=== PATIENT | female | born 1955 | race Hispanic/Latino ===

== ENCOUNTER 2017-09-12 13:19 | Emergency (ER) | payer BC ==
[2017-09-12 13:45] VITALS: BP 147/87
--- NOTE | 2017-09-12 19:00 | Emergency Department Report ---
ED Back Pain/Injury HPI - General Chief Complaint: Back Pain/Injury Stated Complaint: BACK PAIN Time Seen by Provider: 09/12/17 18:45 Source: patient Limitations: No Limitations - History of Present Illness Initial Comments: pt is a 62 y/o w/f with hx HTN , COPD, and chronic low back pain who presents for right low back pain radiating to right lateral thigh and buttocks x 4 days pt denies injury fall or trauma, there is no numbness weakness or paralysis there is no loss or decrease in bowel or bladder function ,pain level is 4/10 at this time pain is exacerbated by movement prolonged standing or sitting, pain is relieved by rest, pt has pcp and will see same next week for follow up . MD Complaint: back pain Onset/Timin -: days(s) Similar Symptoms Previously: Yes (this is chronic problem ) Place: home Radiation: buttocks, right leg Severity: moderate Severity scale (0 -10): 4 Quality: burning, aching Consistency: constant Improves With: other (rest ) Worsens With: movement, sitting upright, walking Context: turning/twisting Associated Symptoms: denies: confusion, weakness, numbness, difficulty walking, cough, difficulty urinating, incontinence, fever/chills, constipation, headaches , abdominal pain, loss of appetite, malaise, nausea/vomiting, rash, seizure, shortness of breath, syncope - Related Data Home Medications Medication Instructions Recorded Confirmed Last Taken Lisinopril [Zestril TAB] 40 mg PO DAILY 08/04/13 12/14/14 09/30/13 Previous Rx's Medication Instructions Recorded Last Taken Type LORazepam [Ativan] 1 mg PO QHS #14 tab 07/09/14 Unknown Rx Paroxetine HCl [Paxil] 10 mg PO QDAY #30 bottle 09/14/14 Unknown Rx Ciprofloxacin HCl [Ciprofloxacin 500 mg PO BID #20 tablet 08/12/16 Unknown Rx TAB] metroNIDAZOLE [Flagyl] 500 mg PO Q12HR #20 tab 08/12/16 Unknown Rx traMADol [Ultram 50 MG tab] 50 mg PO Q6HR PRN #20 tablet 08/12/16 Unknown Rx Azithromycin [Zithromax] 250 mg PO DAILY #6 tablet 01/23/17 Unknown Rx Benzonatate [Tessalon Perles] 100 mg PO Q8HR #14 capsule 03/04/17 Unknown Rx Prednisone [predniSONE 10 mg 10 mg PO .TAPER #1 tab.ds.pk 01/23/17 Unknown Rx (6-Day Pack, 21 Tabs)] traMADol [Ultram 50 MG tab] 50 mg PO Q6HR PRN #20 tablet 01/23/17 Unknown Rx Acetaminophen 1,000 mg PO TID PRN #60 tablet 09/12/17 Unknown Rx Cyclobenzaprine [Flexeril] 10 mg PO BID PRN #30 tablet 09/12/17 Unknown Rx Diclofenac Sodium [Voltaren] 100 gm TP TID PRN #1 tube 09/12/17 Unknown Rx Allergies Allergy/AdvReac Type Severity Reaction Status Date / Time codeine Allergy Vomiting Verified 09/14/14 19:19 Penicillins Allergy Hives Verified 09/14/14 19:19 ED Review of Systems ROS: Stated complaint: BACK PAIN Other details as noted in HPI Constitutional: denies: chills, fever Eyes: denies: eye pain, eye discharge, vision change ENT: denies: ear pain, throat pain Respiratory: denies: cough, shortness of breath, wheezing Endocrine: no symptoms reported Gastrointestinal: denies: abdominal pain, nausea, diarrhea Genitourinary: as per HPI Musculoskeletal: back pain, arthralgia, myalgia Skin: denies: rash, lesions Neurological: denies: headache, weakness, paresthesias, abnormal gait, vertigo Psychiatric: denies: anxiety, depression Hematological/Lymphatic: denies: easy bleeding, easy bruising ED Past Medical Hx - Past Medical History Hx Hypertension: Yes Hx COPD: Yes - Surgical History Hx Appendectomy: Yes Additional Surgical History: neck surgery, neck fracture, hysterectomy - Social History Smoking Status: Never Smoker Substance Use Type: None - Medications Home Medications: Home Medications Medication Instructions Recorded Confirmed Last Taken Type Lisinopril [Zestril TAB] 40 mg PO DAILY 08/04/13 12/14/14 09/30/13 History LORazepam [Ativan] 1 mg PO QHS #14 tab 07/09/14 12/14/14 Unknown Rx Paroxetine HCl [Paxil] 10 mg PO QDAY #30 bottle 09/14/14 12/14/14 Unknown Rx Ciprofloxacin HCl [Ciprofloxacin 500 mg PO BID #20 tablet 08/12/16 Unknown Rx TAB] metroNIDAZOLE [Flagyl] 500 mg PO Q12HR #20 tab 08/12/16 Unknown Rx traMADol [Ultram 50 MG tab] 50 mg PO Q6HR PRN #20 tablet 08/12/16 Unknown Rx Azithromycin [Zithromax] 250 mg PO DAILY #6 tablet 01/23/17 Unknown Rx Benzonatate [Tessalon Perles] 100 mg PO Q8HR #14 capsule 01/23/17 Unknown Rx Prednisone [predniSONE 10 mg 10 mg PO .TAPER #1 tab.ds.pk 01/23/17 Unknown Rx (6-Day Pack, 21 Tabs)] traMADol [Ultram 50 MG tab] 50 mg PO Q6HR PRN #20 tablet 01/23/17 Unknown Rx Acetaminophen 1,000 mg PO TID PRN #60 tablet 09/12/17 Unknown Rx Cyclobenzaprine [Flexeril] 10 mg PO BID PRN #30 tablet 09/12/17 Unknown Rx Diclofenac Sodium [Voltaren] 100 gm TP TID PRN #1 tube 09/12/17 Unknown Rx ED Physical Exam - General Limitations: No Limitations General appearance: alert, in no apparent distress - Head Head exam: Present: atraumatic, normocephalic - Eye Eye exam: Present: normal appearance - ENT ENT exam: Present: mucous membranes moist - Neck Neck exam: Present: normal inspection - Respiratory Respiratory exam: Present: normal lung sounds bilaterally - Cardiovascular Cardiovascular Exam: Present: regular rate, normal rhythm. Absent: systolic murmur, diastolic murmur, rubs, gallop - GI/Abdominal GI/Abdominal exam: Present: soft, normal bowel sounds - Rectal Rectal exam: Present: deferred - Extremities Exam Extremities exam: Present: full ROM, tenderness (right sciatic notch ), normal capillary refill. Absent: pedal edema, joint swelling, calf tenderness - Expanded Lower Extremity Exam Right Hip exam: Present: full ROM. Absent: tenderness Knee exam: Present: normal inspection, full ROM Lower Leg exam: Present: normal inspection, full ROM Ankle exam: Present: normal inspection, full ROM Foot/Toe exam: Present: normal inspection, full ROM Neuro vascular tendon exam: Present: no vascular compromise. Absent: pulse deficit, abnormal cap refill, motor deficit, sensory deficit, tendon deficit, extremity cold to touch, pallor, abnormal 2-point discrimination, decreased fine /light touch, foot drop, peroneal nerve deficit, significant pain with passive ROM of distal joint Gait: Positive: observed and normal - Back Exam Back exam: Present: full ROM, tenderness (right sciatic notch tenderness to deep palpation no posterior vertebral point tenderness no paraspinus muscle tenderness rom intact unrestricted, pos straight let raise right ), muscle spasm. Absent: CVA tenderness (R), CVA tenderness (L), paraspinal tenderness, vertebral tenderness, rash noted - Expanded Back Exam Expanded Back exam: Absent: saddle anesthesia Back exam: Sciatic Notch Tenderness: Right, Positive Straight Leg Raise: Right, Negative Straight Leg Raising: Left - Neurological Exam Neurological exam: Present: alert, oriented X3, CN II-XII intact, normal gait, reflexes normal. Absent: motor sensory deficit - Expanded Neurological Exam Expanded Patient oriented to: Present: person, place, time Speech: Present: fluid speech Sensory exam: Upper Extremity Light Touch: Normal, Upper Extremity Pin Prick: Normal, Upper Extremity Temperature: Normal, UE 2 Point Discrimination: Normal, Lower Extremity Light Touch: Normal, Lower Extremity Pin Prick: Normal, Lower Extremity Temperature: Normal, LE 2 Point Discrimination: Normal Motor strength exam: RUE: 5, LUE: 5, RLE: 5, LLE: 5 DTR: bicep (R): 2+, bicep (L): 2+, tricep (R): 2+, tricep (L): 2+, knee (R): 2+ , knee (L): 2+, ankle (R): 2+, ankle (L): 2+ Best Eye Response (Mcgrann): (4) open spontaneously Best Motor Response (Joel): (6) obeys commands Best Verbal Response (Mcgrann): (5) oriented Joel Total: 15 - Psychiatric Psychiatric exam: Present: normal affect, normal mood - Skin Skin exam: Present: warm, dry, intact, normal color. Absent: rash ED Course Vital Signs 09/12/17 13:40 Temperature 98.5 F Pulse Rate 64 Respiratory 20 Rate Blood Pressure 147/87 O2 Sat by Pulse 97 Oximetry ED Medical Decision Making - Medical Decision Making pt is a 62 y/o w/f with hx HTN , COPD, and chronic low back pain who presents for right low back pain radiating to right lateral thigh and buttocks x 4 days pt denies injury fall or trauma, there is no numbness weakness or paralysis there is no loss or decrease in bowel or bladder function ,pain level is 4/10 at this time pain is exacerbated by movement prolonged standing or sitting, pain is relieved by rest, pt has pcp and will see same next week for follow up , exam: pt is a/o x 3 ambulatory gait steady no deformity no weaknes no ecchymosis no posterior vertebral point tenderness no numbness no tingling no paralysis no decrease bowel or bladder function , pain is improved with toradol and flexeril given in ED , will dc to self with rx for tylenol, voltaren gel, flexeril, moist heat therapy, back exercises pt will follow up with primary care doctor in 3 days as scheduled or return to emergency if symptoms worsen pt verballized agreement and understanding of discharge plan. Critical care attestation.: If time is entered above; I have spent that time in minutes in the direct care of this critically ill patient, excluding procedure time. ED Disposition Clinical Impression: Low back strain Qualifiers: Encounter type: initial encounter Qualified Code(s): S39.012A - Strain of muscle, fascia and tendon of lower back, initial encounter Sciatica Qualifiers: Laterality: right Qualified Code(s): M54.31 - Sciatica, right side Disposition: DC-01 TO HOME OR SELFCARE Is pt being admited?: No Does the pt Need Aspirin: No Condition: Good Instructions: Low Back Strain (ED), Core Strengthening Exercises (GEN) Prescriptions: Acetaminophen 1,000 mg PO TID PRN #60 tablet PRN Reason: Pain Cyclobenzaprine [Flexeril] 10 mg PO BID PRN #30 tablet PRN Reason: Muscle Spasm Diclofenac Sodium [Voltaren] 100 gm TP TID PRN #1 tube PRN Reason: pain Referrals: SARITHA EVERETT MD [Primary Care Provider] - 3-5 Days Forms: Work/School Release Form(ED) Time of Disposition: 19:11
[2017-09-12] MEDS: FLEXERIL PO ONE (19:18)
[2017-09-12] MEDS: TORADOL IM ONE (19:18)
== END 2017-09-12 19:25 | disposition home or self-care (01) ==
LOC: ED 13:19
DX: S39.012A Strain of muscle, fascia and tendon of lower back, initial encounter (principal); M54.31 Sciatica, right side; G89.29 Other chronic pain; I10 Essential (primary) hypertension; J44.9 Chronic obstructive pulmonary disease, unspecified; Z88.0 Allergy status to penicillin; Z88.8 Allergy status to other drugs, medicaments and biological substances; X50.9XXA Other and unspecified overexertion or strenuous movements or postures, initial encounter; Y93.89 Activity, other specified; Y92.89 Other specified places as the place of occurrence of the external cause; Y99.8 Other external cause status
CPT/HCPCS: 96372; 99282; J1885

== ENCOUNTER 2017-10-01 12:42 | Emergency (ER) | payer BC ==
[2017-10-01 15:08] VITALS: BP 158/85
[2017-10-01] MEDS ORDERED: NORCO 5/325 PO ONE (15:47)
[2017-10-01] MEDS ORDERED: ZOFRAN ODT PO ONE (15:47)
[2017-10-01] MEDS ORDERED: VALIUM PO ONE (15:47)
[2017-10-01 16:06] LABS: Bilirubin,Urine NEG (Negative); Blood,Urine NEG (Negative); Ketones,Urine NEG (Negative); Leukocyte Esterase,Urine MOD (Negative); Mucus,Urine 3+ /HPF; Nitrite,Urine NEG (Negative)
[2017-10-01] MEDS ORDERED: TORADOL IM ONE (17:10)
--- NOTE | 2017-10-01 18:14 | Emergency Department Report ---
HPI - General Chief Complaint: Back Pain/Injury Time Seen by Provider: 10/01/17 15:36 - HPI HPI: 62-year-old female presents today complaining of lower back pain 3 days. Positive for history of similar symptoms and chronic back pain. Denies injury or trauma or any heavy lifting. Denies any urinary symptoms, burning while urination, increased urinary frequency or urgency, blood in urine. Patient reports lower back pain radiating down her right leg, a burning sensation. Denies numbness, weakness, paresthesias. Denies bowel or bladder incontinence. Denies fever, chills, nausea, vomiting, chest pain, shortness of breath, abdominal pain. ED Past Medical Hx - Past Medical History Hx Hypertension: Yes Hx COPD: Yes - Surgical History Hx Appendectomy: Yes Additional Surgical History: neck surgery, neck fracture, hysterectomy - Social History Smoking Status: Never Smoker Substance Use Type: None - Medications Home Medications: Home Medications Medication Instructions Recorded Confirmed Last Taken Type Lisinopril [Zestril TAB] 40 mg PO DAILY 08/04/13 12/14/14 09/30/13 History LORazepam [Ativan] 1 mg PO QHS #14 tab 07/09/14 12/14/14 Unknown Rx Paroxetine HCl [Paxil] 10 mg PO QDAY #30 bottle 09/14/14 12/14/14 Unknown Rx Ciprofloxacin HCl [Ciprofloxacin 500 mg PO BID #20 tablet 08/12/16 Unknown Rx TAB] metroNIDAZOLE [Flagyl] 500 mg PO Q12HR #20 tab 08/12/16 Unknown Rx Azithromycin [Zithromax] 250 mg PO DAILY #6 tablet 01/23/17 Unknown Rx Benzonatate [Tessalon Perles] 100 mg PO Q8HR #14 capsule 01/23/17 Unknown Rx Prednisone [predniSONE 10 mg 10 mg PO .TAPER #1 tab.ds.pk 01/23/17 Unknown Rx (6-Day Pack, 21 Tabs)] traMADol [Ultram 50 MG tab] 50 mg PO Q6HR PRN #20 tablet 01/23/17 Unknown Rx Acetaminophen 1,000 mg PO TID PRN #60 tablet 09/12/17 Unknown Rx Diclofenac Sodium [Voltaren] 100 gm TP TID PRN #1 tube 09/12/17 Unknown Rx Cyclobenzaprine [Flexeril 10 MG 10 mg PO BID PRN #30 tablet 10/01/17 Unknown Rx TAB] traMADol [Ultram 50 MG tab] 50 mg PO Q6HR PRN #20 tablet 10/01/17 Unknown Rx ED Review of Systems ROS: Stated complaint: LOW BACK PAIN Other details as noted in HPI Constitutional: denies: chills, fever, malaise Eyes: denies: eye pain ENT: denies: ear pain, throat pain, congestion Respiratory: denies: cough, shortness of breath, wheezing Cardiovascular: denies: chest pain, palpitations Endocrine: no symptoms reported Gastrointestinal: denies: abdominal pain, nausea, vomiting Genitourinary: denies: urgency, dysuria, frequency, hematuria Musculoskeletal: back pain Skin: denies: rash Neurological: denies: headache, weakness, numbness, paresthesias Physical Exam - Physical Exam Vital Signs: Vital Signs 10/01/17 10/01/17 10/01/17 15:04 17:08 17:54 Temperature 97.6 F Pulse Rate 100 H Respiratory 16 18 18 Rate Blood Pressure 158/85 O2 Sat by Pulse 97 Oximetry Physical Exam: GENERAL: The patient is well-developed and well-nourished. Patient is in NAD. HEAD: Normocephalic. Atraumatic. EYES: Extraocular motions are intact, PERRL. EARS: External auditory canals and tympanic membranes clear; hearing grossly intact. NOSE: Normal nasal mucosa with no nasal discharge. THROAT: No erythema, swelling or exudates. Teeth and gingiva in good general condition. NECK: Supple, nontender, without lymphadenopathy. No meningitic signs are noted. BACK: Full ROM. No midline tenderness. Bilateral paraspinal tenderness of lumbar region. Tenderness to palpation of the right sciatic notch. Negative straight leg raise bilaterally. CHEST/LUNGS: Clear to auscultation throughout. HEART/CARDIOVASCULAR: Regular rate and rhythm. No murmurs, rubs or gallops. ABDOMEN: Abdomen is soft, nontender. Bowel sounds normoactive. No guarding or rebound tenderness. Negative for CVA tenderness bilaterally. EXTREMITIES: Full range of motion in all 4 extremities. Peripheral pulses intact. Capillary refill less than 2 seconds. NEURO: Alert and oriented x 3. Normal gait. ED Course Vital Signs 10/01/17 10/01/17 10/01/17 15:04 17:08 17:54 Temperature 97.6 F Pulse Rate 100 H Respiratory 16 18 18 Rate Blood Pressure 158/85 O2 Sat by Pulse 97 Oximetry ED Medical Decision Making - Lab Data Vital Signs 10/01/17 10/01/17 10/01/17 15:04 17:08 17:54 Temperature 97.6 F Pulse Rate 100 H Respiratory 16 18 18 Rate Blood Pressure 158/85 O2 Sat by Pulse 97 Oximetry - Medical Decision Making 62-year-old female presents today complaining of lower back pain radiating down her right leg. Patient has history of chronic back pain. Patient reports symptomatically post pain control in the emergency department. Patient is in no acute distress at this time. She will be discharged home and is encouraged to follow up with a primary care provider. She will be sent home on Flexeril and tramadol and is encouraged to return to the emergency room for any worsening symptoms. Critical care attestation.: If time is entered above; I have spent that time in minutes in the direct care of this critically ill patient, excluding procedure time. ED Disposition Clinical Impression: Low back pain Qualifiers: Chronicity: chronic Back pain laterality: right Sciatica presence: with sciatica Sciatica laterality: sciatica of right side Qualified Code(s): M54.41 - Lumbago with sciatica, right side Disposition: TO HOME OR SELFCARE Is pt being admited?: No Does the pt Need Aspirin: No Condition: Stable Instructions: Sciatica (ED), Chronic Back Pain (ED) Additional Instructions: Follow-up with primary care provider. Return to the emergency department if symptoms worsen. Prescriptions: Cyclobenzaprine [Flexeril 10 MG TAB] 10 mg PO BID PRN #30 tablet PRN Reason: Muscle Spasm traMADol [Ultram 50 MG tab] 50 mg PO Q6HR PRN #20 tablet PRN Reason: Pain Referrals: VITO CLINE MD [Primary Care Provider] - 3-5 Days EUGENIA WYATT MD [Staff Physician] - 3-5 Days Forms: Work/School Release Form(ED) Time of Disposition: 18:05
== END 2017-10-01 18:45 | disposition home or self-care (01) ==
LOC: ED 12:42
DX: M54.41 Lumbago with sciatica, right side (principal); I10 Essential (primary) hypertension; J44.9 Chronic obstructive pulmonary disease, unspecified
CPT/HCPCS: 81001; 96372; 99283; J1885; Q0162

== ENCOUNTER 2019-05-20 11:16 | Inpatient (IN) | payer BC ==
[2019-05-20] MEDS ORDERED: SUBLIMAZE IV ONE ×2 (11:47→14:26)
[2019-05-20] MEDS ORDERED: ZOFRAN IV ONE (11:47)
[2019-05-20] MEDS ORDERED: NITRO-BID 2% TP ONE (11:47)
[2019-05-20] MEDS ORDERED: PLAVIX PO ONE (11:48)
--- NOTE | 2019-05-20 11:53 | Emergency Department Report ---
HPI - General Chief Complaint: Chest Pain Time Seen by Provider: 05/20/19 11:38 - HPI HPI: Room 2 The patient is a 63-year-old female presenting with chief complaint of chest pain. Patient states last night she developed substernal chest pressure has b een constant associated with shortness of breath, diaphoresis and nausea. Patient denies vomiting. Of note approximately one week ago the patient had a cardiac cath with heart stent placement at [facility]. The patient states she has been compliant with her medication including a recent blood thinner she was placed on after stent placement (patient states she cannot remember the name of the medication). Location: [See above] Duration: [See above] Quality: [See above] Severity: [See above] Modifying factors: [see above] Context: [see above] Mode of transportation: [not driving] ED Past Medical Hx - Past Medical History Previous Medical History?: Yes Hx Hypertension: Yes Hx COPD: Yes - Surgical History Past Surgical History?: Yes Hx Appendectomy: Yes Additional Surgical History: neck surgery, neck fracture, hysterectomy - Family History Family history: no significant - Social History Smoking Status: Former Smoker (stopped smoking one week ago) Substance Use Type: None - Medications Home Medications: Home Medications Medication Instructions Recorded Confirmed Last Taken Type Lisinopril [Zestril TAB] 40 mg PO DAILY 08/04/13 12/14/14 09/30/13 History LORazepam [Ativan] 1 mg PO QHS #14 tab 07/09/14 12/14/14 Unknown Rx Paroxetine HCl [Paxil] 10 mg PO QDAY #30 bottle 09/14/14 12/14/14 Unknown Rx Ciprofloxacin HCl [Ciprofloxacin 500 mg PO BID #20 tablet 08/12/16 Unknown Rx TAB] metroNIDAZOLE [Flagyl] 500 mg PO Q12HR #20 tab 08/12/16 Unknown Rx Azithromycin [Zithromax] 250 mg PO DAILY #6 tablet 01/23/17 Unknown Rx Benzonatate [Tessalon Perles] 100 mg PO Q8HR #14 capsule 01/23/17 Unknown Rx Prednisone [predniSONE 10 mg 10 mg PO .TAPER #1 tab.ds.pk 01/23/17 Unknown Rx (6-Day Pack, 21 Tabs)] traMADol [Ultram 50 MG tab] 50 mg PO Q6HR PRN #20 tablet 01/23/17 Unknown Rx Acetaminophen 1,000 mg PO TID PRN #60 tablet 09/12/17 Unknown Rx Diclofenac Sodium [Voltaren] 100 gm TP TID PRN #1 tube 09/12/17 Unknown Rx Cyclobenzaprine [Flexeril 10 MG 10 mg PO BID PRN #30 tablet 10/01/17 Unknown Rx TAB] traMADol [Ultram 50 MG tab] 50 mg PO Q6HR PRN #20 tablet 10/01/17 Unknown Rx Diphenoxylate HCl/Atropine 1 each PO BID PRN #10 tablet 10/01/18 Unknown Rx [Lomotil 2.5-0.025 mg Tablet] Ibuprofen [Motrin] 600 mg PO Q8H PRN #20 tablet 10/01/18 Unknown Rx Ondansetron [Zofran Odt] 4 mg PO Q8HR PRN #10 tab.rapdis 10/01/18 Unknown Rx methOCARBAMOL [Robaxin TAB] 500 mg PO Q6H PRN #15 tablet 10/01/18 Unknown Rx traMADol [Ultram] 50 mg PO Q6HR PRN #10 tablet 10/01/18 Unknown Rx ED Review of Systems ROS: Stated complaint: CHEST PAINS Other details as noted in HPI Constitutional: diaphoresis Eyes: denies: eye pain ENT: denies: throat pain Respiratory: shortness of breath Cardiovascular: chest pain Endocrine: no symptoms reported Gastrointestinal: nausea. denies: abdominal pain, vomiting Genitourinary: denies: dysuria Musculoskeletal: denies: back pain Neurological: denies: headache Physical Exam - Physical Exam Vital Signs: Vital Signs 05/20/19 05/20/19 11:26 11:30 Pulse Rate 84 74 Respiratory 36 H 20 Rate Blood Pressure 134/69 O2 Sat by Pulse 97 95 Oximetry Physical Exam: GENERAL: The patient is well-developed well-nourished female sitting on stretcher appearing to be in moderate discomfort. [] HEENT: Normocephalic. Atraumatic. Extraocular motions are intact. Patient has moist mucous membranes. NECK: Supple. Trachea midline CHEST/LUNGS: Clear to auscultation. There is no respiratory distress noted. HEART/CARDIOVASCULAR: Regular. There is no tachycardia. There is no gallop rub or murmur. ABDOMEN: Abdomen is soft, nontender. Patient has normal bowel sounds. There is no abdominal distention. SKIN: There is no rash. There is no edema. There is no diaphoresis. NEURO: The patient is awake, alert, and oriented. The patient is cooperative. The patient has normal speech MUSCULOSKELETAL: There is no evidence of acute injury. ED Course Vital Signs 05/20/19 05/20/19 11:26 11:30 Pulse Rate 84 74 Respiratory 36 H 20 Rate Blood Pressure 134/69 O2 Sat by Pulse 97 95 Oximetry ED Medical Decision Making - Lab Data Result diagrams: 05/20/19 11:32 05/20/19 13:11 Laboratory Tests 05/20/19 05/20/19 05/20/19 11:32 11:32 13:11 WBC 9.4 RBC 4.45 Hgb 14.5 H Hct 42.9 MCV 97 MCH 33 H MCHC 34 RDW 14.2 Plt Count 352 Lymph % (Auto) 19.4 [place] % (Auto) 13.1 H Eos % (Auto) 1.5 Baso % (Auto) 0.6 Lymph # 1.8 [place] # 1.2 H Eos # 0.1 Baso # 0.1 Seg Neutrophils % 65.4 Seg Neutrophils # 6.2 Sodium TNR 137 Potassium TNR 4.6 Chloride TNR 96.1 L Carbon Dioxide TNR 25 Anion Gap TNR 21 BUN TNR 19 H Creatinine TNR 0.8 Estimated GFR TNR > 60 BUN/Creatinine Ratio TNR 24 Glucose TNR 135 H Calcium TNR 9.3 Troponin T 0.614 H* Triglycerides TNR Cholesterol TNR LDL Cholesterol Direct TNR HDL Cholesterol TNR Cholesterol/HDL Ratio TNR - EKG Data -: EKG Interpreted by Me EKG shows normal: sinus rhythm Rate: normal - EKG Data When compared to previous EKG there are: changes noted Interpretation: nonspecific ST-T wave charlene (new T-wave inversions in leads V2, V3, V4, V5, V6) - Radiology Data Radiology results: report reviewed (chest x-ray), image reviewed (chest x-ray) interpreted by me: Chest x-ray-no focal infiltrates, no pneumothorax [facility] [address] [place] [address] XRay Report Signed Patient: ERIKA HUNT MR#: [id number] : 1955 Acct:[id number] Age/Sex: 63 / F ADM Date: 05/20/19 Loc: ED Attending Dr: Ordering Physician: JESSICA LEWIS MD Date of Service: 05/20/19 Procedure(s): XR chest 1V ap Accession Number(s): [id number] cc: JESSICA LEWIS MD Fluoro Time In Minutes: PROCEDURE: XR CHEST 1V AP TECHNIQUE: Chest, portable upright HISTORY: Chest Pain COMPARISON: 01/23/2017 FINDINGS: The heart size is normal. There is no pulmonary vascular congestion seen. Mediastinal contours are unchanged. Lungs are clear. There is no pleural effusion seen. There is no pneumothorax seen. There are cervical spine postoperative findings. IMPRESSION: No acute abnormality identified. This document is electronically signed by Franchesca William MD., May 20 2019 01:21:36 PM ET Transcribed By: PETER Dictated By: FRANCHESCA WILLIAM MD Electronically Authenticated By: FRANCHESCA WILLIAM MD Signed Date/Time: 05/20/19 1323 DD/ 1151 TD/TT: 05/20/19 1151 - Differential Diagnosis ACS, pericarditis, GERD Critical care attestation.: If time is entered above; I have spent that time in minutes in the direct care of this critically ill patient, excluding procedure time. ED Disposition Clinical Impression: Chest pain Disposition: OP ADMIT IP TO THIS HOSP Is pt being admited?: Yes Does the pt Need Aspirin: No Condition: Fair Instructions: Chest Pain (ED) Referrals: [facility] MD JAIRO [Primary Care Provider] - 3-5 Days Time of Disposition: 14:26 (hospitalist notified (Dr Olmos))
[2019-05-20 12:14] LABS: Basophils # (Auto) 0.1 K/mm3 (0.0-0.1); Basophils % (Auto) 0.6 % (0.0-1.8); Eosinophils # (Auto) 0.1 K/mm3 (0.0-0.4); Eosinophils % (Auto) 1.5 % (0.0-4.3); Hematocrit 42.9 % (30.3-42.9); Hemoglobin 14.5 gm/dl (10.1-14.3); Lymphocytes # (Auto) 1.8 K/mm3 (1.2-5.4); Lymphocytes % (Auto) 19.4 % (13.4-35.0); Mean Corpuscular HGB Conc 34 % (30-34); Mean Corpuscular Volume 97 fl (79-97); Monocytes # (Auto) 1.2 K/mm3 (0.0-0.8); Monocytes % (Auto) 13.1 % (0.0-7.3); Platelet Count 352 K/mm3 (140-440); Red Blood Count 4.45 M/mm3 (3.65-5.03); Red Cell Distribution Width 14.2 % (13.2-15.2)
[2019-05-20 13:11] LABS: BUN/Creatinine Ratio TNR; Blood Urea Nitrogen TNR mg/dL (7-17)
[2019-05-20 13:12] LABS: Calcium TNR mg/dL (8.4-10.2); Chol/HDL Ratio TNR %; HDL Cholesterol TNR mg/dL (40-59); Hemolysis Index TNR; LDL Cholesterol,Direct TNR mg/dL (50-130)
--- NOTE | 2019-05-20 13:23 | XRay Report ---
PROCEDURE: XR CHEST 1V AP TECHNIQUE: Chest, portable upright HISTORY: Chest Pain COMPARISON: 01/23/2017 FINDINGS: The heart size is normal. There is no pulmonary vascular congestion seen. Mediastinal contours are unchanged. Lungs are clear. There is no pleural effusion seen. There is no pneumothorax seen. There are cervical spine postoperative findings. IMPRESSION: No acute abnormality identified. This document is electronically signed by Franchesca William MD., May 20 2019 01:21:36 PM ET
[2019-05-20 14:25] LABS: BUN/Creatinine Ratio 24; Blood Urea Nitrogen 19 mg/dL (7-17); Calcium 9.3 mg/dL (8.4-10.2); Hemolysis Index 82
[2019-05-20] MEDS ORDERED: REGLAN IV ONE (14:28)
--- NOTE | 2019-05-20 14:28 | History and Physical Report ---
History of Present Illness Chief complaint: My chest hurts History of present illness: 63 YO Female with HTN, COPD, Nicotine Dependence, CAD S/P Stent placement on therapeutic anticoagulation presents to ED for evaluation. Pt states that she has experienced pain in her chest. Pt states that pain awoke her from sleep last night. Pt reports pain 9/10, substernal, radiates to her left arm and back, associated with shortness of breath, diaphoresis, nausea. Pain worsened with exertion and relieved with rest. Pt acknowledges decreased exercise tolerance, dypsnea with exertion, dypsnea at rest. EMS notified, and upon arrival the patient was found to be in distress. Pt transported to [facility]. Pt seen and evaluated in ED and found to have Angina, as well as symptoms consistent with CHF Decompensation and NSTEMI. Pt admitted to telemetry and initiated on Heparin Drip with bolus. Cardiology team consulted in ED. Pt denies fever, chills, palpitations, trauma, skin rash, prolonged travel/immobility, medication noncompliance, individual/family history of DVT/PE/Bleeding/Blood Clotting Disorders, hemoptysis, BRBPR, unintentional weight loss, night sweats, or recent ill contacts. No prior admission for review. All listed medication reconciled at time of admission. CTA chest pending at time of admission. Past History Past Medical History: CAD, COPD, hypertension, hyperlipidemia Past Surgical History: appendectomy, hysterectomy, Other (Stent placement,neck surgery) Social history: , smoking. denies: alcohol abuse, prescription drug abuse, IV drug use Family history: CAD, hypertension Medications and Allergies Allergies Allergy/AdvReac Type Severity Reaction Status Date / Time aspirin Allergy Itching Verified 05/20/19 11:23 codeine Allergy Vomiting Verified 05/20/19 11:23 Penicillins Allergy Hives Verified 05/20/19 11:23 pentazocine [From Talwin] Allergy Nausea Verified 05/20/19 11:23 Home Medications Medication Instructions Recorded Confirmed Last Taken Type Lisinopril [Zestril TAB] 40 mg PO DAILY 08/04/13 05/20/19 09/30/13 History Apixaban 5 mg PO BID 05/20/19 05/20/19 Unknown History Aspirin BABY CHEW TAB 81 mg PO DAILY 05/20/19 05/20/19 Unknown History Ativan 0.25 mg PO BID PRN 05/20/19 05/20/19 Unknown History AtorvaSTATin [Lipitor] 80 mg PO HS 05/20/19 05/20/19 Unknown History Cyclobenzaprine [Flexeril 10 MG 10 mg PO PRN PRN 05/20/19 05/20/19 Unknown History TAB] Nitroglycerin 0.4 mg SL PRN PRN 05/20/19 05/20/19 Unknown History PARoxetine [Paxil] 40 mg PO DAILY 05/20/19 05/20/19 Unknown History Pregabalin [Lyrica] 75 mg PO QDAY 05/20/19 05/20/19 Unknown History Ticagrelor 90 mg PO BID 05/20/19 05/20/19 Unknown History Zolpidem [Ambien] 10 mg PO HS 05/20/19 05/20/19 Unknown History amLODIPine 10 mg PO DAILY 05/20/19 05/20/19 Unknown History hydroCHLOROthiazide [HCTZ] 25 mg PO ONCE 05/20/19 05/20/19 Unknown History methOCARBAMOL [Robaxin TAB] 750 mg PO PRN PRN 05/20/19 05/20/19 Unknown History traZODone 50 mg PO HS 05/20/19 05/20/19 Unknown History Review of Systems Constitutional: no weight loss, no weight gain, no fever, no chills Ears, nose, mouth and throat: no ear pain, no ear discharge, no tinnitis, no decreased hearing, no nose pain Breasts: no change in shape, no swelling, no mass Cardiovascular: chest pain, dyspnea on exertion, high blood pressure, decreased exercise tolerance Respiratory: no cough, no cough with sputum, no excessive sputum Gastrointestinal: no abdominal pain, no nausea, no vomiting, no diarrhea Genitourinary Female: no dyspareunia, no dysmenorrhea, no pelvic pain, no flank pain, no menorrhagia Menstruation: no post hysterectomy, no ammenorrhea, no ammenorrhea on BC, no per iod normal, no period heavy Rectal: no pain, no incontinence, no bleeding Musculoskeletal: no neck stiffness, no neck pain, no shooting arm pain, no arm numbness/tingling Integumentary: no rash, no pruritis, no redness, no sores, no wounds Neurological: no transient paralysis, no paralysis, no weakness, no parathesias, no numbness, no tingling Psychiatric: no anxiety, no memory loss, no change in sleep habits, no sleep disturbances, no insomnia, no hypersomnia, no change in appetite Endocrine: no cold intolerance, no heat intolerance, no polyphagia, no excessive thirst, no nocturia, no excessive sweating, no flushing Hematologic/Lymphatic: no easy bruising, no easy bleeding, no lymphadenopathy, no lymphedema Allergic/Immunologic: no urticaria, no allergic rhinitis, no wheezing, no persistent infections, no anaphylaxis Exam - Constitutional Vitals: Temp Pulse Resp BP Pulse Ox 98.0 F 68 23 133/55 96 05/20/19 11:51 05/20/19 14:00 05/20/19 14:00 05/20/19 14:00 05/20/19 14:00 General appearance: Present: mild distress - EENT Eyes: Present: PERRL ENT: hearing intact, clear oral mucosa - Neck Neck: Present: supple, normal ROM - Respiratory Respiratory effort: normal Respiratory: bilateral: CTA - Cardiovascular Heart Sounds: Present: S1 & S2. Absent: rub, click - Extremities Extremities: pulses symmetrical, No edema Peripheral Pulses: within normal limits - Abdominal General gastrointestinal: Present: soft, non-tender, non-distended, normal bowel sounds Female genitourinary: Present: normal - Integumentary Integumentary: Present: clear, warm, dry - Musculoskeletal Musculoskeletal: gait normal, strength equal bilaterally - Psychiatric Psychiatric: appropriate mood/affect, intact judgment & insight - Neurologic Neurologic: CNII-XII intact, moves all extremities Results - Labs CBC & Chem 7: 05/20/19 11:32 05/20/19 13:11 Labs: Abnormal lab results 05/20/19 05/20/19 05/20/19 Range/Units 11:32 11:32 13:11 Hgb 14.5 H (10.1-14.3) gm/dl MCH 33 H (28-32) pg Marion % (Auto) 13.1 H (0.0-7.3) % Marion # 1.2 H (0.0-0.8) K/mm3 Chloride 96.1 L (98-107) mmol/L BUN 19 H (7-17) mg/dL Glucose 135 H (65-100) mg/dL Troponin T 0.614 H* (0.00-0.029) ng/mL Assessment and Plan - Patient Problems (1) NSTEMI (non-ST elevated myocardial infarction) Current Visit: Yes Status: Acute Plan to address problem: Admit to telemetry, Heparin drip, morphine, supplemental oxygen, nitro, aspirin, cardiology consulted, serial cardiac enzymes. (2) Angina at rest Current Visit: Yes Status: Acute Plan to address problem: Serial cardiac enzymes, ekg, telemetry, cardiology consulted in ED, stress test (3) Diastolic CHF Current Visit: Yes Status: Suspected Qualifiers: Heart failure chronicity: acute Qualified Code(s): I50.31 - Acute diastolic (congestive) heart failure Plan to address problem: Admit to telemetry, Echo, strict I/O, daily weight, monitor uop q shift, afterload reduction, BP control, cardiology consulted, (4) HTN (hypertension) Current Visit: Yes Status: Acute Qualifiers: Hypertension type: essential hypertension Qualified Code(s): I10 - Essential (primary) hypertension Plan to address problem: Monitor BP q shift, supportive care. (5) COPD (chronic obstructive pulmonary disease) Current Visit: Yes Status: Acute Qualifiers: Chronic bronchitis type: mixed simple and mucopurulent Plan to address problem: supplemental oxygen, nebulizer therapy, NIPPV as clinically indicated. (6) Nicotine dependence unspecified, with withdrawal Current Visit: Yes Status: Acute Qualifiers: Nicotine product type: cigarettes Qualified Code(s): F17.213 - Nicotine dependence, cigarettes, with withdrawal Plan to address problem: Smoking cessation counseling:+15min, supportive care. (7) CAD (coronary artery disease) Current Visit: Yes Status: Acute Qualifiers: Associated angina: with stable angina Plan to address problem: Low cholesterol diet, lipid panel, statin therapy, risk factor reduction. (8) HLD (hyperlipidemia) Current Visit: Yes Status: Acute Plan to address problem: lipid panel, statin therapy, (9) DVT prophylaxis Current Visit: Yes Status: Acute Plan to address problem: SCD to BLE while in bed, heparin drip.
[2019-05-20] MEDS ORDERED: NITROSTAT SL PRN (14:29)
[2019-05-20] MEDS ORDERED: BABY ASPIRIN PO STA (14:29)
[2019-05-20] MEDS ORDERED: SODIUM CHLORIDE FLUSH SYRINGE 10 ML IV PRN ×2 (14:29→20:01)
[2019-05-20] MEDS ORDERED: LOMOTIL PO PRN (14:31)
[2019-05-20] MEDS ORDERED: FLEXERIL PO PRN ×2 (14:31→19:55)
[2019-05-20] MEDS ORDERED: DICLOFENAC 1% TP PRN (14:31)
[2019-05-20] MEDS ORDERED: IBUPROFEN PO PRN (14:31)
[2019-05-20] MEDS ORDERED: ZOFRAN ODT PO PRN (15:00)
[2019-05-20] MEDS ORDERED: PAXIL PO SCH (16:00)
[2019-05-20] MEDS ORDERED: LOVENOX SUB-Q SCH (19:54)
[2019-05-20] MEDS ORDERED: ROBAXIN PO PRN (19:55)
[2019-05-20] MEDS ORDERED: LORAZEPAM 0.25 MG PO PRN (19:55)
[2019-05-20] MEDS ORDERED: NITROGLYCERIN 0.4 MG SL PRN (19:55)
[2019-05-20] MEDS ORDERED: HEPARIN 10,000 UNITS/10 ML IV ONE (20:00)
[2019-05-20] MEDS ORDERED: ZOFRAN IV PRN (20:01)
[2019-05-20] MEDS ORDERED: TYLENOL PO PRN (20:01)
[2019-05-20] MEDS ORDERED: PROVENTIL IH PRN (20:01)
[2019-05-20] MEDS ORDERED: CARAFATE PO ONE (20:01)
[2019-05-20] MEDS: MORPHINE IV PRN (20:34)
[2019-05-20 20:37] LABS: Hematocrit 41.8 % (30.3-42.9); Hemoglobin 13.7 gm/dl (10.1-14.3)
[2019-05-20] MEDS ORDERED: MORPHINE ONE (20:38)
[2019-05-20 20:47] LABS: INR 1.15 (0.87-1.13); Partial Thromboplastin Time 27.6 Sec. (24.2-36.6)
[2019-05-20] MEDS ORDERED: ATIVAN PO PRN (20:52)
[2019-05-20] MEDS ORDERED: HEPARIN/ 0.45% NACL-25,000 UNIT/500 ML 25,000 UNIT/500 ML BAG IV SCH (21:00)
[2019-05-20] MEDS ORDERED: TICAGRELOR 90 MG PO SCH (22:00)
[2019-05-20] MEDS ORDERED: NON-FORMULARY (Trazodone 50 MG) PO SCH (22:00)
[2019-05-20] MEDS: ATIVAN PO SCH (22:26)
[2019-05-20] MEDS: DESYREL PO SCH (22:27)
[2019-05-20] MEDS: AMBIEN PO SCH (22:27)
[2019-05-20] MEDS: TESSALON PERLES PO SCH (22:27)
[2019-05-20] MEDS: BRILINTA PO SCH (22:28)
[2019-05-20] MEDS: SODIUM CHLORIDE FLUSH SYRINGE 10 ML IV SCH (22:29)
[2019-05-20] MEDS: ROBAXIN PO PRN (22:40)
[2019-05-21] MEDS: MORPHINE IV PRN (01:23)
[2019-05-21] MEDS: TESSALON PERLES PO SCH ×3 (05:50→22:28)
[2019-05-21 08:35] LABS: Basophils % (Auto) 0.5 % (0.0-1.8); Eosinophils # (Auto) 0.4 K/mm3 (0.0-0.4); Eosinophils % (Auto) 3.6 % (0.0-4.3); Hematocrit 37.9 % (30.3-42.9); Hemoglobin 12.7 gm/dl (10.1-14.3); Lymphocytes # (Auto) 3.1 K/mm3 (1.2-5.4); Lymphocytes % (Auto) 30.2 % (13.4-35.0); Mean Corpuscular HGB Conc 33 % (30-34); Mean Corpuscular Volume 98 fl (79-97); Monocytes # (Auto) 1.2 K/mm3 (0.0-0.8); Monocytes % (Auto) 11.9 % (0.0-7.3); Platelet Count 336 K/mm3 (140-440); Red Blood Count 3.86 M/mm3 (3.65-5.03); Red Cell Distribution Width 14.3 % (13.2-15.2)
[2019-05-21 09:00] LABS: Albumin 3.6 g/dL (3.9-5); Calcium 8.6 mg/dL (8.4-10.2)
--- NOTE | 2019-05-21 09:48 | Consultation ---
History of Present Illness Consult date: 05/21/19 Consult reason: chest pain, shortness of breath History of present illness: 63 year old female recently discharged from [facility] presenting to this hospital for evaluation of chest pain and shortness of breath. Patient received a BMS to the proximal RCA 05/16/2019. She states that she has been compliant with medical therapy. Troponin at [facility] was 0.57. Patient describes headache, pleuritic type chest pain radiating to the back, and shortness of breath. She recently quit smoking. Past History Past Medical History: CAD, COPD, hypertension, hyperlipidemia Past Surgical History: appendectomy, hysterectomy, Other (Stent placement,neck surgery) Social history: , smoking. denies: alcohol abuse, prescription drug abuse, IV drug use Family history: CAD, hypertension Medications and Allergies Allergies Allergy/AdvReac Type Severity Reaction Status Date / Time aspirin Allergy Itching Verified 05/20/19 11:23 codeine Allergy Vomiting Verified 05/20/19 11:23 Penicillins Allergy Hives Verified 05/20/19 11:23 pentazocine [From Talwin] Allergy Nausea Verified 05/20/19 11:23 Home Medications Medication Instructions Recorded Confirmed Last Taken Type Lisinopril [Zestril TAB] 40 mg PO DAILY 08/04/13 05/20/19 09/30/13 History Apixaban 5 mg PO BID 05/20/19 05/20/19 Unknown History Aspirin BABY CHEW TAB 81 mg PO DAILY 05/20/19 05/20/19 Unknown History Ativan 0.25 mg PO BID PRN 05/20/19 05/20/19 Unknown History AtorvaSTATin [Lipitor] 80 mg PO HS 05/20/19 05/20/19 Unknown History Cyclobenzaprine [Flexeril 10 MG 10 mg PO PRN PRN 05/20/19 05/20/19 Unknown History TAB] Nitroglycerin 0.4 mg SL PRN PRN 05/20/19 05/20/19 Unknown History PARoxetine [Paxil] 40 mg PO DAILY 05/20/19 05/20/19 Unknown History Pregabalin [Lyrica] 75 mg PO QDAY 05/20/19 05/20/19 Unknown History Ticagrelor 90 mg PO BID 05/20/19 05/20/19 Unknown History Zolpidem [Ambien] 10 mg PO HS 05/20/19 05/20/19 Unknown History amLODIPine 10 mg PO DAILY 05/20/19 05/20/19 Unknown History hydroCHLOROthiazide [HCTZ] 25 mg PO ONCE 05/20/19 05/20/19 Unknown History methOCARBAMOL [Robaxin TAB] 750 mg PO PRN PRN 05/20/19 05/20/19 Unknown History traZODone 50 mg PO HS 05/20/19 05/20/19 Unknown History Active Meds: Active Medications Acetaminophen (Tylenol) 650 mg PO Q4H PRN PRN Reason: Pain MILD(1-3)/Fever >100.5/MONTESINOS Last Admin: 05/20/19 22:40 Dose: 650 mg Documented by: Albuterol (Proventil) 2.5 mg IH Q4HRT PRN PRN Reason: Shortness Of Breath Amlodipine Besylate (Norvasc) 10 mg PO DAILY [facility] Aspirin (Halfprin Ec) 81 mg PO QDAY [facility] Atorvastatin Calcium (Lipitor) 80 mg PO [facility] Last Admin: 05/20/19 22:28 Dose: 80 mg Documented by: Benzonatate (Tessalon Perles) 100 mg PO Q8HR [facility] Last Admin: 05/21/19 05:50 Dose: 100 mg Documented by: Cyclobenzaprine HCl (Flexeril) 10 mg PO BID PRN PRN Reason: Muscle Spasm Last Admin: 05/20/19 22:40 Dose: 10 mg Documented by: Diclofenac Sodium (Diclofenac 1%) 1 applic TP TID PRN PRN Reason: pain Diphenoxylate HCl/Atropine (Lomotil) 1 tab PO BID PRN PRN Reason: Diarrhea Hydrochlorothiazide (Hctz) 25 mg PO QDAY [facility] Heparin Sodium/Sodium Chloride (Heparin/ 0.45% Nacl-25,000 Unit/500 Ml) 25,000 unit in 500 mls @ 21 mls/hr IV TITR [facility]; Protocol Last Admin: 05/20/19 22:29 Dose: 1,050 units/hr, 21 mls/hr Documented by: Ibuprofen (Ibuprofen) 600 mg PO Q8H PRN PRN Reason: Pain Lisinopril (Zestril) 40 mg PO DAILY [facility] Lorazepam (Ativan) 1 mg PO QHS [facility] Last Admin: 05/20/19 22:26 Dose: 1 mg Documented by: Lorazepam (Ativan) 0.25 mg PO BID PRN PRN Reason: Agitation Methocarbamol (Robaxin) 500 mg PO Q6H PRN PRN Reason: Pain Last Admin: 05/20/19 22:40 Dose: 500 mg Documented by: Morphine Sulfate (Morphine) 2 mg IV Q4H PRN PRN Reason: Pain, Moderate (4-6) Last Admin: 05/21/19 01:23 Dose: 2 mg Documented by: Nitroglycerin (Nitrostat) 0.4 mg SL Q5M PRN PRN Reason: Chest Pain Ondansetron HCl (Zofran Odt) 4 mg PO Q8HR PRN PRN Reason: Nausea And Vomiting Ondansetron HCl (Zofran) 4 mg IV Q8H PRN PRN Reason: Nausea And Vomiting Last Admin: 05/20/19 20:40 Dose: 4 mg Documented by: Paroxetine HCl (Paxil) 40 mg PO DAILY [facility] Pregabalin (Lyrica) 75 mg PO QDAY [facility] Sodium Chloride (Sodium Chloride Flush Syringe 10 Ml) 10 ml IV PRN PRN PRN Reason: LINE FLUSH Sodium Chloride (Sodium Chloride Flush Syringe 10 Ml) 10 ml IV BID [facility] Last Admin: 05/20/19 22:29 Dose: 10 ml Documented by: Sodium Chloride (Sodium Chloride Flush Syringe 10 Ml) 10 ml IV PRN PRN PRN Reason: LINE FLUSH Ticagrelor (Brilinta) 90 mg PO BID [facility] Last Admin: 05/20/19 22:28 Dose: 90 mg Documented by: Trazodone HCl (Desyrel) 50 mg PO QHS [facility] Last Admin: 05/20/19 22:27 Dose: 50 mg Documented by: Zolpidem Tartrate (Ambien) 10 mg PO [facility] Last Admin: 05/20/19 22:27 Dose: 10 mg Documented by: Review of Systems All systems: negative Physical Examination Vital Signs Pulse Resp Pulse Ox 84 36 H 97 05/20/19 11:26 05/20/19 11:26 05/20/19 11:26 General appearance: no acute distress HEENT: Positive: PERRL Neck: Positive: neck supple Cardiac: Positive: Reg Rate and Rhythm Lungs: Positive: Normal Exam Neuro: Positive: Grossly Intact Abdomen: Positive: Soft Extremities: Present: normal Results 05/21/19 06:33 05/21/19 06:33 Cardiac Enzymes 05/21/19 Range/Units 06:33 AST 18 (5-40) units/L Coagulation 05/20/19 Range/Units 20:08 PT 14.4 (12.2-14.9) Sec. INR 1.15 H (0.87-1.13) APTT 27.6 (24.2-36.6) Sec. Lipids 05/20/19 Range/Units 11:32 Triglycerides TNR Cholesterol TNR HDL Cholesterol TNR Cholesterol/HDL Ratio TNR CBC 05/20/19 05/20/19 05/21/19 Range/Units 11:32 20:08 06:33 WBC 9.4 10.4 (4.5-11.0) K/mm3 RBC 4.45 3.86 (3.65-5.03) M/mm3 Hgb 14.5 H 13.7 12.7 (10.1-14.3) gm/dl Hct 42.9 41.8 37.9 (30.3-42.9) % Plt Count 352 380 336 (140-440) K/mm3 Lymph # 1.8 3.1 (1.2-5.4) K/mm3 [place] # 1.2 H 1.2 H (0.0-0.8) K/mm3 Eos # 0.1 0.4 (0.0-0.4) K/mm3 Baso # 0.1 0.0 (0.0-0.1) K/mm3 Comprehensive Metabolic Panel 05/20/19 05/20/19 05/21/19 Range/Units 11:32 13:11 06:33 Sodium TNR 137 140 Potassium TNR 4.6 3.3 L D Chloride TNR 96.1 L 100.3 Carbon Dioxide TNR 25 22 BUN TNR 19 H 23 H Creatinine TNR 0.8 1.1 Glucose TNR 135 H 109 H Calcium TNR 9.3 8.6 AST 18 (5-40) units/L ALT 18 (7-56) units/L Alkaline Phosphatase 113 (35-129) units/L Total Protein 7.1 (6.3-8.2) g/dL Albumin 3.6 L (3.9-5) g/dL - EKG Interpretation EKG: sinus rhythm EKG interpretations - Telemetry EKG Rhythm: Sinus Rhythm Assessment and Plan Chest Pain and shortness of breath - reason for admission No ECG changes when compared to study done 05/17/2019 at [facility] Coronary artery disease Cardiac cath 05/16/2019 - 95% proximal RCA s/p BMS; 99% distal small RCA disease extending into the PLV recommended for medical therapy; 60% distal LAD disease recommended for medical therapy Echo 05/14/2019 - LVEF > 55%, restrictive physiology, mild RVE, mild RVD Chronically elevated troponin Troponin was 0.57 at [facility] 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
[2019-05-21] MEDS: HCTZ PO SCH (09:58)
[2019-05-21] MEDS: NORVASC PO SCH (09:58)
[2019-05-21] MEDS: ZESTRIL PO SCH (09:58)
[2019-05-21] MEDS: BRILINTA PO SCH ×2 (09:58→22:27)
[2019-05-21] MEDS: PAXIL PO SCH (09:58)
[2019-05-21] MEDS: LYRICA PO SCH (09:58)
[2019-05-21] MEDS ORDERED: NON-FORMULARY (Amlodipine 10 MG) PO SCH (10:00)
[2019-05-21] MEDS ORDERED: BABY ASPIRIN PO SCH (10:00)
[2019-05-21] MEDS ORDERED: NON-FORMULARY (Aspirin Baby Chew Tab 81 MG) PO SCH (10:00)
[2019-05-21] MEDS ORDERED: PAROXETINE HCL 10 MG PO SCH (10:00)
[2019-05-21] MEDS: HALFPRIN EC PO SCH (10:02)
[2019-05-21] MEDS: IMDUR PO SCH ×2 (10:02→22:29)
[2019-05-21] MEDS: ROBAXIN PO PRN (10:03)
[2019-05-21] MEDS: PROTONIX PO SCH (10:03)
[2019-05-21] MEDS: ELIQUIS PO SCH ×2 (10:03→22:27)
[2019-05-21] MEDS: SODIUM CHLORIDE FLUSH SYRINGE 10 ML IV SCH ×2 (10:03→22:28)
--- NOTE | 2019-05-21 10:29 | Cat Scan Report ---
PROCEDURE: CT ANGIO CHEST TECHNIQUE: CT of the abdomen and pelvis was performed. IV contrast was administered. Axial images and coronal and sagittal reformatted images were obtained. Rotational MIP reformatted images were also o btained. HISTORY: chest pain COMPARISON: 04/29/2015 FINDINGS: There is no aortic dissection seen. There are coronary artery calcifications. There is no abnormal mediastinal or hilar mass seen. There are no abnormal pulmonary arterial filling defects seen to indicate acute pulmonary emboli. There is no pleural effusion seen. There is some diffuse mild interstitial prominence hazy groundglass opacity. This could be chronic di sease or mild interstitial edema. Correlate clinically. There is focal nodular/patchy opacity at the right lung base is unchanged from 2015. There is no pneumothorax. IMPRESSION: There is no aortic dissection or pulmonary embolism seen. Small nodular/patchy density at right base is unchanged from 2015 and therefore of doubtful significa nce Diffuse mild interstitial prominence and groundglass opacity which could be interstitial infiltrate/e markell. Coronary artery calcification This document is electronically signed by Franchesca William MD., May 21 2019 10:27:00 AM ET
--- NOTE | 2019-05-21 13:55 | Discharge Summary ---
Providers - Providers Date of Admission: 05/20/19 20:01 Date of discharge: 05/22/19 Attending physician: JEAN CLAUDE SCHMID 05/20/19 Consult to Cardiac Rehabilitation [CONS] Routine Reason For Exam: Phase I 05/20/19 14:29 Consult to Cardiology [CONS] Routine Consulting Provider: ERICK GORMAN Reason For Exam: angina/CHF [facility] Condition: Fair Pertinent studies: CXR CTA chest Hospital course: 63 year old female with h/o remote tobacco abuse who recently discharged from [facility] presenting to this hospital for evaluation of chest pain and shortness of breath. Patient received a BMS to the proximal RCA on 05/16/2019. She stated that she has been compliant with medical therapy. Troponin at [facility] was 0.57. Patient was admitted for further monitoring, cardiology was consulted, she was monitored o/n, trended troponin, medical records from [place] was reviewed, added imdur and then patient was discharged home in stable condition. Discharge diagnosis and management: Atypical Chest Pain - No ECG changes when compared to study done 05/17/2019 at [facility], - Chest pain atypical likely from GERD, no further cardiac intervention. - monitored o/n, discharged home in stable condition after cardiac clearance Dyspnea, subjective, resolved - saturated >92% on RA w/o respiratory distress since admission. COPD with mild exacerbation - O2 sat normal at RA - given nebs and tapering steroid Coronary artery disease, h/o - cont medical Mx per cardiology, added imdur - s/p Cardiac cath 05/16/2019 showed 95% proximal RCA s/p BMS; 99% distal small RCA disease extending into the PLV recommended for medical therapy; 60% distal LAD disease recommended for medical therapy - Echo 05/14/2019 - LVEF > 55%, restrictive physiology, mild RVE, mild RVD - Per cardiology Avoid beta bibi therapy as patient did experience significant bradyarrhythmias during her hospital stay at [facility]. Chronically elevated troponin/NSTEMI type 2 - Troponin was 0.57 at [facility], troponin stable Former Smoker, stable care home use of anticoagulant (eliquis) - Reason for eliquis use is unclear - Reason behind choosing a BMS for intervention Chronic pain syndrome with Drug seeking behaviour - held any strong narcotics Hypokalemia, repleted Obesity, counseled for wt reduction diet. DVt Px, on AC with eliquis Disposition: DC-01 TO HOME OR SELFCARE Time spent for discharge: 34 minutes Core Measure Documentation - Palliative Care Palliative Care/ Comfort Measures: Not Applicable - Core Measures Any of the following diagnoses?: history only Exam - Constitutional Vitals: Temp Pulse Resp BP Pulse Ox 97.4 F L 65 24 128/65 94 05/21/19 12:25 05/21/19 12:25 05/21/19 12:25 05/21/19 12:25 05/21/19 12:30 General appearance: Present: no acute distress, obese - EENT Eyes: Present: PERRL ENT: hearing intact, clear oral mucosa - Neck Neck: Present: supple, normal ROM - Respiratory Respiratory effort: normal Respiratory: bilateral: CTA - Cardiovascular Heart Sounds: Present: S1 & S2. Absent: rub, click - Extremities Extremities: pulses symmetrical, No edema Peripheral Pulses: within normal limits - Abdominal General gastrointestinal: Present: soft, non-tender, non-distended, normal bowel sounds - Integumentary Integumentary: Present: clear, warm, dry - Musculoskeletal Musculoskeletal: gait normal, strength equal bilaterally - Psychiatric Psychiatric: appropriate mood/affect, intact judgment & insight - Neurologic Neurologic: CNII-XII intact, moves all extremities Plan Activity: advance as tolerated, fall precautions Weight Bearing Status: Non-Weight Bearing Diet: low fat, low salt [facility] JAIRO [Primary Care Provider] - 3-5 Days MELE MONZON MD [Staff Physician] - 7 Days Prescriptions: ISOSORBIDE MONOnitrate [Imdur ER] 30 mg PO Q12H #60 tablet Pantoprazole [Protonix TAB] 40 mg PO QDAY #30 tablet
[2019-05-21] MEDS ORDERED: K-DUR PO ONE (14:00)
--- NOTE | 2019-05-21 14:10 | Progress Note ---
Assessment and Plan Atypical Chest Pain - No ECG changes when compared to study done 05/17/2019 at [facility], - Chest pain atypical likely from GERD, no further cardiac intervention. - monitor o/n Dyspnea, subjective, resolved - saturating >92% on RA w/o respiratory distress since admission. COPD with mild exacerbation - O2 sat normal at RA now - cont nebs and tapering steroid Coronary artery disease, h/o - will cont medical Mx per cardiology, added imdur - s/p Cardiac cath 05/16/2019 showed 95% proximal RCA s/p BMS; 99% distal small RCA disease extending into the PLV recommended for medical therapy; 60% distal LAD disease recommended for medical therapy - Echo 05/14/2019 - LVEF > 55%, restrictive physiology, mild RVE, mild RVD Chronically elevated troponin - Troponin was 0.57 at [facility], cont to monitor Former Smoker, stable halfway use of anticoagulant (eliquis) - Reason for eliquis use is unclear - Reason behind choosing a BMS for intervention Chronic pain syndrome with Drug seeking behaviour - hold any strong narcotics Subjective Date of service: 05/21/19 Interval history: patient seen and examined feeling better, tolerating diet on RA saturating well Objective - Constitutional Vitals: Vital Signs - 12hr 05/21/19 05/21/19 05/21/19 03:59 04:00 04:26 Temperature 97.5 F L Pulse Rate 70 84 Respiratory 20 Rate Blood Pressure 155/66 O2 Sat by Pulse 97 Oximetry 05/21/19 05/21/19 05/21/19 07:16 07:35 12:25 Temperature 97.9 F 97.4 F L Pulse Rate 57 L 60 65 Respiratory 24 24 Rate Blood Pressure 130/57 128/65 O2 Sat by Pulse 94 97 Oximetry 05/21/19 12:30 Temperature Pulse Rate Respiratory Rate Blood Pressure O2 Sat by Pulse 94 Oximetry General appearance: Present: no acute distress, obese - EENT Eyes: PERRL, EOM intact ENT: hearing intact, clear oral mucosa Ears: bilateral: normal - Neck Neck: supple, normal ROM - Respiratory Respiratory effort: normal Respiratory: bilateral: CTA - Cardiovascular Rhythm: regular Heart Sounds: Present: S1 & S2. Absent: gallop, rub Extremities: pulses intact, No edema, normal color, Full ROM - Gastrointestinal General gastrointestinal: Present: soft, non-tender, non-distended, normal bowel sounds - Integumentary Integumentary: clear, warm, dry - Musculoskeletal Musculoskeletal: 1, strength equal bilaterally - Neurologic Neurologic: moves all extremities - Psychiatric Psychiatric: memory intact, appropriate mood/affect, intact judgment & insight - Labs CBC & Chem 7: 05/22/19 04:15 05/21/19 06:33 Labs: Abnormal lab results 05/20/19 05/20/19 05/20/19 Range/Units 13:11 17:14 20:08 MCV (79-97) fl MCH (28-32) pg Juncos % (Auto) (0.0-7.3) % Juncos # (0.0-0.8) K/mm3 INR (0.87-1.13) Heparin Anti-Xa Level (0.3-0.7) U.I./ml Potassium (3.6-5.0) mmol/L Chloride 96.1 L (98-107) mmol/L BUN 19 H (7-17) mg/dL Glucose 135 H (65-100) mg/dL Troponin T 0.704 H* 0.689 H* (0.00-0.029) ng/mL Albumin (3.9-5) g/dL 05/20/19 05/21/19 05/21/19 Range/Units 20:08 06:33 06:33 MCV 98 H (79-97) fl MCH 33 H (28-32) pg Juncos % (Auto) 11.9 H (0.0-7.3) % Juncos # 1.2 H (0.0-0.8) K/mm3 INR 1.15 H (0.87-1.13) Heparin Anti-Xa Level (0.3-0.7) U.I./ml Potassium 3.3 L D (3.6-5.0) mmol/L Chloride (98-107) mmol/L BUN 23 H (7-17) mg/dL Glucose 109 H (65-100) mg/dL Troponin T (0.00-0.029) ng/mL Albumin 3.6 L (3.9-5) g/dL 05/21/19 Range/Units 06:33 MCV (79-97) fl MCH (28-32) pg Juncos % (Auto) (0.0-7.3) % Juncos # (0.0-0.8) K/mm3 INR (0.87-1.13) Heparin Anti-Xa Level 2.15 H (0.3-0.7) U.I./ml Potassium (3.6-5.0) mmol/L Chloride (98-107) mmol/L BUN (7-17) mg/dL Glucose (65-100) mg/dL Troponin T (0.00-0.029) ng/mL Albumin (3.9-5) g/dL
[2019-05-21] MEDS: DELTASONE PO SCH (14:24)
[2019-05-21] MEDS: DESYREL PO SCH (22:26)
[2019-05-21] MEDS: ATIVAN PO SCH (22:27)
[2019-05-21] MEDS: AMBIEN PO SCH (22:27)
[2019-05-22] MEDS: TESSALON PERLES PO SCH ×2 (06:17→14:46)
[2019-05-22 06:37] LABS: Hematocrit 39.8 % (30.3-42.9); Hemoglobin 12.5 gm/dl (10.1-14.3)
[2019-05-22] MEDS ORDERED: LEXISCAN IV ONE (07:00)
[2019-05-22 08:07] VITALS: BP 138/58
--- NOTE | 2019-05-22 10:30 | Progress Note ---
Assessment and Plan Chest Pain and shortness of breath - reason for admission No ECG changes when compared to study done 05/17/2019 at [facility] Coronary artery disease Cardiac cath 05/16/2019 - 95% proximal RCA s/p BMS; 99% distal small RCA disease extending into the PLV recommended for medical therapy; 60% distal LAD disease recommended for medical therapy Echo 05/14/2019 - LVEF > 55%, restrictive physiology, mild RVE, mild RVD Chronically elevated troponin Troponin was 0.57 at [facility] Former Smoker snf use of anticoagulant (eliquis) Reason for eliquis use is unclear Reason behind choosing a BMS for intervention Chronic pain syndrome Drug seeking behaviour Recommendations: Continue medical therapy for coronary artery disease. Avoid beta bibi therapy as patient did experience significant bradyarrhythmias during her hospital stay at [facility]. Otherwise, conservative cardiac management. Subjective Date of service: 05/22/19 Interval history: Patient is resting in bed comfortably. Objective Vital Signs Temp Pulse Pulse Resp Resp BP Pulse Ox 05/22/19 07:40 94 05/22/19 07:15 98.1 F 18 138/58 05/22/19 05:00 98.0 F 75 18 98/57 96 05/21/19 23:33 98.0 F 77 20 131/69 97 05/21/19 23:00 18 05/21/19 22:29 82 142/67 05/21/19 22:15 82 18 92 05/21/19 20:20 98.0 F 82 18 142/67 88 05/21/19 19:17 80 05/21/19 16:52 97.8 F 76 24 147/62 94 05/21/19 12:30 94 05/21/19 12:25 97.4 F L 65 24 128/65 97 - Physical Examination General: No Apparent Distress HEENT: Positive: PERRL Neck: Positive: trachea midline Cardiac: Positive: Reg Rate and Rhythm Lungs: Positive: Decreased Breath Sounds Neuro: Positive: Grossly Intact Extremities: Absent: edema - Labs and Meds CBC 05/22/19 Range/Units 04:15 Hgb 12.5 (10.1-14.3) gm/dl Hct 39.8 (30.3-42.9) % Plt Count 350 (140-440) K/mm3
[2019-05-22] MEDS: ELIQUIS PO SCH (10:32)
[2019-05-22] MEDS: BRILINTA PO SCH (10:32)
[2019-05-22] MEDS: DELTASONE PO SCH (10:32)
[2019-05-22] MEDS: HALFPRIN EC PO SCH (10:32)
[2019-05-22] MEDS: LYRICA PO SCH (10:32)
[2019-05-22] MEDS: HCTZ PO SCH (10:33)
[2019-05-22] MEDS: NORVASC PO SCH (10:33)
[2019-05-22] MEDS: PROTONIX PO SCH (10:33)
[2019-05-22] MEDS: PAXIL PO SCH (10:34)
[2019-05-22] MEDS: SODIUM CHLORIDE FLUSH SYRINGE 10 ML IV SCH (10:34)
[2019-05-22] MEDS: ZESTRIL PO SCH (10:36)
[2019-05-22] MEDS: IMDUR PO SCH (10:38)
== END 2019-05-22 16:00 | disposition home or self-care (01) | DRG 391 ==
LOC: ED 11:16 → 4A 20:01
PROVIDERS: ADMIT Internal Medicine; ATTEND Internal Medicine
DX: K21.9 Gastro-esophageal reflux disease without esophagitis (principal); I50.31 Acute diastolic (congestive) heart failure; J44.1 Chronic obstructive pulmonary disease with (acute) exacerbation; F17.213 Nicotine dependence, cigarettes, with withdrawal; I25.10 Atherosclerotic heart disease of native coronary artery without angina pectoris; E78.5 Hyperlipidemia, unspecified; G89.4 Chronic pain syndrome; E87.6 Hypokalemia; I11.0 Hypertensive heart disease with heart failure; Z76.5 Malingerer [conscious simulation]; Z79.01 Long term (current) use of anticoagulants; Z90.49 Acquired absence of other specified parts of digestive tract; Z90.710 Acquired absence of both cervix and uterus; Z95.1 Presence of aortocoronary bypass graft; Z82.49 Family history of ischemic heart disease and other diseases of the circulatory system; Z88.6 Allergy status to analgesic agent; Z88.5 Allergy status to narcotic agent; Z88.0 Allergy status to penicillin; Z79.82 Long term (current) use of aspirin; Z79.899 Other long term (current) drug therapy; Z71.6 Tobacco abuse counseling
CPT/HCPCS: 36415; 71045; 71275; 80048; 80053; 80061; 80320; 84484; 85014; 85018; 85025; 85049; 85520; 85610; 85730; 93005; 93010; G0378; A9270-GY; G0480; J1644; J2270; J2405; J2765; J2785; J3010; J7512; Q9967

== ENCOUNTER 2019-05-24 05:38 | Emergency (ER) | payer BC ==
--- NOTE | 2019-05-24 06:52 | XRay Report ---
CHEST 1 VIEW INDICATION / CLINICAL INFORMATION: Abdominal Pain. COMPARISON: 05/20/2019 FINDINGS: SUPPORT DEVICES: None. HEART / MEDIASTINUM: No significant abnormality. LUNGS / PLEURA: No significant pulmonary or pleural abnormality. No pneumothorax. ADDITIONAL FINDINGS: Multilevel posterior fusion noted at the cervicothoracic junction IMPRESSION: 1. No acute findings. No interval change. Signer Name: Delfina Wilkins MD Signed: 05/24/2019 5:48 AM Workstation Name: [id number]
[2019-05-24 06:55] LABS: Basophils # (Auto) 0.1 K/mm3 (0.0-0.1); Basophils % (Auto) 0.5 % (0.0-1.8); Eosinophils # (Auto) 0.4 K/mm3 (0.0-0.4); Eosinophils % (Auto) 3.4 % (0.0-4.3); Hematocrit 40.3 % (30.3-42.9); Hemoglobin 13.5 gm/dl (10.1-14.3); Lymphocytes # (Auto) 1.7 K/mm3 (1.2-5.4); Lymphocytes % (Auto) 14.9 % (13.4-35.0); Mean Corpuscular HGB Conc 34 % (30-34); Mean Corpuscular Volume 97 fl (79-97); Monocytes # (Auto) 1.3 K/mm3 (0.0-0.8); Monocytes % (Auto) 10.9 % (0.0-7.3); Platelet Count 399 K/mm3 (140-440); Red Blood Count 4.18 M/mm3 (3.65-5.03); Red Cell Distribution Width 14.4 % (13.2-15.2)
[2019-05-24 07:02] LABS: Bilirubin,Urine NEG (Negative); Blood,Urine MOD (Negative); Color,Urine Straw (Yellow); Mucus,Urine FEW /HPF; Protein,Urine <15 mg/dL mg/dL (Negative); Urobilinogen,Urine < 2.0 mg/dL (<2.0)
[2019-05-24 07:06] LABS: INR 1.31 (0.87-1.13)
[2019-05-24 07:18] LABS: Calcium 9.2 mg/dL (8.4-10.2)
--- NOTE | 2019-05-24 08:51 | Emergency Department Report ---
ED General Adult HPI - General Chief complaint: Abdominal Pain Stated complaint: SOB/ABD PAIN Time Seen by Provider: 05/24/19 07:27 Source: patient, EMS (ems notes not available at time of chart dictation), RN notes reviewed, old records reviewed Mode of arrival: Stretcher Limitations: No Limitations - History of Present Illness Initial comments: This is a 63-year-old female. The patient is not known to this provider previously. Patient recently admitted to this hospital for chest pain, had CT scan of the chest was negative for pulmonary embolism. She was recently discharged from [facility], after deployment of bare-metal stents to proximal RCA. She reports that she has been compliant with medical therapy. Patient's headache lanes of headache, lower back pain, and sensation of heart racing up and down. Patient also on systemic anticoagulation, eliquis, she is not sure why. Today her recent hospitalization she was evaluated by cardiology, who did not recommend additional risk stratification, and recommended that she continue current outpatient medications. She was documented to have a chronic pain syndrome and presumed drug seeking behavior. Today, the patient presents to the ER with a complaint of nontraumatic lower back pain, sensation of her heart rate going faster and slower, and throbbing aching headache. The symptoms have been present for the past 24-36 hours. Of note, they are somewhat similar to symptoms that she had during her previous hospitalization. Her pain in the head is throbbing, and increases with palpation and decreases with rest. It does not radiate anywhere. The headache is not described as sudden, thunderclap or maximal in intensity. There is no abdominal pain. The back pain is paralumbar, and increases with palpation, and it decreases with rest. The patient makes no complaint of vomiting, diaphoresis, exertional shortness of breath which is new or different. She does take aspirin. -: Gradual, days(s) Location: head, back Radiation: non-radiation Severity scale (0 -10): 10 Quality: aching Consistency: other Improves with: other Worsens with: other Associated Symptoms: other - Related Data Home Medications Medication Instructions Recorded Confirmed Last Taken Lisinopril [Zestril TAB] 40 mg PO DAILY 08/04/13 05/24/19 09/30/13 Apixaban 5 mg PO BID 05/20/19 05/24/19 Unknown Aspirin BABY CHEW TAB 81 mg PO DAILY 05/20/19 05/24/19 Unknown Ativan 0.25 mg PO BID PRN 05/20/19 05/24/19 Unknown AtorvaSTATin [Lipitor] 80 mg PO HS 05/20/19 05/24/19 Unknown Cyclobenzaprine [Flexeril 10 MG 10 mg PO PRN PRN 05/20/19 05/24/19 Unknown TAB] Nitroglycerin 0.4 mg SL PRN PRN 05/20/19 05/24/19 Unknown PARoxetine [Paxil] 40 mg PO DAILY 05/20/19 05/24/19 Unknown Pregabalin [Lyrica] 75 mg PO QDAY 05/20/19 05/24/19 Unknown Ticagrelor 90 mg PO BID 05/20/19 05/24/19 Unknown Zolpidem [Ambien] 10 mg PO HS 05/20/19 05/24/19 Unknown amLODIPine 10 mg PO DAILY 05/20/19 05/24/19 Unknown hydroCHLOROthiazide [HCTZ] 25 mg PO ONCE 05/20/19 05/24/19 Unknown methOCARBAMOL [Robaxin TAB] 750 mg PO PRN PRN 05/20/19 05/24/19 Unknown traZODone 50 mg PO HS 05/20/19 05/24/19 Unknown Previous Rx's Medication Instructions Recorded Last Taken Type ISOSORBIDE MONOnitrate [Imdur ER] 30 mg PO Q12H #60 tablet 05/21/19 Unknown Rx Pantoprazole [Protonix TAB] 40 mg PO QDAY #30 tablet 05/21/19 Unknown Rx Allergies Allergy/AdvReac Type Severity Reaction Status Date / Time codeine Allergy Vomiting Verified 05/20/19 11:23 Penicillins Allergy Hives Verified 05/20/19 11:23 pentazocine [From Talwin] Allergy Nausea Verified 05/20/19 11:23 ED Review of Systems ROS: Stated complaint: SOB/ABD PAIN Other details as noted in HPI Constitutional: denies: fever Eyes: denies: eye discharge ENT: congestion Respiratory: shortness of breath Cardiovascular: palpitations Gastrointestinal: denies: vomiting Genitourinary: denies: dysuria Musculoskeletal: back pain Skin: denies: lesions Neurological: headache Psychiatric: anxiety ED Past Medical Hx - Past Medical History Previous Medical History?: Yes Hx Hypertension: Yes Hx COPD: Yes - Surgical History Hx Coronary Stent: Yes Hx Appendectomy: Yes Additional Surgical History: neck surgery, neck fracture, hysterectomy - Social History Smoking Status: Former Smoker - Medications Home Medications: Home Medications Medication Instructions Recorded Confirmed Last Taken Type Lisinopril [Zestril TAB] 40 mg PO DAILY 08/04/13 05/24/19 09/30/13 History Apixaban 5 mg PO BID 05/20/19 05/24/19 Unknown History Aspirin BABY CHEW TAB 81 mg PO DAILY 05/20/19 05/24/19 Unknown History Ativan 0.25 mg PO BID PRN 05/20/19 05/24/19 Unknown History AtorvaSTATin [Lipitor] 80 mg PO HS 05/20/19 05/24/19 Unknown History Cyclobenzaprine [Flexeril 10 MG 10 mg PO PRN PRN 05/20/19 05/24/19 Unknown History TAB] Nitroglycerin 0.4 mg SL PRN PRN 05/20/19 05/24/19 Unknown History PARoxetine [Paxil] 40 mg PO DAILY 05/20/19 05/24/19 Unknown History Pregabalin [Lyrica] 75 mg PO QDAY 05/20/19 05/24/19 Unknown History Ticagrelor 90 mg PO BID 05/20/19 05/24/19 Unknown History Zolpidem [Ambien] 10 mg PO HS 05/20/19 05/24/19 Unknown History amLODIPine 10 mg PO DAILY 05/20/19 05/24/19 Unknown History hydroCHLOROthiazide [HCTZ] 25 mg PO ONCE 05/20/19 05/24/19 Unknown History methOCARBAMOL [Robaxin TAB] 750 mg PO PRN PRN 05/20/19 05/24/19 Unknown History traZODone 50 mg PO HS 05/20/19 05/24/19 Unknown History ISOSORBIDE MONOnitrate [Imdur ER] 30 mg PO Q12H #60 tablet 05/21/19 05/24/19 Unknown Rx Pantoprazole [Protonix TAB] 40 mg PO QDAY #30 tablet 05/21/19 05/24/19 Unknown Rx ED Physical Exam - General Limitations: No Limitations General appearance: alert - Head Head exam: Present: atraumatic, normocephalic - Eye Eye exam: Present: normal appearance, EOMI. Absent: nystagmus - ENT ENT exam: Present: normal exam, normal orophraynx, mucous membranes moist, normal external ear exam - Neck Neck exam: Present: normal inspection, full ROM. Absent: tenderness, meningismus - Respiratory Respiratory exam: Present: normal lung sounds bilaterally. Absent: respiratory distress - Cardiovascular Cardiovascular Exam: Present: regular rate, normal rhythm, normal heart sounds. Absent: bradycardia, tachycardia, irregular rhythm, systolic murmur, diastolic murmur, rubs, gallop - GI/Abdominal GI/Abdominal exam: Present: soft. Absent: distended, tenderness, guarding, rigid, pulsatile mass - Extremities Exam Extremities exam: Present: normal inspection (2+ pulses noted in the bilateral upper, lower extremity. Femoral pulses intact bilaterally. There is no thrill or bruit. There is no expanding femoral hematoma. During femoral exam, chapsridevi kirkpatricked by nurse Mima Jimenez), full ROM, other (2+ pulses noted in the bilateral upper, lower extremities. Compartments soft. No long bony tenderness. The pelvis is stable.). Absent: calf tenderness - Back Exam Back exam: Present: normal inspection, full ROM, paraspinal tenderness. Absent: tenderness, CVA tenderness (R), CVA tenderness (L), vertebral tenderness - Neurological Exam Neurological exam: Present: alert, oriented X3, other (Extraocular movements intact. Tongue midline. No facial droop. Facial sensation intact to light touch in the V1, V2, V3 distribution bilaterally. 5 and 5 strength in 4 ex tremities.. Sensation is intact to light touch in 4 extremities.). Absent: motor sensory deficit - Psychiatric Psychiatric exam: Present: anxious - Skin Skin exam: Present: warm, ecchymosis ED Course Vital Signs 05/24/19 05/24/19 05/24/19 06:02 06:12 08:30 Temperature 98.4 F Pulse Rate 66 61 Respiratory 20 20 24 Rate Blood Pressure 135/102 168/93 Blood Pressure [Left] O2 Sat by Pulse 99 98 Oximetry 05/24/19 05/24/19 05/24/19 09:30 10:00 10:30 Temperature Pulse Rate 63 64 70 Respiratory 18 11 L 13 Rate Blood Pressure 168/93 129/57 140/89 Blood Pressure [Left] O2 Sat by Pulse 98 99 Oximetry 05/24/19 11:54 Temperature Pulse Rate 80 Respiratory 18 Rate Blood Pressure Blood Pressure 138/88 [Left] O2 Sat by Pulse 99 Oximetry - Reevaluation(s) Reevaluation #1: 05/24/19 10:47 Differential diagnosis, including but not limited to: Migraine headache, tension headache, cluster headache, intracranial hemorrhage, mechanical back pain, retroperitoneal hematoma, pneumonia, electrolyte derangement, drug seeking behavior Assessment and plan: 63-year-old female with complaints. She has had similar complaints during her previous hospitalization. She does not know why she is on systemic anticoagulation. We will obtain CT scan of the brain, and abdomen/pelvis to exclude bleeding/retroperitoneal hematoma. She will be treat ed with nonnarcotic medications. Her electrolytes so far look unremarkable. Has a known documented history of bradycardia, therefore, hyperthyroidism is unlikely. Patient can follow up with outpatient primary care doctor for further evaluation for potential hypothyroidism, although I think that this is unlikely. Patient was seen in conjunction with interventional cardiology, Dr. Ferny Martinez, who graciously evaluated the patient in the emergency room. The patient has endorsed to myself and cardiology team that she has been compliant with her medical therapy, including her brilinta As per previous admission, the patient has chronically elevated troponins which is appreciated by cardiology. We will treat the patient's symptoms, discontinue aspirin therapy as per the recommendations of cardiology, we are awaiting her troponin at this time. Of note, patient resting quite comfortably in stretcher, and she has no acute distress. She is currently not tachycardic, she is not hypoxic, she does not have significant work of breathing, and she is on systemic anticoagulation, and she was recently ruled out for a pulmonary embolism. Therefore, I think a PE is very unlikely. 05/24/19 10:50 Reevaluation #2: 05/24/19 12:14 CT scan of the abdomen and pelvis for acute disease. CT scan of the brain is negative for acute disease. Troponins are improved when compared to prior. Patient is resting comfortably so far and is not in any acute distress. She has been seen in conjunction with the cardiology team. 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 Reevaluation #3: 05/24/19 12:37 CT scan of the brain is negative for acute disease. Awaiting repeat troponin Reevaluation #4: 05/24/19 12:49 Troponin unchanged when compared to prior, no further complaints have been endorsed to myself. We will discharge the patient ED Medical Decision Making - Lab Data Result diagrams: 05/24/19 06:27 05/24/19 06:27 Vital Signs 05/24/19 05/24/19 06:02 06:12 Temperature 98.4 F Pulse Rate 66 Respiratory 20 20 Rate Blood Pressure 135/102 O2 Sat by Pulse 99 Oximetry Temp Pulse Resp BP Pulse Ox 98.4 F 66 20 135/102 99 05/24/19 06:02 05/24/19 06:02 05/24/19 06:12 05/24/19 06:02 05/24/19 06:02 Lab Results 05/24/19 05/24/19 05/24/19 Range/Units 06:10 06:26 06:27 WBC 11.6 H (4.5-11.0) K/mm3 RBC 4.18 (3.65-5.03) M/mm3 Hgb 13.5 (10.1-14.3) gm/dl Hct 40.3 (30.3-42.9) % MCV 97 (79-97) fl MCH 32 (28-32) pg MCHC 34 (30-34) % RDW 14.4 (13.2-15.2) % Plt Count 399 (140-440) K/mm3 Lymph % (Auto) 14.9 (13.4-35.0) % Frederick % (Auto) 10.9 H (0.0-7.3) % Eos % (Auto) 3.4 (0.0-4.3) % Baso % (Auto) 0.5 (0.0-1.8) % Lymph # 1.7 (1.2-5.4) K/mm3 Frederick # 1.3 H (0.0-0.8) K/mm3 Eos # 0.4 (0.0-0.4) K/mm3 Baso # 0.1 (0.0-0.1) K/mm3 Seg Neutrophils % 70.3 H (40.0-70.0) % Seg Neutrophils # 8.2 H (1.8-7.7) K/mm3 PT 16.0 H (12.2-14.9) Sec. INR 1.31 H (0.87-1.13) Sodium (137-145) mmol/L Potassium (3.6-5.0) mmol/L Chloride (98-107) mmol/L Carbon Dioxide (22-30) mmol/L Anion Gap mmol/L BUN (7-17) mg/dL Creatinine (0.7-1.2) mg/dL Estimated GFR ml/min BUN/Creatinine Ratio % Glucose (65-100) mg/dL Calcium (8.4-10.2) mg/dL Lipase (13-60) units/L Urine Color Straw (Yellow) Urine Turbidity Clear (Clear) Urine pH 6.0 (5.0-7.0) Ur Specific [place] 1.012 (1.003-1.030) Urine Protein <15 mg/dl (Negative) mg/dL Urine Glucose (UA) Neg (Negative) mg/dL Urine Ketones Neg (Negative) mg/dL Urine Blood Mod (Negative) Urine Nitrite Neg (Negative) Urine Bilirubin Neg (Negative) Urine Urobilinogen < 2.0 (<2.0) mg/dL Ur Leukocyte Esterase Neg (Negative) Urine WBC (Auto) 2.0 (0.0-6.0) /HPF Urine RBC (Auto) 24.0 (0.0-6.0) /HPF U Epithel Cells (Auto) < 1.0 (0-13.0) /HPF Urine Mucus Few /HPF 05/24/ Range/Units 06:27 WBC (4.5-11.0) K/mm3 RBC (3.65-5.03) M/mm3 Hgb (10.1-14.3) gm/dl Hct (30.3-42.9) % MCV (79-97) fl MCH (28-32) pg MCHC (30-34) % RDW (13.2-15.2) % Plt Count (140-440) K/mm3 Lymph % (Auto) (13.4-35.0) % Frederick % (Auto) (0.0-7.3) % Eos % (Auto) (0.0-4.3) % Baso % (Auto) (0.0-1.8) % Lymph # (1.2-5.4) K/mm3 Frederick # (0.0-0.8) K/mm3 Eos # (0.0-0.4) K/mm3 Baso # (0.0-0.1) K/mm3 Seg Neutrophils % (40.0-70.0) % Seg Neutrophils # (1.8-7.7) K/mm3 PT (12.2-14.9) Sec. INR (0.87-1.13) Sodium 141 (137-145) mmol/L Potassium 4.4 D (3.6-5.0) mmol/L Chloride 104.7 (98-107) mmol/L Carbon Dioxide 22 (22-30) mmol/L Anion Gap 19 mmol/L BUN 27 H (7-17) mg/dL Creatinine 1.0 (0.7-1.2) mg/dL Estimated GFR 56 ml/min BUN/Creatinine Ratio 27 % Glucose 134 H (65-100) mg/dL Calcium 9.2 (8.4-10.2) mg/dL Lipase 13 (13-60) units/L Urine Color (Yellow) Urine Turbidity (Clear) Urine pH (5.0-7.0) Ur Specific [place] (1.003-1.030) Urine Protein (Negative) mg/dL Urine Glucose (UA) (Negative) mg/dL Urine Ketones (Negative) mg/dL Urine Blood (Negative) Urine Nitrite (Negative) Urine Bilirubin (Negative) Urine Urobilinogen (<2.0) mg/dL Ur Leukocyte Esterase (Negative) Urine WBC (Auto) (0.0-6.0) /HPF Urine RBC (Auto) (0.0-6.0) /HPF U Epithel Cells (Auto) (0-13.0) /HPF Urine Mucus /HPF - EKG Data -: EKG Interpreted by Ak EKG shows normal: sinus rhythm Rate: normal - EKG Data When compared to previous EKG there are: no significant change 05/24/19 10:49 EKG #1 demonstrates a normal sinus rhythm, 65 beats per minute, normal axis, QTC prolonged, motion artifact, T-wave inversions V2, V3, V4, V5 and V6. This is unchanged from prior EKG from 05/21/2019. EKG #2 is unchanged from prior EKG. - Radiology Data Radiology results: report reviewed, image reviewed Print Report Referring Physician: PABLO HEARD Patient Name: ERIKA HUNT Date of : 1955 Sex: Female Report Date: 2019-05-21 Report Status: Finalized Findings [address] [address] Cat Scan Report Signed Patient: ERIKA HUNT MR#: [id number] : 1955 Acct:[id number] Age/Sex: 63 / F ADM Date: 05/20/19 Loc: 4A A452-[address]: JEAN CLAUDE SCHMID MD Ordering Physician: PABLO HEARD MD Date of Service: 05/20/19 Procedure(s): CT angio chest Accession Number(s): [id number] cc: PABLO HEARD MD PROCEDURE: CT ANGIO CHEST TECHNIQUE: CT of the abdomen and pelvis was performed. IV contrast was administered. Axial images and coronal and sagittal reformatted images were obtained. Rotational MIP reformatted images were also obtained. HISTORY: chest pain COMPARISON: 04/29/2015 FINDINGS: There is no aortic dissection seen. There are coronary artery calcifications. There is no abnormal mediastinal or hilar mass seen. There are no abnormal pulmonary arterial filling defects seen to indicate acute pulmonary emboli. There is no pleural effusion seen. There is some diffuse mild interstitial prominence hazy groundglass opacity. This could be chronic disease or mild interstitial edema. Correlate clinically. There is focal nodular/patchy opacity at the right lung base is unchanged from 2015. There is no pneumothorax. IMPRESSION: There is no aortic dissection or pulmonary embolism seen. Small nodular/patchy density at right base is unchanged from 2015 and therefore of doubtful significance Diffuse mild interstitial prominence and groundglass opacity which could be interstitial infiltrate/edema. Coronary artery calcification This document is electronically signed by Franchesca William MD., May 21 2019 10:27:00 AM ET Transcribed By: LUIZA Dictated By: FRANCHESCA WILLIAM MD Electronically Authenticated By: FRANCHESCA WILLIAM MD Signed Date/Time: 05/21/19 1029 Print Report Referring Physician: ED DOC Patient Name: ERIKA HUNT Date of : 1955 Sex: Female Report Date: 2019-05-24 Report Status: Finalized Findings [address] [address] XRay Report Signed Patient: ERIKA HUNT MR#: [id number] : 1955 Acct:[id number] Age/Sex: 63 / F ADM Date: 05/24/19 Loc: ED Attending Dr: Ordering Physician: AMERICO AVENDAÑO MD Date of Service: 05/24/19 Procedure(s): XR chest 1V ap Accession Number(s): [id number] cc: AMERICO AVENDAÑO MD Fluoro Time In Minutes: CHEST 1 VIEW INDICATION / CLINICAL INFORMATION: Abdominal Pain. COMPARISON: 05/20/2019 FINDINGS: SUPPORT DEVICES: None. HEART / MEDIASTINUM: No significant abnormality. LUNGS / PLEURA: No significant pulmonary or pleural abnormality. No pneumothorax. ADDITIONAL FINDINGS: Multilevel posterior fusion noted at the cervicothoracic junction IMPRESSION: 1. No acute findings. No interval change. Signer Name: Delfina Wilkins MD Signed: 05/24/2019 5:48 AM Workstation Name: [id number] Transcribed By: REF Dictated By: ROSEMARIE REED MD Electronically Authenticated By: ROSEMARIE REED MD Signed Date/Time: 05/24/19 0548 Critical care attestation.: If time is entered above; I have spent that time in minutes in the direct care of this critically ill patient, excluding procedure time. ED Disposition Clinical Impression: Lower back pain, Headache Disposition: DC-01 TO HOME OR SELFCARE Is pt being admited?: No Does the pt Need Aspirin: No Condition: Stable Instructions: Chronic Obstructive Pulmonary Disease (ED), Abdominal Pain (ED) Additional Instructions: Continue outpatient medications, however, discontinue aspirin consumption. 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 Follow-up with her primary care doctor or neurologist for headache within the next 7-10 days. Return to the emergency room right away with new, worsening or different symptoms not present on the initial emergency room evaluation. Patient may take Tylenol [id number] as needed for pain. Referrals: CUCO MCGARRY MD [Primary Care Provider] - 3-5 Days FERNY MARTINEZ MD [Staff Physician] - 3-5 Days MAGDY WAGONER MD [Staff Physician] - 3-5 Days
[2019-05-24] MEDS ORDERED: SOLU-Medrol IV ONE (08:59)
[2019-05-24] MEDS ORDERED: REGLAN IV ONE (08:59)
[2019-05-24] MEDS ORDERED: CARAFATE PO ONE (09:04)
[2019-05-24] MEDS ORDERED: LIDODERM 5% TD ONE (09:30)
[2019-05-24] MEDS ORDERED: XYLOCAINE TOPICAL 4% TP ONE (10:48)
[2019-05-24 11:54] VITALS: BP 138/88
--- NOTE | 2019-05-24 12:07 | Cat Scan Report ---
CT ABDOMEN AND PELVIS WITHOUT CONTRAST HISTORY: Back pain on eliquis, rule out retroperitoneal hemorrhage, upper abdominal pain and frequent bowel movements since this morning. COMPARISON: 08/12/2016 TECHNIQUE: Routine abdominal and pelvic CT exam performed. sagittal and coronal reformatted images. CONTRAST: None. FINDINGS: CT ABDOMEN: Lung Bases: Clear. Liver: No significant abnormality. Biliary: Cholecystectomy. No biliary dilatation. Spleen: No significant abnormality. Unenlarged. Pancreas: No significant abnormality. Adrenals: No significant abnormality. Kidneys: No significant abnormality. Lymphatics: No lymphadenopathy. Vasculature: Moderate calcific plaques throughout the aorta. No aneurysm. Bowel/Peritoneum: No evidence for bowel obstruction or focal inflammation. The appendix is not identi fied. CT PELVIC: : Hysterectomy changes. No pelvic mass or cyst. Osseous Structures: Intact. Moderate thoracolumbar spondylosis. There is mild dextro curvature to the lumbar spine. Additional Findings: No retroperitoneal hemorrhage is identified. IMPRESSION: No acute abdominal process is identified. Signer Name: Tex Browning Jr, MD Signed: 05/24/2019 12:03 PM Workstation Name: [id number]
--- NOTE | 2019-05-24 12:23 | Cat Scan Report ---
CT HEAD WITHOUT CONTRAST HISTORY: Headache and dizziness since this morning COMPARISON: None TECHNIQUE: CT images of the head were obtained without contrast. CONTRAST: None. FINDINGS: Cerebral and Cerebellar Hemispheres: No evidence of mass or mass effect. No midline shift. No acute hemorrhage. No acute cortical infarction. No extra-axial fluid collection. Chronic lacunar infarct in the right anterior thalamus measures 6 mm. Ventricles: Normal in size and configuration for age. Osseous Structures: No significant abnormality. Chronic right nasal bone fracture. Visualized Paranasal Sinuses: No significant abnormality. Additional Findings: None IMPRESSION: No acute intracranial abnormality. Chronic lacunar infarct in the right anterior thalamus. Signer Name: Tex Browning Jr, MD Signed: 05/24/2019 12:19 PM Workstation Name: [id number]
--- NOTE | 2019-05-24 13:09 | Consultation ---
<TABBY GREEN - Last Filed: 05/24/19 13:09> History of Present Illness Consult date: 05/24/19 Consult reason: chest pain History of present illness: This is a 63-year old woman who was just discharged from this hospital 48 hours ago with chest pain and shortness of breath.. She returns for evaluation of chest pain, low back pain and shortness of breath. Patient received a BMS to the proximal RCA 05/16/2019. She states that she has been compliant with medical therapy including Brilinta and aspirin. Patient describes pleuritic type chest pain radiating to the back and shortness of breath. Chest x-ray is negative. An ECG is sinus rhythm, no acute ischemic changes. A cardiac consultation has been requested for further evaluation. Medications and Allergies Allergies Allergy/AdvReac Type Severity Reaction Status Date / Time codeine Allergy Vomiting Verified 05/20/19 11:23 Penicillins Allergy Hives Verified 05/20/19 11:23 pentazocine [From Talwin] Allergy Nausea Verified 05/20/19 11:23 Home Medications Medication Instructions Recorded Confirmed Last Taken Type Lisinopril [Zestril TAB] 40 mg PO DAILY 08/04/13 05/24/19 09/30/13 History Apixaban 5 mg PO BID 05/20/19 05/24/19 Unknown History Aspirin BABY CHEW TAB 81 mg PO DAILY 05/20/19 05/24/19 Unknown History Ativan 0.25 mg PO BID PRN 05/20/19 05/24/19 Unknown History AtorvaSTATin [Lipitor] 80 mg PO HS 05/20/19 05/24/19 Unknown History Cyclobenzaprine [Flexeril 10 MG 10 mg PO PRN PRN 05/20/19 05/24/19 Unknown History TAB] Nitroglycerin 0.4 mg SL PRN PRN 05/20/19 05/24/19 Unknown History PARoxetine [Paxil] 40 mg PO DAILY 05/20/19 05/24/19 Unknown History Pregabalin [Lyrica] 75 mg PO QDAY 05/20/19 05/24/19 Unknown History Ticagrelor 90 mg PO BID 05/20/19 05/24/19 Unknown History Zolpidem [Ambien] 10 mg PO HS 05/20/19 05/24/19 Unknown History amLODIPine 10 mg PO DAILY 05/20/19 05/24/19 Unknown History hydroCHLOROthiazide [HCTZ] 25 mg PO ONCE 05/20/19 05/24/19 Unknown History methOCARBAMOL [Robaxin TAB] 750 mg PO PRN PRN 05/20/19 05/24/19 Unknown History traZODone 50 mg PO HS 05/20/19 05/24/19 Unknown History ISOSORBIDE MONOnitrate [Imdur ER] 30 mg PO Q12H #60 tablet 05/21/19 05/24/19 Unknown Rx Pantoprazole [Protonix TAB] 40 mg PO QDAY #30 tablet 05/21/19 05/24/19 Unknown Rx Physical Examination Vital Signs Temp Pulse Resp BP Pulse Ox 98.4 F 66 20 135/102 99 05/24/19 06:02 05/24/19 06:02 05/24/19 06:02 05/24/19 06:02 05/24/19 06:02 General appearance: no acute distress HEENT: Positive: PERRL Neck: Positive: trachea midline Cardiac: Positive: Reg Rate and Rhythm Lungs: Positive: Decreased Breath Sounds Neuro: Positive: Grossly Intact Extremities: Absent: edema Results 05/24/19 06:27 05/24/19 06:27 Coagulation 05/24/19 Range/Units 06:26 PT 16.0 H (12.2-14.9) Sec. INR 1.31 H (0.87-1.13) CBC 05/24/19 Range/Units 06:27 WBC 11.6 H (4.5-11.0) K/mm3 RBC 4.18 (3.65-5.03) M/mm3 Hgb 13.5 (10.1-14.3) gm/dl Hct 40.3 (30.3-42.9) % Plt Count 399 (140-440) K/mm3 Lymph # 1.7 (1.2-5.4) K/mm3 Ware # 1.3 H (0.0-0.8) K/mm3 Eos # 0.4 (0.0-0.4) K/mm3 Baso # 0.1 (0.0-0.1) K/mm3 Comprehensive Metabolic Panel 05/24/19 Range/Units 06:27 Sodium 141 (137-145) mmol/L Potassium 4.4 D (3.6-5.0) mmol/L Chloride 104.7 (98-107) mmol/L Carbon Dioxide 22 (22-30) mmol/L BUN 27 H (7-17) mg/dL Creatinine 1.0 (0.7-1.2) mg/dL Glucose 134 H (65-100) mg/dL Calcium 9.2 (8.4-10.2) mg/dL Assessment and Plan Chest Pain and shortness of breath, atypical No ECG changes when compared to study done 05/17/2019 at [facility] Coronary artery disease Cardiac cath 05/16/2019 - 95% proximal RCA s/p BMS; 99% distal small RCA disease extending into the PLV recommended for medical therapy; 60% distal LAD disease recommended for medical therapy Echo 05/14/2019 - LVEF > 55% Chronically elevated troponin Troponin was 0.57 at [facility] use of anticoagulant (eliquis) Reason for eliquis use is unclear Reason behind choosing a BMS for intervention Chronic pain syndrome Recommendations: Continue medical therapy for coronary artery disease. Avoid beta bibi therapy as patient did experience significant bradyarrhythmias during her hospital stay at [facility]. Otherwise, stable for discharge. <ASHLYN MARTINEZ - Last Filed: 05/24/19 23:43> Physical Examination Vital Signs Temp Pulse Resp BP Pulse Ox 98.4 F 66 20 135/102 99 05/24/19 06:02 05/24/19 06:02 05/24/19 06:02 05/24/19 06:02 05/24/19 06:02 Results 05/24/19 06:27 05/24/19 06:27 Coagulation 05/24/19 Range/Units 06:26 PT 16.0 H (12.2-14.9) Sec. INR 1.31 H (0.87-1.13) CBC 05/24/19 Range/Units 06:27 WBC 11.6 H (4.5-11.0) K/mm3 RBC 4.18 (3.65-5.03) M/mm3 Hgb 13.5 (10.1-14.3) gm/dl Hct 40.3 (30.3-42.9) % Plt Count 399 (140-440) K/mm3 Lymph # 1.7 (1.2-5.4) K/mm3 Ware # 1.3 H (0.0-0.8) K/mm3 Eos # 0.4 (0.0-0.4) K/mm3 Baso # 0.1 (0.0-0.1) K/mm3 Comprehensive Metabolic Panel 05/24/19 Range/Units 06:27 Sodium 141 (137-145) mmol/L Potassium 4.4 D (3.6-5.0) mmol/L Chloride 104.7 (98-107) mmol/L Carbon Dioxide 22 (22-30) mmol/L BUN 27 H (7-17) mg/dL Creatinine 1.0 (0.7-1.2) mg/dL Glucose 134 H (65-100) mg/dL Calcium 9.2 (8.4-10.2) mg/dL Assessment and Plan Patient has a history of coronary artery disease s/p recent PCI. patient has multiple troponins that are chronically elevated and at baseline. Echo shows normal LV function. Continue medical therapy for CAD. However, will stop asprin to avoid triple anticoagulation.
== END 2019-05-24 13:10 | disposition home or self-care (01) ==
LOC: ED 05:38
DX: M54.5 Low back pain (principal); R51 Headache; F41.9 Anxiety disorder, unspecified; J44.9 Chronic obstructive pulmonary disease, unspecified; I10 Essential (primary) hypertension; R10.9 Unspecified abdominal pain; Z88.0 Allergy status to penicillin; Z88.5 Allergy status to narcotic agent; Z88.1 Allergy status to other antibiotic agents; Z79.899 Other long term (current) drug therapy; Z79.82 Long term (current) use of aspirin; Z90.49 Acquired absence of other specified parts of digestive tract; Z95.1 Presence of aortocoronary bypass graft; Z90.710 Acquired absence of both cervix and uterus; Z98.890 Other specified postprocedural states; Z87.891 Personal history of nicotine dependence
CPT/HCPCS: 36415; 70450; 71045; 74176; 80048; 81001; 83690; 83735; 84484; 85025; 85610; 93005; 93010; 96374; 96375; 99285; J2765; J2930

== ENCOUNTER 2019-09-22 18:02 | Inpatient (IN) | payer BC ==
--- NOTE | 2019-09-22 18:57 | Emergency Department Report ---
ED General Adult HPI - General Chief complaint: Fall Stated complaint: FELL DOWN STAIRS Time Seen by Provider: 09/22/19 18:38 Source: patient Mode of arrival: Ambulatory Limitations: No Limitations - History of Present Illness Initial comments: The patient presents to the ED with chief complaint of left elbow pain status post fall. Patient states she lost consciousness and passed out today. Upon arrival the patient is a A. fib with RVR. Patient complains of having palpitations for the last week as well. -: Sudden Location: chest Severity scale (0 -10): 2 Improves with: none Worsens with: none Associated Symptoms: denies other symptoms Treatments Prior to Arrival: none - Related Data Home Medications Medication Instructions Recorded Confirmed Last Taken Lisinopril [Zestril TAB] 40 mg PO DAILY 08/04/13 09/23/19 09/30/13 Allergies Allergy/AdvReac Type Severity Reaction Status Date / Time codeine Allergy Vomiting Verified 05/20/19 11:23 Penicillins Allergy Hives Verified 05/20/19 11:23 pentazocine [From Talwin] Allergy Nausea Verified 05/20/19 11:23 ED Review of Systems ROS: Stated complaint: FELL DOWN STAIRS Other details as noted in HPI Constitutional: denies: chills, fever Eyes: denies: eye pain, eye discharge, vision change ENT: denies: ear pain, throat pain Respiratory: denies: cough, shortness of breath, wheezing Cardiovascular: denies: chest pain, palpitations Endocrine: no symptoms reported Gastrointestinal: denies: abdominal pain, nausea, diarrhea Genitourinary: denies: urgency, dysuria, discharge Musculoskeletal: other (elbow pain). denies: back pain, joint swelling, arthralgia Skin: denies: rash, lesions Neurological: other (syncope). denies: headache, weakness, paresthesias Psychiatric: denies: anxiety, depression Hematological/Lymphatic: denies: easy bleeding, easy bruising ED Past Medical Hx - Past Medical History Previous Medical History?: Yes Hx Hypertension: Yes Hx COPD: Yes - Surgical History Past Surgical History?: Yes Hx Coronary Stent: Yes Hx Appendectomy: Yes Additional Surgical History: neck surgery, neck fracture, hysterectomy - Social History Smoking Status: Former Smoker - Medications Home Medications: Home Medications Medication Instructions Recorded Confirmed Last Taken Type Lisinopril [Zestril TAB] 40 mg PO DAILY 08/04/13 09/23/19 09/30/13 History ED Physical Exam - General Limitations: No Limitations General appearance: alert, in no apparent distress - Head Head exam: Present: atraumatic, normocephalic - Eye Eye exam: Present: normal appearance, PERRL, EOMI - ENT ENT exam: Present: mucous membranes moist - Neck Neck exam: Present: normal inspection - Respiratory Respiratory exam: Present: normal lung sounds bilaterally. Absent: respiratory distress - Cardiovascular Cardiovascular Exam: Present: normal rhythm, tachycardia, irregular rhythm. Absent: systolic murmur, diastolic murmur, rubs, gallop - GI/Abdominal GI/Abdominal exam: Present: soft, normal bowel sounds. Absent: distended, tenderness - Extremities Exam Extremities exam: Present: other (ttp of lateral left elbow) - Back Exam Back exam: Present: normal inspection - Neurological Exam Neurological exam: Present: alert, oriented X3, CN II-XII intact. Absent: motor sensory deficit - Psychiatric Psychiatric exam: Present: normal affect, normal mood - Skin Skin exam: Present: warm, dry, intact, normal color. Absent: rash ED Course Vital Signs 09/22/19 09/22/19 09/22/19 18:08 19:00 19:31 Temperature 97.7 F Pulse Rate 97 H 77 72 Respiratory 20 18 16 Rate Blood Pressure 178/107 147/85 147/85 Blood Pressure [Right] O2 Sat by Pulse 95 97 97 Oximetry 09/22/19 09/22/19 09/22/19 19:43 21:15 21:31 Temperature 97.9 F Pulse Rate 89 69 62 Respiratory 14 28 H 13 Rate Blood Pressure 117/70 117/70 125/55 Blood Pressure 117/70 [Right] O2 Sat by Pulse 97 97 96 Oximetry 09/22/19 09/22/19 09/22/19 22:01 22:31 23:00 Temperature Pulse Rate 59 L 64 65 Respiratory 13 13 18 Rate Blood Pressure 122/59 122/55 116/67 Blood Pressure [Right] O2 Sat by Pulse 97 95 97 Oximetry ED Medical Decision Making - Lab Data Result diagrams: 09/22/19 18:50 09/22/19 18:50 Lab Results 09/22/19 09/22/19 09/22/19 Range/Units 18:50 18:50 18:50 WBC 12.8 H (4.5-11.0) K/mm3 RBC 4.55 (3.65-5.03) M/mm3 Hgb 14.4 H (10.1-14.3) gm/dl Hct 44.7 H (30.3-42.9) % MCV 98 H (79-97) fl MCH 32 (28-32) pg MCHC 32 (30-34) % RDW 15.4 H (13.2-15.2) % Plt Count 276 (140-440) K/mm3 Lymph % (Auto) 16.2 (13.4-35.0) % [place]oup % (Auto) 8.3 H (0.0-7.3) % Eos % (Auto) 0.9 (0.0-4.3) % Baso % (Auto) 0.5 (0.0-1.8) % Lymph # 2.1 (1.2-5.4) K/mm3 Troup # 1.1 H (0.0-0.8) K/mm3 Eos # 0.1 (0.0-0.4) K/mm3 Baso # 0.1 (0.0-0.1) K/mm3 Seg Neutrophils % 74.1 H (40.0-70.0) % Seg Neutrophils # 9.5 H (1.8-7.7) K/mm3 PT 13.3 (12.2-14.9) Sec. INR 1.02 (0.87-1.13) APTT 30.3 (24.2-36.6) Sec. Sodium 140 (137-145) mmol/L Potassium 4.0 (3.6-5.0) mmol/L Chloride 108.0 H (98-107) mmol/L Carbon Dioxide 17 L (22-30) mmol/L Anion Gap 19 mmol/L BUN 23 H (7-17) mg/dL Creatinine 0.7 (0.7-1.2) mg/dL Estimated GFR > 60 ml/min BUN/Creatinine Ratio 33 % Glucose 126 H (65-100) mg/dL Lactic Acid (0.7-2.0) mmol/L Calcium 10.0 (8.4-10.2) mg/dL Magnesium 2.10 (1.7-2.3) mg/dL Total Bilirubin 0.30 (0.1-1.2) mg/dL AST 21 (5-40) units/L ALT 17 (7-56) units/L Alkaline Phosphatase 140 H (35-129) units/L Troponin T (0.00-0.029) ng/mL NT-Pro-B Natriuret Pep (0-900) pg/mL Total Protein 7.2 (6.3-8.2) g/dL Albumin 4.6 (3.9-5) g/dL Albumin/Globulin Ratio 1.8 % TSH (0.270-4.200) mlU/mL Thyroxine (T4) (4.0-12.0) ug/dL Plasma/Serum Alcohol (0-0.07) % 09/22/19 09/22/19 09/22/19 Range/Units 18:50 18:50 18:50 WBC (4.5-11.0) K/mm3 RBC (3.65-5.03) M/mm3 Hgb (10.1-14.3) gm/dl Hct (30.3-42.9) % MCV (79-97) fl MCH (28-32) pg MCHC (30-34) % RDW (13.2-15.2) % Plt Count (140-440) K/mm3 Lymph % (Auto) (13.4-35.0) % Troup % (Auto) (0.0-7.3) % Eos % (Auto) (0.0-4.3) % Baso % (Auto) (0.0-1.8) % Lymph # (1.2-5.4) K/mm3 Troup # (0.0-0.8) K/mm3 Eos # (0.0-0.4) K/mm3 Baso # (0.0-0.1) K/mm3 Seg Neutrophils % (40.0-70.0) % Seg Neutrophils # (1.8-7.7) K/mm3 PT (12.2-14.9) Sec. INR (0.87-1.13) APTT (24.2-36.6) Sec. Sodium (137-145) mmol/L Potassium (3.6-5.0) mmol/L Chloride (98-107) mmol/L Carbon Dioxide (22-30) mmol/L Anion Gap mmol/L BUN (7-17) mg/dL Creatinine (0.7-1.2) mg/dL Estimated GFR ml/min BUN/Creatinine Ratio % Glucose (65-100) mg/dL Lactic Acid (0.7-2.0) mmol/L Calcium (8.4-10.2) mg/dL Magnesium (1.7-2.3) mg/dL Total Bilirubin (0.1-1.2) mg/dL AST (5-40) units/L ALT (7-56) units/L Alkaline Phosphatase (35-129) units/L Troponin T < 0.010 (0.00-0.029) ng/mL NT-Pro-B Natriuret Pep 781.0 (0-900) pg/mL Total Protein (6.3-8.2) g/dL Albumin (3.9-5) g/dL Albumin/Globulin Ratio % TSH 3.310 (0.270-4.200) mlU/mL Thyroxine (T4) 5.4 (4.0-12.0) ug/dL Plasma/Serum Alcohol (0-0.07) % 09/22/19 09/22/19 09/22/19 Range/Units 19:02 20:23 22:35 WBC (4.5-11.0) K/mm3 RBC (3.65-5.03) M/mm3 Hgb (10.1-14.3) gm/dl Hct (30.3-42.9) % MCV (79-97) fl MCH (28-32) pg MCHC (30-34) % RDW (13.2-15.2) % Plt Count (140-440) K/mm3 Lymph % (Auto) (13.4-35.0) % Troup % (Auto) (0.0-7.3) % Eos % (Auto) (0.0-4.3) % Baso % (Auto) (0.0-1.8) % Lymph # (1.2-5.4) K/mm3 Troup # (0.0-0.8) K/mm3 Eos # (0.0-0.4) K/mm3 Baso # (0.0-0.1) K/mm3 Seg Neutrophils % (40.0-70.0) % Seg Neutrophils # (1.8-7.7) K/mm3 PT (12.2-14.9) Sec. INR (0.87-1.13) APTT (24.2-36.6) Sec. Sodium (137-145) mmol/L Potassium (3.6-5.0) mmol/L Chloride (98-107) mmol/L Carbon Dioxide (22-30) mmol/L Anion Gap mmol/L BUN (7-17) mg/dL Creatinine (0.7-1.2) mg/dL Estimated GFR ml/min BUN/Creatinine Ratio % Glucose (65-100) mg/dL Lactic Acid 2.20 H* (0.7-2.0) mmol/L Calcium (8.4-10.2) mg/dL Magnesium (1.7-2.3) mg/dL Total Bilirubin (0.1-1.2) mg/dL AST (5-40) units/L ALT (7-56) units/L Alkaline Phosphatase (35-129) units/L Troponin T < 0.010 (0.00-0.029) ng/mL NT-Pro-B Natriuret Pep (0-900) pg/mL Total Protein (6.3-8.2) g/dL Albumin (3.9-5) g/dL Albumin/Globulin Ratio % TSH (0.270-4.200) mlU/mL Thyroxine (T4) (4.0-12.0) ug/dL Plasma/Serum Alcohol < 0.01 (0-0.07) % - EKG Data Rate: normal, tachycardia - EKG Data Interpretation: other (afib with rvr) - Radiology Data Radiology results: report reviewed - Medical Decision Making On repeat examinations the patient heart rate is 75 bpm Acute of the chest was obtained due to the patient's syncopal episode with chest pain and shortness of breath 2 results show groundglass opacities of prolonged along with the elevated white count it was decided to start IV antibiotics after doing blood cultures and lactic acid lactic Acid result was elevated Critical Care Time: Yes Critical care time in (mins) excluding proc time.: 35 Critical care attestation.: If time is entered above; I have spent that time in minutes in the direct care of this critically ill patient, excluding procedure time. ED Disposition Clinical Impression: Syncope, Afib, Ground glass opacity present on imaging of lung Disposition: DC-09 OP ADMIT IP TO THIS HOSP Is pt being admited?: Yes Does the pt Need Aspirin: Yes Condition: Fair Instructions: Syncope (ED)
[2019-09-22 19:14] LABS: Basophils # (Auto) 0.1 K/mm3 (0.0-0.1); Basophils % (Auto) 0.5 % (0.0-1.8); Eosinophils # (Auto) 0.1 K/mm3 (0.0-0.4); Eosinophils % (Auto) 0.9 % (0.0-4.3); Hematocrit 44.7 % (30.3-42.9); Hemoglobin 14.4 gm/dl (10.1-14.3); Lymphocytes # (Auto) 2.1 K/mm3 (1.2-5.4); Lymphocytes % (Auto) 16.2 % (13.4-35.0); Mean Corpuscular HGB Conc 32 % (30-34); Mean Corpuscular Volume 98 fl (79-97); Monocytes # (Auto) 1.1 K/mm3 (0.0-0.8); Monocytes % (Auto) 8.3 % (0.0-7.3); Platelet Count 276 K/mm3 (140-440); Red Blood Count 4.55 M/mm3 (3.65-5.03); Red Cell Distribution Width 15.4 % (13.2-15.2)
[2019-09-22 19:25] LABS: INR 1.02 (0.87-1.13)
[2019-09-22 19:26] LABS: Partial Thromboplastin Time 30.3 Sec. (24.2-36.6)
[2019-09-22 19:36] LABS: Alanine Aminotransferase 17 units/L (7-56); Albumin 4.6 g/dL (3.9-5); BUN/Creatinine Ratio 33; Blood Urea Nitrogen 23 mg/dL (7-17); Hemolysis Index 26
[2019-09-22] MEDS ORDERED: MORPHINE 4 MG/1 ML INJ IV ONE (19:50)
[2019-09-22] MEDS ORDERED: ONDANSETRON 4 MG/2 ML INJ IV ONE (19:50)
--- NOTE | 2019-09-22 20:00 | XRay Report ---
EXAMINATION: Chest radiograph, one view, 09/22/2019 CLINICAL INFORMATION: Chest pain. Atrial fibrillation. COMPARISON: Chest radiograph, 05/24/2019 FINDINGS: Cardiac silhouette and pulmonary vascularity are within normal limits. There is no focal ai rspace consolidation or significant pleural effusion. Cervical fusion hardware is again noted. IMPRESSION: No evidence of acute cardiopulmonary process. Signer Name: Camila Martinez MD Signed: 09/22/2019 7:55 PM Workstation Name: [email or web address]
--- NOTE | 2019-09-22 21:26 | XRay Report ---
EXAMINATION: Left forearm radiograph, 09/22/2019 CLINICAL INFORMATION: Left arm pain after fall COMPARISON: None. FINDINGS: There is no evidence of acute fracture of the left forearm. No focal soft tissue swelling i s identified. Signer Name: Camila Martinez MD Signed: 09/22/2019 9:22 PM Workstation Name: [id number]
--- NOTE | 2019-09-22 21:28 | Cat Scan Report ---
CT head/brain wo con INDICATION / CLINICAL INFORMATION: 64 years Female; syncope. TECHNIQUE: Routine CT head without contrast. All CT scans at this location are performed using CT dos e reduction for ALARA by means of automated exposure control. COMPARISON: CT scan of the brain from May 2019 FINDINGS: BRAIN / INTRACRANIAL CONTENTS: No acute hemorrhage, mass effect, midline shift, hydrocephalus, or acu te, large territorial infarct. No chronic infarct or focal atrophy. High convexity cortical sulci are normal. However, volume loss is seen in the cerebellar vermis and right cerebellar hemisphere. Subtl e chronic ischemic changes are seen in the corpus stratum more on the left side. This remains unchang ed. No significant white matter abnormality. CRANIOCERVICAL JUNCTION: No significant abnormality. ORBITS: No significant abnormality of visualized orbits. SINUSES / MASTOIDS: No significant abnormality of the visualized paranasal sinuses or mastoid air bravo ls. ADDITIONAL FINDINGS: None. IMPRESSION: I do not see an acute parenchymal lesion in the brain. Signer Name: Reva Carrington MD Signed: 09/22/2019 9:23 PM Workstation Name: [id number]
--- NOTE | 2019-09-22 22:01 | Cat Scan Report ---
CTA CHEST WITH IV CONTRAST, 09/22/2019 INDICATION: Chest pain and shortness of breath TECHNIQUE: Axial CT images were obtained through the chest after injection of IV contrast. Coronal oblique 2-D reconstruction images were produced. 3 plane MIP reconstruction images were produced at an [employer] workstation. All CTs at this facility utilize dose reduction techniques including automated expos ure control, iterative reconstruction and weight based dosing when appropriate to reduce patient radi ation dose to as low as reasonable achievable. COMPARISON: CTA of the chest, 05/21/2019 FINDINGS: Evaluation of the pulmonary arteries demonstrates no evidence of central or segmental filling defects to suggest pulmonary embolism. The heart is normal in size. Atherosclerotic vascular calcifications are seen within the distribution of the coronary vessels. Evaluation of the lung parenchyma again dem onstrates diffuse bilateral groundglass densities, similar to the previous study. There is no focal a irspace consolidation or pleural effusion. Limited imaging of the upper abdomen shows no evidence of acute abnormality. There is been previous c holecystectomy. Evaluation of bony structures show no evidence of acute bony abnormality. IMPRESSION: 1. No evidence of pulmonary embolism. 2. Diffuse bilateral groundglass densities similar to the previous study. This is a nonspecific find ing but can suggest diffuse infectious or inflammatory process versus pulmonary edema. Signer Name: Camila Martinez MD Signed: 09/22/2019 9:56 PM Workstation Name: [id number]
[2019-09-23] MEDS ORDERED: ACETAMINOPHEN 325 MG TAB PO PRN (00:54)
[2019-09-23] MEDS ORDERED: ALBUTEROL 2.5 MG/3 ML NEBU IH PRN (00:54)
[2019-09-23] MEDS ORDERED: SODIUM CHLORIDE 0.9% 1000 ML 1,000 ML IV SCH (01:00)
[2019-09-23] MEDS ORDERED: ASPIRIN 81 MG TAB CHEW PO ONE (01:03)
[2019-09-23 01:42] LABS: Basophils # (Auto) 0.1 K/mm3 (0.0-0.1); Basophils % (Auto) 0.7 % (0.0-1.8); Eosinophils # (Auto) 0.1 K/mm3 (0.0-0.4); Eosinophils % (Auto) 1.1 % (0.0-4.3); Hematocrit 40.8 % (30.3-42.9); Hemoglobin 13.5 gm/dl (10.1-14.3); Lymphocytes # (Auto) 3.3 K/mm3 (1.2-5.4); Mean Corpuscular HGB Conc 33 % (30-34); Mean Corpuscular Volume 98 fl (79-97); Monocytes # (Auto) 1.2 K/mm3 (0.0-0.8); Monocytes % (Auto) 11.2 % (0.0-7.3); Platelet Count 272 K/mm3 (140-440); Red Blood Count 4.17 M/mm3 (3.65-5.03)
[2019-09-23 01:54] LABS: INR 1.04 (0.87-1.13)
[2019-09-23 02:02] LABS: BUN/Creatinine Ratio 31; Blood Urea Nitrogen 22 mg/dL (7-17); Calcium 9.3 mg/dL (8.4-10.2); Hemolysis Index 8
[2019-09-23] MEDS ORDERED: HYDROmorphone 2 MG/1 ML INJ IV ONE (02:27)
[2019-09-23] MEDS ORDERED: HYDROmorphone 1 MG/1 ML INJ ONE (02:32)
[2019-09-23] MEDS: HYDROmorphone 1 MG/1 ML INJ IV PRN ×5 (04:15→20:51)
--- NOTE | 2019-09-23 05:23 | History and Physical Report ---
History of Present Illness Date of admission: 09/23/19 00:54 Chief complaint: Shortness of breath for 1 week. Syncope History of present illness: 64 year old female presenting to the emergency room today complaining of shortness of breath which has been ongoing for about 1 week. She denies any chest pain, no fever, no chills, no nausea vomiting. She had a syncopal episode today while doing laundry and subsequently had a fall. She sustained injury to the left elbow and also left knee. Patient denies any history of head injury, no history of seizure disorder. Upon arrival in the emergency room EKG was in atrial fibrillation with RVR subsequently converted to normal sinus rhythm. A CT scan of the head done and emergency room was negative. She had an elevated white count of 12.8 and also an elevated lactic acid. Chest x-ray was suspicious for pneumonia. Past History Past Medical History: hypertension Past Surgical History: appendectomy, Other (Neck surgery, hysterectomy) Social history: smoking (patient smokes about half a pack of cigarette per day) Family history: cancer (father of lung cancer), other (mother had kidney infection) Medications and Allergies Allergies Allergy/AdvReac Type Severity Reaction Status Date / Time codeine Allergy Vomiting Verified 05/20/19 11:23 Penicillins Allergy Hives Verified 05/20/19 11:23 pentazocine [From Talwin] Allergy Nausea Verified 05/20/19 11:23 Home Medications Medication Instructions Recorded Confirmed Last Taken Type Lisinopril [Zestril TAB] 40 mg PO DAILY 08/04/13 09/23/19 09/30/13 History Active Meds: Active Medications Acetaminophen (Tylenol) 650 mg PO Q6H PRN PRN Reason: Pain MILD(1-3)/Fever >100.5/MONTESINOS Albuterol (Proventil) 2.5 mg IH Q3HRT PRN PRN Reason: Shortness Of Breath Hydromorphone HCl (Dilaudid) 0.5 mg IV Q4H PRN PRN Reason: Pain , Severe (7-10) Last Admin: 09/23/19 04:15 Dose: 0.5 mg Documented by: Sodium Chloride (Nacl 0.9% 1000 Ml) 1,000 mls @ 125 mls/hr IV DIRECT OZZY Last Admin: 09/23/19 03:20 Dose: 125 mls/hr Documented by: Cefepime HCl (Cefepime/Ns 2 Gm/100 Ml) 2 gm in 100 mls @ 200 mls/hr IV Q8HR OZZY; Protocol Magnesium Hydroxide (Milk Of Magnesia) 30 ml PO Q4H PRN PRN Reason: Constipation Sodium Chloride (Sodium Chloride Flush Syringe 10 Ml) 10 ml IV BID OZZY Sodium Chloride (Sodium Chloride Flush Syringe 10 Ml) 10 ml IV PRN PRN PRN Reason: LINE FLUSH Review of Systems Cardiovascular: syncope, shortness of breath, dyspnea on exertion Respiratory: cough Exam - Constitutional Vitals: Temp Pulse Resp BP Pulse Ox 98.0 F 70 20 133/84 94 09/23/19 04:04 09/23/19 04:04 09/23/19 04:15 09/23/19 04:04 09/23/19 04:04 General appearance: Present: mild distress (secondary to pain) - Neck Neck: Present: supple, normal ROM - Respiratory Respiratory: bilateral: diminished, rales - Cardiovascular Rhythm: regular Heart Sounds: Present: S1 & S2 - Extremities Extremities: no ischemia, pulses intact, pulses symmetrical, No edema, Full ROM Peripheral Pulses: within normal limits - Abdominal General gastrointestinal: Present: soft, non-tender, normal bowel sounds - Rectal Rectal Exam: deferred - Integumentary Integumentary: Present: clear, warm, dry - Neurologic Neurologic: CNII-XII intact (patient has bruises on the left elbow with minimal tenderness, mild swelling of the left knee), moves all extremities Results - Labs CBC & Chem 7: 09/23/19 01:15 09/23/19 01:15 Labs: Abnormal lab results 09/22/19 09/22/19 09/22/19 Range/Units 18:50 18:50 22:35 WBC 12.8 H (4.5-11.0) K/mm3 Hgb 14.4 H (10.1-14.3) gm/dl Hct 44.7 H (30.3-42.9) % MCV 98 H (79-97) fl RDW 15.4 H (13.2-15.2) % [place]igs % (Auto) 8.3 H (0.0-7.3) % Meigs # 1.1 H (0.0-0.8) K/mm3 Seg Neutrophils % 74.1 H (40.0-70.0) % Seg Neutrophils # 9.5 H (1.8-7.7) K/mm3 Chloride 108.0 H (98-107) mmol/L Carbon Dioxide 17 L (22-30) mmol/L BUN 23 H (7-17) mg/dL Glucose 126 H (65-100) mg/dL Lactic Acid 2.20 H* (0.7-2.0) mmol/L Alkaline Phosphatase 140 H (35-129) units/L 09/23/19 09/23/19 Range/Units 01:15 01:15 WBC (4.5-11.0) K/mm3 Hgb (10.1-14.3) gm/dl Hct (30.3-42.9) % MCV 98 H (79-97) fl RDW (13.2-15.2) % [place] % (Auto) 11.2 H (0.0-7.3) % [place] # 1.2 H (0.0-0.8) K/mm3 Seg Neutrophils % (40.0-70.0) % Seg Neutrophils # (1.8-7.7) K/mm3 Chloride 107.1 H (98-107) mmol/L Carbon Dioxide 19 L (22-30) mmol/L BUN 22 H (7-17) mg/dL Glucose (65-100) mg/dL Lactic Acid (0.7-2.0) mmol/L Alkaline Phosphatase (35-129) units/L Assessment and Plan - Patient Problems (1) Syncope Current Visit: Yes Status: Acute Plan to address problem: Patient will be monitored on telemetry. We'll schedule patient for echocardiogram, carotid Doppler. We'll also monitor orthostatic blood pressure. (2) Afib Current Visit: Yes Status: Acute Plan to address problem: We will continue to monitor patient on telemetry. Will place a consult to cardiology for evaluation. Patient currently in sinus rhythm. (3) Pneumonia Current Visit: Yes Status: Acute Plan to address problem: Patient has been placed on empiric IV antibiotics in view of the findings chest x-ray suspicious for pneumonia. She has been placed on IV cefepime. We will await blood culture results. We will also monitor CBC and lactic acid levels
[2019-09-23] MEDS: CEFEPIME/NS 2 GM/100 ML 2 GM/100 ML BAG IV SCH ×3 (06:54→21:05)
--- NOTE | 2019-09-23 10:10 | Consultation ---
History of Present Illness Consult date: 09/23/19 Consult reason: atrial fibrillation History of present illness: 64 year old female presenting with shortness of breath for the past week and an episode of syncope while doing laundry sustaining lacerations to her elbow and knee. Chest x-ray has shown questionable right lower lobe infiltrate with associated elevated white count and lactic acid. Cardiac consultation for paroxysmal atrial fibrillation Past History Past Medical History: hypertension Past Surgical History: appendectomy, Other (Neck surgery, hysterectomy) Social history: smoking (patient smokes about half a pack of cigarette per day) Family history: cancer (father of lung cancer), other (mother had kidney infection) Medications and Allergies Allergies Allergy/AdvReac Type Severity Reaction Status Date / Time codeine Allergy Vomiting Verified 05/20/19 11:23 Penicillins Allergy Hives Verified 05/20/19 11:23 pentazocine [From Talwin] Allergy Nausea Verified 05/20/19 11:23 Home Medications Medication Instructions Recorded Confirmed Last Taken Type Lisinopril [Zestril TAB] 40 mg PO DAILY 08/04/13 09/23/19 09/30/13 History Active Meds: Active Medications Acetaminophen (Tylenol) 650 mg PO Q6H PRN PRN Reason: Pain MILD(1-3)/Fever >100.5/MONTESINOS Albuterol (Proventil) 2.5 mg IH Q3HRT PRN PRN Reason: Shortness Of Breath Hydromorphone HCl (Dilaudid) 0.5 mg IV Q4H PRN PRN Reason: Pain , Severe (7-10) Last Admin: 09/23/19 08:48 Dose: 0.5 mg Documented by: Sodium Chloride (Nacl 0.9% 1000 Ml) 1,000 mls @ 125 mls/hr IV DIRECT OZZY Last Admin: 09/23/19 03:20 Dose: 125 mls/hr Documented by: Cefepime HCl (Cefepime/Ns 2 Gm/100 Ml) 2 gm in 100 mls @ 200 mls/hr IV Q8HR OZZY; Protocol Last Admin: 09/23/19 06:54 Dose: 200 mls/hr Documented by: Magnesium Hydroxide (Milk Of Magnesia) 30 ml PO Q4H PRN PRN Reason: Constipation Sodium Chloride (Sodium Chloride Flush Syringe 10 Ml) 10 ml IV BID OZZY Sodium Chloride (Sodium Chloride Flush Syringe 10 Ml) 10 ml IV PRN PRN PRN Reason: LINE FLUSH Review of Systems All systems: negative Cardiovascular: palpitations Respiratory: cough, shortness of breath, dyspnea on exertion Physical Examination Vital Signs Temp Pulse Resp BP Pulse Ox 97.7 F 97 H 20 178/107 95 09/22/19 18:08 09/22/19 18:08 09/22/19 18:08 09/22/19 18:08 09/22/19 18:08 General appearance: no acute distress, well-nourished HEENT: Positive: PERRL, Mucus Membranes Moist Neck: Positive: neck supple, trachea midline Cardiac: Positive: Reg Rate and Rhythm, S1/S2. Negative: Audible Murmur Lungs: Positive: clear to auscultation, Normal Breath Sounds Neuro: Positive: Grossly Intact Abdomen: Positive: Soft, Active Bowel Sounds. Negative: Tender, Distended Female genitourinary: deferred Skin: Positive: Clear Incision: Cardiac Cath Site Musculoskeletal: No Pain, Normal Range of Motion Extremities: Present: normal. Absent: edema Results 09/23/19 01:15 09/23/19 01:15 Cardiac Enzymes 09/22/19 Range/Units 18:50 AST 21 (5-40) units/L Coagulation 09/22/19 09/23/19 Range/Units 18:50 01:15 PT 13.3 13.5 (12.2-14.9) Sec. INR 1.02 1.04 (0.87-1.13) APTT 30.3 (24.2-36.6) Sec. CBC 09/22/19 09/23/19 Range/Units 18:50 01:15 WBC 12.8 H 11.0 (4.5-11.0) K/mm3 RBC 4.55 4.17 (3.65-5.03) M/mm3 Hgb 14.4 H 13.5 (10.1-14.3) gm/dl Hct 44.7 H 40.8 (30.3-42.9) % Plt Count 276 272 (140-440) K/mm3 Lymph # 2.1 3.3 (1.2-5.4) K/mm3 [place] # 1.1 H 1.2 H (0.0-0.8) K/mm3 Eos # 0.1 0.1 (0.0-0.4) K/mm3 Baso # 0.1 0.1 (0.0-0.1) K/mm3 Comprehensive Metabolic Panel 09/22/19 09/23/19 Range/Units 18:50 01:15 Sodium 140 140 (137-145) mmol/L Potassium 4.0 3.7 (3.6-5.0) mmol/L Chloride 108.0 H 107.1 H (98-107) mmol/L Carbon Dioxide 17 L 19 L (22-30) mmol/L BUN 23 H 22 H (7-17) mg/dL Creatinine 0.7 0.7 (0.7-1.2) mg/dL Glucose 126 H 100 (65-100) mg/dL Calcium 10.0 9.3 (8.4-10.2) mg/dL AST 21 (5-40) units/L ALT 17 (7-56) units/L Alkaline Phosphatase 140 H (35-129) units/L Total Protein 7.2 (6.3-8.2) g/dL Albumin 4.6 (3.9-5) g/dL EKG interpretations - Telemetry EKG Rhythm: Sinus Rhythm Assessment and Plan 1. Paroxysmal atrial fibrillation currently in sinus rhythm 2. Community-acquired lobar pneumonia. 3. Syncope 4. Essential hypertension Plan. Continue present management. Anticoagulation, check echocardiogram.
[2019-09-23] MEDS ORDERED: ONDANSETRON 4 MG/2 ML INJ ONE (10:29)
[2019-09-23] MEDS ORDERED: FLU VACC QUAD 2019-20 (3 YR UP)/PF 60 MCG/0.5 ML SYRINGE IM ONE (12:00)
[2019-09-23] MEDS: ONDANSETRON 4 MG/2 ML INJ IV PRN ×2 (13:08→17:49)
--- NOTE | 2019-09-23 21:47 | Consultation ---
History of Present Illness - Reason for Consult Consult date: 09/23/19 - History of Present Illness 64 yo F PMHx tobacco abuse admitted to the hospital complaining of acute on chronic shortness of breath. She notes the acute symptoms have been present for the past week, and she complains of SOB without cough or sputum production. SHe also denies fevers, sweats, chills. She notes she has had significant baseline SOB for the past 1 year or so, but has never had formal PFT testing despite hav ing a significant tobacco history. She also notes have a syncopal episode the day prior to admission where she high her L elbow and knee, and she complains of ongoing pain. She was found to be in afib with RVR in the ER. Imaging personally reviewed: Diffuse bilateral groundglass opacities, similar to previous study. No focal consolidation. Review of systems: Bold if positive; otherwise negative GENERAL: fever, chills, weight loss, fatigue, night sweats EYES: blurry vision, eye pain HENT: headache, hearing loss, sore throat, dysphagia, sinus pain CARDIO: chest pain, palpitations, orthopnea PULM: shortness of breath, wheezing, cough, sputum, hemoptysis GI: nausea, vomiting, diarrhea, abdominal pain, blood in stool : urinary frequency, urgency, dysuria, urethral discharge MSK: joint pain, back pain, swelling SKIN: rash, redness HEME: easy bruising, bleeding Past History Past Medical History: hypertension Past Surgical History: appendectomy, Other (Neck surgery, hysterectomy) Social history: smoking (patient smokes about half a pack of cigarette per day) Family history: cancer (father of lung cancer), other (mother had kidney infection) Medications and Allergies Allergies Allergy/AdvReac Type Severity Reaction Status Date / Time codeine Allergy Vomiting Verified 05/20/19 11:23 Penicillins Allergy Hives Verified 05/20/19 11:23 pentazocine [From Talwin] Allergy Nausea Verified 05/20/19 11:23 Home Medications Medication Instructions Recorded Confirmed Last Taken Type Lisinopril [Zestril TAB] 40 mg PO DAILY 08/04/13 09/23/19 09/30/13 History Active Meds: Active Medications Acetaminophen (Tylenol) 650 mg PO Q6H PRN PRN Reason: Pain MILD(1-3)/Fever >100.5/MONTESINOS Last Admin: 11/02/19 15:27 Dose: 650 mg Documented by: Albuterol (Proventil) 2.5 mg IH Q3HRT PRN PRN Reason: Shortness Of Breath Hydromorphone HCl (Dilaudid) 0.5 mg IV Q4H PRN PRN Reason: Pain , Severe (7-10) Last Admin: 09/23/19 20:51 Dose: 0.5 mg Documented by: Sodium Chloride (Nacl 0.9% 1000 Ml) 1,000 mls @ 125 mls/hr IV DIRECT OZZY Last Admin: 09/23/19 03:20 Dose: 125 mls/hr Documented by: Cefepime HCl (Cefepime/Ns 2 Gm/100 Ml) 2 gm in 100 mls @ 200 mls/hr IV Q8HR OZZY; Protocol Last Admin: 09/23/19 21:05 Dose: 200 mls/hr Documented by: Magnesium Hydroxide (Milk Of Magnesia) 30 ml PO Q4H PRN PRN Reason: Constipation Ondansetron HCl (Zofran) 4 mg IV Q4H PRN PRN Reason: Nausea And Vomiting Last Admin: 09/23/19 17:49 Dose: 4 mg Documented by: Sodium Chloride (Sodium Chloride Flush Syringe 10 Ml) 10 ml IV BID OZZY Last Admin: 09/23/19 21:24 Dose: 10 ml Documented by: Sodium Chloride (Sodium Chloride Flush Syringe 10 Ml) 10 ml IV PRN PRN PRN Reason: LINE FLUSH Physical Examination - Physical Exam Narrative exam: General Normal appearance, well developed, no acute distress Eyes - PERRLA, EOM intact ENT - Moist mucous membranes, no lymphadenopathy Neck - No noticeable or palpable swelling, redness or rash around throat or on face Lymph Nodes - No lymphadenopathy Cardiovascular - RRR no m/r/g, no JVD, no carotid bruits Lungs - Clear to auscultation, no use of accessory muscles, no crackles or wheezes. Skin - No rashes, skin warm and dry, no erythematous areas Abdomen - Normal bowel sounds, abdomen soft and nontender Extremities - No edema, cyanosis or clubbing Musculoskeletal - 5/5 strength, normal range of motion, no swollen or erythematous joints. Neurological Alert and oriented x 3, CN 2-12 grossly intact. - Constitutional Vitals: Vital Signs Temp Pulse Resp BP Pulse Ox 99.2 F 53 L 18 127/67 96 09/23/19 19:59 09/23/19 17:35 09/23/19 19:59 09/23/19 19:59 09/23/19 17:35 Temperature -Last 24 Hours Temperature 99.2 F Temperature 99.3 F Temperature 98.8 F Temperature 98.3 F Temperature 98.0 F Temperature 98.3 F Results - Labs CBC & Chem 7: 09/23/19 01:15 09/23/19 01:15 Labs: Abnormal lab results 09/22/19 09/23/19 09/23/19 Range/Units 22:35 01:15 01:15 MCV 98 H (79-97) fl [place] % (Auto) 11.2 H (0.0-7.3) % [place] # 1.2 H (0.0-0.8) K/mm3 Chloride 107.1 H (98-107) mmol/L Carbon Dioxide 19 L (22-30) mmol/L BUN 22 H (7-17) mg/dL Lactic Acid 2.20 H* (0.7-2.0) mmol/L Assessment and Plan Cultures Blood culture 09/22/19 no growth to date Assessment: 64 yo F PMHx tobacco abuse, HTN admitted wt acute on chronic SOB. 1. Acute on chronic SOB - possible pneumonia, however no focal consolidation seen on CT. I feel she may have some sort of ILD as a baseline given her progressive SOB for the past year. Would recommend pulmonology consult as she may require PFTs. Her acute exacerbation may be due to a viral URI given her recent increase in sneezing. Will order procalcitonin. If negative, presume viral etiology and ok to stop antibiotics at that time. Recs: - pulmonology consult - continue cefepime 2g q8h for now - ordered procalcitonin for morning. Thank you for the consult, will follow. [facility] ([facility]) M: [phone] O: [phone] F: [phone]
[2019-09-24] MEDS: ONDANSETRON 4 MG/2 ML INJ IV PRN ×2 (00:07→13:00)
[2019-09-24] MEDS: HYDROmorphone 1 MG/1 ML INJ IV PRN ×6 (01:02→20:24)
[2019-09-24] MEDS ORDERED: METOPROLOL TARTRATE 5 MG/5 ML INJ IV ONE (03:05)
[2019-09-24] MEDS ORDERED: MORPHINE 2 MG/1 ML INJ IV ONE (03:58)
[2019-09-24] MEDS ORDERED: dilTIAZem 25 MG/5 ML INJ IV ONE ×2 (04:36→05:00)
[2019-09-24] MEDS ORDERED: dilTIAZem/D5W 100 MG/100 ML BAG IV SCH (06:00)
[2019-09-24] MEDS: CEFEPIME/NS 2 GM/100 ML 2 GM/100 ML BAG IV SCH (06:02)
--- NOTE | 2019-09-24 09:39 | Progress Note ---
Assessment and Plan 1. Paroxysmal atrial fibrillation with tachy-kendra episodes and recurrent significant asystolic pauses 2. Community-acquired lobar pneumonia. 3. Syncope 4. Essential hypertension 5. Bipolar disorder Plan. Patient is alert stable and asymptomatic but overnight has demonstrated episodes of tachy-kendra rhythm ( c/w Sick sinus syndrome )with significant asystolic pauses. Cardizem drip will be discontinued beta blockers will be discontinued patient will be transferred to the intensive care unit and monitored she will need a permanent pacemaker before reinstituting these medications to control her ventricular rate we will also check TSH level and echocardiogram Subjective Date of service: 09/24/19 Interval history: No cardiac symptoms. Patient on cardizem drip and ahs demonstrated tacty-kendra episodes with significant asystolic pauses Objective Vital Signs Temp Pulse Pulse Resp Resp BP Pulse Ox 09/24/19 08:14 98.3 F 41 L 18 136/93 97 09/24/19 06:59 18 09/24/19 06:38 150 H 130/82 09/24/19 04:43 150 H 130/82 09/24/19 03:25 99.0 F 150 H 20 130/82 88 09/24/19 02:55 148 H 152/72 09/24/19 01:00 EST 18 09/24/19 01:02 EDT 18 09/23/19 23:25 98.4 F 77 18 134/61 91 09/23/19 19:59 99.2 F 18 127/67 09/23/19 19:20 80 09/23/19 17:35 99.3 F 53 L 22 116/57 96 09/23/19 15:00 60 09/23/19 14:02 20 09/23/19 11:46 98.8 F 59 L 20 152/58 95 09/23/19 10:45 92 - Physical Examination General: Appears Well, Other (obese) HEENT: Positive: PERRL, Mucus Membranes Moist Neck: Positive: neck supple, trachea midline. Negative: JVD/HJR Cardiac: Positive: irregularly irregular, S1/S2, PMI, Dilated, Laterally Displaced. Negative: S3 Lungs: Positive: clear to auscultation, No Wheeze, Rales, Rhonchi Neuro: Positive: Grossly Intact Abdomen: Positive: Soft, Active Bowel Sounds. Negative: Tender, Distended Skin: Positive: Clear Incision: Cardiac Cath Site Musculoskeletal: No Pain, Normal Range of Motion Extremities: Present: normal. Absent: edema - Telemetry EKG Rhythm: Atrial Fibrillation
--- NOTE | 2019-09-24 12:06 | Progress Note ---
Assessment and Plan Assessment and plan: 64-year-old woman who presents to the hospital after losing consciousness and falling down. She presented with left elbow pain. Was found to be in A. fib with RVR upon arrival. Admitted to having palpitations a week prior to coming to the hospital. Has history of hypertension on lisinopril at home A. fib with RVR with hypercoagulable state Tachybradycardia syndrome Discussed with cardiology, discontinue Cardizem drip. Transfer to ICU where she will be monitored. Transcutaneous pacer on standby. Patient will need pacemaker, n.p.o. after midnight Avoid AV michael blocking agents Full dose Lovenox hypertension Continue BP meds acute on chronic shortness of breath Ground glass opacity on lung imaging likely has some chronic form of ILD, ID input appreciated, pulmonology consult pending Left elbow pain Patient did fall down the stairs when she passed out. It is very tender and painful. Obtain x-rays of shoulder and humerus DVT prophylaxis Fully anticoagulated Critical care time 35 minutes History Interval history: Review of systems Constitutional: No fevers, no malaise, no joint pains CVS: No chest pain, no orthopnea, no pedal edema, has complained of pal pitations GI: No abdominal pain, no diarrhea, no vomiting, no constipation Respiratory: Complaining of shortness of breath which has been worsening for months, no wheezing, no coughing Complaining of left elbow pain which happened after she fell Hospitalist Physical - Physical exam Narrative exam: General.: Mild distress HEENT: Moist mucous membranes, extraocular muscles intact, no lymphadenopathy Neck: supple Cardiac: S1-S2 heard Lungs: Velcro-like crackles in lungs, diminished air entry Abdomen: soft , nontender, nondistended, bowel sounds positive Extremities: Left elbow is tender and swollen, unable to manipulate her joint due to pain Skin: no rash or lesions Neurologic: no gross focal deficits Psych: calm, and cooperative - Constitutional Vitals: Temp Pulse Resp BP Pulse Ox 98.3 F 62 22 136/93 98 09/24/19 10:12 09/24/19 09:53 09/24/19 09:58 09/24/19 08:14 09/24/19 09:53 General appearance: Present: no acute distress, well-nourished Results - Labs CBC & Chem 7: 09/23/19 01:15 09/23/19 01:15 Labs: Laboratory Last Values WBC 11.0 K/mm3 (4.5-11.0) 09/23/19 01:15 RBC 4.17 M/mm3 (3.65-5.03) 09/23/19 01:15 Hgb 13.5 gm/dl (10.1-14.3) 09/23/19 01:15 Hct 40.8 % (30.3-42.9) 09/23/19 01:15 MCV 98 fl (79-97) H 09/23/19 01:15 MCH 32 pg (28-32) 09/23/19 01:15 MCHC 33 % (30-34) 09/23/19 01:15 RDW 15.0 % (13.2-15.2) 09/23/19 01:15 Plt Count 272 K/mm3 (140-440) 09/23/19 01:15 Lymph % (Auto) 30.0 % (13.4-35.0) 09/23/19 01:15 [place] % (Auto) 11.2 % (0.0-7.3) H 09/23/19 01:15 Eos % (Auto) 1.1 % (0.0-4.3) 09/23/19 01:15 Baso % (Auto) 0.7 % (0.0-1.8) 09/23/19 01:15 Lymph # 3.3 K/mm3 (1.2-5.4) 09/23/19 01:15 [place] # 1.2 K/mm3 (0.0-0.8) H 09/23/19 01:15 Eos # 0.1 K/mm3 (0.0-0.4) 09/23/19 01:15 Baso # 0.1 K/mm3 (0.0-0.1) 09/23/19 01:15 Seg Neutrophils % 57.0 % (40.0-70.0) 09/23/19 01:15 Seg Neutrophils # 6.3 K/mm3 (1.8-7.7) 09/23/19 01:15 PT 13.5 Sec. (12.2-14.9) 09/23/19 01:15 INR 1.04 (0.87-1.13) 09/23/19 01:15 APTT 30.3 Sec. (24.2-36.6) 09/22/19 18:50 Sodium 140 mmol/L (137-145) 09/23/19 01:15 Potassium 3.7 mmol/L (3.6-5.0) 09/23/19 01:15 Chloride 107.1 mmol/L (98-107) H 09/23/19 01:15 Carbon Dioxide 19 mmol/L (22-30) L 09/23/19 01:15 Anion Gap 18 mmol/L 09/23/19 01:15 BUN 22 mg/dL (7-17) H 09/23/19 01:15 Creatinine 0.7 mg/dL (0.7-1.2) 09/23/19 01:15 Estimated GFR > 60 ml/min 09/23/19 01:15 BUN/Creatinine Ratio 31 % 09/23/19 01:15 Glucose 100 mg/dL (65-100) 09/23/19 01:15 Lactic Acid 1.80 mmol/L (0.7-2.0) 09/23/19 05:15 Calcium 9.3 mg/dL (8.4-10.2) 09/23/19 01:15 Magnesium 2.00 mg/dL (1.7-2.3) 09/23/19 01:15 Total Bilirubin 0.30 mg/dL (0.1-1.2) 09/22/19 18:50 AST 21 units/L (5-40) 09/22/19 18:50 ALT 17 units/L (7-56) 09/22/19 18:50 Alkaline Phosphatase 140 units/L (35-129) H 09/22/19 18:50 Troponin T < 0.010 ng/mL (0.00-0.029) 09/24/19 04:16 NT-Pro-B Natriuret Pep 781.0 pg/mL (0-900) 09/22/19 18:50 Total Protein 7.2 g/dL (6.3-8.2) 09/22/19 18:50 Albumin 4.6 g/dL (3.9-5) 09/22/19 18:50 Albumin/Globulin Ratio 1.8 % 09/22/19 18:50 Procalcitonin 0.06 ng/mL (<0.15) 09/24/19 04:16 TSH 3.310 mlU/mL (0.270-4.200) 09/22/19 18:50 Thyroxine (T4) 5.4 ug/dL (4.0-12.0) 09/22/19 18:50 Plasma/Serum Alcohol < 0.01 % (0-0.07) 09/22/19 19:02 Active Medications - Current Medications Current Medications: Generic Name Dose Route Start Last Admin Trade Name Freq PRN Reason Stop Dose Admin Acetaminophen 650 mg 09/23/19 00:54 09/23/19 15:27 Tylenol PO 650 mg Q6H PRN Administration Pain MILD(1-3)/Fever >100.5/MONTESINOS Albuterol 2.5 mg 09/23/19 00:54 Proventil IH Q3HRT PRN Shortness Of Breath Enoxaparin Sodium 100 mg 09/24/19 13:00 Enoxaparin 1 mg/kg (100 mg) SUB-Q Q12HR OZZY Hydromorphone HCl 0.5 mg 09/23/19 04:00 09/24/19 10:09 Dilaudid IV 0.5 mg Q4H PRN Administration Pain , Severe (7-10) Sodium Chloride 1,000 mls @ 125 mls/hr 09/23/19 01:00 09/23/19 03:20 Nacl 0.9% 1000 Ml IV 125 mls/hr DIRECT OZZY Administration Cefepime HCl 2 gm in 100 mls @ 200 mls/hr 09/23/19 06:00 09/24/19 06:02 Cefepime/Ns 2 Gm/100 Ml IV 200 mls/hr Q8HR OZZY Administration Protocol Lisinopril 20 mg 09/24/19 13:00 Zestril PO DAILY OZZY Magnesium Hydroxide 30 ml 09/23/19 00:54 Milk Of Magnesia PO Q4H PRN Constipation Ondansetron HCl 4 mg 09/23/19 11:00 09/24/19 00:07 Zofran IV 4 mg Q4H PRN Administration Nausea And Vomiting Sodium Chloride 10 ml 09/23/19 10:00 09/23/19 21:24 Sodium Chloride Flush Syringe 10 Ml IV 10 ml BID OZZY Administration Sodium Chloride 10 ml 09/23/19 00:54 Sodium Chloride Flush Syringe 10 Ml IV PRN PRN LINE FLUSH Nutrition/Malnutrition Assess - Dietary Evaluation Nutrition/Malnutrition Findings: Nutrition Notes Start: 09/23/19 11:58 Freq: Status: Active Protocol: Document 09/23/19 11:58 EDITH (Rec: 09/23/19 12:03 EDITH SRW- [email or web address]) Nutrition Notes Need for Assessment generated from: MD Order,Education Initial or Follow up Brief Note Current Diagnosis Hypertension Other Pertinent Diagnosis Syncope, SOB Current Diet Cardiac Subjective/Other Information RD consulted for diet education. BP was 178/107 upon admission. Pt states that she takes her BP medication as prescribed, but forgot to take it last pm. She does not cook with salt and does not add salt after cooking. Reports good appetite. Burn Absent Trauma Absent #1 Nutrition Diagnosis Food and nutrition-related knowledge deficit Etiology limited exposure to diet education for low sodium diet As Evidenced by Signs and Symptoms pt admitted with elevated BP Nutrition Intervention Teaching Recipient Patient Learning Readiness Good Teaching Methods Discussion Response to Teaching Verbalize understanding Education Handouts Provided No handouts provided; pt unable to read. Discussed foods to limit when reducing sodium intake Barriers to Learning Reading skills,Age related, Emotional RD phone number provided No Patient aware of follow up options Yes Actions To Overcome Barriers Other Goal #1 Adherence to low sodium diet Goal #2 Improved BP control Anticipated Discharge Needs: Low sodium diet Revisit per MD consult or patient Sign Off request:
[2019-09-24] MEDS: ENOXAPARIN 100 MG/1 ML INJ SUB-Q SCH ×2 (12:56→21:38)
[2019-09-24] MEDS: LISINOPRIL 20 MG TAB PO SCH (12:57)
[2019-09-24] MEDS ORDERED: LISINOPRIL 40 MG TAB PO SCH (13:00)
--- NOTE | 2019-09-24 13:19 | Progress Note ---
Assessment and Plan Cultures: Blood culture 09/22/19 no growth to date Assessment: 64 yo F PMHx tobacco abuse, HTN admitted [facility] acute on chronic SOB. 1. Acute on chronic SOB - possible pneumonia, however no focal consolidation seen on CT and images show bilateral ground glass opacities similar to prior CT from 04/2019. ? ILD as a baseline given her progressive SOB for the past year. Consider pulmonology consult as she may require PFTs and additional eval. Her acute exacerbation may be due to a viral URI given her recent increase in sneezing. Procalcitonin is low as well, unlikely to be an acute bacterial infection, will d/c abx. Also, no recent HIV test, per discussion with patient at bedside, agreeable to get it checked. 2. Left arm pain: Xray showed no fracture. Recs: - abx discontinued - HIV test ordered (patient agreeable, verbal consent obtained) - awaiting pulmonary eval Dr. Camron nation tomorrow. Lamar Cordova MD, FACP [facility] ([facility] C: [phone] O: [phone] F: [phone] Subjective Date of service: 09/24/19 Interval history: No fever. No new complaints other than pain in left forearm/elbow region with swelling. Objective - Exam Narrative Exam: Physical Exam: Constitutional: Alert, cooperative. No acute distress Head, Ears, Nose: Normocephalic, atraumatic. External ears, nose normal Eyes: Conjunctivae/corneas clear. No icterus. No ptosis. Neck: Supple, no meningeal signs Oral: edentulous, no thrush Cardiovascular: S1, S2 normal. Respiratory: Good air entry, clear to auscultation bilaterally GI: Soft, non-tender; bowel sounds normal. No peritoneal signs Musculoskeletal: No pedal edema, no cyanosis. Left forearm and elbow swelling, tenderness + Skin: No rash or abscess Hem/Lymphatic: No palpable cervical or supraclavicular nodes. No lymphangitis Psych: Mood ok. Affect normal Neurological: Awake, alert, oriented. No gross abnormality - Constitutional Vitals: Vital Signs Temp Pulse Resp BP Pulse Ox 98.3 F 69 14 113/68 98 09/24/19 10:12 09/24/19 13:01 09/24/19 13:01 09/24/19 13:01 09/24/19 13:01 Temperature -Last 24 Hours Temperature 98.3 F Temperature 98.3 F Temperature 99.0 F Temperature 98.4 F Temperature 99.2 F Temperature 99.3 F - Labs CBC & Chem 7: 09/23/19 01:15 09/23/19 01:15
--- NOTE | 2019-09-24 13:29 | Consultation ---
History of Present Illness Consult date: 09/24/19 Requesting physician: FERNANDO DUNCAN Reason for consult: hypoxemia History of present illness: 64 year old female presenting to the emergency room today complaining of shortness of breath which has been ongoing for about 1 week. She denies any chest pain, no fever, no chills, no nausea vomiting. She had a syncopal episode today while doing laundry and subsequently had a fall. She sustained injury to the left elbow and also left knee. Patient denies any history of head injury, no history of seizure disorder. Upon arrival in the emergency room EKG was in atrial fibrillation with RVR subsequently converted to normal sinus rhythm. A CT scan of the head done and emergency room was negative. She had an elevated white count of 12.8 and also an elevated lactic acid. She has been admitted to the ICU and I have been consulted for critical care management. patient was seen and examined. Vitals, labs,medications, chart and imaging reviewed. Her is at the bedside at the time of my visit Past History Past Medical History: hypertension Past Surgical History: appendectomy, Other (Neck surgery, hysterectomy) Social history: smoking (patient smokes about half a pack of cigarette per day) Family history: cancer (father of lung cancer), other (mother had kidney infection) Medications and Allergies Allergies Allergy/AdvReac Type Severity Reaction Status Date / Time codeine Allergy Vomiting Verified 05/20/19 11:23 Penicillins Allergy Hives Verified 05/20/19 11:23 pentazocine [From [place]win] Allergy Nausea Verified 05/20/19 11:23 Home Medications Medication Instructions Recorded Confirmed Last Taken Type ALBUTEROL Inhaler (OR & NICU) 2 puff IH QID PRN #1 unit 10/01/19 Unknown Rx [ProAir HFA Inhaler] Acetaminophen [Acetaminophen TAB] 2 tab PO Q6H PRN #15 tablet 10/01/19 Unknown Rx Amiodarone [Cordarone 200 MG TAB] 200 mg PO QDAY #30 tablet 10/01/19 Unknown Rx Apixaban [Eliquis] 2.5 mg PO Q12HR #60 tablet 10/01/19 Unknown Rx Aspirin EC [Halfprin EC] 81 mg PO QDAY #30 tablet 10/01/19 Unknown Rx Metoprolol [Lopressor TAB] 50 mg PO Q8HR #90 tablet 10/01/19 Unknown Rx Pantoprazole [Protonix TAB] 40 mg PO QDAY #30 tablet 10/01/19 Unknown Rx Ticagrelor [Brilinta] 90 mg PO BID #60 tablet 10/01/19 Unknown Rx oxyCODONE /ACETAMINOPHEN [Percocet 1 tab PO Q6H PRN #25 tablet 10/01/19 Unknown Rx 5/325 mg] Active Meds: Active Medications Acetaminophen (Tylenol) 650 mg PO Q6H PRN PRN Reason: Pain MILD(1-3)/Fever >100.5/MONTESINOS Last Admin: 09/23/19 15:27 Dose: 650 mg Documented by: Albuterol (Proventil) 2.5 mg IH Q3HRT PRN PRN Reason: Shortness Of Breath Enoxaparin Sodium (Enoxaparin) 100 mg 1 mg/kg (100 mg) SUB-Q Q12HR [facility] Last Admin: 09/24/19 12:56 Dose: 100 mg Documented by: Hydromorphone HCl (Dilaudid) 0.5 mg IV Q4H PRN PRN Reason: Pain , Severe (7-10) Last Admin: 09/24/19 13:00 Dose: 0.5 mg Documented by: Sodium Chloride (Nacl 0.9% 1000 Ml) 1,000 mls @ 125 mls/hr IV DIRECT [facility] Last Admin: 09/23/19 03:20 Dose: 125 mls/hr Documented by: Lisinopril (Zestril) 20 mg PO QDAY [facility] Last Admin: 09/24/19 12:57 Dose: 20 mg Documented by: Magnesium Hydroxide (Milk Of Magnesia) 30 ml PO Q4H PRN PRN Reason: Constipation Ondansetron HCl (Zofran) 4 mg IV Q4H PRN PRN Reason: Nausea And Vomiting Last Admin: 09/24/19 13:00 Dose: 4 mg Documented by: Sodium Chloride (Sodium Chloride Flush Syringe 10 Ml) 10 ml IV BID [facility] Last Admin: 09/23/19 21:24 Dose: 10 ml Documented by: Sodium Chloride (Sodium Chloride Flush Syringe 10 Ml) 10 ml IV PRN PRN PRN Reason: LINE FLUSH Review of Systems Constitutional: no weight loss, no weight gain, no fever, no chills, no sweats Ears, nose, mouth and throat: no ear pain, no decreased hearing, no nasal congestion, no nasal discharge, no sinus pressure Cardiovascular: palpitations, syncope, lightheadedness, shortness of breath, no chest pain, no orthopnea Respiratory: shortness of breath, no cough, no hemoptysis, no congestion, no wheezing, no pleurisy Gastrointestinal: no nausea, no vomiting, no diarrhea, no change in bowel habits, no hematemesis Neurological: syncope, no transient paralysis, no paralysis, no weakness, no parathesias, no numbness, no seizures Physical Examination Vital signs: Vital Signs Temp Pulse Resp BP Pulse Ox 97.7 F 97 H 20 178/107 95 09/22/19 18:08 09/22/19 18:08 09/22/19 18:08 09/22/19 18:08 09/22/19 18:08 Constitutional: no acute distress, other (elderly looking obese CF, normocephalic with normal respiratory effort at rest) Eyes: non-icteric ENT: oropharynx moist, other (Mallampati 4) Neck: supple, no lymphadenopathy, no JVD, other (large neck circumference) Effort: normal Ascultation: Bilateral: clear, diminished breath sounds Percussion: Bilateral: not dull Cardiovascular: regular rate and rhythm Gastrointestinal: normoactive bowel sounds, soft, non-tender, non-distended Integumentary: normal Extremities: no cyanosis, no edema, pulses normal, no ischemia or petechiae, other (Left elbow pain and mild swelling; tender to touch) Neurologic: normal mental status, non-focal exam, pupils equal and round, CN II- XII normal Psychiatric: mood appropriate, affect normal Results - Laboratory Findings CBC and BMP: 09/23/19 01:15 09/29/19 10:01 PT/INR, D-dimer PT 13.5 Sec. (12.2-14.9) 09/23/19 01:15 INR 1.04 (0.87-1.13) 09/23/19 01:15 Abnormal lab findings: Abnormal Labs 09/22/19 09/22/19 09/22/19 18:50 18:50 22:35 WBC 12.8 H Hgb 14.4 H Hct 44.7 H MCV 98 H RDW 15.4 H [place] % (Auto) 8.3 H [place] # 1.1 H Seg Neutrophils % 74.1 H Seg Neutrophils # 9.5 H Chloride 108.0 H Carbon Dioxide 17 L BUN 23 H Glucose 126 H Lactic Acid 2.20 H* Alkaline Phosphatase 140 H 09/23/19 09/23/19 01:15 01:15 WBC Hgb Hct MCV 98 H RDW [place] % (Auto) 11.2 H [place] # 1.2 H Seg Neutrophils % Seg Neutrophils # Chloride 107.1 H Carbon Dioxide 19 L BUN 22 H Glucose Lactic Acid Alkaline Phosphatase Assessment and Plan Acute on chronic shortness of breath with GGO on imaging Syncopal episode with SSS A. fib with RVR SSS syndrome Malignant Hypertension with urgency Chronic pain syndrome Chest pain Tobacco use disorder- on going per her who is at the bedside ABG ordered, the GGO is most likely related to alveolar edema, with possible aspiration pneumonitis -Continue with supplemental oxygen to complete course -VTE prophylaxis-anticoagulated -Pain management per primary service -Continue with blood pressure management -Follow up CT chest without contrast prior to discharge to re-evaluate GGO seen on imaging at the time of admission -Life style modification counselling -Influenza and pneumovax addressed per protocol -Smoking cessation counselling done at the bedside -For possible pacemaker placement per Cardiology
[2019-09-24] MEDS: oxyCODONE /ACETAMINOPHEN 5-325MG TAB PO PRN ×2 (14:41→20:54)
[2019-09-24] MEDS: predniSONE 20 MG TAB PO SCH (14:42)
[2019-09-24] MEDS: MAGNESIUM HYDROXIDE (MOM) ORAL LIQD UDC PO PRN (14:42)
--- NOTE | 2019-09-24 15:58 | XRay Report ---
EXAMINATION: Left humerus, 2 views, 09/24/2019 CLINICAL INFORMATION: Left arm pain after fall COMPARISON: No relevant prior studies are available for comparison FINDINGS: There is no evidence of acute fracture of the left humerus. No definite focal soft tissue s welling is seen. Signer Name: Camila Martinez MD Signed: 09/24/2019 3:53 PM Workstation Name: [id number]
--- NOTE | 2019-09-24 16:01 | XRay Report ---
EXAMINATION: Left elbow radiograph, 2 views, 09/24/2019 CLINICAL INFORMATION: Left elbow pain after fall COMPARISON: None. FINDINGS: There is a subtle lucency through the olecranon noted on the lateral view, making it diffic ult to exclude a nondisplaced fracture in this patient with recent trauma. Additionally, there is a s mall ossified body posterior to the joint space potentially representing a fracture fragment. IMPRESSION: Subtle lucency through the olecranon that may suggest fracture in this patient with recen t fall and trauma. Signer Name: Camila Martinez MD Signed: 09/24/2019 3:56 PM Workstation Name: [id number]
[2019-09-25] MEDS: HYDROmorphone 1 MG/1 ML INJ IV PRN ×6 (01:17→22:13)
[2019-09-25] MEDS: oxyCODONE /ACETAMINOPHEN 5-325MG TAB PO PRN (07:31)
--- NOTE | 2019-09-25 08:43 | Progress Note ---
Assessment and Plan A. fib with RVR with hypercoagulable state Tachybradycardia syndrome Hypertension Acute on chronic shortness of breath Obesity (GGO's likely pulm edema related) - get orthopedics consultation - get sling for left elbow - follow 2D ECHO - rate and rhythm control per cardiology rec's - resume Eliquis per medical assembly - GI & VTE prophylaxis - continue other care per attending / other consultants - flu & pneumovax addressed per protocol - transfer to telemetry if OK with medical assembly .... re-evaluate in am & prn Subjective Date of service: 09/25/19 Principal diagnosis: A. fib with RVR; Tachy-kendra syndrome; HTN; shortness of breath; Obesity Interval history: Patient is seen today for: A. fib with RVR with hypercoagulable state; Tachybradycardia syndrome; Hypertension; Acute on chronic shortness of breath; Obesity Seen and examined at bedside; 24hour events reviewed; nursing and respiratory care staff consulted; no adverse overnight events reported to me; resting pe acefully in bed; denies acute chest pains or palpitations; still with Left elbow pain; No N/V/F/C; converted to sinus rhythm Objective Vital Signs - 12hr 09/24/19 09/24/19 09/24/19 20:50 21:00 21:10 Temperature Pulse Rate 78 69 72 Pulse Rate [ From Monitor] Respiratory 18 12 14 Rate Blood Pressure 88/58 87/51 87/51 O2 Sat by Pulse 94 94 94 Oximetry 09/24/19 09/24/19 09/24/19 21:20 21:30 21:40 Temperature Pulse Rate 67 67 76 Pulse Rate [ From Monitor] Respiratory 10 L 11 L 16 Rate Blood Pressure 87/51 87/51 87/51 O2 Sat by Pulse 74 L 94 95 Oximetry 09/24/19 09/24/19 09/24/19 21:50 22:00 22:10 Temperature Pulse Rate 74 73 68 Pulse Rate [ From Monitor] Respiratory 16 13 15 Rate Blood Pressure 87/51 110/47 110/47 O2 Sat by Pulse 94 93 87 Oximetry 09/24/19 09/24/19 09/24/19 22:20 22:30 22:40 Temperature Pulse Rate 74 69 68 Pulse Rate [ From Monitor] Respiratory 13 14 15 Rate Blood Pressure 110/47 110/47 110/47 O2 Sat by Pulse 90 92 91 Oximetry 09/24/19 09/24/19 09/24/19 22:48 22:50 23:00 Temperature Pulse Rate 71 70 63 Pulse Rate [ From Monitor] Respiratory 13 14 15 Rate Blood Pressure 110/47 110/47 97/52 O2 Sat by Pulse 92 82 L 90 Oximetry 09/24/19 09/24/19 09/24/19 23:10 23:20 23:30 Temperature Pulse Rate 67 63 61 Pulse Rate [ From Monitor] Respiratory 14 13 15 Rate Blood Pressure 97/52 97/52 97/52 O2 Sat by Pulse 93 94 89 Oximetry 09/24/19 09/24/19 09/25/19 23:40 23:50 00:00 Temperature 98.9 F Pulse Rate 65 65 62 Pulse Rate [ 57 L From Monitor] Respiratory 14 15 14 Rate Blood Pressure 97/52 97/52 97/52 O2 Sat by Pulse 93 94 93 Oximetry 09/25/19 09/25/19 09/25/19 00:10 00:20 00:30 Temperature Pulse Rate 64 62 72 Pulse Rate [ From Monitor] Respiratory 14 16 18 Rate Blood Pressure 89/42 89/42 89/42 O2 Sat by Pulse 93 94 97 Oximetry 09/25/19 09/25/19 09/25/19 00:40 00:50 01:00 Temperature Pulse Rate 60 61 69 Pulse Rate [ From Monitor] Respiratory 17 15 12 Rate Blood Pressure 89/42 89/42 130/64 O2 Sat by Pulse 92 95 94 Oximetry 09/25/19 09/25/19 09/25/19 01:10 01:20 01:30 Temperature Pulse Rate 78 77 74 Pulse Rate [ From Monitor] Respiratory 14 12 Rate Blood Pressure 130/64 130/64 130/64 O2 Sat by Pulse 99 98 97 Oximetry 09/25/19 09/25/19 09/25/19 01:40 01:50 02:00 Temperature Pulse Rate 71 68 70 Pulse Rate [ From Monitor] Respiratory 10 L 11 L 10 L Rate Blood Pressure 130/64 130/64 130/64 O2 Sat by Pulse 96 96 94 Oximetry 09/25/19 09/25/19 09/25/19 02:10 02:20 02:30 Temperature Pulse Rate 69 81 75 Pulse Rate [ From Monitor] Respiratory 11 L 13 13 Rate Blood Pressure 86/36 86/36 86/36 O2 Sat by Pulse 94 96 95 Oximetry 09/25/19 09/25/19 09/25/19 02:40 02:50 03:00 Temperature Pulse Rate 73 64 74 Pulse Rate [ From Monitor] Respiratory 11 L 11 L 11 L Rate Blood Pressure 86/36 86/36 86/36 O2 Sat by Pulse 89 97 97 Oximetry 09/25/19 09/25/19 09/25/19 03:10 03:20 03:30 Temperature Pulse Rate 72 64 63 Pulse Rate [ From Monitor] Respiratory 11 L 11 L 12 Rate Blood Pressure 86/36 86/36 86/36 O2 Sat by Pulse 93 93 91 Oximetry 09/25/19 09/25/19 09/25/19 03:40 03:50 04:00 Temperature 99 F Pulse Rate 68 69 61 Pulse Rate [ 63 From Monitor] Respiratory 11 L 12 10 L Rate Blood Pressure 104/46 104/46 98/42 O2 Sat by Pulse 92 92 94 Oximetry 09/25/19 09/25/19 09/25/19 04:10 04:20 04:30 Temperature Pulse Rate 71 67 63 Pulse Rate [ From Monitor] Respiratory 16 13 13 Rate Blood Pressure 98/42 98/42 98/42 O2 Sat by Pulse 93 92 91 Oximetry 09/25/19 09/25/19 09/25/19 04:40 04:50 05:00 Temperature Pulse Rate 65 62 57 L Pulse Rate [ From Monitor] Respiratory 9 L 11 L 12 Rate Blood Pressure 98/42 98/42 96/43 O2 Sat by Pulse 94 93 97 Oximetry 09/25/19 09/25/19 09/25/19 05:10 05:20 05:30 Temperature Pulse Rate 58 L 54 L 77 Pulse Rate [ From Monitor] Respiratory 14 12 13 Rate Blood Pressure 96/43 96/43 96/43 O2 Sat by Pulse 91 93 95 Oximetry 09/25/19 09/25/19 09/25/19 05:40 05:50 06:00 Temperature Pulse Rate 73 77 70 Pulse Rate [ From Monitor] Respiratory 19 10 L 14 Rate Blood Pressure 96/43 96/43 96/43 O2 Sat by Pulse 95 93 96 Oximetry 09/25/19 09/25/19 09/25/19 06:10 06:20 06:30 Temperature Pulse Rate 70 76 74 Pulse Rate [ From Monitor] Respiratory 12 23 15 Rate Blood Pressure 119/47 119/47 119/47 O2 Sat by Pulse 97 93 96 Oximetry 09/25/19 09/25/19 09/25/19 06:40 06:50 07:00 Temperature Pulse Rate 65 74 79 Pulse Rate [ From Monitor] Respiratory 12 14 20 Rate Blood Pressure 119/47 119/47 119/47 O2 Sat by Pulse 94 94 Oximetry 09/25/19 07:10 Temperature Pulse Rate 69 Pulse Rate [ From Monitor] Respiratory 13 Rate Blood Pressure 119/47 O2 Sat by Pulse 98 Oximetry Constitutional: no acute distress, other (elderly looking obese CF, normocephalic with normal respiratory effort at rest) Eyes: non-icteric ENT: oropharynx moist, other (Mallampati 4) Neck: supple, no lymphadenopathy, no JVD, other (large neck circumference) Effort: normal Ascultation: Bilateral: clear, diminished breath sounds Percussion: Bilateral: not dull Cardiovascular: regular rate and rhythm Gastrointestinal: normoactive bowel sounds, soft, non-tender, non-distended Integumentary: normal Extremities: no cyanosis, no edema, pulses normal, no ischemia or petechiae, other (Left elbow pain and mild swelling; tender to touch) Neurologic: normal mental status, non-focal exam, pupils equal and round, CN II- XII normal Psychiatric: mood appropriate, affect normal CBC and BMP: 09/23/19 01:15 09/23/19 01:15 ABG, PT/INR, D-dimer: ABG POC ABG pH 7.331 (7.35-7.45) L 09/24/19 18:22 POC ABG pCO2 46.0 (35-45) H 09/24/19 18:22 POC ABG pO2 56 (80-105) L 09/24/19 18:22 POC ABG HCO3 24.3 (22-26 mml/L) 09/24/19 18:22 POC ABG Total CO2 26 (23-27mmol/L) 09/24/19 18:22 POC ABG O2 Sat 87 09/24/19 18:22 PT/INR, D-dimer PT 13.5 Sec. (12.2-14.9) 09/23/19 01:15 INR 1.04 (0.87-1.13) 09/23/19 01:15 Abnormal lab findings: Abnormal Labs 11/12/1009/22/19 09/22/19 18:50 18:50 22:35 WBC 12.8 H Hgb 14.4 H Hct 44.7 H MCV 98 H RDW 15.4 H [place] % (Auto) 8.3 H [place] # 1.1 H Seg Neutrophils % 74.1 H Seg Neutrophils # 9.5 H POC ABG pH POC ABG pCO2 POC ABG pO2 Chloride 108.0 H Carbon Dioxide 17 L BUN 23 H Glucose 126 H Lactic Acid 2.20 H* Alkaline Phosphatase 140 H 09/23/19 09/23/19 09/24/19 01:15 01:15 18:22 WBC Hgb Hct MCV 98 H RDW [place] % (Auto) 11.2 H [place] # 1.2 H Seg Neutrophils % Seg Neutrophils # POC ABG pH 7.331 L POC ABG pCO2 46.0 H POC ABG pO2 56 L Chloride 107.1 H Carbon Dioxide 19 L BUN 22 H Glucose Lactic Acid Alkaline Phosphatase Additional Studies: Left Olecranon possible fracture Allied health notes reviewed: nursing
[2019-09-25] MEDS: predniSONE 20 MG TAB PO SCH (10:00)
[2019-09-25] MEDS: ENOXAPARIN 100 MG/1 ML INJ SUB-Q SCH (10:00)
[2019-09-25] MEDS: LISINOPRIL 20 MG TAB PO SCH (10:00)
--- NOTE | 2019-09-25 10:29 | Progress Note ---
Assessment and Plan Shortness of breath former Smoker Syncope Coronary artery disease s/p PCI of RCA with BMS 04/2019 at [facility] Echo 05/14/2019 at [facility] -LVEF 55% Paroxysmal Afib significant bradyarrhythmias on telemetry suggestive of underlying sick sinus syndrome currently in sinus rhythm treated with eliquis as an outpatient Chronic pain syndrome Recommendations: Continue medical therapy for coronary artery disease and oral anticoagulation for paroxysmal atrial fibrillation. Avoid AV michael blocking agents due to underlying sick sinus syndrome. Subjective Date of service: 09/25/19 Principal diagnosis: A. fib with RVR; Tachy-kendra syndrome; HTN; shortness of br eath; Obesity Interval history: Patient is resting in bed comfortably and has no cardiac complaints. Stable sinus rhythm on telemetry. Objective Vital Signs Temp Pulse Pulse Pulse Pulse Pulse Resp 09/25/19 09:10 72 14 09/25/19 09:00 76 15 09/25/19 08:50 76 15 09/25/19 08:40 74 15 09/25/19 08:30 82 16 09/25/19 08:20 73 15 09/25/19 08:10 75 18 09/25/19 08:00 73 73 13 09/25/19 07:50 74 13 09/25/19 07:40 77 18 09/25/19 07:30 75 12 09/25/19 07:20 70 17 09/25/19 07:10 69 13 09/25/19 07:00 79 20 09/25/19 06:50 74 14 09/25/19 06:40 65 12 09/25/19 06:30 74 15 09/25/19 06:20 76 23 09/25/19 06:10 70 12 09/25/19 06:00 70 14 09/25/19 05:50 77 10 L 09/25/19 05:40 73 19 09/25/19 05:30 77 13 09/25/19 05:20 54 L 12 09/25/19 05:10 58 L 14 09/25/19 05:00 57 L 12 09/25/19 04:50 62 11 L 09/25/19 04:40 65 9 L 09/25/19 04:30 63 13 09/25/19 04:20 67 13 09/25/19 04:10 71 16 09/25/19 04:00 99 F 61 63 10 L 09/25/19 03:50 69 12 09/25/19 03:40 68 11 L 09/25/19 03:30 63 12 09/25/19 03:20 64 11 L 09/25/19 03:10 72 11 L 09/25/19 03:00 74 11 L 09/25/19 02:50 64 11 L 09/25/19 02:40 73 11 L 09/25/19 02:30 75 13 09/25/19 02:20 81 13 09/25/19 02:10 69 11 L 09/25/19 02:00 70 10 L 09/25/19 01:50 68 11 L 09/25/19 01:40 71 10 L 09/25/19 01:30 74 12 09/25/19 01:20 77 14 09/25/19 01:10 78 09/25/19 01:00 69 12 09/25/19 00:50 61 15 09/25/19 00:40 60 17 09/25/19 00:30 72 18 09/25/19 00:20 62 16 09/25/19 00:10 64 14 09/25/19 00:00 98.9 F 62 57 L 14 09/24/19 23:50 65 15 09/24/19 23:40 65 14 09/24/19 23:30 61 15 09/24/19 23:20 63 13 09/24/19 23:10 67 14 09/24/19 23:00 63 15 09/24/19 22:50 70 14 09/24/19 22:48 71 13 09/24/19 22:40 68 15 09/24/19 22:30 69 14 09/24/19 22:20 74 13 09/24/19 22:10 68 15 09/24/19 22:00 73 13 09/24/19 21:50 74 16 09/24/19 21:40 76 16 09/24/19 21:30 67 11 L 09/24/19 21:20 67 10 L 09/24/19 21:10 72 14 09/24/19 21:00 69 12 09/24/19 20:50 78 18 09/24/19 20:40 70 14 09/24/19 20:30 69 12 09/24/19 20:20 85 13 09/24/19 20:10 76 13 09/24/19 20:00 99.0 F 69 71 13 09/24/19 19:50 71 14 09/24/19 19:40 76 15 09/24/19 19:38 09/24/19 19:30 77 15 09/24/19 19:20 78 15 09/24/19 19:10 67 12 09/24/19 19:00 62 14 09/24/19 18:50 77 13 09/24/19 18:40 67 12 09/24/19 18:30 69 13 09/24/19 18:21 09/24/19 18:20 80 13 09/24/19 18:10 75 16 09/24/19 18:00 76 11 L 09/24/19 17:50 68 11 L 09/24/19 17:40 67 12 09/24/19 17:30 71 11 L 09/24/19 17:20 69 12 09/24/19 17:10 78 15 09/24/19 17:04 76 14 09/24/19 16:51 67 7 L 09/24/19 16:41 76 20 09/24/19 16:31 63 12 09/24/19 16:21 62 13 09/24/19 16:11 63 10 L 09/24/19 16:00 63 63 63 63 10 L 09/24/19 15:51 62 11 L 09/24/19 15:41 67 12 09/24/19 15:31 68 14 09/24/19 15:21 75 13 09/24/19 15:11 65 10 L 09/24/19 15:01 70 14 09/24/19 14:51 67 10 L 09/24/19 14:41 77 19 09/24/19 14:31 69 13 09/24/19 14:21 67 18 09/24/19 14:12 74 09/24/19 14:11 71 19 09/24/19 14:01 74 13 09/24/19 13:51 70 11 L 09/24/19 13:41 68 18 09/24/19 13:31 58 L 13 09/24/19 13:21 68 12 09/24/19 13:11 70 16 09/24/19 13:01 69 14 09/24/19 12:57 69 09/24/19 12:51 69 12 09/24/19 12:41 73 12 09/24/19 12:31 69 13 09/24/19 12:21 64 16 09/24/19 12:11 65 12 09/24/19 12:00 63 66 66 66 15 09/24/19 11:51 62 12 09/24/19 11:41 68 25 H 09/24/19 11:31 62 13 09/24/19 11:21 63 12 09/24/19 11:11 69 13 09/24/19 11:00 66 14 09/24/19 10:51 63 13 09/24/19 10:41 66 12 09/24/19 10:31 70 19 BP Pulse Ox 09/25/19 09:10 125/72 95 09/25/19 09:00 125/72 94 09/25/19 08:50 125/72 96 09/25/19 08:40 138/82 96 09/25/19 08:30 138/82 98 09/25/19 08:20 138/82 94 09/25/19 08:10 125/72 94 09/25/19 08:00 125/72 93 09/25/19 07:50 138/82 91 09/25/19 07:40 138/82 91 09/25/19 07:30 138/82 94 09/25/19 07:20 138/82 95 09/25/19 07:10 119/47 98 09/25/19 07:00 119/47 09/25/19 06:50 119/47 94 09/25/19 06:40 119/47 94 09/25/19 06:30 119/47 96 09/25/19 06:20 119/47 93 09/25/19 06:10 119/47 97 09/25/19 06:00 96/43 96 09/25/19 05:50 96/43 93 09/25/19 05:40 96/43 95 09/25/19 05:30 96/43 95 09/25/19 05:20 96/43 93 09/25/19 05:10 96/43 91 09/25/19 05:00 96/43 97 09/25/19 04:50 98/42 93 09/25/19 04:40 98/42 94 09/25/19 04:30 98/42 91 09/25/19 04:20 98/42 92 09/25/19 04:10 98/42 93 09/25/19 04:00 98/42 94 09/25/19 03:50 104/46 92 09/25/19 03:40 104/46 92 09/25/19 03:30 86/36 91 09/25/19 03:20 86/36 93 09/25/19 03:10 86/36 93 09/25/19 03:00 86/36 97 09/25/19 02:50 86/36 97 09/25/19 02:40 86/36 89 09/25/19 02:30 86/36 95 09/25/19 02:20 86/36 96 09/25/19 02:10 86/36 94 09/25/19 02:00 130/64 94 09/25/19 01:50 130/64 96 09/25/19 01:40 130/64 96 09/25/19 01:30 130/64 97 09/25/19 01:20 130/64 98 09/25/19 01:10 130/64 99 09/25/19 01:00 130/64 94 09/25/19 00:50 89/42 95 09/25/19 00:40 89/42 92 09/25/19 00:30 89/42 97 09/25/19 00:20 89/42 94 09/25/19 00:10 89/42 93 09/25/19 00:00 97/52 93 09/24/19 23:50 97/52 94 09/24/19 23:40 97/52 93 09/24/19 23:30 97/52 89 09/24/19 23:20 97/52 94 09/24/19 23:10 97/52 93 09/24/19 23:00 97/52 90 09/24/19 22:50 110/47 82 L 09/24/19 22:48 110/47 92 09/24/19 22:40 110/47 91 09/24/19 22:30 110/47 92 09/24/19 22:20 110/47 90 09/24/19 22:10 110/47 87 09/24/19 22:00 110/47 93 09/24/19 21:50 87/51 94 09/24/19 21:40 87/51 95 09/24/19 21:30 87/51 94 09/24/19 21:20 87/51 74 L 09/24/19 21:10 87/51 94 09/24/19 21:00 87/51 94 09/24/19 20:50 88/58 94 09/24/19 20:40 88/58 96 09/24/19 20:30 88/58 96 09/24/19 20:20 88/58 09/24/19 20:10 88/58 09/24/19 20:00 88/58 91 09/24/19 19:50 85/59 90 09/24/19 19:40 85/59 92 09/24/19 19:38 96 09/24/19 19:30 85/59 09/24/19 19:20 85/59 09/24/19 19:10 85/59 93 09/24/19 19:00 139/70 97 09/24/19 18:50 139/70 100 09/24/19 18:40 139/70 99 09/24/19 18:30 139/70 98 09/24/19 18:21 92 09/24/19 18:20 112/43 98 09/24/19 18:10 112/43 93 09/24/19 18:00 118/51 94 09/24/19 17:50 118/51 93 09/24/19 17:40 118/51 89 09/24/19 17:30 118/51 90 09/24/19 17:20 139/70 84 09/24/19 17:10 94 09/24/19 17:04 96 09/24/19 16:51 119/59 92 09/24/19 16:41 119/59 95 09/24/19 16:31 119/59 97 09/24/19 16:21 119/59 97 09/24/19 16:11 118/51 96 09/24/19 16:00 118/51 93 09/24/19 15:51 119/59 95 09/24/19 15:41 119/59 88 09/24/19 15:31 119/59 97 09/24/19 15:21 119/59 97 09/24/19 15:11 119/59 96 09/24/19 15:01 119/59 97 09/24/19 14:51 113/68 97 09/24/19 14:41 113/68 99 09/24/19 14:31 113/68 94 09/24/19 14:21 113/68 97 09/24/19 14:12 09/24/19 14:11 113/68 98 09/24/19 14:01 113/68 98 09/24/19 13:51 113/68 96 09/24/19 13:41 113/68 98 09/24/19 13:31 113/68 96 09/24/19 13:21 113/68 92 09/24/19 13:11 113/68 97 09/24/19 13:01 113/68 98 09/24/19 12:57 113/73 09/24/19 12:51 101/45 09/24/19 12:41 101/45 75 L 09/24/19 12:31 101/45 09/24/19 12:21 101/45 91 09/24/19 12:11 101/45 95 09/24/19 12:00 101/45 90 09/24/19 11:51 94/43 90 09/24/19 11:41 135/69 92 09/24/19 11:31 135/69 90 09/24/19 11:21 135/69 90 09/24/19 11:11 135/69 94 09/24/19 11:00 135/69 95 09/24/19 10:51 93/63 94 09/24/19 10:41 108/69 93 09/24/19 10:31 108/69 95 - Physical Examination General: No Apparent Distress, Other (obese) HEENT: Positive: PERRL, Mucus Membranes Moist Neck: Positive: trachea midline Cardiac: Positive: Reg Rate and Rhythm Lungs: Positive: Decreased Breath Sounds Neuro: Positive: Grossly Intact Abdomen: Positive: Soft Extremities: Absent: edema
--- NOTE | 2019-09-25 10:39 | Progress Note ---
Assessment and Plan Assessment and plan: 64-year-old woman who presents to the hospital after losing consciousness and falling down. She presented with left elbow pain. Was found to be in A. fib with RVR upon arrival. Admitted to having palpitations a week prior to coming to the hospital. Has history of hypertension on lisinopril at home A. fib with RVR with hypercoagulable state Tachybradycardia syndrome Discussed with cardiology, discontinue Cardizem drip. Avoid AV michael blocking agents Full dose Lovenox hypertension Continue BP meds acute on chronic shortness of breath Ground glass opacity on lung imaging likely has some chronic form of ILD, ID input appreciated, pulmonology consult appreciated Left olecranon fracture Pain meds, provide sling, orthopedic surgery consult DVT prophylaxis Fully anticoagulated Critical care time 35 minutes Preventative health counseling performed for 17 minutes Bradycardia has now improved, if continues to stay stable will consider transfer back to telemetry unit History Interval history: Review of systems Constitutional: No fevers, no malaise, no joint pains CVS: No chest pain, no orthopnea, no pedal edema, has complained of palpitations GI: No abdominal pain, no diarrhea, no vomiting, no constipation Respiratory: Complaining of shortness of breath which has been worsening for months, no wheezing, no coughing Complaining of left elbow pain which happened after she fell Hospitalist Physical - Physical exam Narrative exam: General.: Mild distress HEENT: Moist mucous membranes, extraocular muscles intact, no lymphadenopathy Neck: supple Cardiac: S1-S2 heard Lungs: Velcro-like crackles in lungs, diminished air entry Abdomen: soft , nontender, nondistended, bowel sounds positive Extremities: Left elbow is tender and swollen, unable to manipulate her joint due to pain Skin: no rash or lesions Neurologic: no gross focal deficits Psych: calm, and cooperative - Constitutional Vitals: Temp Pulse Resp BP Pulse Ox 99 F 83 12 125/72 97 09/25/19 04:00 09/25/19 10:00 09/25/19 10:00 09/25/19 10:00 09/25/19 09:50 General appearance: Present: no acute distress, well-nourished Results - Labs CBC & Chem 7: 09/23/19 01:15 09/23/19 01:15 Labs: Laboratory Last Values WBC 11.0 K/mm3 (4.5-11.0) 09/23/19 01:15 RBC 4.17 M/mm3 (3.65-5.03) 09/23/19 01:15 Hgb 13.5 gm/dl (10.1-14.3) 09/23/19 01:15 Hct 40.8 % (30.3-42.9) 09/23/19 01:15 MCV 98 fl (79-97) H 09/23/19 01:15 MCH 32 pg (28-32) 09/23/19 01:15 MCHC 33 % (30-34) 09/23/19 01:15 RDW 15.0 % (13.2-15.2) 09/23/19 01:15 Plt Count 272 K/mm3 (140-440) 09/23/19 01:15 Lymph % (Auto) 30.0 % (13.4-35.0) 09/23/19 01:15 Pepin % (Auto) 11.2 % (0.0-7.3) H 09/23/19 01:15 Eos % (Auto) 1.1 % (0.0-4.3) 09/23/19 01:15 Baso % (Auto) 0.7 % (0.0-1.8) 09/23/19 01:15 Lymph # 3.3 K/mm3 (1.2-5.4) 09/23/19 01:15 Pepin # 1.2 K/mm3 (0.0-0.8) H 09/23/19 01:15 Eos # 0.1 K/mm3 (0.0-0.4) 09/23/19 01:15 Baso # 0.1 K/mm3 (0.0-0.1) 09/23/19 01:15 Seg Neutrophils % 57.0 % (40.0-70.0) 09/23/19 01:15 Seg Neutrophils # 6.3 K/mm3 (1.8-7.7) 09/23/19 01:15 PT 13.5 Sec. (12.2-14.9) 09/23/19 01:15 INR 1.04 (0.87-1.13) 09/23/19 01:15 APTT 30.3 Sec. (24.2-36.6) 09/22/19 18:50 POC ABG pH 7.331 (7.35-7.45) L 09/24/19 18:22 POC ABG pCO2 46.0 (35-45) H 09/24/19 18:22 POC ABG pO2 56 (80-105) L 09/24/19 18:22 POC ABG HCO3 24.3 (22-26 mml/L) 09/24/19 18:22 POC ABG Total CO2 26 (23-27mmol/L) 09/24/19 18:22 POC ABG O2 Sat 87 09/24/19 18:22 POC ABG Base Excess -2 ((-2) - (+3)mmol/L) 09/24/19 18:22 FiO2 21 % 09/24/19 18:22 Sodium 140 mmol/L (137-145) 09/23/19 01:15 Potassium 3.7 mmol/L (3.6-5.0) 09/23/19 01:15 Chloride 107.1 mmol/L (98-107) H 09/23/19 01:15 Carbon Dioxide 19 mmol/L (22-30) L 09/23/19 01:15 Anion Gap 18 mmol/L 09/23/19 01:15 BUN 22 mg/dL (7-17) H 09/23/19 01:15 Creatinine 0.7 mg/dL (0.7-1.2) 09/23/19 01:15 Estimated GFR > 60 ml/min 09/23/19 01:15 BUN/Creatinine Ratio 31 % 09/23/19 01:15 Glucose 100 mg/dL (65-100) 09/23/19 01:15 Lactic Acid 1.80 mmol/L (0.7-2.0) 09/23/19 05:15 Calcium 9.3 mg/dL (8.4-10.2) 09/23/19 01:15 Magnesium 2.00 mg/dL (1.7-2.3) 09/23/19 01:15 Total Bilirubin 0.30 mg/dL (0.1-1.2) 09/22/19 18:50 AST 21 units/L (5-40) 09/22/19 18:50 ALT 17 units/L (7-56) 09/22/19 18:50 Alkaline Phosphatase 140 units/L (35-129) H 09/22/19 18:50 Troponin T < 0.010 ng/mL (0.00-0.029) 09/24/19 04:16 NT-Pro-B Natriuret Pep 781.0 pg/mL (0-900) 09/22/19 18:50 Total Protein 7.2 g/dL (6.3-8.2) 09/22/19 18:50 Albumin 4.6 g/dL (3.9-5) 09/22/19 18:50 Albumin/Globulin Ratio 1.8 % 09/22/19 18:50 Procalcitonin 0.06 ng/mL (<0.15) 09/24/19 04:16 TSH 3.310 mlU/mL (0.270-4.200) 09/22/19 18:50 Thyroxine (T4) 5.4 ug/dL (4.0-12.0) 09/22/19 18:50 Plasma/Serum Alcohol < 0.01 % (0-0.07) 09/22/19 19:02 Active Medications - Current Medications Current Medications: Generic Name Dose Route Start Last Admin Trade Name Freq PRN Reason Stop Dose Admin Acetaminophen 650 mg 09/23/19 00:54 09/23/19 15:27 Tylenol PO 650 mg Q6H PRN Administration Pain MILD(1-3)/Fever >100.5/MONTESINOS Albuterol 2.5 mg 09/23/19 00:54 Proventil IH Q3HRT PRN Shortness Of Breath Enoxaparin Sodium 100 mg 09/24/19 13:00 09/24/19 21:38 Enoxaparin 1 mg/kg (100 mg) 100 mg SUB-Q Administration Q12HR OZZY Hydromorphone HCl 0.5 mg 09/23/19 04:00 09/25/19 05:38 Dilaudid IV 0.5 mg Q4H PRN Administration Pain , Severe (7-10) Sodium Chloride 1,000 mls @ 125 mls/hr 09/23/19 01:00 09/23/19 03:20 Nacl 0.9% 1000 Ml IV 125 mls/hr DIRECT OZZY Administration Lisinopril 20 mg 09/24/19 13:00 09/24/19 12:57 Zestril PO 20 mg QDAY OZZY Administration Magnesium Hydroxide 30 ml 09/23/19 00:54 09/24/19 14:42 Milk Of Magnesia PO 30 ml Q4H PRN Administration Constipation Ondansetron HCl 4 mg 09/23/19 11:00 09/24/19 13:00 Zofran IV 4 mg Q4H PRN Administration Nausea And Vomiting Oxycodone/Acetaminophen 1 tab 09/24/19 13:45 09/25/19 07:31 Percocet 5/325 PO 1 tab Q6H PRN Administration Pain, Moderate (4-6) Prednisone 40 mg 09/24/19 14:00 09/24/19 14:42 Deltasone PO 40 mg QDAY OZZY Administration Sodium Chloride 10 ml 09/23/19 10:00 09/24/19 21:38 Sodium Chloride Flush Syringe 10 Ml IV 10 ml BID OZZY Administration Sodium Chloride 10 ml 09/23/19 00:54 Sodium Chloride Flush Syringe 10 Ml IV PRN PRN LINE FLUSH Nutrition/Malnutrition Assess - Dietary Evaluation Nutrition/Malnutrition Findings: Nutrition Notes Start: 09/23/19 11:58 Freq: Status: Active Protocol: Document 09/23/19 11:58 [facility] (Rec: 09/23/19 12:03 [facility] SRW- [id number]) Nutrition Notes Need for Assessment generated from: MD Order,Education Initial or Follow up Brief Note Current Diagnosis Hypertension Other Pertinent Diagnosis Syncope, SOB Current Diet Cardiac Subjective/Other Information RD consulted for diet education. BP was 178/107 upon admission. Pt states that she takes her BP medication as prescribed, but forgot to take it last pm. She does not cook with salt and does not add salt after cooking. Reports good appetite. Burn Absent Trauma Absent #1 Nutrition Diagnosis Food and nutrition-related knowledge deficit Etiology limited exposure to diet education for low sodium diet As Evidenced by Signs and Symptoms pt admitted with elevated BP Nutrition Intervention Teaching Recipient Patient Learning Readiness Good Teaching Methods Discussion Response to Teaching Verbalize understanding Education Handouts Provided No handouts provided; pt unable to read. Discussed foods to limit when reducing sodium intake Barriers to Learning Reading skills,Age related, Emotional RD phone number provided No Patient aware of follow up options Yes Actions To Overcome Barriers Other Goal #1 Adherence to low sodium diet Goal #2 Improved BP control Anticipated Discharge Needs: Low sodium diet Revisit per MD consult or patient Sign Off request:
--- NOTE | 2019-09-25 12:25 | Vascular Lab Report ---
BILATERAL CAROTID DOPPLER ULTRASOUND INDICATION : syncope TECHNIQUE: Grayscale and color Doppler imaging performed through the neck. COMPARISON: None FINDINGS: Right: There is no significant atherosclerotic disease. Peak systolic velocity in the CCA is 71 cm/ s with end-diastolic velocity of 9 cm/s. Peak systolic velocity in the proximal ICA is 116 cm/s with end-diastolic velocity of 46 cm/s. ICA to CCA ratio is less than 2. There is antegrade flow in the E CA and the vertebral artery. Left: There is no significant atherosclerotic disease. Peak systolic velocity in the CCA is 97 cm/s w ith end-diastolic velocity of 22 cm/s. Peak systolic velocity in the proximal ICA is 82 cm/s with end -diastolic velocity of 25 cm/s. ICA to CCA ratio is less than 2. There is antegrade flow in the ECA and the vertebral artery. Doppler velocities in the right and left external carotid arteries are elevated measuring 171 cm/s an d 198 cm/s respectively consistent with 50-79% stenosis. IMPRESSION: No hemodynamically significant stenosis by NASCET criteria. There is less than 50% lumina l narrowing in the common carotid and internal carotid arteries. Elevated velocities in the external carotid arteries as described. Signer Name: Tex Browning Jr, MD Signed: 09/25/2019 12:21 PM Workstation Name: [id number]
[2019-09-25] MEDS: PANTOPRAZOLE 40 MG TAB PO SCH (16:00)
--- NOTE | 2019-09-25 16:00 | Progress Note ---
Assessment and Plan Cultures: Blood culture 09/22/19 no growth to date Assessment: 64 yo F PMHx tobacco abuse, HTN admitted [facility] acute on chronic SOB. 1. Acute on chronic SOB - possible pneumonia, however no focal consolidation seen on CT and images show bilateral ground glass opacities similar to prior CT from 04/2019. ? ILD as a baseline given her progressive SOB for the past year. Consider pulmonology consult as she may require PFTs and additional eval. Her acute exacerbation may be due to a viral URI given her recent increase in sneezing. Procalcitonin is low as well, unlikely to be an acute bacterial infection, will d/c abx. Also, no recent HIV test, per discussion with patient at bedside, agreeable to get it checked. 2. Left arm pain: Xray showed no fracture. Recs: - abx discontinued - HIV test ordered (patient agreeable, verbal consent obtained) - continue to monitor Med Lyon MD [facility], [place] M: [phone] O: [phone] F: [phone] Subjective Date of service: 09/25/19 Principal diagnosis: A. fib with RVR; Tachy-kendra syndrome; HTN; shortness of breath; Obesity Interval history: Now in ICU, ongoing SOB. Objective - Exam Narrative Exam: General Normal appearance, well developed, no acute distress Eyes - PERRLA, EOM intact ENT - Moist mucous membranes, no lymphadenopathy Neck - No noticeable or palpable swelling, redness or rash around throat or on face Lymph Nodes - No lymphadenopathy Cardiovascular - RRR no m/r/g, no JVD, no carotid bruits Lungs - Clear to auscultation, no use of accessory muscles, no crackles or wheezes. Skin - No rashes, skin warm and dry, no erythematous areas Abdomen - Normal bowel sounds, abdomen soft and nontender Extremities - No edema, cyanosis or clubbing Musculoskeletal - 5/5 strength, normal range of motion, no swollen or erythematous joints. Neurological Alert and oriented x 3, CN 2-12 grossly intact. - Constitutional Vitals: Vital Signs Temp Pulse Resp BP Pulse Ox 99 F 83 16 124/66 95 09/25/19 04:00 09/25/19 13:01 09/25/19 13:01 09/25/19 13:01 09/25/19 12:00 Temperature -Last 24 Hours Temperature 99 F Temperature 98.9 F Temperature 99.0 F - Labs CBC & Chem 7: 09/23/19 01:15 09/23/19 01:15 Labs: Abnormal lab results 09/24/19 Range/Units 18:22 POC ABG pH 7.331 L (7.35-7.45) POC ABG pCO2 46.0 H (35-45) POC ABG pO2 56 L (80-105)
[2019-09-25] MEDS: TICAGRELOR 90 MG TAB PO SCH (21:57)
[2019-09-25] MEDS: APIXABAN 5 MG TAB PO SCH (21:57)
[2019-09-26] MEDS: HYDROmorphone 1 MG/1 ML INJ IV PRN ×5 (02:15→21:33)
[2019-09-26] MEDS: oxyCODONE /ACETAMINOPHEN 5-325MG TAB PO PRN (05:04)
[2019-09-26] MEDS: TICAGRELOR 90 MG TAB PO SCH ×2 (10:09→21:34)
[2019-09-26] MEDS: PANTOPRAZOLE 40 MG TAB PO SCH (10:09)
[2019-09-26] MEDS: APIXABAN 5 MG TAB PO SCH (10:09)
[2019-09-26] MEDS: predniSONE 20 MG TAB PO SCH (10:09)
[2019-09-26] MEDS: LISINOPRIL 20 MG TAB PO SCH (10:09)
--- NOTE | 2019-09-26 13:23 | Consultation ---
History of Present Illness Consult date: 09/26/19 Consult reason: atrial fibrillation, syncope History of present illness: The patient is a 64-year-old woman with a history of coronary artery disease and paroxysmal atrial fibrillation. 4 months ago, she was hospitalized at [facility] where she underwent cardiac catheterization with implantation of a bare metal stent to a 95% stenosis of the right coronary artery. At that time, her left ventricular ejection fraction was 55%. The choice of the bare metal stent was based on the patient's history at that time with paroxysmal atrial fibrillation. She was ultimately discharged on a combination of Brilinta and Eliquis. Despite underlying CAD, she was previously unable to tolerate beta blockers due to symptomatic bradycardia. The patient presents to the hospital at this time following a fall at home, which resulted in an injury to her left elbow with x-rays suggesting a possible elbow fracture. She reports she suddenly "blacked out" at home leading to fall. She also reports she has had multiple previous episodes of syncope. On arrival to the hospital, her initial ECGs were rapid atrial fibrillation, and she was started on intravenous diltiazem. During her cause on intravenous diltiazem, she developed multiple conversion pauses up to 7 seconds in duration. The AV michael blockers have since been discontinued, and she has since returned to a stable normal sinus rhythm. Past History Past Medical History: CAD, hypertension Past Surgical History: appendectomy, Other (Neck surgery, hysterectomy) Social history: smoking (patient smokes about half a pack of cigarette per day) Family history: cancer (father of lung cancer), other (mother had kidney infection) Medications and Allergies Allergies Allergy/AdvReac Type Severity Reaction Status Date / Time codeine Allergy Vomiting Verified 05/20/19 11:23 Penicillins Allergy Hives Verified 05/20/19 11:23 pentazocine [From Talwin] Allergy Nausea Verified 05/20/19 11:23 Home Medications Medication Instructions Recorded Confirmed Last Taken Type Lisinopril [Zestril TAB] 40 mg PO DAILY 08/04/13 09/23/19 09/30/13 History Active Meds: Active Medications Acetaminophen (Tylenol) 650 mg PO Q6H PRN PRN Reason: Pain MILD(1-3)/Fever >100.5/MONTESINOS Last Admin: 09/23/19 15:27 Dose: 650 mg Documented by: Albuterol (Proventil) 2.5 mg IH Q3HRT PRN PRN Reason: Shortness Of Breath Apixaban (Eliquis) 5 mg PO Q12HR [facility]; Protocol Last Admin: 09/26/19 10:09 Dose: 5 mg Documented by: Hydromorphone HCl (Dilaudid) 0.5 mg IV Q4H PRN PRN Reason: Pain , Severe (7-10) Last Admin: 09/26/19 11:34 Dose: 0.5 mg Documented by: Lisinopril (Zestril) 20 mg PO QDAY [facility] Last Admin: 09/26/19 10:09 Dose: 20 mg Documented by: Magnesium Hydroxide (Milk Of Magnesia) 30 ml PO Q4H PRN PRN Reason: Constipation Last Admin: 09/24/19 14:42 Dose: 30 ml Documented by: Ondansetron HCl (Zofran) 4 mg IV Q4H PRN PRN Reason: Nausea And Vomiting Last Admin: 09/24/19 13:00 Dose: 4 mg Documented by: Oxycodone/Acetaminophen (Percocet 5/325) 1 tab PO Q6H PRN PRN Reason: Pain, Moderate (4-6) Last Admin: 09/26/19 05:04 Dose: 1 tab Documented by: Pantoprazole Sodium (Protonix) 40 mg PO QDAY [facility] Last Admin: 09/26/19 10:09 Dose: 40 mg Documented by: Prednisone (Deltasone) 40 mg PO QDAY [facility] Last Admin: 09/26/19 10:09 Dose: 40 mg Documented by: Sodium Chloride (Sodium Chloride Flush Syringe 10 Ml) 10 ml IV BID [facility] Last Admin: 09/26/19 10:09 Dose: 10 ml Documented by: Sodium Chloride (Sodium Chloride Flush Syringe 10 Ml) 10 ml IV PRN PRN PRN Reason: LINE FLUSH Ticagrelor (Brilinta) 90 mg PO BID [facility] Last Admin: 09/26/19 10:09 Dose: 90 mg Documented by: Physical Examination Vital Signs Temp Pulse Resp BP Pulse Ox 97.7 F 97 H 20 178/107 95 09/22/19 18:08 09/22/19 18:08 09/22/19 18:08 09/22/19 18:08 09/22/19 18:08 Results 09/23/19 01:15 09/23/19 01:15 Assessment and Plan 1. Sick sinus syndrome with paroxysmal atrial fibrillation and multiple conversion pauses up to 7 seconds. 2. Paroxysmal atrial fibrillation with RVR. [id number] VASc = 4. Anticoagulated with eliquis. 3. CAD s/p PCI 4. s/p Syncope 5. Htn 6. Chronic dyspnea and tobacco use Recommend: Patient has multiple indications for PPM implant including SSS and inability to tolerate beta bibi in setting of underlying CAD and paroxysmal atrial fibrillation with RVR. Exensively discussed PPM implant followed by beta bibi treatment with patient and her . They want to proceed. Informed consent obtained. Will stop eliquis and plan for PPM implant after 48 hours.
--- NOTE | 2019-09-26 13:29 | Progress Note ---
Assessment and Plan Patient alert, awake. Sitting by the side of the bed. On 2 litres O2. O2 saturation 98%. No acute respiratory distress at rest.. - Patient Problems (1) COPD (chronic obstructive pulmonary disease) Current Visit: No Status: Acute Plan to address problem: O2 2 litres via nasal canula. Albuterol/atrovent aerosol treatments q 6 hours. Continue PO prednisone. Continue Protonix. Recommend DVT prophylaxis. (2) Angina at rest Current Visit: No Status: Acute Plan to address problem: Management as per cardiology. (3) CAD (coronary artery disease) Current Visit: No Status: Acute Qualifiers: Associated angina: with stable angina Plan to address problem: Management as per cardiology. (4) HTN (hypertension) Current Visit: No Status: Acute Qualifiers: Hypertension type: essential hypertension Qualified Code(s): I10 - Essential (primary) hypertension Plan to address problem: Management as per primary care. (5) Nicotine dependence unspecified, with withdrawal Current Visit: No Status: Acute Qualifiers: Nicotine product type: cigarettes Qualified Code(s): F17.213 - Nicotine dependence, cigarettes, with withdrawal Plan to address problem: Counselled to stop smoking. Patient presently on dilaudid and percocet. Subjective Date of service: 09/26/19 Principal diagnosis: A. fib with RVR; Tachy-kendra syndrome; HTN; shortness of breath; Obesity Interval history: Patient alert, awake. Sitting by the side of the bed. On 2 litres O2. O2 saturation 98%. No acute respiratory distress at rest.. Objective Vital Signs - 12hr 09/26/19 09/26/19 09/26/19 03:20 04:00 07:51 Temperature 98.2 F 97.8 F Pulse Rate 73 73 Respiratory 18 18 Rate Blood Pressure 149/92 185/107 O2 Sat by Pulse 92 Oximetry 09/26/19 09/26/19 08:33 12:25 Temperature Pulse Rate 77 Respiratory Rate Blood Pressure O2 Sat by Pulse 92 Oximetry Constitutional: no acute distress, alert, other (elderly looking obese CF, normocephalic with normal respiratory effort at rest) Eyes: non-icteric ENT: oropharynx moist, other (Mallampati 4) Neck: supple, no lymphadenopathy, no JVD, other (large neck circumference) Effort: normal Ascultation: Bilateral: diminished breath sounds, rhonchi Percussion: Bilateral: not dull Cardiovascular: regular rate and rhythm Gastrointestinal: normoactive bowel sounds, soft, non-tender, non-distended Integumentary: normal Extremities: no cyanosis, no edema, pulses normal, no ischemia or petechiae, other (Left elbow pain and mild swelling; tender to touch) Neurologic: normal mental status, non-focal exam, pupils equal and round, CN II- XII normal Psychiatric: mood appropriate, affect normal CBC and BMP: 09/23/19 01:15 09/23/19 01:15 ABG, PT/INR, D-dimer: ABG POC ABG pH 7.331 (7.35-7.45) L 09/24/19 18:22 POC ABG pCO2 46.0 (35-45) H 09/24/19 18:22 POC ABG pO2 56 (80-105) L 09/24/19 18:22 POC ABG HCO3 24.3 (22-26 mml/L) 09/24/19 18:22 POC ABG Total CO2 26 (23-27mmol/L) 09/24/19 18:22 POC ABG O2 Sat 87 09/24/19 18:22 PT/INR, D-dimer PT 13.5 Sec. (12.2-14.9) 09/23/19 01:15 INR 1.04 (0.87-1.13) 09/23/19 01:15 Abnormal lab findings: Abnormal Labs 09/22/19 09/22/19 09/22/19 18:50 18:50 22:35 WBC 12.8 H Hgb 14.4 H Hct 44.7 H MCV 98 H RDW 15.4 H [place] % (Auto) 8.3 H [place] # 1.1 H Seg Neutrophils % 74.1 H Seg Neutrophils # 9.5 H POC ABG pH POC ABG pCO2 POC ABG pO2 Chloride 108.0 H Carbon Dioxide 17 L BUN 23 H Glucose 126 H Lactic Acid 2.20 H* Alkaline Phosphatase 140 H 09/23/19 09/23/19 09/24/19 01:15 01:15 18:22 WBC Hgb Hct MCV 98 H RDW [place] % (Auto) 11.2 H [place] # 1.2 H Seg Neutrophils % Seg Neutrophils # POC ABG pH 7.331 L POC ABG pCO2 46.0 H POC ABG pO2 56 L Chloride 107.1 H Carbon Dioxide 19 L BUN 22 H Glucose Lactic Acid Alkaline Phosphatase Chest x-ray: report reviewed (Reported no evidence of cardiopulmonary process.), image reviewed Allied health notes reviewed: nursing
--- NOTE | 2019-09-26 15:14 | Progress Note ---
Assessment and Plan Cultures: Blood culture 09/22/19 no growth to date Assessment: 64 yo F PMHx tobacco abuse, HTN admitted [facility] acute on chronic SOB. 1. Acute on chronic SOB - possible pneumonia, however no focal consolidation seen on CT and images show bilateral ground glass opacities similar to prior CT from 04/2019. ? ILD as a baseline given her progressive SOB for the past year. Consider pulmonology consult as she may require PFTs and additional eval. Her acute exacerbation may be due to a viral URI given her recent increase in sneezing. Procalcitonin is low as well, unlikely to be an acute bacterial infection, will d/c abx. Also, no recent HIV test, per discussion with patient at bedside, agreeable to get it checked. 2. Left arm pain: Xray showed no fracture. Recs: - abx discontinued - HIV test ordered (patient agreeable, verbal consent obtained); follow up - continue to monitor Med Lyon MD [facility] M: [phone] O: [phone] F: [phone] Subjective Date of service: 09/26/19 Principal diagnosis: A. fib with RVR; Tachy-kendra syndrome; HTN; shortness of breath; Obesity Interval history: Ongoing SOB, feels mildly better Objective - Exam Narrative Exam: General Normal appearance, well developed, no acute distress Eyes - PERRLA, EOM intact ENT - Moist mucous membranes, no lymphadenopathy Neck - No noticeable or palpable swelling, redness or rash around throat or on face Lymph Nodes - No lymphadenopathy Cardiovascular - RRR no m/r/g, no JVD, no carotid bruits Lungs - Clear to auscultation, no use of accessory muscles, no crackles or wheezes. Skin - No rashes, skin warm and dry, no erythematous areas Abdomen - Normal bowel sounds, abdomen soft and nontender Extremities - No edema, cyanosis or clubbing Musculoskeletal - 5/5 strength, normal range of motion, no swollen or erythematous joints. Neurological Alert and oriented x 3, CN 2-12 grossly intact. - Constitutional Vitals: Vital Signs Temp Pulse Resp BP Pulse Ox 97.8 F 85 20 185/107 98 09/26/19 07:51 09/26/19 13:40 09/26/19 13:40 09/26/19 07:51 09/26/19 13:39 Temperature -Last 24 Hours Temperature 97.8 F Temperature 98.2 F Temperature 97.8 F Temperature 97.8 F Temperature 98.2 F - Labs CBC & Chem 7: 09/23/19 01:15 09/23/19 01:15
--- NOTE | 2019-09-26 15:26 | Event Note ---
Date: 09/26/19 Patient is planned for a PPM implant in 48 hours for SSS and inability to tolerate beta bibi in setting of underlying CAD and paroxysmal atrial fibrillation with RVR. Unfortunately, anesthesia is not available . We will plan for PPM implant once this can be arranged with anesthesia.
--- NOTE | 2019-09-26 16:49 | Progress Note ---
Assessment and Plan Assessment and plan: Patient is a 64-year-old woman with a history of tobacco dependency and hypertension who presents to the hospital after losing consciousness and falling down. She presented with left elbow pain. She was found to be in A. fib with RVR upon arrival. During hospitalization, patient has Tachy-kendra syndrome, possible SSS Syncopal episode with SSS: PPM A. fib with RVR with hypercoagulable state: a/c and unable to tolerate bblocker, Cardiology is following, input noted SSS syndrome: PPM on Hypertension: Continue BP meds Acute on chronic shortness of breath, Ground glass opacity on lung imaging, likely has some chronic form of ILD, ID input appreciated, pulmonology consult appreciated Left olecranon fracture: Pain meds, provide sling, orthopedic surgery consult, advised sling Chronic pain sydrome: asking for more narcotics DVT prophylaxis: Fully anti-coagulated History Interval history: Patient was seen and examined. Follow-up on current diagnosis of AFib. No overnight events reported to me. Patient denies any chest pain, shortness breath, nausea/vomiting or severe headaches. Imaging, nursing note, chart, labs and old chart reviewed. Discussed with patient. Hospitalist Physical - Physical exam Narrative exam: Gen: WDWN, NAD, Awake, Alert, Orientated HEENT: NCAT, EOMI, PERRL, OP Clear Neck: supple, no adenopathy, no thyromegaly, no JVD CVS/Heart: irregular irregular normal S1S2, pulses present bilaterally Chest/Lungs: crackles, Symmetrical chest expansion, good air entry bilaterally GI/Abdomen: soft, NTND, good bowel sounds, no guarding or rebound /Bladder: no suprapubic tenderness, no CVA or paraspinal tenderness Extermity/Skin: no obvious rash MSK: FROM x 4 Neuro: CN 2-12 grossly intact, no new focal deficits Psych: calm - Constitutional Vitals: Temp Pulse Resp BP Pulse Ox 97.8 F 85 20 185/107 98 09/26/19 07:51 09/26/19 13:40 09/26/19 13:40 09/26/19 07:51 09/26/19 13:39 General appearance: Present: no acute distress, well-nourished Results - Labs CBC & Chem 7: 09/23/19 01:15 09/23/19 01:15 Labs: Laboratory Last Values WBC 11.0 K/mm3 (4.5-11.0) 09/23/19 01:15 RBC 4.17 M/mm3 (3.65-5.03) 09/23/19 01:15 Hgb 13.5 gm/dl (10.1-14.3) 09/23/19 01:15 Hct 40.8 % (30.3-42.9) 09/23/19 01:15 MCV 98 fl (79-97) H 09/23/19 01:15 MCH 32 pg (28-32) 09/23/19 01:15 MCHC 33 % (30-34) 09/23/19 01:15 RDW 15.0 % (13.2-15.2) 09/23/19 01:15 Plt Count 272 K/mm3 (140-440) 09/23/19 01:15 Lymph % (Auto) 30.0 % (13.4-35.0) 09/23/19 01:15 [place] % (Auto) 11.2 % (0.0-7.3) H 09/23/19 01:15 Eos % (Auto) 1.1 % (0.0-4.3) 09/23/19 01:15 Baso % (Auto) 0.7 % (0.0-1.8) 09/23/19 01:15 Lymph # 3.3 K/mm3 (1.2-5.4) 09/23/19 01:15 [place] # 1.2 K/mm3 (0.0-0.8) H 09/23/19 01:15 Eos # 0.1 K/mm3 (0.0-0.4) 09/23/19 01:15 Baso # 0.1 K/mm3 (0.0-0.1) 09/23/19 01:15 Seg Neutrophils % 57.0 % (40.0-70.0) 09/23/19 01:15 Seg Neutrophils # 6.3 K/mm3 (1.8-7.7) 09/23/19 01:15 PT 13.5 Sec. (12.2-14.9) 09/23/19 01:15 INR 1.04 (0.87-1.13) 09/23/19 01:15 APTT 30.3 Sec. (24.2-36.6) 09/22/19 18:50 POC ABG pH 7.331 (7.35-7.45) L 09/24/19 18:22 POC ABG pCO2 46.0 (35-45) H 09/24/19 18:22 POC ABG pO2 56 (80-105) L 09/24/19 18:22 POC ABG HCO3 24.3 (22-26 mml/L) 09/24/19 18:22 POC ABG Total CO2 26 (23-27mmol/L) 09/24/19 18:22 POC ABG O2 Sat 87 09/24/19 18:22 POC ABG Base Excess -2 ((-2) - (+3)mmol/L) 09/24/19 18:22 FiO2 21 % 09/24/19 18:22 Sodium 140 mmol/L (137-145) 09/23/19 01:15 Potassium 3.7 mmol/L (3.6-5.0) 09/23/19 01:15 Chloride 107.1 mmol/L (98-107) H 09/23/19 01:15 Carbon Dioxide 19 mmol/L (22-30) L 09/23/19 01:15 Anion Gap 18 mmol/L 09/23/19 01:15 BUN 22 mg/dL (7-17) H 09/23/19 01:15 Creatinine 0.7 mg/dL (0.7-1.2) 09/23/19 01:15 Estimated GFR > 60 ml/min 09/23/19 01:15 BUN/Creatinine Ratio 31 % 09/23/19 01:15 Glucose 100 mg/dL (65-100) 09/23/19 01:15 Lactic Acid 1.80 mmol/L (0.7-2.0) 09/23/19 05:15 Calcium 9.3 mg/dL (8.4-10.2) 09/23/19 01:15 Magnesium 2.00 mg/dL (1.7-2.3) 09/23/19 01:15 Total Bilirubin 0.30 mg/dL (0.1-1.2) 09/22/19 18:50 AST 21 units/L (5-40) 09/22/19 18:50 ALT 17 units/L (7-56) 09/22/19 18:50 Alkaline Phosphatase 140 units/L (35-129) H 09/22/19 18:50 Troponin T < 0.010 ng/mL (0.00-0.029) 09/24/19 04:16 NT-Pro-B Natriuret Pep 781.0 pg/mL (0-900) 09/22/19 18:50 Total Protein 7.2 g/dL (6.3-8.2) 09/22/19 18:50 Albumin 4.6 g/dL (3.9-5) 09/22/19 18:50 Albumin/Globulin Ratio 1.8 % 09/22/19 18:50 Procalcitonin 0.06 ng/mL (<0.15) 09/24/19 04:16 TSH 3.310 mlU/mL (0.270-4.200) 09/22/19 18:50 Thyroxine (T4) 5.4 ug/dL (4.0-12.0) 09/22/19 18:50 Plasma/Serum Alcohol < 0.01 % (0-0.07) 09/22/19 19:02 Active Medications - Current Medications Current Medications: Generic Name Dose Route Start Last Admin Trade Name Freq PRN Reason Stop Dose Admin Acetaminophen 650 mg 09/23/19 00:54 09/23/19 15:27 Tylenol PO 650 mg Q6H PRN Administration Pain MILD(1-3)/Fever >100.5/MONTESINOS Albuterol 2.5 mg 09/23/19 00:54 09/26/19 13:22 Proventil IH 2.5 mg Q3HRT PRN Administration Shortness Of Breath Hydromorphone HCl 0.5 mg 09/23/19 04:00 09/26/19 15:38 Dilaudid IV 0.5 mg Q4H PRN Administration Pain , Severe (7-10) Lisinopril 20 mg 09/24/19 13:00 09/26/19 10:09 Zestril PO 20 mg QDAY OZZY Administration Magnesium Hydroxide 30 ml 09/23/19 00:54 09/24/19 14:42 Milk Of Magnesia PO 30 ml Q4H PRN Administration Constipation Ondansetron HCl 4 mg 09/23/19 11:00 09/24/19 13:00 Zofran IV 4 mg Q4H PRN Administration Nausea And Vomiting Oxycodone/Acetaminophen 1 tab 09/24/19 13:45 09/26/19 05:04 Percocet 5/325 PO 1 tab Q6H PRN Administration Pain, Moderate (4-6) Pantoprazole Sodium 40 mg 09/25/19 16:00 09/26/19 10:09 Protonix PO 40 mg QDAY OZZY Administration Prednisone 40 mg 09/24/19 14:00 09/26/19 10:09 Deltasone PO 40 mg QDAY OZZY Administration Sodium Chloride 10 ml 09/23/19 10:00 09/26/19 10:09 Sodium Chloride Flush Syringe 10 Ml IV 10 ml BID OZZY Administration Sodium Chloride 10 ml 09/23/19 00:54 Sodium Chloride Flush Syringe 10 Ml IV PRN PRN LINE FLUSH Ticagrelor 90 mg 09/25/19 22:00 09/26/19 10:09 Brilinta PO 90 mg BID OZZY Administration Nutrition/Malnutrition Assess - Dietary Evaluation Nutrition/Malnutrition Findings: Nutrition Notes Start: 09/23/19 11:58 Freq: Status: Active Protocol: Document 09/23/19 11:58 [facility] (Rec: 09/23/19 12:03 [facility] SRW- [email or web address]) Nutrition Notes Need for Assessment generated from: MD Order,Education Initial or Follow up Brief Note Current Diagnosis Hypertension Other Pertinent Diagnosis Syncope, SOB Current Diet Cardiac Subjective/Other Information RD consulted for diet education. BP was 178/107 upon admission. Pt states that she takes her BP medication as prescribed, but forgot to take it last pm. She does not cook with salt and does not add salt after cooking. Reports good appetite. Burn Absent Trauma Absent #1 Nutrition Diagnosis Food and nutrition-related knowledge deficit Etiology limited exposure to diet education for low sodium diet As Evidenced by Signs and Symptoms pt admitted with elevated BP Nutrition Intervention Teaching Recipient Patient Learning Readiness Good Teaching Methods Discussion Response to Teaching Verbalize understanding Education Handouts Provided No handouts provided; pt unable to read. Discussed foods to limit when reducing sodium intake Barriers to Learning Reading skills,Age related, Emotional RD phone number provided No Patient aware of follow up options Yes Actions To Overcome Barriers Other Goal #1 Adherence to low sodium diet Goal #2 Improved BP control Anticipated Discharge Needs: Low sodium diet Revisit per MD consult or patient Sign Off request:
[2019-09-27] MEDS: HYDROmorphone 1 MG/1 ML INJ IV PRN ×5 (02:54→20:15)
[2019-09-27] MEDS: MAGNESIUM HYDROXIDE (MOM) ORAL LIQD UDC PO PRN (05:59)
[2019-09-27] MEDS: oxyCODONE /ACETAMINOPHEN 5-325MG TAB PO PRN ×3 (05:59→20:04)
[2019-09-27] MEDS: ONDANSETRON 4 MG/2 ML INJ IV PRN ×2 (08:15→12:42)
--- NOTE | 2019-09-27 08:33 | Progress Note ---
Assessment and Plan Assessment and plan: Patient is a 64-year-old woman with a history of tobacco dependency and hypertension who presents to the hospital after losing consciousness and falling down. She presented with left elbow pains. She was found to have a fracture left olecranon. She was found to be in A. fib with RVR upon arrival. During hospitalization, patient has Tachy-kendra syndrome, possible SSS Syncopal episode with SSS: PPM per Cardiology A. fib with RVR with hypercoagulable state: a/c and unable to tolerate bblocker, Cardiology is following, input noted SSS syndrome: PPM on Malignant Hypertension with urgency: use IV anti-hypertensive cautiously due to instability of heart rate Acute on chronic shortness of breath, Ground glass opacity on lung imaging, likely has some chronic form of ILD, ID input appreciated, pulmonology consult appreciated Left olecranon fracture: Pain meds, provide sling, orthopedic surgery consult, advised sling Chronic pain sydrome: asking for more narcotics DVT prophylaxis: Fully anti-coagulated Chest pains: get EKG, troponin stat, treat with NTG full code Disposition: continue inpatient care, for PPM on per Cardiology. temporary pacer today increased Troponins, d/w Dr. Argueta. History Interval history: Patient was seen and examined. Follow-up on current diagnosis of AFib. No overnight events reported to me. Patient denies nausea/vomiting or severe headaches. Imaging, nursing note, chart, labs and old chart reviewed. Discussed with patient. She c/o chest pains. Hospitalist Physical - Physical exam Narrative exam: Gen: WDWN, NAD, Awake, Alert, Orientated HEENT: NCAT, EOMI, PERRL, OP Clear Neck: supple, no adenopathy, no thyromegaly, no JVD CVS/Heart: irregular irregular normal S1S2, pulses present bilaterally Chest/Lungs: crackles, Symmetrical chest expansion, good air entry bilaterally GI/Abdomen: soft, NTND, good bowel sounds, no guarding or rebound /Bladder: no suprapubic tenderness, no CVA or paraspinal tenderness Extermity/Skin: no obvious rash MSK: FROM x 4 Neuro: CN 2-12 grossly intact, no new focal deficits Psych: calm - Constitutional Vitals: Temp Pulse Resp BP Pulse Ox 98.3 F 80 18 182/126 93 11/06/19 08:04 09/27/19 05:30 09/27/19 08:04 09/27/19 08:04 09/27/19 05:30 General appearance: Present: no acute distress, well-nourished Results - Labs CBC & Chem 7: 09/23/19 01:15 09/23/19 01:15 Labs: Laboratory Last Values WBC 11.0 K/mm3 (4.5-11.0) 09/23/19 01:15 RBC 4.17 M/mm3 (3.65-5.03) 09/23/19 01:15 Hgb 13.5 gm/dl (10.1-14.3) 09/23/19 01:15 Hct 40.8 % (30.3-42.9) 09/23/19 01:15 MCV 98 fl (79-97) H 09/23/19 01:15 MCH 32 pg (28-32) 09/23/19 01:15 MCHC 33 % (30-34) 09/23/19 01:15 RDW 15.0 % (13.2-15.2) 09/23/19 01:15 Plt Count 272 K/mm3 (140-440) 09/23/19 01:15 Lymph % (Auto) 30.0 % (13.4-35.0) 09/23/19 01:15 [place] % (Auto) 11.2 % (0.0-7.3) H 09/23/19 01:15 Eos % (Auto) 1.1 % (0.0-4.3) 09/23/19 01:15 Baso % (Auto) 0.7 % (0.0-1.8) 09/23/19 01:15 Lymph # 3.3 K/mm3 (1.2-5.4) 09/23/19 01:15 [place] # 1.2 K/mm3 (0.0-0.8) H 09/23/19 01:15 Eos # 0.1 K/mm3 (0.0-0.4) 09/23/19 01:15 Baso # 0.1 K/mm3 (0.0-0.1) 09/23/19 01:15 Seg Neutrophils % 57.0 % (40.0-70.0) 09/23/19 01:15 Seg Neutrophils # 6.3 K/mm3 (1.8-7.7) 09/23/19 01:15 PT 13.5 Sec. (12.2-14.9) 09/23/19 01:15 INR 1.04 (0.87-1.13) 09/23/19 01:15 APTT 30.3 Sec. (24.2-36.6) 09/22/19 18:50 POC ABG pH 7.331 (7.35-7.45) L 09/24/19 18:22 POC ABG pCO2 46.0 (35-45) H 09/24/19 18:22 POC ABG pO2 56 (80-105) L 09/24/19 18:22 POC ABG HCO3 24.3 (22-26 mml/L) 09/24/19 18:22 POC ABG Total CO2 26 (23-27mmol/L) 09/24/19 18:22 POC ABG O2 Sat 87 09/24/19 18:22 POC ABG Base Excess -2 ((-2) - (+3)mmol/L) 09/24/19 18:22 FiO2 21 % 09/24/19 18:22 Sodium 140 mmol/L (137-145) 09/23/19 01:15 Potassium 3.7 mmol/L (3.6-5.0) 09/23/19 01:15 Chloride 107.1 mmol/L (98-107) H 09/23/19 01:15 Carbon Dioxide 19 mmol/L (22-30) L 09/23/19 01:15 Anion Gap 18 mmol/L 09/23/19 01:15 BUN 22 mg/dL (7-17) H 09/23/19 01:15 Creatinine 0.7 mg/dL (0.7-1.2) 09/23/19 01:15 Estimated GFR > 60 ml/min 09/23/19 01:15 BUN/Creatinine Ratio 31 % 09/23/19 01:15 Glucose 100 mg/dL (65-100) 09/23/19 01:15 Lactic Acid 1.80 mmol/L (0.7-2.0) 09/23/19 05:15 Calcium 9.3 mg/dL (8.4-10.2) 09/23/19 01:15 Magnesium 2.00 mg/dL (1.7-2.3) 09/23/19 01:15 Total Bilirubin 0.30 mg/dL (0.1-1.2) 09/22/19 18:50 AST 21 units/L (5-40) 09/22/19 18:50 ALT 17 units/L (7-56) 09/22/19 18:50 Alkaline Phosphatase 140 units/L (35-129) H 09/22/19 18:50 Troponin T < 0.010 ng/mL (0.00-0.029) 09/24/19 04:16 NT-Pro-B Natriuret Pep 781.0 pg/mL (0-900) 09/22/19 18:50 Total Protein 7.2 g/dL (6.3-8.2) 09/22/19 18:50 Albumin 4.6 g/dL (3.9-5) 09/22/19 18:50 Albumin/Globulin Ratio 1.8 % 09/22/19 18:50 Procalcitonin 0.06 ng/mL (<0.15) 09/24/19 04:16 TSH 3.310 mlU/mL (0.270-4.200) 09/22/19 18:50 Thyroxine (T4) 5.4 ug/dL (4.0-12.0) 09/22/19 18:50 Free T3 Index 2.5 pg/mL (2.3-4.2) 09/22/19 18:50 Plasma/Serum Alcohol < 0.01 % (0-0.07) 09/22/19 19:02 Active Medications - Current Medications Current Medications: Generic Name Dose Route Start Last Admin Trade Name Freq PRN Reason Stop Dose Admin Acetaminophen 650 mg 09/23/19 00:54 09/23/19 15:27 Tylenol PO 650 mg Q6H PRN Administration Pain MILD(1-3)/Fever >100.5/MONTESINOS Albuterol 2.5 mg 09/23/19 00:54 09/26/19 13:22 Proventil IH 2.5 mg Q3HRT PRN Administration Shortness Of Breath Hydromorphone HCl 0.5 mg 09/23/19 04:00 09/27/19 08:15 Dilaudid IV 0.5 mg Q4H PRN Administration Pain , Severe (7-10) Lisinopril 20 mg 09/24/19 13:00 09/26/19 10:09 Zestril PO 20 mg QDAY OZZY Administration Magnesium Hydroxide 30 ml 09/23/19 00:54 09/27/19 05:59 Milk Of Magnesia PO 30 ml Q4H PRN Administration Constipation Nitroglycerin 0.4 mg 09/27/19 08:28 Nitrostat SL 09/27/19 08:29 ONCE ONE Ondansetron HCl 4 mg 09/23/19 11:00 09/27/19 08:15 Zofran IV 4 mg Q4H PRN Administration Nausea And Vomiting Oxycodone/Acetaminophen 1 tab 09/24/19 13:45 09/27/19 05:59 Percocet 5/325 PO 1 tab Q6H PRN Administration Pain, Moderate (4-6) Pantoprazole Sodium 40 mg 09/25/19 16:00 09/26/19 10:09 Protonix PO 40 mg QDAY OZZY Administration Prednisone 40 mg 09/24/19 14:00 09/26/19 10:09 Deltasone PO 40 mg QDAY OZZY Administration Sodium Chloride 10 ml 09/23/19 10:00 09/26/19 21:34 Sodium Chloride Flush Syringe 10 Ml IV 10 ml BID OZZY Administration Sodium Chloride 10 ml 09/23/19 00:54 Sodium Chloride Flush Syringe 10 Ml IV PRN PRN LINE FLUSH Ticagrelor 90 mg 09/25/19 22:00 09/26/19 21:34 Brilinta PO 90 mg BID OZZY Administration Nutrition/Malnutrition Assess - Dietary Evaluation Nutrition/Malnutrition Findings: Nutrition Notes Start: 09/23/19 11:58 Freq: Status: Active Protocol: Document 09/23/19 11:58 [facility] (Rec: 09/23/19 12:03 [facility] SRW- [id number]) Nutrition Notes Need for Assessment generated from: MD Order,Education Initial or Follow up Brief Note Current Diagnosis Hypertension Other Pertinent Diagnosis Syncope, SOB Current Diet Cardiac Subjective/Other Information RD consulted for diet education. BP was 178/107 upon admission. Pt states that she takes her BP medication as prescribed, but forgot to take it last pm. She does not cook with salt and does not add salt after cooking. Reports good appetite. Burn Absent Trauma Absent #1 Nutrition Diagnosis Food and nutrition-related knowledge deficit Etiology limited exposure to diet education for low sodium diet As Evidenced by Signs and Symptoms pt admitted with elevated BP Nutrition Intervention Teaching Recipient Patient Learning Readiness Good Teaching Methods Discussion Response to Teaching Verbalize understanding Education Handouts Provided No handouts provided; pt unable to read. Discussed foods to limit when reducing sodium intake Barriers to Learning Reading skills,Age related, Emotional RD phone number provided No Patient aware of follow up options Yes Actions To Overcome Barriers Other Goal #1 Adherence to low sodium diet Goal #2 Improved BP control Anticipated Discharge Needs: Low sodium diet Revisit per MD consult or patient Sign Off request:
[2019-09-27] MEDS ORDERED: NITROGLYCERIN 0.4 MG TAB SUBL SL ONE (09:30)
[2019-09-27] MEDS ORDERED: HEPARIN/NS 5000 UNIT/500ML 500 ML IR ONE (09:38)
[2019-09-27] MEDS ORDERED: LIDOCAINE (2%) 20 MG/1 ML VIAL 20 ML MDV INFILTRATI ONE (09:39)
[2019-09-27] MEDS ORDERED: SODIUM CHLORIDE 0.9% 250ML 250 ML ONE (09:58)
[2019-09-27] MEDS: fentaNYL 100 MCG/2 ML INJ ONE ×2 (10:14→10:18)
[2019-09-27] MEDS: MIDAZOLAM 2 MG/2 ML INJ ONE ×2 (10:14→10:18)
[2019-09-27] MEDS ORDERED: METOPROLOL TARTRATE 5 MG/5 ML INJ IV ONE ×2 (10:21→10:39)
[2019-09-27] MEDS ORDERED: AMIODARONE 150 MG/3 ML INJ IV ONE (10:43)
[2019-09-27] MEDS ORDERED: SODIUM CHLORIDE 0.9% 50 ML ONE (10:44)
--- NOTE | 2019-09-27 10:57 | Progress Note ---
Assessment and Plan Shortness of breath Former Smoker Syncope Coronary artery disease s/p PCI of RCA with BMS 04/2019 at [facility] Echo 05/14/2019 at [facility] -LVEF 55% Paroxysmal Afib significant bradyarrhythmias on telemetry suggestive of underlying sick sinus syndrome currently in afib with RVR s/p right IJ TVP today Chronic pain syndrome Recommendations: IV amiodarone and po metoprolol for rate/rhythm control Eliquis on hold awaiting permanent pacemaker insertion on Wednesday CXR to evaluate TVP Subjective Date of service: 09/27/19 Principal diagnosis: A. fib with RVR; Tachy-kendra syndrome; HTN; shortness of breath; Obesity Interval history: Patient underwent TVP insertion through right IJ - no complications Objective Vital Signs Temp Pulse Pulse Pulse Pulse Pulse Resp 09/27/19 08:52 09/27/19 08:51 150 H 09/27/19 08:04 98.3 F 18 09/27/19 08:00 86 86 09/27/19 05:30 98.3 F 80 16 09/27/19 05:21 64 09/27/19 00:00 75 09/26/19 23:18 97.7 F 75 18 09/26/19 22:00 74 74 18 09/26/19 19:06 98.4 F 74 18 09/26/19 15:41 98.0 F 18 09/26/19 13:40 85 09/26/19 13:39 09/26/19 12:25 77 09/26/19 11:52 98.1 F 75 18 Resp BP BP Pulse Ox 09/27/19 08:52 93 09/27/19 08:51 186/126 09/27/19 08:04 182/126 09/27/19 08:00 09/27/19 05:30 93 09/27/19 05:21 157/89 09/27/19 00:00 09/26/19 23:18 167/89 95 09/26/19 22:00 95 09/26/19 19:06 155/64 94 09/26/19 15:41 188/88 09/26/19 13:40 20 09/26/19 13:39 98 09/26/19 12:25 09/26/19 11:52 186/83 92 - Physical Examination General: No Apparent Distress, Other (obese) HEENT: Positive: PERRL, Mucus Membranes Moist Neck: Positive: trachea midline Cardiac: Positive: irregularly irregular Lungs: Positive: Normal Breath Sounds Neuro: Positive: Grossly Intact Abdomen: Positive: Soft Skin: Positive: Clear Incision: Cardiac Cath Site Musculoskeletal: No Pain, Normal Range of Motion Extremities: Absent: edema - Allied health notes Allied health notes reviewed: nursing
[2019-09-27] MEDS: METOPROLOL TARTRATE 50 MG TAB PO SCH ×2 (11:48→21:27)
--- NOTE | 2019-09-27 12:01 | XRay Report ---
CHEST 1 VIEW INDICATION: Post transvenous pacemaker insertion. COMPARISON: 09/22/2019 FINDINGS: Support devices: Pacemaker lead has been inserted which terminates in the right ventricle. Heart: Within normal limits. Lungs/Pleura: No acute air space or interstitial disease. No pneumothorax. Additional findings: Posterior fusion at the cervicothoracic junction is again noted. IMPRESSION: No acute findings. Signer Name: Tex Browning Jr, MD Signed: 09/27/2019 11:56 AM Workstation Name: [id number]
[2019-09-27] MEDS: AMIODARONE 900 MG in DEXTROSE 5% IN WATER 482 ML IV SCH (12:23)
[2019-09-27] MEDS: predniSONE 20 MG TAB PO SCH (12:42)
[2019-09-27] MEDS: PANTOPRAZOLE 40 MG TAB PO SCH (12:42)
[2019-09-27] MEDS: TICAGRELOR 90 MG TAB PO SCH ×2 (12:42→21:27)
--- NOTE | 2019-09-27 13:23 | Progress Note ---
Assessment and Plan Patient undergone Transvenous Pacemaker implantation to day. Patient transfered to ICU. Patient is on 2 litres O2. O2 saturation 98%. Patient alert, patent is anxious. No acute respiratory distress. Patient is on Amiodarone drip. Patient hypotensive .Patient is also tacycardic.Giving fluid Bolus and monitor blood pressure. - Patient Problems (1) COPD (chronic obstructive pulmonary disease) Current Visit: No Status: Acute Plan to address problem: O2 2 litres via nasal canula. Albuterol/atrovent aerosol treatments q 6 hours. Continue PO prednisone. Continue Protonix. Recommend DVT prophylaxis. (2) Angina at rest Current Visit: No Status: Acute Plan to address problem: Management as per cardiology. (3) CAD (coronary artery disease) Current Visit: No Status: Acute Qualifiers: Associated angina: with stable angina Plan to address problem: Management as per cardiology. (4) HTN (hypertension) Current Visit: No Status: Acute Qualifiers: Hypertension type: essential hypertension Qualified Code(s): I10 - Essential (primary) hypertension Plan to address problem: Management as per primary care. (5) Nicotine dependence unspecified, with withdrawal Current Visit: No Status: Acute Qualifiers: Nicotine product type: cigarettes Qualified Code(s): F17.213 - Nicotine dependence, cigarettes, with withdrawal Plan to address problem: Counselled to stop smoking. Patient presently on dilaudid and percocet. Patient is on Haldal. Subjective Date of service: 09/27/19 Principal diagnosis: A. fib with RVR; Tachy-kendra syndrome; HTN; shortness of breath; Obesity Interval history: Patient undergone Transvenous Pacemaker implantation to day. Patient transfered to ICU. Patient is on 2 litres O2. O2 saturation 98%. Patient alert, patent is anxious. No acute respiratory distress. Patient is on Amiodarone drip. Patient hypotensive .Patient is also tacycardic.Giving fluid Bolus and monitor blood pressure. Objective Vital Signs - 12hr 09/27/19 09/27/19 09/27/19 05:21 05:30 08:00 Temperature 98.3 F Pulse Rate 64 80 86 Pulse Rate [ 86 Apical] Pulse Rate [ From Monitor] Respiratory 16 Rate Blood Pressure Blood Pressure 157/89 [Right] O2 Sat by Pulse 93 Oximetry 09/27/19 09/27/19 09/27/19 08:04 08:51 08:52 Temperature 98.3 F Pulse Rate 150 H Pulse Rate [ Apical] Pulse Rate [ From Monitor] Respiratory 18 Rate Blood Pressure 182/126 186/126 Blood Pressure [Right] O2 Sat by Pulse 93 Oximetry 09/27/19 09/27/19 09/27/19 11:24 11:30 11:40 Temperature Pulse Rate 155 H 168 H Pulse Rate [ Apical] Pulse Rate [ From Monitor] Respiratory 31 H 20 Rate Blood Pressure Blood Pressure [Right] O2 Sat by Pulse 98 98 96 Oximetry 09/27/19 09/27/19 09/27/19 11:48 11:50 12:00 Temperature 97.3 F L Pulse Rate 159 H 162 H 154 H Pulse Rate [ 146 H Apical] Pulse Rate [ 146 H From Monitor] Respiratory 31 H 19 Rate Blood Pressure 97/55 97/55 97/55 Blood Pressure [Right] O2 Sat by Pulse 99 98 Oximetry 09/27/19 09/27/19 09/27/19 12:10 12:20 12:30 Temperature Pulse Rate 156 H 140 H 171 H Pulse Rate [ Apical] Pulse Rate [ From Monitor] Respiratory 18 21 16 Rate Blood Pressure 94/79 94/79 94/79 Blood Pressure [Right] O2 Sat by Pulse 98 99 99 Oximetry 09/27/19 09/27/19 09/27/19 12:40 12:50 13:00 Temperature Pulse Rate 163 H 157 H 154 H Pulse Rate [ Apical] Pulse Rate [ From Monitor] Respiratory 20 12 16 Rate Blood Pressure 86/56 86/56 74/47 Blood Pressure [Right] O2 Sat by Pulse 85 95 98 Oximetry Constitutional: alert, appears uncomfortable, other (elderly looking obese CF, normocephalic with normal respiratory effort at rest) Eyes: non-icteric ENT: oropharynx moist, other (Mallampati 4) Neck: supple, no lymphadenopathy, no JVD, other (large neck circumference) Effort: normal Ascultation: Bilateral: diminished breath sounds, rhonchi Percussion: Bilateral: not dull Cardiovascular: regular rate and rhythm Gastrointestinal: normoactive bowel sounds, soft, non-tender, non-distended Integumentary: normal Extremities: no cyanosis, no edema, pulses normal, no ischemia or petechiae, other (Left elbow pain and mild swelling; tender to touch) Neurologic: normal mental status, non-focal exam, pupils equal and round, CN II- XII normal Psychiatric: mood appropriate, affect normal CBC and BMP: 09/23/19 01:15 09/23/19 01:15 ABG, PT/INR, D-dimer: ABG POC ABG pH 7.403 (7.35-7.45) 09/27/19 13:16 POC ABG pCO2 34.1 (35-45) L 09/27/19 13:16 POC ABG pO2 146 (80-105) H 09/27/19 13:16 POC ABG HCO3 21.3 (22-26 mml/L) 09/27/19 13:16 POC ABG Total CO2 22 (23-27mmol/L) 09/27/19 13:16 POC ABG O2 Sat 99 09/27/19 13:16 PT/INR, D-dimer PT 13.5 Sec. (12.2-14.9) 09/23/19 01:15 INR 1.04 (0.87-1.13) 09/23/19 01:15 Abnormal lab findings: Abnormal Labs 09/22/19 09/22/19 09/22/19 18:50 18:50 22:35 WBC 12.8 H Hgb 14.4 H Hct 44.7 H MCV 98 H RDW 15.4 H Edwards % (Auto) 8.3 H Edwards # 1.1 H Seg Neutrophils % 74.1 H Seg Neutrophils # 9.5 H POC ABG pH POC ABG pCO2 POC ABG pO2 Chloride 108.0 H Carbon Dioxide 17 L BUN 23 H Glucose 126 H Lactic Acid 2.20 H* Alkaline Phosphatase 140 H 09/23/19 09/23/19 09/24/19 01:15 01:15 18:22 WBC Hgb Hct MCV 98 H RDW Edwards % (Auto) 11.2 H Edwards # 1.2 H Seg Neutrophils % Seg Neutrophils # POC ABG pH 7.331 L POC ABG pCO2 46.0 H POC ABG pO2 56 L Chloride 107.1 H Carbon Dioxide 19 L BUN 22 H Glucose Lactic Acid Alkaline Phosphatase 09/27/19 13:16 WBC Hgb Hct MCV RDW Edwards % (Auto) Edwards # Seg Neutrophils % Seg Neutrophils # POC ABG pH POC ABG pCO2 34.1 L POC ABG pO2 146 H Chloride Carbon Dioxide BUN Glucose Lactic Acid Alkaline Phosphatase Chest x-ray: report reviewed (Reported no acute findings.), image reviewed Allied health notes reviewed: nursing
[2019-09-27] MEDS ORDERED: SODIUM CHLORIDE 0.9% 500 ML 500 ML IV ONE (13:29)
[2019-09-27] MEDS ORDERED: SODIUM CHLORIDE 0.9% 1000 ML 1,000 ML ONE (13:39)
[2019-09-27 13:47] LABS: Chol/HDL Ratio 5.25 %
[2019-09-27] MEDS: HALOPERIDOL LACTATE 5 MG/1 ML INJ IV PRN ×2 (13:57→23:42)
--- NOTE | 2019-09-27 15:23 | Procedure Note ---
PROCEDURE PERFORMED: Transvenous pacemaker insertion. INDICATION: Tachybrady syndrome. DESCRIPTION OF PROCEDURE: After obtaining the consent, the patient was draped using sterile technique. A 2% lidocaine was injected into the right IJ under ultrasound guidance. The right IJ was cannulated using a micropuncture needle. Subsequently, a 6-Palauan vascular sheath was inserted into the right IJ. A balloon tipped transvenous wire was inserted and positioned into the right ventricle. Capture was documented with a temporary pacemaker settings at 80 beats per minute, output at 5 milliamperes and sensitivity at 5 millivolts. IMPRESSION: Successful insertion of a transvenous pacemaker through the right IJ. RECOMMENDATIONS: Continue current pacemaker settings and obtain a chest x-ray to evaluate TVP placement and rule out any complications. JOB# [id number] GREGORIO/JOVANI
--- NOTE | 2019-09-27 17:14 | Progress Note ---
Assessment and Plan Cultures: Blood culture 09/22/19 no growth to date Assessment: 64 yo F PMHx tobacco abuse, HTN admitted [facility] acute on chronic SOB. 1. Acute on chronic SOB - possible pneumonia, however no focal consolidation seen on CT and images show bilateral ground glass opacities similar to prior CT from 04/2019. ? ILD as a baseline given her progressive SOB for the past year. Consider pulmonology consult as she may require PFTs and additional eval. Her acute exacerbation may be due to a viral URI given her recent increase in sneezing. Procalcitonin is low as well, unlikely to be an acute bacterial infection, will d/c abx. Also, no recent HIV test, per discussion with patient at bedside, agreeable to get it checked. 2. Left arm pain: Xray showed no fracture. Recs: - abx discontinued - HIV test ordered (patient agreeable, verbal consent obtained); follow up - continue to monitor Med Lyon MD [facility] M: [phone] O: [phone] F: [phone] Subjective Date of service: 09/27/19 Principal diagnosis: A. fib with RVR; Tachy-kendra syndrome; HTN; shortness of breath; Obesity Interval history: Ongoing SOB, feels mildly better Objective - Exam Narrative Exam: General Normal appearance, well developed, no acute distress Eyes - PERRLA, EOM intact ENT - Moist mucous membranes, no lymphadenopathy Neck - No noticeable or palpable swelling, redness or rash around throat or on face Lymph Nodes - No lymphadenopathy Cardiovascular - RRR no m/r/g, no JVD, no carotid bruits Lungs - Clear to auscultation, no use of accessory muscles, no crackles or wheezes. Skin - No rashes, skin warm and dry, no erythematous areas Abdomen - Normal bowel sounds, abdomen soft and nontender Extremities - No edema, cyanosis or clubbing Musculoskeletal - 5/5 strength, normal range of motion, no swollen or erythematous joints. Neurological Alert and oriented x 3, CN 2-12 grossly intact. - Constitutional Vitals: Vital Signs Temp Pulse Resp BP Pulse Ox 97.9 F 81 9 L 128/79 99 09/27/19 16:00 09/27/19 16:50 09/27/19 16:50 09/27/19 16:50 09/27/19 16:50 Temperature -Last 24 Hours Temperature 97.9 F Temperature 97.9 F Temperature 97.3 F Temperature 98.3 F Temperature 98.3 F Temperature 97.7 F Temperature 98.4 F - Labs CBC & Chem 7: 09/23/19 01:15 09/23/19 01:15 Labs: Abnormal lab results 09/27/19 09/27/19 Range/Units 12:50 13:16 POC ABG pCO2 34.1 L (35-45) POC ABG pO2 146 H (80-105) Troponin T 0.071 H D (0.00-0.029) ng/mL Triglycerides 284 H (2-149) mg/dL Cholesterol 205 H (50-199) mg/dL LDL Cholesterol Direct 144 H (50-130) mg/dL HDL Cholesterol 39 L (40-59) mg/dL
--- NOTE | 2019-09-27 17:37 | Consultation ---
History of Present Illness - [facility] Consult date: 09/27/19 Consult reason: joint pain Past History Past Medical History: CAD, hypertension Past Surgical History: appendectomy, Other (Neck surgery, hysterectomy) Social history: smoking (patient smokes about half a pack of cigarette per day) Family history: cancer (father of lung cancer), other (mother had kidney infection) Medications and Allergies Allergies Allergy/AdvReac Type Severity Reaction Status Date / Time codeine Allergy Vomiting Verified 05/20/19 11:23 Penicillins Allergy Hives Verified 05/20/19 11:23 pentazocine [From Talwin] Allergy Nausea Verified 05/20/19 11:23 Home Medications Medication Instructions Recorded Confirmed Last Taken Type Lisinopril [Zestril TAB] 40 mg PO DAILY 08/04/13 09/23/19 09/30/13 History Active Meds: Active Medications Acetaminophen (Tylenol) 650 mg PO Q6H PRN PRN Reason: Pain MILD(1-3)/Fever >100.5/MONTESINOS Last Admin: 09/23/19 15:27 Dose: 650 mg Documented by: Albuterol (Proventil) 2.5 mg IH Q3HRT PRN PRN Reason: Shortness Of Breath Last Admin: 09/26/19 13:22 Dose: 2.5 mg Documented by: Haloperidol Lactate (Haldol) 5 mg IV Q8H PRN PRN Reason: Agitation Last Admin: 09/27/19 13:57 Dose: 5 mg Documented by: Hydromorphone HCl (Dilaudid) 1 mg IV Q4H PRN PRN Reason: Pain , Severe (7-10) Last Admin: 09/27/19 15:52 Dose: 1 mg Documented by: Amiodarone HCl 900 mg/ (Dextrose) 500 mls @ 33.333 mls/hr IV DIRECT OZZY; Protocol Last Admin: 09/27/19 12:23 Dose: 1 mg/min, 33.333 mls/hr Documented by: Magnesium Hydroxide (Milk Of Magnesia) 30 ml PO Q4H PRN PRN Reason: Constipation Last Admin: 09/27/19 05:59 Dose: 30 ml Documented by: Metoprolol Tartrate (Metoprolol) 50 mg PO Q8HR OZZY Last Admin: 09/27/19 11:48 Dose: 50 mg Documented by: Ondansetron HCl (Zofran) 4 mg IV Q4H PRN PRN Reason: Nausea And Vomiting Last Admin: 09/27/19 12:42 Dose: 4 mg Documented by: Oxycodone/Acetaminophen (Percocet 5/325) 1 tab PO Q6H PRN PRN Reason: Pain, Moderate (4-6) Last Admin: 09/27/19 14:47 Dose: 1 tab Documented by: Pantoprazole Sodium (Protonix) 40 mg PO QDAY [facility] Last Admin: 09/27/19 12:42 Dose: 40 mg Documented by: Prednisone (Deltasone) 40 mg PO QDAY [facility] Last Admin: 09/27/19 12:42 Dose: 40 mg Documented by: Sodium Chloride (Sodium Chloride Flush Syringe 10 Ml) 10 ml IV BID [facility] Last Admin: 09/27/19 14:07 Dose: Not Given Documented by: Sodium Chloride (Sodium Chloride Flush Syringe 10 Ml) 10 ml IV PRN PRN PRN Reason: LINE FLUSH Ticagrelor (Brilinta) 90 mg PO BID [facility] Last Admin: 09/27/19 12:42 Dose: 90 mg Documented by: Physical Examination - Physical exam Narrative exam: On physical examination significant musculoskeletal skeletal findings relates to the left upper extremity. She is noted to have some mild swelling she had good active and passive range of motion patient was able to extend the elbow Plain x-rays of the left elbow were reviewed by me and show small avulsion fracture of the olecranon Eyes: PERRL ENT: Positive: clear oral mucosa Respiratory effort: normal Respiratory: bilateral: CTA Rhythm: regular Heart Sounds: Positive: S1 & S2 General gastrointestinal: Positive: soft, non-tender, non-distended, normal bowel sounds Integumentary: clear, warm, dry Neurologic: Positive: CNII-XII intact, moves all extremities, gait normal. Negative: focal deficits Assessment and Plan Left elbow pain secondary to a partial avulsion of the triceps tendon Recommendations - conservative treatment with range of motion and strengthening exercises for the left elbow
[2019-09-28] MEDS: HYDROmorphone 1 MG/1 ML INJ IV PRN ×5 (04:30→20:00)
[2019-09-28] MEDS: METOPROLOL TARTRATE 50 MG TAB PO SCH ×3 (06:11→22:30)
[2019-09-28] MEDS: LISINOPRIL 20 MG TAB PO SCH (07:03)
[2019-09-28] MEDS: AMIODARONE 900 MG in DEXTROSE 5% IN WATER 482 ML IV SCH (08:39)
[2019-09-28] MEDS: oxyCODONE /ACETAMINOPHEN 5-325MG TAB PO PRN ×3 (08:39→21:43)
--- NOTE | 2019-09-28 09:02 | Progress Note ---
Assessment and Plan Acute on chronic shortness of breath with GGO on imaging Syncopal episode with SSS A. fib with RVR- paced- transvenous temporary pacemaker SSS syndrome Malignant Hypertension with urgency, controlled Chronic pain syndrome Chest pain Tobacco use disorder -Continue with supplemental oxygen to keep O2 sats>90% -VTE prophylaxis-anticoagulated -Pain management per primary service -Continue with blood pressure management -Follow up CT chest without contrast prior to discharge to re-evaluate GGO seen on imaging at the time of admission -Life style modification counselling -Influenza and pneumovax addressed per protocol -Smoking cessation counselling done at the bedside -For pacemaker placement per Cardiology Subjective Date of service: 09/28/19 Principal diagnosis: A. fib with RVR; Tachy-kendra syndrome; HTN; shortness of breath; Obesity Interval history: Patient is seen today for: A. fib with RVR with hypercoagulable state; Tachybradycardia syndrome; Hypertension; Acute on chronic shortness of breath; Obesity Seen and examined at bedside; 24hour events reviewed; nursing and respiratory care staff consulted; no adverse overnight events reported to me; resting peacefully in bed; denies acute chest pains or palpitations; still with Left elbow pain; No N/V/F/C; awaiting PPM placement Has a transvenous pacemaker and on telemetry is pacemaker dependent Objective Vital Signs - 12hr 09/27/19 09/27/19 09/27/19 21:10 21:20 21:27 Temperature Pulse Rate 80 80 80 Pulse Rate [ From Monitor] Respiratory 11 L 20 Rate Blood Pressure 130/67 130/67 130/67 O2 Sat by Pulse 98 98 Oximetry 09/27/19 09/27/19 09/27/19 21:30 21:36 21:40 Temperature Pulse Rate 80 80 Pulse Rate [ From Monitor] Respiratory 9 L 10 L Rate Blood Pressure 130/67 130/67 O2 Sat by Pulse 100 100 100 Oximetry 09/27/19 09/27/19 09/27/19 21:50 22:00 22:10 Temperature Pulse Rate 80 80 80 Pulse Rate [ From Monitor] Respiratory 11 L 11 L 10 L Rate Blood Pressure 130/67 103/72 103/72 O2 Sat by Pulse 100 100 Oximetry 09/27/19 09/27/19 09/27/19 22:20 23:00 23:42 Temperature Pulse Rate 80 80 80 Pulse Rate [ From Monitor] Respiratory 12 11 L 12 Rate Blood Pressure 103/72 96/63 96/63 O2 Sat by Pulse 99 99 99 Oximetry 09/27/19 09/28/19 09/28/19 23:56 00:00 00:06 Temperature 97.5 F L 97.5 F L Pulse Rate 80 80 Pulse Rate [ 80 From Monitor] Respiratory 10 L 14 Rate Blood Pressure 118/85 118/85 O2 Sat by Pulse 100 99 Oximetry 09/28/19 09/28/19 09/28/19 01:00 02:00 03:00 Temperature Pulse Rate 80 80 80 Pulse Rate [ From Monitor] Respiratory 11 L 12 15 Rate Blood Pressure 105/63 106/68 111/72 O2 Sat by Pulse 99 Oximetry 09/28/19 09/28/19 09/28/19 04:00 05:00 06:00 Temperature Pulse Rate 80 80 Pulse Rate [ 80 From Monitor] Respiratory 16 10 L Rate Blood Pressure 111/72 147/100 147/100 O2 Sat by Pulse 100 100 100 Oximetry 09/28/19 09/28/19 09/28/19 06:11 06:28 07:00 Temperature 97.6 F Pulse Rate 80 80 Pulse Rate [ From Monitor] Respiratory 14 Rate Blood Pressure 112/73 101/68 O2 Sat by Pulse 99 Oximetry 09/28/19 09/28/19 09/28/19 07:22 07:24 08:00 Temperature 98.3 F Pulse Rate 80 81 Pulse Rate [ 80 From Monitor] Respiratory 11 L 12 Rate Blood Pressure 122/83 O2 Sat by Pulse 100 99 Oximetry Constitutional: alert, appears uncomfortable, other (elderly looking obese CF, normocephalic with normal respiratory effort at rest) Eyes: non-icteric ENT: oropharynx moist, other (Mallampati 4) Neck: supple, no lymphadenopathy, no JVD, other (large neck circumference) Effort: normal Ascultation: Bilateral: clear, diminished breath sounds, rhonchi Percussion: Bilateral: not dull Cardiovascular: regular rate and rhythm (paced) Gastrointestinal: normoactive bowel sounds, soft, non-tender, non-distended Integumentary: normal Extremities: no cyanosis, no edema, pulses normal, no ischemia or petechiae, other (Left elbow pain and mild swelling; tender to touch) Neurologic: normal mental status, non-focal exam, pupils equal and round, CN II- XII normal Psychiatric: mood appropriate, affect normal CBC and BMP: 09/23/19 01:15 09/29/19 10:01 ABG, PT/INR, D-dimer: ABG POC ABG pH 7.403 (7.35-7.45) 09/27/19 13:16 POC ABG pCO2 34.1 (35-45) L 09/27/19 13:16 POC ABG pO2 146 (80-105) H 09/27/19 13:16 POC ABG HCO3 21.3 (22-26 mml/L) 09/27/19 13:16 POC ABG Total CO2 22 (23-27mmol/L) 09/27/19 13:16 POC ABG O2 Sat 99 09/27/19 13:16 PT/INR, D-dimer PT 13.5 Sec. (12.2-14.9) 09/23/19 01:15 INR 1.04 (0.87-1.13) 09/23/19 01:15 Abnormal lab findings: Abnormal Labs 09/22/19 09/22/19 09/22/19 18:50 18:50 22:35 WBC 12.8 H Hgb 14.4 H Hct 44.7 H MCV 98 H RDW 15.4 H Butts % (Auto) 8.3 H Butts # 1.1 H Seg Neutrophils % 74.1 H Seg Neutrophils # 9.5 H POC ABG pH POC ABG pCO2 POC ABG pO2 Chloride 108.0 H Carbon Dioxide 17 L BUN 23 H Glucose 126 H Lactic Acid 2.20 H* Alkaline Phosphatase 140 H Troponin T Triglycerides Cholesterol LDL Cholesterol Direct HDL Cholesterol 09/23/19 09/23/19 09/24/19 01:15 01:15 18:22 WBC Hgb Hct MCV 98 H RDW Butts % (Auto) 11.2 H Butts # 1.2 H Seg Neutrophils % Seg Neutrophils # POC ABG pH 7.331 L POC ABG pCO2 46.0 H POC ABG pO2 56 L Chloride 107.1 H Carbon Dioxide 19 L BUN 22 H Glucose Lactic Acid Alkaline Phosphatase Troponin T Triglycerides Cholesterol LDL Cholesterol Direct HDL Cholesterol 09/27/19 09/27/19 09/27/19 12:50 13:16 19:20 WBC Hgb Hct MCV RDW Butts % (Auto) Butts # Seg Neutrophils % Seg Neutrophils # POC ABG pH POC ABG pCO2 34.1 L POC ABG pO2 146 H Chloride Carbon Dioxide BUN Glucose Lactic Acid Alkaline Phosphatase Troponin T 0.071 H D 0.117 H* D Triglycerides 284 H Cholesterol 205 H LDL Cholesterol Direct 144 H HDL Cholesterol 39 L Allied health notes reviewed: nursing
[2019-09-28] MEDS: PANTOPRAZOLE 40 MG TAB PO SCH (09:18)
[2019-09-28] MEDS: predniSONE 20 MG TAB PO SCH (09:18)
[2019-09-28] MEDS: TICAGRELOR 90 MG TAB PO SCH ×2 (09:18→22:30)
--- NOTE | 2019-09-28 12:02 | Progress Note ---
Assessment and Plan Shortness of breath former Smoker Syncope Coronary artery disease s/p PCI of RCA with BMS 04/2019 at [facility] Echo 05/14/2019 at [facility] -LVEF 55% Paroxysmal Afib significant bradyarrhythmias on telemetry suggestive of underlying sick sinus syndrome. s/p right IJ TVP 09/27 treated with eliquis as an outpatient; currently held for planned pacemaker implant on Wednesday Chronic pain syndrome Subjective Date of service: 09/28/19 Principal diagnosis: A. fib with RVR; Tachy-kendra syndrome; HTN; shortness of breath; Obesity Interval history: Right IJ temporary pacemaker is in place. Objective Vital Signs Temp Pulse Pulse Pulse Resp BP Pulse Ox 09/28/19 11:00 69 11 L 128/61 100 09/28/19 10:00 81 18 106/68 98 09/28/19 09:00 80 18 122/83 99 09/28/19 08:00 98.3 F 81 12 122/83 99 09/28/19 07:24 80 09/28/19 07:22 80 11 L 100 09/28/19 07:00 80 14 101/68 99 09/28/19 06:28 97.6 F 09/28/19 06:11 80 112/73 09/28/19 06:00 147/100 100 09/28/19 05:00 80 10 L 147/100 100 09/28/19 04:00 80 80 16 111/72 100 09/28/19 03:00 80 15 111/72 09/28/19 02:00 80 12 106/68 09/28/19 01:00 80 11 L 105/63 99 09/28/19 00:06 80 14 118/85 99 09/28/19 00:00 97.5 F L 80 80 10 L 118/85 100 09/27/19 23:56 97.5 F L 09/27/19 23:42 80 12 96/63 99 09/27/19 23:00 80 11 L 96/63 99 09/27/19 22:20 80 12 103/72 99 09/27/19 22:10 80 10 L 103/72 100 09/27/19 22:00 80 11 L 103/72 09/27/19 21:50 80 11 L 130/67 100 09/27/19 21:40 80 10 L 130/67 100 09/27/19 21:36 100 09/27/19 21:30 80 9 L 130/67 100 09/27/19 21:27 80 130/67 09/27/19 21:20 80 20 130/67 98 09/27/19 21:10 80 11 L 130/67 98 09/27/19 21:00 80 10 L 130/67 98 09/27/19 20:50 83 11 L 130/67 98 09/27/19 20:40 80 11 L 130/67 98 09/27/19 20:30 80 8 L 130/67 99 09/27/19 20:20 80 10 L 143/96 99 09/27/19 20:10 80 10 L 143/96 99 09/27/19 20:00 98.0 F 80 80 12 143/96 100 09/27/19 19:50 80 18 150/85 100 09/27/19 19:40 80 15 150/85 100 09/27/19 19:30 81 29 H 150/85 99 09/27/19 19:20 81 16 142/80 100 09/27/19 19:10 80 25 H 142/80 100 09/27/19 19:00 80 15 142/80 99 09/27/19 18:50 80 32 H 98/56 97 09/27/19 18:40 80 32 H 98/56 99 09/27/19 18:30 80 9 L 118/70 99 09/27/19 18:20 81 98/56 94 09/27/19 18:10 81 20 98/56 89 09/27/19 18:00 81 16 87/50 98 09/27/19 17:50 81 12 87/50 99 09/27/19 17:40 81 11 L 87/50 99 09/27/19 17:30 81 9 L 87/50 98 09/27/19 17:20 81 17 90/46 99 09/27/19 17:18 81 81 09/27/19 17:10 81 14 90/46 99 09/27/19 17:00 80 10 L 128/79 99 09/27/19 16:50 81 9 L 128/79 99 09/27/19 16:40 81 19 128/79 97 09/27/19 16:30 81 15 128/79 98 09/27/19 16:20 81 14 94/54 96 09/27/19 16:10 81 22 94/54 97 09/27/19 16:00 97.9 F 81 81 81 12 94/54 98 09/27/19 15:52 17 09/27/19 15:50 81 17 113/93 100 09/27/19 15:47 14 09/27/19 15:40 81 22 113/93 99 09/27/19 15:30 81 37 H 113/93 96 09/27/19 15:20 81 26 H 110/79 96 09/27/19 15:10 81 25 H 110/79 09/27/19 15:00 81 22 87/52 99 09/27/19 14:50 81 16 87/52 99 09/27/19 14:47 19 09/27/19 14:40 82 12 87/52 99 09/27/19 14:30 133 H 10 L 81/30 98 09/27/19 14:20 145 H 12 81/30 98 09/27/19 14:10 139 H 11 L 81/30 98 09/27/19 14:00 133 H 20 77/42 97 09/27/19 13:50 132 H 17 77/42 98 09/27/19 13:40 148 H 20 77/42 99 09/27/19 13:30 147 H 20 74/47 92 09/27/19 13:20 150 H 24 74/47 93 09/27/19 13:10 144 H 18 74/47 96 09/27/19 13:00 154 H 16 74/47 98 09/27/19 12:50 157 H 14 86/56 95 09/27/19 12:40 163 H 20 86/56 85 09/27/19 12:30 171 H 16 94/79 99 09/27/19 12:20 140 H 21 94/79 99 09/27/19 12:10 156 H 18 94/79 98 - Physical Examination General: No Apparent Distress, Other (obese) HEENT: Positive: PERRL, Mucus Membranes Moist Neck: Positive: trachea midline, Other (right IJ temporary pacemaker) Cardiac: Positive: Other (paced) Neuro: Positive: Grossly Intact Abdomen: Positive: Soft Skin: Positive: Clear Incision: Cardiac Cath Site Musculoskeletal: No Pain, Normal Range of Motion Extremities: Absent: edema - Labs and Meds Lipids 09/27/19 Range/Units 12:50 Triglycerides 284 H (2-149) mg/dL Cholesterol 205 H (50-199) mg/dL HDL Cholesterol 39 L (40-59) mg/dL Cholesterol/HDL Ratio 5.25 % - Allied health notes Allied health notes reviewed: nursing
--- NOTE | 2019-09-28 12:50 | Progress Note ---
Assessment and Plan Cultures: Blood culture 09/22/19 no growth to date Assessment: 64 yo F PMHx tobacco abuse, HTN admitted [facility] [place] acute on chronic SOB. 1. Acute on chronic SOB - possible pneumonia, however no focal consolidation seen on CT and images show bilateral ground glass opacities similar to prior CT from 04/2019. ? ILD as a baseline given her progressive SOB for the past year. Consider pulmonology consult as she may require PFTs and additional eval. Her acute exacerbation may be due to a viral URI given her recent increase in sneezing. Procalcitonin is low as well, unlikely to be an acute bacterial infection, will d/c abx. Also, no recent HIV test, per discussion with patient at bedside, agreeable to get it checked. 2. Left arm pain: Xray showed no fracture. Recs: - off antibiotics - HIV test ordered (patient agreeable, verbal consent obtained); follow up - continue to monitor Med Lyon MD [facility] [place] [facility] M: [phone] O: [phone] F: [phone] Subjective Date of service: 09/28/19 Principal diagnosis: A. fib with RVR; Tachy-kendra syndrome; HTN; shortness of breath; Obesity Interval history: Ongoing SOB, feels mildly better Objective - Exam Narrative Exam: General Normal appearance, well developed, no acute distress Eyes - PERRLA, EOM intact ENT - Moist mucous membranes, no lymphadenopathy Neck - No noticeable or palpable swelling, redness or rash around throat or on face Lymph Nodes - No lymphadenopathy Cardiovascular - RRR no m/r/g, no JVD, no carotid bruits Lungs - Clear to auscultation, no use of accessory muscles, no crackles or wheezes. Skin - No rashes, skin warm and dry, no erythematous areas Abdomen - Normal bowel sounds, abdomen soft and nontender Extremities - No edema, cyanosis or clubbing Musculoskeletal - 5/5 strength, normal range of motion, no swollen or erythematous joints. Neurological Alert and oriented x 3, CN 2-12 grossly intact. - Constitutional Vitals: Vital Signs Temp Pulse Resp BP Pulse Ox 97.9 F 69 11 L 128/61 100 09/28/19 12:00 09/28/19 11:00 09/28/19 11:00 09/28/19 11:00 09/28/19 11:00 Temperature -Last 24 Hours Temperature 97.9 F Temperature 98.3 F Temperature 98.3 F Temperature 97.6 F Temperature 97.5 F Temperature 97.5 F Temperature 98.0 F Temperature 97.9 F Temperature 97.9 F - Labs CBC & Chem 7: 09/23/19 01:15 09/23/19 01:15 Labs: Abnormal lab results 09/27/19 09/27/19 09/27/19 Range/Units 12:50 13:16 19:20 POC ABG pCO2 34.1 L (35-45) POC ABG pO2 146 H (80-105) Troponin T 0.071 H D 0.117 H* D (0.00-0.029) ng/mL Triglycerides 284 H (2-149) mg/dL Cholesterol 205 H (50-199) mg/dL LDL Cholesterol Direct 144 H (50-130) mg/dL HDL Cholesterol 39 L (40-59) mg/dL
[2019-09-28] MEDS: AMIODARONE 200 MG TAB PO SCH (15:06)
--- NOTE | 2019-09-28 17:47 | Progress Note ---
Assessment and Plan Assessment and plan: Patient is a 64-year-old woman with a history of tobacco dependency and hypertension who presents to the hospital after losing consciousness and falling down. She presented with left elbow pains. She was found to have a fracture left olecranon. She was found to be in A. fib with RVR upon arrival. During hospitalization, patient has Tachy-kendra syndrome, possible SSS Syncopal episode with SSS: PPM per Cardiology A. fib with RVR with hypercoagulable state: a/c and unable to tolerate bblocker, Cardiology is following, input noted SSS syndrome: PPM on Malignant Hypertension with urgency: use IV anti-hypertensive cautiously due to instability of heart rate Acute on chronic shortness of breath, Ground glass opacity on lung imaging, likely has some chronic form of ILD, ID input appreciated, pulmonology consult appreciated Left olecranon fracture: Pain meds, provide sling, orthopedic surgery consult, advised sling Chronic pain sydrome: asking for more narcotics DVT prophylaxis: Fully anti-coagulated Chest pains: get EKG, troponin stat, treated with NTG full code Disposition: continue inpatient care, for PPM on Wednesday per Cardiology. temporary pacer today increased Troponins, d/w Dr. Argueta. History Interval history: Patient was seen and examined. Follow-up on current diagnosis of AFib. No overnight events reported to me. Patient denies nausea/vomiting or severe headaches. Imaging, nursing note, chart, labs and old chart reviewed. Discussed with patient. She c/o chest pains. Hospitalist Physical - Physical exam Narrative exam: Gen: WDWN, NAD, Awake, Alert, Orientated HEENT: NCAT, EOMI, PERRL, OP Clear Neck: supple, no adenopathy, no thyromegaly, no JVD CVS/Heart: irregular irregular normal S1S2, pulses present bilaterally Chest/Lungs: crackles, Symmetrical chest expansion, good air entry bilaterally GI/Abdomen: soft, NTND, good bowel sounds, no guarding or rebound /Bladder: no suprapubic tenderness, no CVA or paraspinal tenderness Extermity/Skin: no obvious rash MSK: FROM x 4 Neuro: CN 2-12 grossly intact, no new focal deficits Psych: calm - Constitutional Vitals: Temp Pulse Resp BP Pulse Ox 97.6 F 71 21 136/76 97 11/07/19 16:00 09/28/19 17:00 09/28/19 17:00 09/28/19 17:00 09/28/19 17:00 General appearance: Present: no acute distress, well-nourished Results - Labs CBC & Chem 7: 09/23/19 01:15 09/23/19 01:15 Labs: Laboratory Last Values WBC 11.0 K/mm3 (4.5-11.0) 09/23/19 01:15 RBC 4.17 M/mm3 (3.65-5.03) 09/23/19 01:15 Hgb 13.5 gm/dl (10.1-14.3) 09/23/19 01:15 Hct 40.8 % (30.3-42.9) 09/23/19 01:15 MCV 98 fl (79-97) H 09/23/19 01:15 MCH 32 pg (28-32) 09/23/19 01:15 MCHC 33 % (30-34) 09/23/19 01:15 RDW 15.0 % (13.2-15.2) 09/23/19 01:15 Plt Count 272 K/mm3 (140-440) 09/23/19 01:15 Lymph % (Auto) 30.0 % (13.4-35.0) 09/23/19 01:15 P[place] % (Auto) 11.2 % (0.0-7.3) H 09/23/19 01:15 Eos % (Auto) 1.1 % (0.0-4.3) 09/23/19 01:15 Baso % (Auto) 0.7 % (0.0-1.8) 09/23/19 01:15 Lymph # 3.3 K/mm3 (1.2-5.4) 09/23/19 01:15 Pinal # 1.2 K/mm3 (0.0-0.8) H 09/23/19 01:15 Eos # 0.1 K/mm3 (0.0-0.4) 09/23/19 01:15 Baso # 0.1 K/mm3 (0.0-0.1) 09/23/19 01:15 Seg Neutrophils % 57.0 % (40.0-70.0) 09/23/19 01:15 Seg Neutrophils # 6.3 K/mm3 (1.8-7.7) 09/23/19 01:15 PT 13.5 Sec. (12.2-14.9) 09/23/19 01:15 INR 1.04 (0.87-1.13) 09/23/19 01:15 APTT 30.3 Sec. (24.2-36.6) 09/22/19 18:50 POC ABG pH 7.403 (7.35-7.45) 09/27/19 13:16 POC ABG pCO2 34.1 (35-45) L 09/27/19 13:16 POC ABG pO2 146 (80-105) H 09/27/19 13:16 POC ABG HCO3 21.3 (22-26 mml/L) 09/27/19 13:16 POC ABG Total CO2 22 (23-27mmol/L) 09/27/19 13:16 POC ABG O2 Sat 99 09/27/19 13:16 POC ABG Base Excess -4 ((-2) - (+3)mmol/L) 09/27/19 13:16 FiO2 2 % 09/27/19 13:16 Sodium 140 mmol/L (137-145) 09/23/19 01:15 Potassium 3.7 mmol/L (3.6-5.0) 09/23/19 01:15 Chloride 107.1 mmol/L (98-107) H 09/23/19 01:15 Carbon Dioxide 19 mmol/L (22-30) L 09/23/19 01:15 Anion Gap 18 mmol/L 09/23/19 01:15 BUN 22 mg/dL (7-17) H 09/23/19 01:15 Creatinine 0.7 mg/dL (0.7-1.2) 09/23/19 01:15 Estimated GFR > 60 ml/min 09/23/19 01:15 BUN/Creatinine Ratio 31 % 09/23/19 01:15 Glucose 100 mg/dL (65-100) 09/23/19 01:15 Lactic Acid 1.80 mmol/L (0.7-2.0) 09/23/19 05:15 Calcium 9.3 mg/dL (8.4-10.2) 09/23/19 01:15 Magnesium 2.00 mg/dL (1.7-2.3) 09/23/19 01:15 Total Bilirubin 0.30 mg/dL (0.1-1.2) 09/22/19 18:50 AST 21 units/L (5-40) 09/22/19 18:50 ALT 17 units/L (7-56) 09/22/19 18:50 Alkaline Phosphatase 140 units/L (35-129) H 09/22/19 18:50 Troponin T 0.117 ng/mL (0.00-0.029) H* D 09/27/19 19:20 NT-Pro-B Natriuret Pep 781.0 pg/mL (0-900) 09/22/19 18:50 Total Protein 7.2 g/dL (6.3-8.2) 09/22/19 18:50 Albumin 4.6 g/dL (3.9-5) 09/22/19 18:50 Albumin/Globulin Ratio 1.8 % 09/22/19 18:50 Triglycerides 284 mg/dL (2-149) H 09/27/19 12:50 Cholesterol 205 mg/dL (50-199) H 09/27/19 12:50 LDL Cholesterol Direct 144 mg/dL (50-130) H 09/27/19 12:50 HDL Cholesterol 39 mg/dL (40-59) L 09/27/19 12:50 Cholesterol/HDL Ratio 5.25 % 09/27/19 12:50 Procalcitonin 0.06 ng/mL (<0.15) 09/24/19 04:16 TSH 3.310 mlU/mL (0.270-4.200) 09/22/19 18:50 Thyroxine (T4) 5.4 ug/dL (4.0-12.0) 09/22/19 18:50 Free T3 Index 2.5 pg/mL (2.3-4.2) 09/22/19 18:50 Plasma/Serum Alcohol < 0.01 % (0-0.07) 09/22/19 19:02 Active Medications - Current Medications Current Medications: Generic Name Dose Route Start Last Admin Trade Name Freq PRN Reason Stop Dose Admin Acetaminophen 650 mg 09/23/19 00:54 09/23/19 15:27 Tylenol PO 650 mg Q6H PRN Administration Pain MILD(1-3)/Fever >100.5/MONTESINOS Albuterol 2.5 mg 09/23/19 00:54 09/26/19 13:22 Proventil IH 2.5 mg Q3HRT PRN Administration Shortness Of Breath Amiodarone HCl 200 mg 09/28/19 15:00 09/28/19 15:06 Cordarone PO 200 mg QDAY OZZY Administration Sodium Chloride 1,000 ml/ 0 ml 09/29/19 07:00 Vancomycin HCl 1,000 mg IR 09/29/19 20:00 INTRAOP NR Haloperidol Lactate 5 mg 09/27/19 13:29 09/27/19 23:42 Haldol IV 5 mg Q8H PRN Administration Agitation Hydromorphone HCl 1 mg 09/27/19 15:13 09/28/19 16:03 Dilaudid IV 1 mg Q4H PRN Administration Pain , Severe (7-10) Magnesium Hydroxide 30 ml 09/23/19 00:54 09/27/19 05:59 Milk Of Magnesia PO 30 ml Q4H PRN Administration Constipation Metoprolol Tartrate 50 mg 09/27/19 12:00 09/28/19 15:06 Metoprolol PO 50 mg Q8HR OZZY Administration Ondansetron HCl 4 mg 09/23/19 11:00 09/27/19 12:42 Zofran IV 4 mg Q4H PRN Administration Nausea And Vomiting Oxycodone/Acetaminophen 1 tab 09/24/19 13:45 09/28/19 15:05 Percocet 5/325 PO 1 tab Q6H PRN Administration Pain, Moderate (4-6) Pantoprazole Sodium 40 mg 09/25/19 16:00 09/28/19 09:18 Protonix PO 40 mg QDAY OZZY Administration Prednisone 40 mg 09/24/19 14:00 09/28/19 09:18 Deltasone PO 40 mg QDAY OZZY Administration Sodium Chloride 10 ml 09/23/19 10:00 09/28/19 15:06 Sodium Chloride Flush Syringe 10 Ml IV 10 ml BID OZZY Administration Sodium Chloride 10 ml 09/23/19 00:54 Sodium Chloride Flush Syringe 10 Ml IV PRN PRN LINE FLUSH Ticagrelor 90 mg 09/25/19 22:00 09/28/19 09:18 Brilinta PO 90 mg BID OZZY Administration Nutrition/Malnutrition Assess - Dietary Evaluation Nutrition/Malnutrition Findings: Nutrition Notes Start: 09/23/19 11:58 Freq: Status: Active Protocol: Document 09/23/19 11:58 EDITH (Rec: 09/23/19 12:03 EDITH [email or web address]) Nutrition Notes Need for Assessment generated from: MD Order,Education Initial or Follow up Brief Note Current Diagnosis Hypertension Other Pertinent Diagnosis Syncope, SOB Current Diet Cardiac Subjective/Other Information RD consulted for diet education. BP was 178/107 upon admission. Pt states that she takes her BP medication as prescribed, but forgot to take it last pm. She does not cook with salt and does not add salt after cooking. Reports good appetite. Burn Absent Trauma Absent #1 Nutrition Diagnosis Food and nutrition-related knowledge deficit Etiology limited exposure to diet education for low sodium diet As Evidenced by Signs and Symptoms pt admitted with elevated BP Nutrition Intervention Teaching Recipient Patient Learning Readiness Good Teaching Methods Discussion Response to Teaching Verbalize understanding Education Handouts Provided No handouts provided; pt unable to read. Discussed foods to limit when reducing sodium intake Barriers to Learning Reading skills,Age related, Emotional RD phone number provided No Patient aware of follow up options Yes Actions To Overcome Barriers Other Goal #1 Adherence to low sodium diet Goal #2 Improved BP control Anticipated Discharge Needs: Low sodium diet Revisit per MD consult or patient Sign Off request:
[2019-09-28] MEDS: HALOPERIDOL LACTATE 5 MG/1 ML INJ IV PRN (22:31)
[2019-09-29] MEDS ORDERED: D5W/0.45% NACL/KCL 20 MEQ 20 MEQ/1,000 ML BAG IV SCH (00:01)
[2019-09-29] MEDS: HYDROmorphone 1 MG/1 ML INJ IV PRN ×5 (00:04→21:12)
[2019-09-29] MEDS: METOPROLOL TARTRATE 50 MG TAB PO SCH ×2 (06:40→21:11)
[2019-09-29] MEDS: oxyCODONE /ACETAMINOPHEN 5-325MG TAB PO PRN ×2 (06:47→23:36)
[2019-09-29] MEDS ORDERED: SODIUM CHLORIDE IRRI 1000 ML 1,000 ML, .VANCOMYCIN VIAL 1,000 MG IR NR (07:00)
[2019-09-29 07:05] LABS: HIV-1 Antibody Differentiation SEE SCANNED RESULT; HIV-2 Antibody Differentiation SEE SCANNED RESULT
--- NOTE | 2019-09-29 09:45 | Progress Note ---
Assessment and Plan Cultures: Blood culture 09/22/19 no growth to date Assessment: 64 yo F PMHx tobacco abuse, HTN admitted [facility] acute on chronic SOB. 1. Acute on chronic SOB - possible pneumonia, however no focal consolidation seen on CT and images show bilateral ground glass opacities similar to prior CT from 04/2019. ? ILD as a baseline given her progressive SOB for the past year. Consider pulmonology consult as she may require PFTs and additional eval. Her acute exacerbation may be due to a viral URI given her recent increase in sneezing. Procalcitonin is low as well, unlikely to be an acute bacterial infection, will d/c abx. Also, no recent HIV test, per discussion with patient at bedside, agreeable to get it checked. 2. Left arm pain: Xray showed no fracture. Recs: - off antibiotics - HIV test negative - continue to monitor We will sign off. Please call with questions. Med Lyon MD [facility] ([facility]) M: [phone] O: [phone] F: [phone] Subjective Date of service: 09/29/19 Principal diagnosis: A. fib with RVR; Tachy-kendra syndrome; HTN; shortness of breath; Obesity Interval history: Ongoing SOB, feels mildly better Objective - Exam Narrative Exam: General Normal appearance, well developed, no acute distress Eyes - PERRLA, EOM intact ENT - Moist mucous membranes, no lymphadenopathy Neck - No noticeable or palpable swelling, redness or rash around throat or on face Lymph Nodes - No lymphadenopathy Cardiovascular - RRR no m/r/g, no JVD, no carotid bruits Lungs - Clear to auscultation, no use of accessory muscles, no crackles or wheezes. Skin - No rashes, skin warm and dry, no erythematous areas Abdomen - Normal bowel sounds, abdomen soft and nontender Extremities - No edema, cyanosis or clubbing Musculoskeletal - 5/5 strength, normal range of motion, no swollen or erythematous joints. Neurological Alert and oriented x 3, CN 2-12 grossly intact. - Constitutional Vitals: Vital Signs Temp Pulse Resp BP Pulse Ox 97.6 F 62 13 155/65 100 09/29/19 08:00 09/29/19 09:00 09/29/19 09:00 09/29/19 09:00 09/29/19 09:17 Temperature -Last 24 Hours Temperature 97.6 F Temperature 97.4 F Temperature 97.3 F Temperature 97.6 F Temperature 97.5 F Temperature 97.6 F Temperature 97.9 F - Labs CBC & Chem 7: 09/23/19 01:15 09/23/19 01:15
--- NOTE | 2019-09-29 10:29 | Progress Note ---
Assessment and Plan Acute on chronic shortness of breath with GGO on imaging Syncopal episode with SSS A. fib with RVR SSS syndrome Malignant Hypertension with urgency Left olecranon fracture Chronic pain syndrome Chest pain -Continue with supplemental oxygen to complete course -PPM placement today -VTE prophylaxis-anticoagulated -Pain management per primary service -Continue with blood pressure management -On going counselling for smoking cessation -Follow up CT chest without contrast prior to discharge to re-evaluate GGO seen on imaging at the time of admission -Life style modification counselling -Influenza and pneumovax addressed per protocol -Awaiting orthopedic evaluation once cardiac issues have been addressed Subjective Date of service: 09/29/19 Principal diagnosis: A. fib with RVR; Tachy-kendra syndrome; HTN; shortness of breath; Obesity Interval history: Patient is seen today for: A. fib with RVR with hypercoagulable state; Tachybradycardia syndrome; Hypertension; Acute on chronic shortness of breath; Obesity Seen and examined at bedside; 24hour events reviewed; nursing and respiratory care staff consulted; no adverse overnight events reported to me; resting peacefully in bed; denies acute chest pains or palpitations; still with Left elbow pain; No N/V/F/C; awaiting PPM placement today "They will knock me out for this, right?" Objective Vital Signs - 12hr 09/28/19 09/28/19 09/28/19 22:30 23:00 23:27 Temperature 97.3 F L Pulse Rate 59 L 63 Pulse Rate [ From Monitor] Respiratory 14 Rate Respiratory Rate [Left Elbow] Blood Pressure 129/76 129/76 O2 Sat by Pulse 99 Oximetry 09/28/19 09/29/19 09/29/19 23:48 00:00 00:04 Temperature Pulse Rate 56 L 54 L Pulse Rate [ 55 L From Monitor] Respiratory 9 L 12 11 L Rate Respiratory Rate [Left Elbow] Blood Pressure 136/68 136/68 O2 Sat by Pulse 99 100 Oximetry 09/29/19 09/29/19 09/29/19 00:34 01:00 01:10 Temperature Pulse Rate Pulse Rate [ From Monitor] Respiratory 10 L 15 Rate Respiratory 10 L Rate [Left Elbow] Blood Pressure 128/77 O2 Sat by Pulse 100 Oximetry 09/29/19 09/29/19 09/29/19 02:00 03:00 04:00 Temperature Pulse Rate 56 L 56 L 60 Pulse Rate [ 56 L From Monitor] Respiratory 9 L 11 L 11 L Rate Respiratory Rate [Left Elbow] Blood Pressure 123/58 105/60 149/79 O2 Sat by Pulse 99 100 Oximetry 09/29/19 09/29/19 09/29/19 04:03 04:33 04:47 Temperature 97.4 F L Pulse Rate Pulse Rate [ From Monitor] Respiratory 13 11 L Rate Respiratory Rate [Left Elbow] Blood Pressure O2 Sat by Pulse Oximetry 09/29/19 09/29/19 09/29/19 05:00 06:00 06:40 Temperature Pulse Rate 62 59 L 58 L Pulse Rate [ From Monitor] Respiratory 16 13 Rate Respiratory Rate [Left Elbow] Blood Pressure 147/86 118/66 188/66 O2 Sat by Pulse 99 97 Oximetry 09/29/19 09/29/19 09/29/19 06:47 07:00 08:00 Temperature 97.6 F Pulse Rate 66 56 L Pulse Rate [ 60 From Monitor] Respiratory 15 24 9 L Rate Respiratory Rate [Left Elbow] Blood Pressure 118/66 155/65 O2 Sat by Pulse 99 99 Oximetry 09/29/19 09/29/19 09:00 09:17 Temperature Pulse Rate 62 Pulse Rate [ From Monitor] Respiratory 13 Rate Respiratory Rate [Left Elbow] Blood Pressure 155/65 O2 Sat by Pulse 100 100 Oximetry Constitutional: no acute distress, other (elderly looking obese CF, normocephalic with normal respiratory effort at rest) Eyes: non-icteric ENT: oropharynx moist, other (Mallampati 4) Neck: supple, no lymphadenopathy, no JVD, other (large neck circumference) Effort: normal Ascultation: Bilateral: clear, diminished breath sounds, rhonchi Percussion: Bilateral: not dull Cardiovascular: other (Paced, has transvenous pacemaker) Gastrointestinal: normoactive bowel sounds, soft, non-tender, non-distended Integumentary: normal Extremities: no cyanosis, no edema, pulses normal, no ischemia or petechiae, other (Left elbow pain and mild swelling; tender to touch) Neurologic: normal mental status, non-focal exam, pupils equal and round, CN II- XII normal Psychiatric: mood appropriate, affect normal CBC and BMP: 09/23/19 01:15 09/29/19 10:01 ABG, PT/INR, D-dimer: ABG POC ABG pH 7.403 (7.35-7.45) 09/27/19 13:16 POC ABG pCO2 34.1 (35-45) L 09/27/19 13:16 POC ABG pO2 146 (80-105) H 09/27/19 13:16 POC ABG HCO3 21.3 (22-26 mml/L) 09/27/19 13:16 POC ABG Total CO2 22 (23-27mmol/L) 09/27/19 13:16 POC ABG O2 Sat 99 09/27/19 13:16 PT/INR, D-dimer PT 13.5 Sec. (12.2-14.9) 09/23/19 01:15 INR 1.04 (0.87-1.13) 09/23/19 01:15 Abnormal lab findings: Abnormal Labs 09/22/19 09/22/19 09/22/19 18:50 18:50 22:35 WBC 12.8 H Hgb 14.4 H Hct 44.7 H MCV 98 H RDW 15.4 H Pratt % (Auto) 8.3 H Pratt # 1.1 H Seg Neutrophils % 74.1 H Seg Neutrophils # 9.5 H POC ABG pH POC ABG pCO2 POC ABG pO2 Chloride 108.0 H Carbon Dioxide 17 L BUN 23 H Glucose 126 H Lactic Acid 2.20 H* Alkaline Phosphatase 140 H Troponin T Triglycerides Cholesterol LDL Cholesterol Direct HDL Cholesterol 09/23/19 09/23/19 09/24/19 01:15 01:15 18:22 WBC Hgb Hct MCV 98 H RDW Pratt % (Auto) 11.2 H Pratt # 1.2 H Seg Neutrophils % Seg Neutrophils # POC ABG pH 7.331 L POC ABG pCO2 46.0 H POC ABG pO2 56 L Chloride 107.1 H Carbon Dioxide 19 L BUN 22 H Glucose Lactic Acid Alkaline Phosphatase Troponin T Triglycerides Cholesterol LDL Cholesterol Direct HDL Cholesterol 09/27/19 09/27/19 09/27/19 12:50 13:16 19:20 WBC Hgb Hct MCV RDW Pratt % (Auto) Pratt # Seg Neutrophils % Seg Neutrophils # POC ABG pH POC ABG pCO2 34.1 L POC ABG pO2 146 H Chloride Carbon Dioxide BUN Glucose Lactic Acid Alkaline Phosphatase Troponin T 0.071 H D 0.117 H* D Triglycerides 284 H Cholesterol 205 H LDL Cholesterol Direct 144 H HDL Cholesterol 39 L Allied health notes reviewed: nursing
[2019-09-29 10:41] LABS: BUN/Creatinine Ratio 30; Blood Urea Nitrogen 27 mg/dL (7-17); Calcium 8.6 mg/dL (8.4-10.2); Hemolysis Index 6
[2019-09-29 10:43] LABS: INR 0.98 (0.87-1.13)
[2019-09-29] MEDS: PANTOPRAZOLE 40 MG TAB PO SCH (11:00)
[2019-09-29] MEDS: TICAGRELOR 90 MG TAB PO SCH ×2 (11:00→21:12)
[2019-09-29] MEDS: predniSONE 20 MG TAB PO SCH (11:01)
[2019-09-29] MEDS: AMIODARONE 200 MG TAB PO SCH (11:01)
--- NOTE | 2019-09-29 12:51 | Progress Note ---
Assessment and Plan Assessment and plan: Patient is a 64-year-old woman with a history of tobacco dependency and hypertension who presents to the hospital after losing consciousness and falling down. She presented with left elbow pains. She was found to have a fracture left olecranon. She was found to be in A. fib with RVR upon arrival. During hospitalization, patient has Tachy-kendra syndrome, possible SSS Syncopal episode with SSS: PPM per Cardiology A. fib with RVR with hypercoagulable state: a/c and unable to tolerate bblocker, Cardiology is following, input noted SSS syndrome: PPM on Malignant Hypertension with urgency: use IV anti-hypertensive cautiously due to instability of heart rate Acute on chronic shortness of breath, Ground glass opacity on lung imaging, likely has some chronic form of ILD, ID input appreciated, pulmonology consult appreciated Left olecranon fracture: Pain meds, provide sling, orthopedic surgery consult, advised sling Chronic pain sydrome: asking for more narcotics DVT prophylaxis: Fully anti-coagulated Chest pains: get EKG, troponin stat, treated with NTG full code Disposition: continue inpatient care, for PPM on Wednesday per Cardiology. temporary pacer today increased Troponins, d/w Dr. Argueta. History Interval history: Patient was seen and examined. Follow-up on current diagnosis of AFib. No overnight events reported to me. Patient denies nausea/vomiting or severe headaches. Imaging, nursing note, chart, labs and old chart reviewed. Discussed with patient. She c/o chest pains. Hospitalist Physical - Physical exam Narrative exam: Gen: WDWN, NAD, Awake, Alert, Orientated HEENT: NCAT, EOMI, PERRL, OP Clear Neck: supple, no adenopathy, no thyromegaly, no JVD CVS/Heart: irregular irregular normal S1S2, pulses present bilaterally Chest/Lungs: crackles, Symmetrical chest expansion, good air entry bilaterally GI/Abdomen: soft, NTND, good bowel sounds, no guarding or rebound /Bladder: no suprapubic tenderness, no CVA or paraspinal tenderness Extermity/Skin: no obvious rash MSK: FROM x 4 Neuro: CN 2-12 grossly intact, no new focal deficits Psych: calm - Constitutional Vitals: Temp Pulse Resp BP Pulse Ox 97.6 F 56 L 11 L 128/59 100 11/08/19 08:00 09/29/19 11:00 09/29/19 11:00 09/29/19 11:00 09/29/19 11:00 General appearance: Present: no acute distress, well-nourished Results - Labs CBC & Chem 7: 09/23/19 01:15 09/29/19 10:01 Labs: Laboratory Last Values WBC 11.0 K/mm3 (4.5-11.0) 09/23/19 01:15 RBC 4.17 M/mm3 (3.65-5.03) 09/23/19 01:15 Hgb 13.5 gm/dl (10.1-14.3) 09/23/19 01:15 Hct 40.8 % (30.3-42.9) 09/23/19 01:15 MCV 98 fl (79-97) H 09/23/19 01:15 MCH 32 pg (28-32) 09/23/19 01:15 MCHC 33 % (30-34) 09/23/19 01:15 RDW 15.0 % (13.2-15.2) 09/23/19 01:15 Plt Count 272 K/mm3 (140-440) 09/23/19 01:15 Lymph % (Auto) 30.0 % (13.4-35.0) 09/23/19 01:15 [place] % (Auto) 11.2 % (0.0-7.3) H 09/23/19 01:15 Eos % (Auto) 1.1 % (0.0-4.3) 09/23/19 01:15 Baso % (Auto) 0.7 % (0.0-1.8) 09/23/19 01:15 Lymph # 3.3 K/mm3 (1.2-5.4) 09/23/19 01:15 [place] # 1.2 K/mm3 (0.0-0.8) H 09/23/19 01:15 Eos # 0.1 K/mm3 (0.0-0.4) 09/23/19 01:15 Baso # 0.1 K/mm3 (0.0-0.1) 09/23/19 01:15 Seg Neutrophils % 57.0 % (40.0-70.0) 09/23/19 01:15 Seg Neutrophils # 6.3 K/mm3 (1.8-7.7) 09/23/19 01:15 PT 12.9 Sec. (12.2-14.9) 09/29/19 10:01 INR 0.98 (0.87-1.13) 09/29/19 10:01 APTT 30.3 Sec. (24.2-36.6) 09/22/19 18:50 POC ABG pH 7.403 (7.35-7.45) 09/27/19 13:16 POC ABG pCO2 34.1 (35-45) L 09/27/19 13:16 POC ABG pO2 146 (80-105) H 09/27/19 13:16 POC ABG HCO3 21.3 (22-26 mml/L) 09/27/19 13:16 POC ABG Total CO2 22 (23-27mmol/L) 09/27/19 13:16 POC ABG O2 Sat 99 09/27/19 13:16 POC ABG Base Excess -4 ((-2) - (+3)mmol/L) 09/27/19 13:16 FiO2 2 % 09/27/19 13:16 Sodium 139 mmol/L (137-145) 09/29/19 10:01 Potassium 4.1 mmol/L (3.6-5.0) 09/29/19 10:01 Chloride 105.8 mmol/L (98-107) 09/29/19 10:01 Carbon Dioxide 23 mmol/L (22-30) 09/29/19 10:01 Anion Gap 14 mmol/L 09/29/19 10:01 BUN 27 mg/dL (7-17) H 09/29/19 10:01 Creatinine 0.9 mg/dL (0.7-1.2) 09/29/19 10:01 Estimated GFR > 60 ml/min 09/29/19 10:01 BUN/Creatinine Ratio 30 % 09/29/19 10:01 Glucose 117 mg/dL (65-100) H 09/29/19 10:01 Lactic Acid 1.80 mmol/L (0.7-2.0) 09/23/19 05:15 Calcium 8.6 mg/dL (8.4-10.2) 09/29/19 10:01 Magnesium 2.00 mg/dL (1.7-2.3) 09/23/19 01:15 Total Bilirubin 0.30 mg/dL (0.1-1.2) 09/22/19 18:50 AST 21 units/L (5-40) 09/22/19 18:50 ALT 17 units/L (7-56) 09/22/19 18:50 Alkaline Phosphatase 140 units/L (35-129) H 09/22/19 18:50 Troponin T 0.117 ng/mL (0.00-0.029) H* D 09/27/19 19:20 NT-Pro-B Natriuret Pep 781.0 pg/mL (0-900) 09/22/19 18:50 Total Protein 7.2 g/dL (6.3-8.2) 09/22/19 18:50 Albumin 4.6 g/dL (3.9-5) 09/22/19 18:50 Albumin/Globulin Ratio 1.8 % 09/22/19 18:50 Triglycerides 284 mg/dL (2-149) H 09/27/19 12:50 Cholesterol 205 mg/dL (50-199) H 09/27/19 12:50 LDL Cholesterol Direct 144 mg/dL (50-130) H 09/27/19 12:50 HDL Cholesterol 39 mg/dL (40-59) L 09/27/19 12:50 Cholesterol/HDL Ratio 5.25 % 09/27/19 12:50 Procalcitonin 0.06 ng/mL (<0.15) 09/24/19 04:16 TSH 3.310 mlU/mL (0.270-4.200) 09/22/19 18:50 Thyroxine (T4) 5.4 ug/dL (4.0-12.0) 09/22/19 18:50 Free T3 Index 2.5 pg/mL (2.3-4.2) 09/22/19 18:50 Plasma/Serum Alcohol < 0.01 % (0-0.07) 09/22/19 19:02 HIV-1 Antibody See scanned result 09/25/19 04:02 HIV-2 Ab (Immunoblot) See scanned result 09/25/19 04:02 Active Medications - Current Medications Current Medications: Generic Name Dose Route Start Last Admin Trade Name Freq PRN Reason Stop Dose Admin Acetaminophen 650 mg 09/23/19 00:54 09/23/19 15:27 Tylenol PO 650 mg Q6H PRN Administration Pain MILD(1-3)/Fever >100.5/MONTESINOS Albuterol 2.5 mg 09/23/19 00:54 09/26/19 13:22 Proventil IH 2.5 mg Q3HRT PRN Administration Shortness Of Breath Amiodarone HCl 200 mg 09/28/19 15:00 09/29/19 11:01 Cordarone PO 200 mg QDAY OZZY Administration Sodium Chloride 1,000 ml/ 0 ml 09/29/19 07:00 Vancomycin HCl 1,000 mg IR 09/29/19 20:00 INTRAOP NR Hydromorphone HCl 1 mg 09/27/19 15:13 09/29/19 08:21 Dilaudid IV 1 mg Q4H PRN Administration Pain , Severe (7-10) Potassium Chloride/Dextrose/Sod Cl 20 meq in 1,000 mls @ 50 mls/hr 09/29/19 00:01 09/29/19 01:19 D5w/0.45% Nacl/Kcl 20 Meq IV 09/29/19 20:00 50 mls/hr DIRECT OZZY Administration Magnesium Hydroxide 30 ml 09/23/19 00:54 09/27/19 05:59 Milk Of Magnesia PO 30 ml Q4H PRN Administration Constipation Metoprolol Tartrate 50 mg 09/27/19 12:00 09/29/19 06:40 Metoprolol PO Not Given Q8HR OZZY Ondansetron HCl 4 mg 09/23/19 11:00 09/27/19 12:42 Zofran IV 4 mg Q4H PRN Administration Nausea And Vomiting Oxycodone/Acetaminophen 1 tab 09/24/19 13:45 09/29/19 06:47 Percocet 5/325 PO 1 tab Q6H PRN Administration Pain, Moderate (4-6) Pantoprazole Sodium 40 mg 09/25/19 16:00 09/29/19 11:00 Protonix PO 40 mg QDAY OZZY Administration Prednisone 40 mg 09/24/19 14:00 09/29/19 11:01 Deltasone PO 40 mg QDAY OZZY Administration Sodium Chloride 10 ml 09/23/19 10:00 09/29/19 11:01 Sodium Chloride Flush Syringe 10 Ml IV 10 ml BID OZZY Administration Sodium Chloride 10 ml 09/23/19 00:54 Sodium Chloride Flush Syringe 10 Ml IV PRN PRN LINE FLUSH Ticagrelor 90 mg 09/25/19 22:00 09/28/19 22:30 Brilinta PO 90 mg BID OZZY Administration Nutrition/Malnutrition Assess - Dietary Evaluation Nutrition/Malnutrition Findings: Nutrition Notes Start: 09/23/19 11:58 Freq: Status: Active Protocol: Document 09/23/19 11:58 EDITH (Rec: 09/23/19 12:03 EDITH SRW- [email or web address]) Nutrition Notes Need for Assessment generated from: MD Order,Education Initial or Follow up Brief Note Current Diagnosis Hypertension Other Pertinent Diagnosis Syncope, SOB Current Diet Cardiac Subjective/Other Information RD consulted for diet education. BP was 178/107 upon admission. Pt states that she takes her BP medication as prescribed, but forgot to take it last pm. She does not cook with salt and does not add salt after cooking. Reports good appetite. Burn Absent Trauma Absent #1 Nutrition Diagnosis Food and nutrition-related knowledge deficit Etiology limited exposure to diet education for low sodium diet As Evidenced by Signs and Symptoms pt admitted with elevated BP Nutrition Intervention Teaching Recipient Patient Learning Readiness Good Teaching Methods Discussion Response to Teaching Verbalize understanding Education Handouts Provided No handouts provided; pt unable to read. Discussed foods to limit when reducing sodium intake Barriers to Learning Reading skills,Age related, Emotional RD phone number provided No Patient aware of follow up options Yes Actions To Overcome Barriers Other Goal #1 Adherence to low sodium diet Goal #2 Improved BP control Anticipated Discharge Needs: Low sodium diet Revisit per MD consult or patient Sign Off request:
--- NOTE | 2019-09-29 12:54 | Anesthesia Consultation ---
Anesthesia Consult and Med Hx Date of service: 09/29/19 - Airway Anesthetic Teeth Evaluation: Edentulous ROM Head & Neck: Adequate Mental/Hyoid Distance: Adequate Mallampati Class: Class II Intubation Access Assessment: Good - Pre-Operative Health Status ASA Pre-Surgery Classification: ASA4 Proposed Anesthetic Plan: General, MAC (MAC; GA if needed) - Pulmonary Hx Smoking: Yes Hx Asthma: Yes COPD: Yes Hx Pneumonia: Yes - Cardiovascular System Hx Hypertension: Yes Hx Coronary Artery Disease: Yes Hx Heart Attack/AMI: Yes (NSTEMI [id number]. Cath and bare metal stent) Hx Angina: Yes Hx Cardia Arrhythmia: Yes (A-FIB RVR) - Central Nervous System Hx Neuromuscular Disorder: Yes (Passed out, fell, and fx'd L olecranon partial avulsion of the triceps tend) - Endocrine Hx End Stage Renal Disease: No - Additional Comments Anesthesia Medical History Comments: s/p PCI of RCA with BMS 04/2019 at [facility]. Echo 05/14/2019 at [facility] -LVEF 55%. Paroxysmal Afib and significant bradyarrhythmias on telemetry suggestive of underlying SSS. s/p right IJ TVP 09/27. Chronic pain syndrome
[2019-09-29] MEDS ORDERED: PROPOFOL 200 MG/20 ML VIAL IV ONE ×4 (15:10→15:11)
[2019-09-29] MEDS ORDERED: MIDAZOLAM 2 MG/2 ML INJ ONE (15:11)
[2019-09-29] MEDS ORDERED: LIDOCAINE MPF (2%) 20 MG/1 ML VIAL 5 ML ONE ×2 (15:11→15:13)
[2019-09-29] MEDS ORDERED: HYDROmorphone 1 MG/1 ML INJ ONE (15:11)
[2019-09-29] MEDS ORDERED: PHENYLEPHRINE/NS 1,000 MCG/10 ML SYRINGE (OR USE) IV ONE (15:30)
[2019-09-29] MEDS ORDERED: SODIUM CHLORIDE IRRI 500 ML 500 ML IR ONE (15:38)
[2019-09-29] MEDS ORDERED: LIDOCAINE (1%) 10 MG/1 ML VIAL 20 ML MDV ONE (15:38)
[2019-09-29] MEDS ORDERED: BUPIVACAINE/PF (0.5%) 5 MG/1 ML 30 ML VIAL INFILTRATI ONE (15:38)
[2019-09-29] MEDS ORDERED: SODIUM CHLORIDE 0.9% 1000 ML 1,000 ML ONE (15:46)
[2019-09-29] MEDS ORDERED: VANCOMYCIN/NS 1 GM/250 ML 1 GM/250 ML BAG IV NR (16:00)
[2019-09-29] MEDS ORDERED: .VANCOMYCIN VIAL 1,000 MG in SODIUM CHLORIDE IRRI 1000 ML 1,000 ML IRRIGATION ONE (16:29)
--- NOTE | 2019-09-29 17:43 | Event Note ---
Date: 09/29/19 Pt underwent dual chamber pacemaker without apparent complications. OK to dishcarge tomorrow from cardiac perspective after PPM interrogation. Wait at least 48 hours prior to restarting anticoagulation. Jesus Maher MD
--- NOTE | 2019-09-29 20:48 | XRay Report ---
CHEST 1 VIEW INDICATION / CLINICAL INFORMATION: Pacemaker Postop. COMPARISON: None available. FINDINGS: SUPPORT DEVICES: None. HEART / MEDIASTINUM: No significant abnormality. LUNGS / PLEURA: No significant pulmonary or pleural abnormality. No pneumothorax. ADDITIONAL FINDINGS: No significant additional findings. IMPRESSION: 1. No acute findings. Signer Name: Lul Seymour MD Signed: 09/29/2019 8:44 PM Workstation Name: [id number]
--- NOTE | 2019-09-29 22:10 | Anesthesia Day of Surgery ---
Anesthesia Day of Surgery - Day of Surgery Patient Examined: Yes Patient H&P Reviewed: Yes Patient is NPO: Yes
--- NOTE | 2019-09-29 22:11 | Post Anesthesia Evaluation ---
- Post Anesthesia Evaluation Patient Participated: Yes Airway Patent: Yes Stable Respiratory Function: Yes Nausea/Vomiting: No Temp > 96.8F: Yes Pain Manageable: Yes Adequeate Hydration: Yes Anesthesia Complications: No Block Receding Appropriately: Not Applicable Patient on Ventilator: No
[2019-09-30] MEDS: HYDROmorphone 1 MG/1 ML INJ IV PRN ×5 (00:58→19:56)
[2019-09-30] MEDS: METOPROLOL TARTRATE 50 MG TAB PO SCH ×4 (05:29→21:00)
--- NOTE | 2019-09-30 09:33 | Progress Note ---
Assessment and Plan Assessment and plan: Patient is a 64-year-old woman with a history of tobacco dependency and hypertension who presents to the hospital after losing consciousness and falling down. She presented with left elbow pains. She was found to have a fracture left olecranon. She was found to be in A. fib with RVR upon arrival. During hospitalization, patient has Tachy-kendra syndrome, possible SSS Syncopal episode with SSS: PPM per Cardiology A. fib with RVR with hypercoagulable state: a/c and unable to tolerate bblocker, Cardiology is following, input noted SSS syndrome: PPM on Malignant Hypertension with urgency: use IV anti-hypertensive cautiously due to instability of heart rate Acute on chronic shortness of breath, Ground glass opacity on lung imaging, likely has some chronic form of ILD, ID input appreciated, pulmonology consult appreciated Left olecranon fracture: Pain meds, provide sling, orthopedic surgery consult, advised sling Chronic pain sydrome: asking for more narcotics Type 2 M with increased Troponins, d/w Dr. Argueta. DVT prophylaxis: Fully anti-coagulated Chest pains: get EKG, troponin stat, treated with NTG full code Disposition: continue inpatient care, transfer to [facility], await PPM interrogation. temporary pacer Pt underwent dual chamber pacemaker without apparent complications on 09/29/2019. OK to dishcarge tomorrow from cardiac perspective after PPM interrogation. Wait at least 48 hours prior to restarting anticoagulation per Dr. Jesus Maher MD History Interval history: Patient was seen and examined. Follow-up on current diagnosis of AFib. No overnight events reported to me. Patient denies nausea/vomiting or severe headaches. Imaging, nursing note, chart, labs and old chart reviewed. Discussed with patient. She c/o chest pains. Hospitalist Physical - Physical exam Narrative exam: Gen: WDWN, NAD, Awake, Alert, Orientated HEENT: NCAT, EOMI, PERRL, OP Clear Neck: supple, no adenopathy, no thyromegaly, no JVD CVS/Heart: irregular irregular normal S1S2, pulses present bilaterally Chest/Lungs: crackles, Symmetrical chest expansion, good air entry bilaterally GI/Abdomen: soft, NTND, good bowel sounds, no guarding or rebound /Bladder: no suprapubic tenderness, no CVA or paraspinal tenderness Extermity/Skin: no obvious rash MSK: FROM x 4 Neuro: CN 2-12 grossly intact, no new focal deficits Psych: calm - Constitutional Vitals: Temp Pulse Resp BP Pulse Ox 97.8 F 60 17 153/103 99 09/30/19 03:40 09/30/19 06:30 09/30/19 06:30 09/30/19 06:30 09/30/19 09:01 General appearance: Present: no acute distress, well-nourished Results - Labs CBC & Chem 7: 09/23/19 01:15 09/29/19 10:01 Labs: Laboratory Last Values WBC 11.0 K/mm3 (4.5-11.0) 09/23/19 01:15 RBC 4.17 M/mm3 (3.65-5.03) 09/23/19 01:15 Hgb 13.5 gm/dl (10.1-14.3) 09/23/19 01:15 Hct 40.8 % (30.3-42.9) 09/23/19 01:15 MCV 98 fl (79-97) H 09/23/19 01:15 MCH 32 pg (28-32) 09/23/19 01:15 MCHC 33 % (30-34) 09/23/19 01:15 RDW 15.0 % (13.2-15.2) 09/23/19 01:15 Plt Count 272 K/mm3 (140-440) 09/23/19 01:15 Lymph % (Auto) 30.0 % (13.4-35.0) 09/23/19 01:15 [place] % (Auto) 11.2 % (0.0-7.3) H 09/23/19 01:15 Eos % (Auto) 1.1 % (0.0-4.3) 09/23/19 01:15 Baso % (Auto) 0.7 % (0.0-1.8) 09/23/19 01:15 Lymph # 3.3 K/mm3 (1.2-5.4) 09/23/19 01:15 [place] # 1.2 K/mm3 (0.0-0.8) H 09/23/19 01:15 Eos # 0.1 K/mm3 (0.0-0.4) 09/23/19 01:15 Baso # 0.1 K/mm3 (0.0-0.1) 09/23/19 01:15 Seg Neutrophils % 57.0 % (40.0-70.0) 09/23/19 01:15 Seg Neutrophils # 6.3 K/mm3 (1.8-7.7) 09/23/19 01:15 PT 12.9 Sec. (12.2-14.9) 09/29/19 10:01 INR 0.98 (0.87-1.13) 09/29/19 10:01 APTT 30.3 Sec. (24.2-36.6) 09/22/19 18:50 POC ABG pH 7.403 (7.35-7.45) 09/27/19 13:16 POC ABG pCO2 34.1 (35-45) L 09/27/19 13:16 POC ABG pO2 146 (80-105) H 09/27/19 13:16 POC ABG HCO3 21.3 (22-26 mml/L) 09/27/19 13:16 POC ABG Total CO2 22 (23-27mmol/L) 09/27/19 13:16 POC ABG O2 Sat 99 09/27/19 13:16 POC ABG Base Excess -4 ((-2) - (+3)mmol/L) 09/27/19 13:16 FiO2 2 % 09/27/19 13:16 Sodium 139 mmol/L (137-145) 09/29/19 10:01 Potassium 4.1 mmol/L (3.6-5.0) 09/29/19 10:01 Chloride 105.8 mmol/L (98-107) 09/29/19 10:01 Carbon Dioxide 23 mmol/L (22-30) 09/29/19 10:01 Anion Gap 14 mmol/L 09/29/19 10:01 BUN 27 mg/dL (7-17) H 09/29/19 10:01 Creatinine 0.9 mg/dL (0.7-1.2) 09/29/19 10:01 Estimated GFR > 60 ml/min 09/29/19 10:01 BUN/Creatinine Ratio 30 % 09/29/19 10:01 Glucose 117 mg/dL (65-100) H 09/29/19 10:01 Lactic Acid 1.80 mmol/L (0.7-2.0) 09/23/19 05:15 Calcium 8.6 mg/dL (8.4-10.2) 09/29/19 10:01 Magnesium 2.00 mg/dL (1.7-2.3) 09/23/19 01:15 Total Bilirubin 0.30 mg/dL (0.1-1.2) 09/22/19 18:50 AST 21 units/L (5-40) 09/22/19 18:50 ALT 17 units/L (7-56) 09/22/19 18:50 Alkaline Phosphatase 140 units/L (35-129) H 09/22/19 18:50 Troponin T 0.117 ng/mL (0.00-0.029) H* D 09/27/19 19:20 NT-Pro-B Natriuret Pep 781.0 pg/mL (0-900) 09/22/19 18:50 Total Protein 7.2 g/dL (6.3-8.2) 09/22/19 18:50 Albumin 4.6 g/dL (3.9-5) 09/22/19 18:50 Albumin/Globulin Ratio 1.8 % 09/22/19 18:50 Triglycerides 284 mg/dL (2-149) H 09/27/19 12:50 Cholesterol 205 mg/dL (50-199) H 09/27/19 12:50 LDL Cholesterol Direct 144 mg/dL (50-130) H 09/27/19 12:50 HDL Cholesterol 39 mg/dL (40-59) L 09/27/19 12:50 Cholesterol/HDL Ratio 5.25 % 09/27/19 12:50 Procalcitonin 0.06 ng/mL (<0.15) 09/24/19 04:16 TSH 3.310 mlU/mL (0.270-4.200) 09/22/19 18:50 Thyroxine (T4) 5.4 ug/dL (4.0-12.0) 09/22/19 18:50 Free T3 Index 2.5 pg/mL (2.3-4.2) 09/22/19 18:50 Plasma/Serum Alcohol < 0.01 % (0-0.07) 09/22/19 19:02 HIV-1 Antibody See scanned result 09/25/19 04:02 HIV-2 Ab (Immunoblot) See scanned result 09/25/19 04:02 Active Medications - Current Medications Current Medications: Generic Name Dose Route Start Last Admin Trade Name Freq PRN Reason Stop Dose Admin Acetaminophen 650 mg 09/23/19 00:54 09/23/19 15:27 Tylenol PO 650 mg Q6H PRN Administration Pain MILD(1-3)/Fever >100.5/MONTESINOS Albuterol 2.5 mg 09/23/19 00:54 09/26/19 13:22 Proventil IH 2.5 mg Q3HRT PRN Administration Shortness Of Breath Amiodarone HCl 200 mg 09/28/19 15:00 09/29/19 11:01 Cordarone PO 200 mg QDAY OZZY Administration Hydromorphone HCl 1 mg 09/27/19 15:13 09/30/19 05:29 Dilaudid IV 1 mg Q4H PRN Administration Pain , Severe (7-10) Magnesium Hydroxide 30 ml 09/23/19 00:54 09/27/19 05:59 Milk Of Magnesia PO 30 ml Q4H PRN Administration Constipation Metoprolol Tartrate 50 mg 09/27/19 12:00 09/30/19 05:29 Metoprolol PO 50 mg Q8HR OZZY Administration Ondansetron HCl 4 mg 09/23/19 11:00 09/27/19 12:42 Zofran IV 4 mg Q4H PRN Administration Nausea And Vomiting Oxycodone/Acetaminophen 1 tab 09/24/19 13:45 09/29/19 23:36 Percocet 5/325 PO 1 tab Q6H PRN Administration Pain, Moderate (4-6) Pantoprazole Sodium 40 mg 09/25/19 16:00 09/29/19 11:00 Protonix PO 40 mg QDAY OZZY Administration Prednisone 40 mg 09/24/19 14:00 09/29/19 11:01 Deltasone PO 40 mg QDAY OZZY Administration Sodium Chloride 10 ml 09/23/19 10:00 09/29/19 21:16 Sodium Chloride Flush Syringe 10 Ml IV 10 ml BID OZZY Administration Sodium Chloride 10 ml 09/23/19 00:54 Sodium Chloride Flush Syringe 10 Ml IV PRN PRN LINE FLUSH Ticagrelor 90 mg 09/25/19 22:00 09/29/19 21:12 Brilinta PO 90 mg BID OZZY Administration Nutrition/Malnutrition Assess - Dietary Evaluation Nutrition/Malnutrition Findings: Nutrition Notes Start: 09/23/19 11:58 Freq: Status: Active Protocol: Document 09/23/19 11:58 EDITH (Rec: 09/23/19 12:03 EDITH [email or web address]) Nutrition Notes Need for Assessment generated from: MD Order,Education Initial or Follow up Brief Note Current Diagnosis Hypertension Other Pertinent Diagnosis Syncope, SOB Current Diet Cardiac Subjective/Other Information RD consulted for diet education. BP was 178/107 upon admission. Pt states that she takes her BP medication as prescribed, but forgot to take it last pm. She does not cook with salt and does not add salt after cooking. Reports good appetite. Burn Absent Trauma Absent #1 Nutrition Diagnosis Food and nutrition-related knowledge deficit Etiology limited exposure to diet education for low sodium diet As Evidenced by Signs and Symptoms pt admitted with elevated BP Nutrition Intervention Teaching Recipient Patient Learning Readiness Good Teaching Methods Discussion Response to Teaching Verbalize understanding Education Handouts Provided No handouts provided; pt unable to read. Discussed foods to limit when reducing sodium intake Barriers to Learning Reading skills,Age related, Emotional RD phone number provided No Patient aware of follow up options Yes Actions To Overcome Barriers Other Goal #1 Adherence to low sodium diet Goal #2 Improved BP control Anticipated Discharge Needs: Low sodium diet Revisit per MD consult or patient Sign Off request:
[2019-09-30] MEDS: AMIODARONE 200 MG TAB PO SCH (10:10)
[2019-09-30] MEDS: PANTOPRAZOLE 40 MG TAB PO SCH (10:10)
[2019-09-30] MEDS: predniSONE 20 MG TAB PO SCH (10:10)
[2019-09-30] MEDS: TICAGRELOR 90 MG TAB PO SCH ×3 (10:14→21:00)
--- NOTE | 2019-09-30 12:27 | Progress Note ---
Assessment and Plan - Patient Problems (1) Paroxysmal atrial fibrillation Current Visit: Yes Status: Acute Plan to address problem: Patient is on amiodarone and metoprolol for atrial fibrillation suppression. Eliquis be resumed for stroke prophylaxis. We will treat her with half dose 2.5 mg due to simultaneous therapy with Brilinta and aspirin. (2) Sinus node dysfunction Current Visit: Yes Status: Acute Plan to address problem: Status post dual-chamber pacemaker implant. (3) Coronary artery disease Current Visit: Yes Status: Acute Plan to address problem: Patient had bare-metal stent implanted to the right coronary artery less than 3 months ago. We'll continue triple therapy with dual oral antiplatelet therapy and low dose oral anticoagulation. Subjective Date of service: 09/30/19 Principal diagnosis: A. fib with RVR; Tachy-kendra syndrome; HTN; shortness of breath; Obesity Interval history: The patient is comfortable, left upper chest pacemaker pocket site is well- healed, no hematoma and no bleeding. Telemetry shows an atrial paced rhythm at 60 with [place]on QRS complexes. Objective Vital Signs Temp Pulse Resp BP Pulse Ox 09/30/19 12:00 62 09/30/19 11:30 65 12 127/67 100 09/30/19 11:01 61 20 127/67 100 09/30/19 10:31 60 15 134/83 100 09/30/19 10:01 60 17 141/113 100 09/30/19 09:31 60 22 141/113 100 09/30/19 09:01 99 09/30/19 09:00 60 8 L 137/73 100 09/30/19 08:31 74 31 H 136/61 99 09/30/19 08:01 60 10 L 136/61 100 09/30/19 08:00 97.6 F 60 09/30/19 07:31 60 17 136/62 100 09/30/19 07:01 60 13 147/76 100 09/30/19 06:30 60 17 153/103 100 09/30/19 06:00 60 13 141/74 100 09/30/19 05:31 60 11 L 165/97 100 09/30/19 05:29 60 165/97 09/30/19 05:01 60 13 120/94 99 09/30/19 04:31 60 11 L 124/76 100 09/30/19 04:01 60 9 L 124/76 100 09/30/19 04:00 60 09/30/19 03:40 97.8 F 09/30/19 03:30 60 9 L 111/78 100 09/30/19 03:01 60 8 L 124/79 100 09/30/19 02:31 60 13 126/78 100 09/30/19 02:00 60 11 L 118/63 100 09/30/19 01:31 60 10 L 141/63 99 09/30/19 01:00 62 11 L 153/84 98 09/30/19 00:30 68 20 169/101 95 09/30/19 00:01 62 13 116/65 100 09/30/19 00:00 60 09/29/19 23:31 60 10 L 116/65 100 09/29/19 23:23 97.9 F 09/29/19 23:00 60 11 L 105/61 100 09/29/19 22:30 68 14 123/59 99 09/29/19 22:00 60 11 L 180/95 100 09/29/19 21:30 80 20 166/89 97 09/29/19 21:11 89 166/89 09/29/19 21:00 93 H 24 167/76 97 09/29/19 20:30 72 167/76 96 09/29/19 20:09 97.6 F 09/29/19 20:00 65 165/81 100 09/29/19 19:30 73 174/100 100 09/29/19 19:00 70 15 174/100 100 09/29/19 18:30 78 16 175/78 99 09/29/19 18:26 14 09/29/19 18:25 77 13 179/75 100 09/29/19 18:20 79 15 175/78 100 09/29/19 18:15 80 14 182/100 99 09/29/19 18:11 100 09/29/19 18:10 97.7 F 79 13 159/84 100 - Physical Examination General: No Apparent Distress, Other (obese) HEENT: Positive: PERRL, Mucus Membranes Moist Neck: Positive: trachea midline, Other (right IJ temporary pacemaker) Cardiac: Positive: Reg Rate and Rhythm Lungs: Positive: Decreased Breath Sounds Neuro: Positive: Grossly Intact Abdomen: Positive: Soft Skin: Positive: Clear Incision: Cardiac Cath Site Musculoskeletal: No Pain, Normal Range of Motion Extremities: Absent: edema - Allied health notes Allied health notes reviewed: nursing
--- NOTE | 2019-09-30 20:12 | Progress Note ---
Assessment and Plan A. fib with RVR with hypercoagulable state Tachybradycardia syndrome Hypertension Acute on chronic shortness of breath Obesity (GGO's likely pulm edema related) - get orthopedics consultation - get sling for left elbow - follow 2D ECHO - rate and rhythm control per cardiology rec's - resume Eliquis per inspector publications - GI & VTE prophylaxis - continue other care per attending / other consultants - flu & pneumovax addressed per protocol - transfer to telemetry if OK with inspector publications .... re-evaluate in am & prn Subjective Date of service: 09/30/19 Principal diagnosis: A. fib with RVR; Tachy-kendra syndrome; HTN; shortness of breath; Obesity Interval history: Patient is seen today for: A. fib with RVR with hypercoagulable state; Tachybradycardia syndrome; Hypertension; Acute on chronic shortness of breath; Obesity Seen and examined at bedside; 24hour events reviewed; nursing and respiratory care staff consulted; no adverse overnight events reported to me; resting pea cefully in bed; Objective Vital Signs - 12hr 09/30/19 09/30/19 09/30/19 08:31 09:00 09:01 Temperature Pulse Rate 74 60 Respiratory 31 H 8 L Rate Blood Pressure 136/61 137/73 O2 Sat by Pulse 99 100 99 Oximetry 09/30/19 09/30/19 09/30/19 09:31 10:01 10:31 Temperature Pulse Rate 60 60 60 Respiratory 22 17 15 Rate Blood Pressure 141/113 141/113 134/83 O2 Sat by Pulse 100 100 100 Oximetry 09/30/19 09/30/19 09/30/19 11:01 11:30 12:00 Temperature Pulse Rate 61 65 62 Respiratory 20 12 16 Rate Blood Pressure 127/67 127/67 O2 Sat by Pulse 100 100 Oximetry 09/30/19 09/30/19 09/30/19 16:57 19:56 20:00 Temperature 98.1 F Pulse Rate 66 Respiratory 18 20 20 Rate Blood Pressure 147/81 159/84 O2 Sat by Pulse 100 Oximetry 09/30/19 20:02 Temperature 97.4 F L Pulse Rate Respiratory Rate Blood Pressure O2 Sat by Pulse Oximetry Constitutional: no acute distress, other (elderly looking obese CF, normocephalic with normal respiratory effort at rest) Eyes: non-icteric ENT: oropharynx moist, other (Mallampati 4) Neck: supple, no lymphadenopathy, no JVD, other (large neck circumference) Effort: normal Ascultation: Bilateral: clear, diminished breath sounds, rhonchi Percussion: Bilateral: not dull Cardiovascular: other (Paced, has transvenous pacemaker) Gastrointestinal: normoactive bowel sounds, soft, non-tender, non-distended Integumentary: normal Extremities: no cyanosis, no edema, pulses normal, no ischemia or petechiae, other (Left elbow pain and mild swelling; tender to touch) Neurologic: normal mental status, non-focal exam, pupils equal and round, CN II- XII normal Psychiatric: mood appropriate, affect normal CBC and BMP: 09/23/19 01:15 09/29/19 10:01 ABG, PT/INR, D-dimer: ABG POC ABG pH 7.403 (7.35-7.45) 09/27/19 13:16 POC ABG pCO2 34.1 (35-45) L 09/27/19 13:16 POC ABG pO2 146 (80-105) H 09/27/19 13:16 POC ABG HCO3 21.3 (22-26 mml/L) 09/27/19 13:16 POC ABG Total CO2 22 (23-27mmol/L) 09/27/19 13:16 POC ABG O2 Sat 99 09/27/19 13:16 PT/INR, D-dimer PT 12.9 Sec. (12.2-14.9) 09/29/19 10:01 INR 0.98 (0.87-1.13) 09/29/19 10:01 Abnormal lab findings: Abnormal Labs 09/22/19 09/22/19 09/22/19 18:50 18:50 22:35 WBC 12.8 H Hgb 14.4 H Hct 44.7 H MCV 98 H RDW 15.4 H Davis % (Auto) 8.3 H Davis # 1.1 H Seg Neutrophils % 74.1 H Seg Neutrophils # 9.5 H POC ABG pH POC ABG pCO2 POC ABG pO2 Chloride 108.0 H Carbon Dioxide 17 L BUN 23 H Glucose 126 H Lactic Acid 2.20 H* Alkaline Phosphatase 140 H Troponin T Triglycerides Cholesterol LDL Cholesterol Direct HDL Cholesterol 11/01/1009/23/19 09/24/19 01:15 01:15 18:22 WBC Hgb Hct MCV 98 H RDW Davis % (Auto) 11.2 H Davis # 1.2 H Seg Neutrophils % Seg Neutrophils # POC ABG pH 7.331 L POC ABG pCO2 46.0 H POC ABG pO2 56 L Chloride 107.1 H Carbon Dioxide 19 L BUN 22 H Glucose Lactic Acid Alkaline Phosphatase Troponin T Triglycerides Cholesterol LDL Cholesterol Direct HDL Cholesterol 09/27/19 09/27/19 09/27/19 12:50 13:16 19:20 WBC Hgb Hct MCV RDW Davis % (Auto) Davis # Seg Neutrophils % Seg Neutrophils # POC ABG pH POC ABG pCO2 34.1 L POC ABG pO2 146 H Chloride Carbon Dioxide BUN Glucose Lactic Acid Alkaline Phosphatase Troponin T 0.071 H D 0.117 H* D Triglycerides 284 H Cholesterol 205 H LDL Cholesterol Direct 144 H HDL Cholesterol 39 L 09/29/19 10:01 WBC Hgb Hct MCV RDW Davis % (Auto) Davis # Seg Neutrophils % Seg Neutrophils # POC ABG pH POC ABG pCO2 POC ABG pO2 Chloride Carbon Dioxide BUN 27 H Glucose 117 H Lactic Acid Alkaline Phosphatase Troponin T Triglycerides Cholesterol LDL Cholesterol Direct HDL Cholesterol Allied health notes reviewed: nursing
[2019-09-30] MEDS: oxyCODONE /ACETAMINOPHEN 5-325MG TAB PO PRN (20:59)
[2019-09-30] MEDS: APIXABAN 2.5 MG TAB PO SCH (21:00)
[2019-10-01] MEDS: HYDROmorphone 1 MG/1 ML INJ IV PRN ×3 (00:16→09:43)
[2019-10-01] MEDS: oxyCODONE /ACETAMINOPHEN 5-325MG TAB PO PRN (02:47)
[2019-10-01 05:18] VITALS: BP 169/88
[2019-10-01] MEDS: METOPROLOL TARTRATE 50 MG TAB PO SCH (05:29)
[2019-10-01] MEDS: TICAGRELOR 90 MG TAB PO SCH (09:42)
[2019-10-01] MEDS: APIXABAN 2.5 MG TAB PO SCH (09:42)
[2019-10-01] MEDS: AMIODARONE 200 MG TAB PO SCH (09:42)
[2019-10-01] MEDS: predniSONE 20 MG TAB PO SCH (09:42)
[2019-10-01] MEDS: PANTOPRAZOLE 40 MG TAB PO SCH (09:42)
[2019-10-01] MEDS ORDERED: ASPIRIN EC 81 MG TAB PO SCH (10:00)
--- NOTE | 2019-10-01 10:04 | Progress Note ---
Assessment and Plan - Patient Problems (1) Paroxysmal atrial fibrillation Current Visit: Yes Status: Acute Plan to address problem: Patient is on amiodarone and metoprolol for atrial fibrillation suppression. Eliquis be resumed for stroke prophylaxis. We will treat her with half dose 2.5 mg due to simultaneous therapy with Brilinta and aspirin. (2) Sinus node dysfunction Current Visit: Yes Status: Acute Plan to address problem: Status post dual-chamber pacemaker implant. Post-implant pacemaker interrogation was completed and okay. (3) Coronary artery disease Current Visit: Yes Status: Acute Plan to address problem: Patient had bare-metal stent implanted to the right coronary artery less than 3 months ago. We'll continue triple therapy with dual oral antiplatelet therapy and low dose oral anticoagulation. Patient stable for cardiac discharge, follow-up with her lithoduplicator operator in 7-10 days post discharge. Subjective Date of service: 10/01/19 Principal diagnosis: A. fib with RVR; Tachy-kendra syndrome; HTN; shortness of breath; Obesity Interval history: The patient is comfortable, left upper chest pacemaker pocket site is well- healed, no hematoma and no bleeding. Telemetry shows an atrial paced rhythm at 60 with [place] QRS complexes. A pacemaker interrogation has been completed. Objective Vital Signs Temp Pulse Resp Resp BP BP Pulse Ox 10/01/19 05:29 60 169/88 10/01/19 05:17 97.8 F 10/01/19 05:16 60 18 169/88 99 10/01/19 04:35 20 10/01/19 04:05 20 10/01/19 03:47 20 10/01/19 02:47 20 10/01/19 00:46 18 10/01/19 00:16 20 10/01/19 00:13 97.8 F 60 20 166/76 98 09/30/19 21:59 20 09/30/19 21:00 66 159/84 09/30/19 20:59 20 09/30/19 20:26 20 09/30/19 20:17 20 09/30/19 20:05 20 99 09/30/19 20:02 97.4 F L 09/30/19 20:00 66 20 159/84 100 09/30/19 19:56 20 09/30/19 19:39 60 09/30/19 16:57 98.1 F 18 147/81 09/30/19 12:00 62 16 09/30/19 11:30 65 12 127/67 100 09/30/19 11:01 61 20 127/67 100 09/30/19 10:31 60 15 134/83 100 - Physical Examination General: No Apparent Distress, Other (obese) HEENT: Positive: PERRL, Mucus Membranes Moist Neck: Positive: trachea midline, Other (right IJ temporary pacemaker) Cardiac: Positive: Reg Rate and Rhythm Lungs: Positive: Decreased Breath Sounds Neuro: Positive: Grossly Intact Abdomen: Positive: Soft Skin: Positive: Clear Incision: Cardiac Cath Site Musculoskeletal: No Pain, Normal Range of Motion Extremities: Absent: edema - Allied health notes Allied health notes reviewed: nursing
--- NOTE | 2019-10-01 11:55 | Progress Note ---
Assessment and Plan Assessment and plan: Patient is a 64-year-old woman with a history of tobacco dependency and hypertension who presents to the hospital after losing consciousness and falling down. She presented with left elbow pains. She was found to have a fracture left olecranon. She was found to be in A. fib with RVR upon arrival. During hospitalization, patient has Tachy-kendra syndrome, possible SSS Syncopal episode with SSS: PPM per Cardiology A. fib with RVR with hypercoagulable state: a/c and unable to tolerate bblocker, Cardiology is following, input noted SSS syndrome: PPM on Malignant Hypertension with urgency: use IV anti-hypertensive cautiously due to instability of heart rate Acute on chronic shortness of breath, Ground glass opacity on lung imaging, likely has some chronic form of ILD, ID input appreciated, pulmonology consult appreciated Left olecranon fracture: Pain meds, provide sling, orthopedic surgery consult, advised sling Chronic pain sydrome: asking for more narcotics Type 2 M with increased Troponins, d/w Dr. Argueta. DVT prophylaxis: Fully anti-coagulated Chest pains: get EKG, troponin stat, treated with NTG full code Disposition: continue inpatient care,completed PPM interrogation. temporary pacer Pt underwent dual chamber pacemaker without apparent complications on 09/29/2019. OK to discharge per Cardiology. We did a home o2 evaluation and she passed. Pulse Ox did not drop below 95% on Ambulation. Patient literally had a panic attack because she wanted oxygen, but her O2 sat was 96% during the panic attack. When she calmed down, She started asking for IV narcotics which she asking for them around the clock. Will discharge home History Interval history: Patient was seen and examined. Follow-up on current diagnosis of AFib. No overnight events reported to me. Patient denies nausea/vomiting or severe headaches. Imaging, nursing note, chart, labs and old chart reviewed. Discussed with patient. She c/o chest pains. Hospitalist Physical - Physical exam Narrative exam: Gen: WDWN, NAD, Awake, Alert, Orientated HEENT: NCAT, EOMI, PERRL, OP Clear Neck: supple, no adenopathy, no thyromegaly, no JVD CVS/Heart: irregular irregular normal S1S2, pulses present bilaterally Chest/Lungs: crackles, Symmetrical chest expansion, good air entry bilaterally GI/Abdomen: soft, NTND, good bowel sounds, no guarding or rebound /Bladder: no suprapubic tenderness, no CVA or paraspinal tenderness Extermity/Skin: no obvious rash MSK: FROM x 4 Neuro: CN 2-12 grossly intact, no new focal deficits Psych: calm - Constitutional Vitals: Temp Pulse Resp BP Pulse Ox 97.8 F 60 18 169/88 99 10/01/19 05:17 10/01/19 10:00 10/01/19 05:16 10/01/19 05:29 10/01/19 05:16 General appearance: Present: no acute distress, well-nourished Results - Labs CBC & Chem 7: 09/23/19 01:15 09/29/19 10:01 Labs: Laboratory Last Values WBC 11.0 K/mm3 (4.5-11.0) 09/23/19 01:15 RBC 4.17 M/mm3 (3.65-5.03) 09/23/19 01:15 Hgb 13.5 gm/dl (10.1-14.3) 09/23/19 01:15 Hct 40.8 % (30.3-42.9) 09/23/19 01:15 MCV 98 fl (79-97) H 09/23/19 01:15 MCH 32 pg (28-32) 09/23/19 01:15 MCHC 33 % (30-34) 09/23/19 01:15 RDW 15.0 % (13.2-15.2) 09/23/19 01:15 Plt Count 272 K/mm3 (140-440) 09/23/19 01:15 Lymph % (Auto) 30.0 % (13.4-35.0) 09/23/19 01:15 [place] % (Auto) 11.2 % (0.0-7.3) H 09/23/19 01:15 Eos % (Auto) 1.1 % (0.0-4.3) 09/23/19 01:15 Baso % (Auto) 0.7 % (0.0-1.8) 09/23/19 01:15 Lymph # 3.3 K/mm3 (1.2-5.4) 09/23/19 01:15 [place] # 1.2 K/mm3 (0.0-0.8) H 09/23/19 01:15 Eos # 0.1 K/mm3 (0.0-0.4) 09/23/19 01:15 Baso # 0.1 K/mm3 (0.0-0.1) 09/23/19 01:15 Seg Neutrophils % 57.0 % (40.0-70.0) 09/23/19 01:15 Seg Neutrophils # 6.3 K/mm3 (1.8-7.7) 09/23/19 01:15 PT 12.9 Sec. (12.2-14.9) 09/29/19 10:01 INR 0.98 (0.87-1.13) 09/29/19 10:01 APTT 30.3 Sec. (24.2-36.6) 09/22/19 18:50 POC ABG pH 7.403 (7.35-7.45) 09/27/19 13:16 POC ABG pCO2 34.1 (35-45) L 09/27/19 13:16 POC ABG pO2 146 (80-105) H 09/27/19 13:16 POC ABG HCO3 21.3 (22-26 mml/L) 09/27/19 13:16 POC ABG Total CO2 22 (23-27mmol/L) 09/27/19 13:16 POC ABG O2 Sat 99 09/27/19 13:16 POC ABG Base Excess -4 ((-2) - (+3)mmol/L) 09/27/19 13:16 FiO2 2 % 09/27/19 13:16 Sodium 139 mmol/L (137-145) 09/29/19 10:01 Potassium 4.1 mmol/L (3.6-5.0) 09/29/19 10:01 Chloride 105.8 mmol/L (98-107) 09/29/19 10:01 Carbon Dioxide 23 mmol/L (22-30) 09/29/19 10:01 Anion Gap 14 mmol/L 09/29/19 10:01 BUN 27 mg/dL (7-17) H 09/29/19 10:01 Creatinine 0.9 mg/dL (0.7-1.2) 09/29/19 10:01 Estimated GFR > 60 ml/min 09/29/19 10:01 BUN/Creatinine Ratio 30 % 09/29/19 10:01 Glucose 117 mg/dL (65-100) H 09/29/19 10:01 Lactic Acid 1.80 mmol/L (0.7-2.0) 09/23/19 05:15 Calcium 8.6 mg/dL (8.4-10.2) 09/29/19 10:01 Magnesium 2.00 mg/dL (1.7-2.3) 09/23/19 01:15 Total Bilirubin 0.30 mg/dL (0.1-1.2) 09/22/19 18:50 AST 21 units/L (5-40) 09/22/19 18:50 ALT 17 units/L (7-56) 09/22/19 18:50 Alkaline Phosphatase 140 units/L (35-129) H 09/22/19 18:50 Troponin T 0.117 ng/mL (0.00-0.029) H* D 09/27/19 19:20 NT-Pro-B Natriuret Pep 781.0 pg/mL (0-900) 09/22/19 18:50 Total Protein 7.2 g/dL (6.3-8.2) 09/22/19 18:50 Albumin 4.6 g/dL (3.9-5) 09/22/19 18:50 Albumin/Globulin Ratio 1.8 % 09/22/19 18:50 Triglycerides 284 mg/dL (2-149) H 09/27/19 12:50 Cholesterol 205 mg/dL (50-199) H 09/27/19 12:50 LDL Cholesterol Direct 144 mg/dL (50-130) H 09/27/19 12:50 HDL Cholesterol 39 mg/dL (40-59) L 09/27/19 12:50 Cholesterol/HDL Ratio 5.25 % 09/27/19 12:50 Procalcitonin 0.06 ng/mL (<0.15) 09/24/19 04:16 TSH 3.310 mlU/mL (0.270-4.200) 09/22/19 18:50 Thyroxine (T4) 5.4 ug/dL (4.0-12.0) 09/22/19 18:50 Free T3 Index 2.5 pg/mL (2.3-4.2) 09/22/19 18:50 Plasma/Serum Alcohol < 0.01 % (0-0.07) 09/22/19 19:02 HIV-1 Antibody See scanned result 09/25/19 04:02 HIV-2 Ab (Immunoblot) See scanned result 09/25/19 04:02 Active Medications - Current Medications Current Medications: Generic Name Dose Route Start Last Admin Trade Name Freq PRN Reason Stop Dose Admin Acetaminophen 650 mg 09/23/19 00:54 09/23/19 15:27 Tylenol PO 650 mg Q6H PRN Administration Pain MILD(1-3)/Fever >100.5/MONTESINOS Albuterol 2.5 mg 09/23/19 00:54 09/26/19 13:22 Proventil IH 2.5 mg Q3HRT PRN Administration Shortness Of Breath Amiodarone HCl 200 mg 09/28/19 15:00 10/01/19 09:42 Cordarone PO 200 mg QDAY OZZY Administration Apixaban 2.5 mg 09/30/19 22:00 10/01/19 09:42 Eliquis PO 2.5 mg Q12HR OZZY Administration Protocol Aspirin 81 mg 10/01/19 10:00 10/01/19 09:42 Halfprin Ec PO 81 mg QDAY OZZY Administration Hydromorphone HCl 1 mg 09/27/19 15:13 10/01/19 09:43 Dilaudid IV 1 mg Q4H PRN Administration Pain , Severe (7-10) Magnesium Hydroxide 30 ml 09/23/19 00:54 09/27/19 05:59 Milk Of Magnesia PO 30 ml Q4H PRN Administration Constipation Metoprolol Tartrate 50 mg 09/27/19 12:00 10/01/19 05:29 Metoprolol PO 50 mg Q8HR OZZY Administration Ondansetron HCl 4 mg 09/23/19 11:00 09/27/19 12:42 Zofran IV 4 mg Q4H PRN Administration Nausea And Vomiting Oxycodone/Acetaminophen 1 tab 09/24/19 13:45 10/01/19 02:47 Percocet 5/325 PO 1 tab Q6H PRN Administration Pain, Moderate (4-6) Pantoprazole Sodium 40 mg 09/25/19 16:00 10/01/19 09:42 Protonix PO 40 mg QDAY OZZY Administration Prednisone 40 mg 09/24/19 14:00 10/01/19 09:42 Deltasone PO 40 mg QDAY OZZY Administration Sodium Chloride 10 ml 09/23/19 10:00 10/01/19 09:43 Sodium Chloride Flush Syringe 10 Ml IV 10 ml BID OZZY Administration Sodium Chloride 10 ml 09/23/19 00:54 Sodium Chloride Flush Syringe 10 Ml IV PRN PRN LINE FLUSH Ticagrelor 90 mg 09/25/19 22:00 10/01/19 09:42 Brilinta PO 90 mg BID OZZY Administration Nutrition/Malnutrition Assess - Dietary Evaluation Nutrition/Malnutrition Findings: Nutrition Notes Start: 09/23/19 11:58 Freq: Status: Active Protocol: Document 09/23/19 11:58 EDITH (Rec: 09/23/19 12:03 EDITH [id number] [email or web address]) Nutrition Notes Need for Assessment generated from: MD Order,Education Initial or Follow up Brief Note Current Diagnosis Hypertension Other Pertinent Diagnosis Syncope, SOB Current Diet Cardiac Subjective/Other Information RD consulted for diet education. BP was 178/107 upon admission. Pt states that she takes her BP medication as prescribed, but forgot to take it last pm. She does not cook with salt and does not add salt after cooking. Reports good appetite. Burn Absent Trauma Absent #1 Nutrition Diagnosis Food and nutrition-related knowledge deficit Etiology limited exposure to diet education for low sodium diet As Evidenced by Signs and Symptoms pt admitted with elevated BP Nutrition Intervention Teaching Recipient Patient Learning Readiness Good Teaching Methods Discussion Response to Teaching Verbalize understanding Education Handouts Provided No handouts provided; pt unable to read. Discussed foods to limit when reducing sodium intake Barriers to Learning Reading skills,Age related, Emotional RD phone number provided No Patient aware of follow up options Yes Actions To Overcome Barriers Other Goal #1 Adherence to low sodium diet Goal #2 Improved BP control Anticipated Discharge Needs: Low sodium diet Revisit per MD consult or patient Sign Off request:
--- NOTE | 2019-10-01 12:03 | Discharge Summary ---
Providers - Providers Date of Admission: 09/25/19 09:40 Date of discharge: 10/01/19 Attending physician: MINH FORMAN 09/23/19 00:54 Consult to Dietitian/Nutrition [CONS] Routine Physician Instructions: Reason For Exam: Reason for Consult: Diet education 09/23/19 01:05 Consult to Physician [CONS] Routine Comment: Consulting Provider: EDWIGE BERRIOS Physician Instructions: Reason For Exam: afib with rvr 09/23/19 07:36 Consult to Physician [CONS] Routine Comment: Consulting Provider: ANKIT OJEDA Physician Instructions: Reason For Exam: PNA? 09/24/19 09:37 Consult to Physician [CONS] Routine Comment: Consulting Provider: JUMA DURBIN Physician Instructions: Reason For Exam: icu care 09/25/19 10:40 Consult to Physician [CONS] Routine Comment: Consulting Provider: EUGENIA WYATT Physician Instructions: Reason For Exam: L elblow fx 09/25/19 11:58 Consult to Physician [CONS] Routine Comment: Consulting Provider: EUGENIA WYATT Physician Instructions: Reason For Exam: Left Olecranon fracture s/p fall 09/25/19 15:07 Physical Therapy Evaluation and Treat [CONS] Routine Comment: Reason For Exam: fracture on olecranon 09/25/19 15:09 Occupational Therapy Evaluate and Treat [CONS] Routine Comment: Reason For Exam: fracture on left arm Primary care physician: FUR JOINER Hospitalization Condition: Stable Hospital course: Patient is a 64-year-old woman with a history of tobacco dependency and hypertension who presents to the hospital after losing consciousness and falling down. She presented with left elbow pains. She was found to have a fracture left olecranon. She was found to be in A. fib with RVR upon arrival. During hospitalization, patient has Tachy-kendra syndrome, possible SSS Discharge Diagnoses: Syncopal episode with SSS: PPM per Cardiology A. fib with RVR with hypercoagulable state: a/c and unable to tolerate bblocker, Cardiology is following, input noted SSS syndrome: PPM on Malignant Hypertension with urgency: use IV anti-hypertensive cautiously due to instability of heart rate Acute on chronic shortness of breath, Ground glass opacity on lung imaging, likely has some chronic form of ILD, ID input appreciated, pulmonology consult appreciated Left olecranon fracture: Pain meds, provide sling, orthopedic surgery consult, advised sling Chronic pain sydrome: asking for more narcotics Type 2 M with increased Troponins, d/w Dr. Argueta. DVT prophylaxis: Fully anti-coagulated Chest pains worked up per Cardiology full code Disposition: continue inpatient care,completed PPM interrogation. temporary pacer Pt underwent dual chamber pacemaker without apparent complications on 09/29/2019. OK to discharge per Cardiology. We did a home o2 evaluation and she passed. Pulse Ox did not drop below 95% on Ambulation. Patient literally had a panic attack because she wanted oxygen, but her O2 sat was 96% during the panic attack. When she calmed down, She started asking for IV narcotics which she asking for them around the clock. ASA/Eliquis/Brilinta combination approved by Cardiology Will discharge home Disposition: DC/ HOME UNDER HOME HLTH Time spent for discharge: 36 minutes Core Measure Documentation - Palliative Care Palliative Care/ Comfort Measures: Not Applicable - Core Measures Any of the following diagnoses?: none - VTE Discharge Requirements Deep Vein Thrombosis/Pulmonary Embolism Present on Admission: No Has pt received <5 days of overlap therapy or INR<2.0: No Anticoagulant overlap therapy prescribed at discharge: No Contraindication No Overlap Therapy order at DC: Not Indicated Exam - Physical Exam Narrative exam: Gen: WDWN, NAD, Awake, Alert, Orientated HEENT: NCAT, EOMI, PERRL, OP Clear Neck: supple, no adenopathy, no thyromegaly, no JVD CVS/Heart: irregular irregular normal S1S2, pulses present bilaterally Chest/Lungs: crackles, Symmetrical chest expansion, good air entry bilaterally GI/Abdomen: soft, NTND, good bowel sounds, no guarding or rebound /Bladder: no suprapubic tenderness, no CVA or paraspinal tenderness Extermity/Skin: no obvious rash MSK: FROM x 4 Neuro: CN 2-12 grossly intact, no new focal deficits Psych: calm - Constitutional Vitals: Temp Pulse Resp BP Pulse Ox 97.8 F 60 18 169/88 99 10/01/19 05:17 10/01/19 10:00 10/01/19 05:16 10/01/19 05:29 10/01/19 05:16 Plan Activity: other (no strenous activity, heavy lifting and pulling or pushing with left arm until cleared by Cardiology) Diet: low salt Wound: per your surgeon's advice Follow up with: PRIMARY CAREMD [Primary Care Provider] - 3-5 Days EDWIGE BERRIOS MD [Staff Physician] - 7 Days JUMA DURBIN MD [Staff Physician] - 7 Days Prescriptions: Ticagrelor [Brilinta] 90 mg PO BID #60 tablet Amiodarone [Cordarone 200 MG TAB] 200 mg PO QDAY #30 tablet Apixaban [Eliquis] 2.5 mg PO Q12HR #60 tablet Aspirin EC [Halfprin EC] 81 mg PO QDAY #30 tablet Metoprolol [Lopressor TAB] 50 mg PO Q8HR #90 tablet oxyCODONE /ACETAMINOPHEN [Percocet 5/325 mg] 1 tab PO Q6H PRN #25 tablet PRN Reason: Pain , Severe (7-10) ALBUTEROL Inhaler (OR & NICU) [ProAir HFA Inhaler] 2 puff IH QID PRN #1 unit PRN Reason: Shortness Of Breath Pantoprazole [Protonix TAB] 40 mg PO QDAY #30 tablet
== END 2019-10-01 13:57 | disposition home or self-care (01) | DRG 242 ==
LOC: ED 18:02 → 4A 09-23 00:54 → CC1 09-24 09:38 → OBSVTOIN 09-25 09:40 → 4A 09-25 17:32 → CC1 09-27 11:36 → 4A 09-30 11:54
PROVIDERS: ADMIT Internal Medicine Geriatric Medicine; ATTEND Internal Medicine
PROC: 4A033R1 Measurement of Arterial Saturation, Peripheral, Percutaneous Approach (ICD-10-PCS; 2019-09-24)
PROC: 5A1223Z Performance of Cardiac Pacing, Continuous (ICD-10-PCS; 2019-09-27)
PROC: 0JH606Z Insertion of Pacemaker, Dual Chamber into Chest Subcutaneous Tissue and Fascia, Open Approach (ICD-10-PCS; principal; 2019-09-29)
PROC: 02H63JZ Insertion of Pacemaker Lead into Right Atrium, Percutaneous Approach (ICD-10-PCS; 2019-09-29)
PROC: 02HK3JZ Insertion of Pacemaker Lead into Right Ventricle, Percutaneous Approach (ICD-10-PCS; 2019-09-29)
PROC: 3E0102A Introduction of Anti-Infective Envelope into Subcutaneous Tissue, Open Approach (ICD-10-PCS; 2019-09-29)
PROC: 4B02XSZ Measurement of Cardiac Pacemaker, External Approach (ICD-10-PCS; 2019-09-30)
DX: I49.5 Sick sinus syndrome (principal); I21.A1 Myocardial infarction type 2; J18.9 Pneumonia, unspecified organism; D68.59 Other primary thrombophilia; F17.213 Nicotine dependence, cigarettes, with withdrawal; I48.0 Paroxysmal atrial fibrillation; I10 Essential (primary) hypertension; I16.0 Hypertensive urgency; S46.392A Other injury of muscle, fascia and tendon of triceps, left arm, initial encounter; W18.39XA Other fall on same level, initial encounter; F31.9 Bipolar disorder, unspecified; I25.118 Atherosclerotic heart disease of native coronary artery with other forms of angina pectoris; G89.4 Chronic pain syndrome; S52.022A Displaced fracture of olecranon process without intraarticular extension of left ulna, initial encounter for closed fracture; J84.89 Other specified interstitial pulmonary diseases; J44.9 Chronic obstructive pulmonary disease, unspecified; Z90.49 Acquired absence of other specified parts of digestive tract; Z90.710 Acquired absence of both cervix and uterus; Z80.1 Family history of malignant neoplasm of trachea, bronchus and lung; Z88.5 Allergy status to narcotic agent; Z88.0 Allergy status to penicillin; Z88.8 Allergy status to other drugs, medicaments and biological substances; Z79.01 Long term (current) use of anticoagulants; Y93.89 Activity, other specified; Y92.89 Other specified places as the place of occurrence of the external cause; Y99.8 Other external cause status; Z95.5 Presence of coronary angioplasty implant and graft; Z71.6 Tobacco abuse counseling; I25.2 Old myocardial infarction
CPT/HCPCS: 33208; 33210; 36415; 36600; 70450; 71045; 71275; 76937; 80048; 80053; 80061; 80320; 82140; 82803; 83735; 83880; 84145; 84436; 84443; 84481; 84484; 85025; 85610; 85730; 86689; 87040; 87116; 90686; 93005; 93010; 93306; 93880; 94640; 94760; 96374; 99406; G0378; C1781; C1785; C1892; C1894; C1898; G0480; J0282; J0692; J1170; J1630; J1644; J1650; J2250; J2270; J2370; J2405; J2704; J3010; J3370; J7030; J7050; J7060; J7512; Q9967

== ENCOUNTER 2019-10-06 14:59 | Inpatient (IN) | payer BC, OTHER ==
--- NOTE | 2019-10-06 15:56 | Emergency Department Report ---
Upper Extremity - HPI Chief Complaint: Extremity Problem,Nontraumatic Stated Complaint: chest pain Time Seen by Provider: 10/06/19 15:52 Upper Extremity: Left Shoulder, Left Arm, Left Elbow, Left Forearm Occurred When: 1 Day Severity: severe Symptoms: Yes Pain with Movement, Yes Limited Range of Movement, Yes Swelling Other History: Is a 64-year-old female that presents emergency room with left arm swelling. Patient states she was here a week ago and had a pacemaker placed after a fall. Patient states they thought that she passed out so they put a pacemaker in. Patient states this morning she developed fever and left arm swelling and pain. Patient states the pain is a 10 out of 10. Patient states that her left arm. Patient states it starts at the pacer site. ED Review of Systems ROS: Stated complaint: chest pain at pacer site. Other details as noted in HPI Comment: All other systems reviewed and negative Cardiovascular: chest pain ED Past Medical Hx - Past Medical History Previous Medical History?: Yes Hx Hypertension: Yes Hx Heart Attack/AMI: Yes (NSTEMI [id number]. Cath and bare metal stent) Hx Congestive Heart Failure: No Hx Diabetes: No Hx Asthma: Yes Hx COPD: Yes - Surgical History Hx Coronary Stent: Yes Hx Pacemaker: Yes Hx Appendectomy: Yes Additional Surgical History: neck surgery, neck fracture, hysterectomy - Social History Smoking Status: Current Every Day Smoker Substance Use Type: None - Medications Home Medications: Home Medications Medication Instructions Recorded Confirmed Last Taken Type ALBUTEROL Inhaler (OR & NICU) 2 puff IH QID PRN #1 unit 10/01/19 10/08/19 U nknown Rx [ProAir HFA Inhaler] Acetaminophen [Acetaminophen TAB] 2 tab PO Q6H PRN #15 tablet 10/01/19 10/08/19 Unknown Rx Amiodarone [Cordarone 200 MG TAB] 200 mg PO QDAY #30 tablet 10/01/19 10/08/19 Unknown Rx Apixaban [Eliquis] 2.5 mg PO Q12HR #60 tablet 10/01/19 10/08/19 Unknown Rx Aspirin EC [Halfprin EC] 81 mg PO QDAY #30 tablet 10/01/19 10/08/19 Unknown Rx Metoprolol [Lopressor TAB] 50 mg PO Q8HR #90 tablet 11/10/19 11/17/19 Unknown Rx Pantoprazole [Protonix TAB] 40 mg PO QDAY #30 tablet 10/01/19 10/08/19 Unknown Rx Ticagrelor [Brilinta] 90 mg PO BID #60 tablet 10/01/19 10/08/19 Unknown Rx oxyCODONE /ACETAMINOPHEN [Percocet 1 tab PO Q6H PRN #25 tablet 10/01/19 10/08/19 Unknown Rx 5/325 mg] Upper Extremity Exam - Exam General: Vital signs noted. No distress. Alert and acting appropriately. Left chest swelling noted at patient's site. Suture still in place. Swelling extends down the left arm. Head and Torso: No HEENT Abnormality, No Neck Tenderness, No Chest/Lungs Abnormality, No Abdominal Tenderness, No Back Tenderness Shoulder Exam: Yes Shoulder Tenderness, Yes Normal Range of Motion in Shoulder, No Clavicle Tenderness, No Shoulder Deformity, No AC Joint Tenderness Arm Exam: Yes Arm/Humerus Tenderness, No Arm Deformity Elbow: No Elbow Tenderness, No Normal Range of Motion in Elbow, No Elbow Deformity Forearm: No Forearm Tenderness, No Forearm Deformity, No Pain with Pronation, No Pain with Supination Wrist: Yes Normal ROM in Wrist, No Wrist Tenderness, No Wrist Deformity, No Snuffbox Tenderness, No Pain with Axial Thumb Compression Hand: Yes Normal ROM in Digit(s), No Hand Tenderness, No Hand Deformity, No Digit Tenderness, No Digit(s) Deformity, No Tendon Dysfunction CMS Exam: No Broken Skin, No Normal Distal Pulses, No Normal Capillary Refill, No Normal Distal Sensation ED Course - Reevaluation(s) Reevaluation #1: I discussed all results with patient. I discussed plan of care outpatient. Patient was admitted to the hospitalist service. Patient agrees with plan of care. Patient will have a CT of the chest without contrast. 10/06/19 18:54 - Consultations Consultation #1: I discussed case with career and guidance counselor on-call, Dr. Talavera. Dr. Argueta wants patient to be admitted to the hospitalist service and have IV antibiotics and have a CT of the chest without contrast. 10/06/19 18:45 Consultation #2: Hospitalist consult for admission. Hospitalist to admit patient. Bridge orders placed 10/06/19 20:19 ED Medical Decision Making - Lab Data Result diagrams: 10/11/19 14:34 10/11/19 14:34 - Radiology Data Radiology results: report reviewed Left upper extremity venous Doppler. 10/04/2019. HISTORY: Left upper extremity swelling. FINDINGS: Duplex Doppler of the deep venous system of the left upper extremity was performed with spectral waveform analysis. There is appropriate flow and compressibility. Negative for visualized thrombus. IMPRESSION: Negative left upper extremity venous Doppler. - Medical Decision Making Patient is a 64-year-old female that presents emergency room with complaints of increased pain at her pacer site. Patient admitted to the hospital service. Patient's cardiology group consult and career and guidance counselor recommends admission and IV antibiotics. Attending Psychiatrist also recommended CT of the chest to rule out abscess around pacer. CT scan of the chest was negative for a pacer site abscess. Labs are unremarkable. - Differential Diagnosis pacer site infection. Cellulitis. Critical Care Time: Yes Critical care time in (mins) excluding proc time.: 35 Critical care attestation.: If time is entered above; I have spent that time in minutes in the direct care of this critically ill patient, excluding procedure time. Critical Care Time: 35 minutes ED Disposition Clinical Impression: Left arm swelling, Left arm pain, Chest swelling, Pain in pacemaker pocket Fever Qualifiers: Fever type: unspecified Qualified Code(s): R50.9 - Fever, unspecified Chest pain Qualifiers: Chest pain type: unspecified Qualified Code(s): R07.9 - Chest pain, unspecified Disposition: DC-09 OP ADMIT IP TO THIS HOSP Is pt being admited?: Yes Does the pt Need Aspirin: No Condition: Critical Time of Disposition: 18:58
--- NOTE | 2019-10-06 17:02 | Vascular Lab Report ---
Left upper extremity venous Doppler. 10/04/2019. HISTORY: Left upper extremity swelling. FINDINGS: Duplex Doppler of the deep venous system of the left upper extremity was performed with spe ctral waveform analysis. There is appropriate flow and compressibility. Negative for visualized throm bus. IMPRESSION: Negative left upper extremity venous Doppler. Signer Name: Marcelo Jimenez MD Signed: 10/06/2019 4:58 PM Workstation Name: [id number]
[2019-10-06 17:39] LABS: Hematocrit 33.9 % (30.3-42.9); Mean Corpuscular HGB Conc 33 % (30-34); Mean Corpuscular Volume 98 fl (79-97); Platelet Count 273 K/mm3 (140-440); Red Blood Count 3.45 M/mm3 (3.65-5.03); Red Cell Distribution Width 14.3 % (13.2-15.2)
[2019-10-06] MEDS ORDERED: HYDROmorphone 1 MG/1 ML INJ ONE (17:44)
[2019-10-06 17:49] LABS: Alanine Aminotransferase 20 units/L (7-56); Albumin 3.4 g/dL (3.9-5); BUN/Creatinine Ratio 21; Blood Urea Nitrogen 19 mg/dL (7-17); Calcium 8.4 mg/dL (8.4-10.2); Hemolysis Index 82
[2019-10-06] MEDS ORDERED: HYDROmorphone 1 MG/1 ML INJ IV ONE ×2 (18:16→23:32)
[2019-10-06] MEDS ORDERED: ONDANSETRON 4 MG/2 ML INJ ONE (19:58)
[2019-10-06] MEDS ORDERED: ONDANSETRON 4 MG/2 ML INJ IV ONE (20:01)
--- NOTE | 2019-10-06 20:04 | Cat Scan Report ---
CT chest wo con INDICATION: pacer site swelling and pain.. TECHNIQUE: CT of the chest without contrast All CT scans at this location are performed using CT dose reduction for ALARA by means of automated exposure control. COMPARISON: CTA chest on 09/22/2019 FINDINGS: There is no fluid collection in the chest at the site of recent pacemaker insertion. Pacemaker appear s appropriate position. Pacemaker leads appear appropriately positioned. There is mild interstitial pulmonary edema in the lungs with stable small area of tree-in-bud nodular ity in the basilar right lower lobe. There is no pleural effusion or pneumothorax. There is no intrat horacic adenopathy. The heart is not enlarged. There is no pericardial effusion. The visualized upper abdominal organs demonstrate no significant abnormality. Visualized osseous stru ctures demonstrate no aggressive appearing lytic or blastic lesions. IMPRESSION: 1. No fluid collection or other abnormality adjacent to the site of recent pacemaker placement. 2. Moderate central pulmonary edema. 3. Stable areas of inflammatory tree-in-bud nodularity in the basilar right lower lobe. Signer Name: Sabino Kimble MD Signed: 10/06/2019 8:00 PM Workstation Name: [id number]
[2019-10-06] MEDS ORDERED: MAGNESIUM HYDROXIDE (MOM) ORAL LIQD UDC PO PRN (22:37)
[2019-10-06] MEDS: ONDANSETRON 4 MG/2 ML INJ IV PRN (23:40)
[2019-10-06] MEDS: SODIUM CHLORIDE 0.9% 1000 ML 1,000 ML IV SCH (23:41)
[2019-10-06] MEDS: HEPARIN 5,000 UNIT/1 ML VIAL SUB-Q SCH (23:41)
[2019-10-07] MEDS: ACETAMINOPHEN 325 MG TAB PO PRN ×3 (02:03→22:19)
--- NOTE | 2019-10-07 02:17 | History and Physical Report ---
History of Present Illness Date of examination: 10/06/19 Date of admission: 10/06/19 20:20 Chief complaint: Pain on on left chest wall History of present illness: 64-year-old female with known history of hypertension and recent placement of pacemaker presenting to the emergency room today complaining of left upper extremity pain and left-sided chest wall pain. Patient indicates that pain is more on the pacemaker site. She denies any drainage from the surgical site. She denies any fever or chills, and denies any nausea vomiting. Past History Past Medical History: hypertension, other (History of anxiety) Past Surgical History: appendectomy, hysterectomy, Other (Neck surgery) Social history: smoking (Smokes half a pack of cigarette daily), alcohol abuse (Drinks alcohol occasionally) Family history: cancer (Father of lung cancer, mother had renal failure, brother had lung cancer.) Medications and Allergies Allergies Allergy/AdvReac Type Severity Reaction Status Date / Time codeine Allergy Vomiting Verified 05/20/19 11:23 Penicillins Allergy Hives Verified 05/20/19 11:23 pentazocine [From Talwin] Allergy Nausea Verified 05/20/19 11:23 Home Medications Medication Instructions Recorded Confirmed Last Taken Type ALBUTEROL Inhaler (OR & NICU) 2 puff IH QID PRN #1 unit 10/01/19 Unknown Rx [ProAir HFA Inhaler] Acetaminophen [Acetaminophen TAB] 2 tab PO Q6H PRN #15 tablet 10/01/19 Unknown Rx Amiodarone [Cordarone 200 MG TAB] 200 mg PO QDAY #30 tablet 10/01/19 Unknown Rx Apixaban [Eliquis] 2.5 mg PO Q12HR #60 tablet 10/01/19 Unknown Rx Aspirin EC [Halfprin EC] 81 mg PO QDAY #30 tablet 10/01/19 Unknown Rx Metoprolol [Lopressor TAB] 50 mg PO Q8HR #90 tablet 10/01/19 Unknown Rx Pantoprazole [Protonix TAB] 40 mg PO QDAY #30 tablet 10/01/19 Unknown Rx Ticagrelor [Brilinta] 90 mg PO BID #60 tablet 10/01/19 Unknown Rx oxyCODONE /ACETAMINOPHEN [Percocet 1 tab PO Q6H PRN #25 tablet 10/01/19 Unknown Rx 5/325 mg] Active Meds: Active Medications Acetaminophen (Tylenol) 650 mg PO Q4H PRN PRN Reason: Pain MILD(1-3)/Fever >100.5/MONTESINOS Last Admin: 10/07/19 02:03 Dose: 650 mg Documented by: Heparin Sodium (Porcine) (Heparin) 5,000 unit SUB-Q Q8HR OZZY Last Admin: 10/06/19 23:41 Dose: 5,000 unit Documented by: Sodium Chloride (Nacl 0.9% 1000 Ml) 1,000 mls @ 75 mls/hr IV DIRECT OZZY Last Admin: 10/06/19 23:41 Dose: 75 mls/hr Documented by: Clindamycin HCl (Cleocin 900 Mg/50 Ml) 900 mg in 50 mls @ 100 mls/hr IV Q8H OZZY; Protocol Last Admin: 10/07/19 02:12 Dose: 100 mls/hr Documented by: Magnesium Hydroxide (Milk Of Magnesia) 30 ml PO Q4H PRN PRN Reason: Constipation Last Admin: 10/06/19 23:42 Dose: 30 ml Documented by: Ondansetron HCl (Zofran) 4 mg IV Q8H PRN PRN Reason: Nausea And Vomiting Last Admin: 10/06/19 23:40 Dose: 4 mg Documented by: Sodium Chloride (Sodium Chloride Flush Syringe 10 Ml) 10 ml IV BID OZZY Sodium Chloride (Sodium Chloride Flush Syringe 10 Ml) 10 ml IV PRN PRN PRN Reason: LINE FLUSH Last Admin: 10/06/19 23:43 Dose: 10 ml Documented by: Review of Systems Constitutional: fever Cardiovascular: chest pain (Pain on left side of chest on pacemaker site) Exam - Constitutional Vitals: Temp Pulse Resp BP Pulse Ox 97.5 F L 63 20 141/68 97 10/07/19 00:40 10/07/19 01:53 10/07/19 02:03 10/07/19 00:39 10/07/19 00:39 General appearance: Present: no acute distress, well-nourished - EENT Eyes: Present: PERRL, EOM intact ENT: hearing intact, clear oral mucosa, dentition normal - Neck Neck: Present: supple, normal ROM - Respiratory Respiratory effort: normal Respiratory: bilateral: CTA - Cardiovascular Rhythm: other (Pacemaker in place with surrounding mild redness and tenderness.) Heart Sounds: Present: S1 & S2 - Extremities Extremities: no ischemia, pulses intact, No edema Peripheral Pulses: within normal limits - Abdominal General gastrointestinal: Present: soft, non-tender, non-distended - Integumentary Integumentary: Present: clear, warm, dry - Musculoskeletal Musculoskeletal: strength equal bilaterally - Psychiatric Psychiatric: appropriate mood/affect, intact judgment & insight, cooperative - Neurologic Neurologic: CNII-XII intact, moves all extremities Results - Labs CBC & Chem 7: 10/06/19 17:15 10/06/19 17:15 Labs: Abnormal lab results 10/06/19 10/06/19 Range/Units 17:15 17:15 WBC 11.1 H (4.5-11.0) K/mm3 RBC 3.45 L (3.65-5.03) M/mm3 MCV 98 H (79-97) fl Chloride 107.1 H (98-107) mmol/L Carbon Dioxide 21 L (22-30) mmol/L BUN 19 H (7-17) mg/dL Glucose 116 H (65-100) mg/dL Albumin 3.4 L (3.9-5) g/dL Assessment and Plan - Patient Problems (1) Cellulitis of chest wall Current Visit: Yes Status: Acute Plan to address problem: She has been placed on empiric IV antibiotics. We await blood culture results. (2) HTN (hypertension) Current Visit: No Status: Acute Qualifiers: Hypertension type: essential hypertension Qualified Code(s): I10 - Essential (primary) hypertension Plan to address problem: Blood pressure appears stable continue routine home medications. Will monitor vital signs closely. (3) DVT prophylaxis Current Visit: No Status: Acute Plan to address problem: Patient placed on subcutaneous heparin (4) Full code status Current Visit: Yes Status: Acute
[2019-10-07] MEDS: ONDANSETRON 4 MG/2 ML INJ IV PRN ×2 (06:06→14:07)
[2019-10-07] MEDS: HEPARIN 5,000 UNIT/1 ML VIAL SUB-Q SCH ×3 (06:06→22:21)
--- NOTE | 2019-10-07 07:49 | XRay Report ---
CHEST 1 VIEW INDICATION: fever. COMPARISON: 09/27/2019. FINDINGS: Support devices: Pacemaker unchanged. Heart: Stable cardiomegaly. Lungs/Pleura: No acute air space or interstitial disease. Additional findings: None. IMPRESSION: Stable cardiomegaly. Signer Name: Marcelo Jimenez MD Signed: 10/07/2019 7:45 AM Workstation Name: [id number]
[2019-10-07 09:52] LABS: Basophils % (Auto) 0.4 % (0.0-1.8); Eosinophils # (Auto) 0.3 K/mm3 (0.0-0.4); Eosinophils % (Auto) 3.1 % (0.0-4.3); Hematocrit 31.2 % (30.3-42.9); Hemoglobin 10.4 gm/dl (10.1-14.3); Lymphocytes # (Auto) 1.6 K/mm3 (1.2-5.4); Lymphocytes % (Auto) 18.4 % (13.4-35.0); Mean Corpuscular HGB Conc 33 % (30-34); Mean Corpuscular Volume 98 fl (79-97); Monocytes # (Auto) 1.1 K/mm3 (0.0-0.8); Monocytes % (Auto) 12.9 % (0.0-7.3); Platelet Count 260 K/mm3 (140-440); Red Blood Count 3.19 M/mm3 (3.65-5.03); Red Cell Distribution Width 14.3 % (13.2-15.2)
[2019-10-07 10:02] LABS: INR 1.13 (0.87-1.13)
[2019-10-07 10:03] LABS: Partial Thromboplastin Time 31.8 Sec. (24.2-36.6)
[2019-10-07 10:09] LABS: Calcium 8.3 mg/dL (8.4-10.2)
[2019-10-07] MEDS ORDERED: traMADol 50 MG TAB PO PRN (10:40)
--- NOTE | 2019-10-07 10:43 | Progress Note ---
Subjective Date of service: 10/07/19 Interval history: CONSULT DICTATED Objective Vital Signs Temp Pulse Resp BP BP Pulse Ox 10/07/19 09:44 18 10/07/19 06:07 18 10/07/19 05:32 97.4 F L 10/07/19 05:30 69 18 129/66 94 10/07/19 02:03 20 10/07/19 01:53 63 10/07/19 00:40 97.5 F L 10/07/19 00:39 63 20 141/68 97 10/06/19 23:35 18 10/06/19 22:38 69 10/06/19 22:15 97.7 F 63 18 135/80 97 10/06/19 22:07 97.8 F 69 18 150/77 95 10/06/19 21:40 71 19 135/73 83 L 10/06/19 21:30 62 14 135/73 99 10/06/19 21:20 65 14 124/59 99 10/06/19 21:10 62 17 142/79 99 10/06/19 21:00 63 12 142/79 99 10/06/19 20:30 60 16 119/60 100 10/06/19 20:00 67 15 146/65 97 10/06/19 19:30 171/92 98 10/06/19 19:00 171/92 95 10/06/19 18:56 98 10/06/19 18:09 98.0 F 68 20 171/92 97 - Labs and Meds Cardiac Enzymes 10/06/19 Range/Units 17:15 AST 26 (5-40) units/L Coagulation 10/07/19 Range/Units 08:53 PT 14.4 (12.2-14.9) Sec. INR 1.13 (0.87-1.13) APTT 31.8 (24.2-36.6) Sec. CBC 10/06/19 10/07/19 Range/Units 17:15 08:53 WBC 11.1 H 8.8 (4.5-11.0) K/mm3 RBC 3.45 L 3.19 L (3.65-5.03) M/mm3 Hgb 11.0 10.4 (10.1-14.3) gm/dl Hct 33.9 31.2 (30.3-42.9) % Plt Count 273 260 (140-440) K/mm3 Lymph # Mechanical Inspector 1.6 [place] # Mechanical Inspector 1.1 H Eos # Mechanical Inspector 0.3 Baso # Mechanical Inspector 0.0 Comprehensive Metabolic Panel 10/06/19 10/07/19 Range/Units 17:15 08:53 Sodium 143 140 (137-145) mmol/L Potassium 4.0 3.7 (3.6-5.0) mmol/L Chloride 107.1 H 103.8 (98-107) mmol/L Carbon Dioxide 21 L 18 L (22-30) mmol/L BUN 19 H 18 H (7-17) mg/dL Creatinine 0.9 1.0 (0.7-1.2) mg/dL Glucose 116 H 151 H (65-100) mg/dL Calcium 8.4 8.3 L (8.4-10.2) mg/dL AST 26 (5-40) units/L ALT 20 (7-56) units/L Alkaline Phosphatase 113 (35-129) units/L Total Protein 6.8 (6.3-8.2) g/dL Albumin 3.4 L (3.9-5) g/dL
--- NOTE | 2019-10-07 11:43 | Consultation ---
HISTORY OF PRESENT ILLNESS: The patient is a 61-year-old female with multiple medical problems including history of hypertension, coronary artery disease and smoking, who had a permanent pacemaker placed 1-2 weeks ago and she presented with a 1-day history of pain at the pacemaker site with fever and swelling. She has seen no drainage. There has been no trauma. There has been no shortness of breath or precordial pain. There has been no sputum. She is a longtime smoker. She has been compliant with medications. ALLERGIES: CODEINE, PENICILLIN, TALWIN. MEDICATIONS: See the nurse's list. SOCIAL HISTORY: Smoking one-half pack per day. Alcohol: No heavy use. FAMILY HISTORY: Lung cancer, renal failure. OPERATIONS: Appendectomy, hysterectomy, neck surgery, permanent pacemaker placement. REVIEW OF SYSTEMS: She did not describe any other significant complaints such as neurologic complaints, complaints, emphysema, bleeding, sleep disorders, psychiatric disorders. PHYSICAL EXAMINATION: GENERAL: Well-developed, markedly overweight, appears slightly uncomfortable, otherwise alert and oriented. EYES, NOSE, AND THROAT: Unremarkable. NECK: Reveals no JVD, no bruits. Neck is supple, no masses. LUNGS: Bibasilar dry rales. HEART: Regular rhythm. No rubs, murmurs, gallops appreciable. ABDOMEN: Soft, nontender, no masses. EXTREMITIES: No cyanosis, clubbing, edema except for left arm, which is slightly swollen and erythematous and warm. NEUROLOGIC: Grossly symmetrical. There is a permanent pacemaker in the left subclavian area and the wound shows no signs of drainage or dehiscence. There appears to be glue over the incision. This is quite tender. There are no signs of any hematoma or effusion. SKIN: Warm and erythematous surrounding the pacemaker and involving the left upper arm. IMPRESSION: 1. Suspect cellulitis of the permanent pacemaker: Agree with antibiotics, cultures and analgesics. The pacemaker may need to be revised this week. EP will be by Wednesday to review the case. 2. Hypertension. 3. Obesity. 4. Nicotine dependence. 5. Suspect chronic obstructive pulmonary disease. 6. History of coronary artery disease: Stable. 7. Mild glucose intolerance. Thank you for this consultation. We will follow the patient. JOB# [id number] JDS/NTS
[2019-10-07] MEDS: MORPHINE 2 MG/1 ML INJ IV PRN ×2 (13:31→20:40)
--- NOTE | 2019-10-07 13:40 | Progress Note ---
Assessment and Plan - Patient Problems (1) Fever Current Visit: Yes Status: Acute Qualifiers: Fever type: unspecified Qualified Code(s): R50.9 - Fever, unspecified Plan to address problem: Most likely secondary to cellulitis has resolved now with Tylenol pain control. (2) Left arm pain Current Visit: Yes Status: Acute Plan to address problem: Patient has a left arm cellulitis. Significant pain warm and tender to touch. Pain with range of motion. We'll add vancomycin. Follow-up blood culture data. We'll treat pain control morphine and Tylenol. Supportive care. History Interval history: Patient 64-year-old female with a history of hypertension recent pacemaker placement presents with left sided extremity pain. Patient this morning states that she has severe pain and is really in her elbow. It is not near her incision site at all. Patient admitted for cellulitis. She states Ultram was not controlling her pain. Hospitalist Physical - Constitutional Vitals: Temp Pulse Resp BP Pulse Ox 97.8 F 68 18 146/85 94 10/07/19 12:20 10/07/19 12:20 10/07/19 12:20 10/07/19 12:20 10/07/19 12:20 General appearance: Present: no acute distress, mild distress, well-nourished, obese - EENT Eyes: Present: PERRL, EOM intact ENT: hearing intact, clear oral mucosa, dentition normal - Neck Neck: Present: supple, normal ROM. Absent: enlarged thyroid, masses or JVD, cervical LAD - Respiratory Respiratory effort: other (patient has small minimal tenderness to the area.) Respiratory: bilateral: CTA - Cardiovascular Rhythm: regular - Extremities Extremities: no ischemia, pulses intact, pulses symmetrical, No edema, normal temperature, normal color Extremity abnormal: erythema, tenderness, other (patient has erythematous warm left elbow. Consistent with cellulitis.) Peripheral Pulses: within normal limits - Abdominal General gastrointestinal: soft, non-tender, non-distended, normal bowel sounds - Integumentary Integumentary: Present: warm, erythema - Psychiatric Psychiatric: appropriate mood/affect, intact judgment & insight, memory intact Results - Labs CBC & Chem 7: 10/07/19 08:53 10/07/19 08:53 Labs: Laboratory Last Values WBC 8.8 K/mm3 (4.5-11.0) 10/07/19 08:53 RBC 3.19 M/mm3 (3.65-5.03) L 10/07/19 08:53 Hgb 10.4 gm/dl (10.1-14.3) 10/07/19 08:53 Hct 31.2 % (30.3-42.9) 10/07/19 08:53 MCV 98 fl (79-97) H 10/07/19 08:53 MCH 33 pg (28-32) H 10/07/19 08:53 MCHC 33 % (30-34) 10/07/19 08:53 RDW 14.3 % (13.2-15.2) 10/07/19 08:53 Plt Count 260 K/mm3 (140-440) 10/07/19 08:53 Lymph % (Auto) 18.4 % (13.4-35.0) 10/07/19 08:53 [place] % (Auto) 12.9 % (0.0-7.3) H 10/07/19 08:53 Eos % (Auto) 3.1 % (0.0-4.3) 10/07/19 08:53 Baso % (Auto) 0.4 % (0.0-1.8) 10/07/19 08:53 Lymph # 1.6 K/mm3 (1.2-5.4) 10/07/19 08:53 [place] # 1.1 K/mm3 (0.0-0.8) H 10/07/19 08:53 Eos # 0.3 K/mm3 (0.0-0.4) 10/07/19 08:53 Baso # 0.0 K/mm3 (0.0-0.1) 10/07/19 08:53 Seg Neutrophils % 65.2 % (40.0-70.0) 10/07/19 08:53 Seg Neutrophils # 5.7 K/mm3 (1.8-7.7) 10/07/19 08:53 PT 14.4 Sec. (12.2-14.9) 10/07/19 08:53 INR 1.13 (0.87-1.13) 10/07/19 08:53 APTT 31.8 Sec. (24.2-36.6) 10/07/19 08:53 Sodium 140 mmol/L (137-145) 10/07/19 08:53 Potassium 3.7 mmol/L (3.6-5.0) 10/07/19 08:53 Chloride 103.8 mmol/L (98-107) 10/07/19 08:53 Carbon Dioxide 18 mmol/L (22-30) L 10/07/19 08:53 Anion Gap 22 mmol/L 10/07/19 08:53 BUN 18 mg/dL (7-17) H 10/07/19 08:53 Creatinine 1.0 mg/dL (0.7-1.2) 10/07/19 08:53 Estimated GFR 55 ml/min 10/07/19 08:53 BUN/Creatinine Ratio 18 % 10/07/19 08:53 Glucose 151 mg/dL (65-100) H 10/07/19 08:53 Lactic Acid 1.40 mmol/L (0.7-2.0) 10/06/19 17:15 Calcium 8.3 mg/dL (8.4-10.2) L 10/07/19 08:53 Total Bilirubin 0.90 mg/dL (0.1-1.2) 10/06/19 17:15 AST 26 units/L (5-40) 10/06/19 17:15 ALT 20 units/L (7-56) 10/06/19 17:15 Alkaline Phosphatase 113 units/L (35-129) 10/06/19 17:15 Total Protein 6.8 g/dL (6.3-8.2) 10/06/19 17:15 Albumin 3.4 g/dL (3.9-5) L 10/06/19 17:15 Albumin/Globulin Ratio 1.0 % 10/06/19 17:15 Active Medications - Current Medications Current Medications: Generic Name Dose Route Start Last Admin Trade Name Freq PRN Reason Stop Dose Admin Acetaminophen 650 mg 10/06/19 22:37 10/07/19 06:07 Tylenol PO 650 mg Q4H PRN Administration Pain MILD(1-3)/Fever >100.5/MONTESINOS Heparin Sodium (Porcine) 5,000 unit 10/06/19 23:00 10/07/19 06:06 Heparin SUB-Q 5,000 unit Q8HR OZZY Administration Sodium Chloride 1,000 mls @ 75 mls/hr 10/06/19 23:00 10/06/19 23:41 Nacl 0.9% 1000 Ml IV 75 mls/hr DIRECT OZZY Administration Clindamycin HCl 900 mg in 50 mls @ 100 mls/hr 10/07/19 02:00 10/07/19 10:49 Cleocin 900 Mg/50 Ml IV 100 mls/hr Q8H OZZY Administration Protocol Magnesium Hydroxide 30 ml 10/06/19 22:37 10/06/19 23:42 Milk Of Magnesia PO 30 ml Q4H PRN Administration Constipation Morphine Sulfate 2 mg 10/07/19 13:00 10/07/19 13:31 Morphine IV 2 mg Q4H PRN Administration Pain, Moderate (4-6) Ondansetron HCl 4 mg 10/07/19 13:33 Zofran IV Q8H PRN N/V unrelieved by Reglan Sodium Chloride 10 ml 10/07/19 10:00 10/07/19 09:05 Sodium Chloride Flush Syringe 10 Ml IV 10 ml BID OZZY Administration Sodium Chloride 10 ml 10/06/19 22:37 10/07/19 06:08 Sodium Chloride Flush Syringe 10 Ml IV 10 ml PRN PRN Administration LINE FLUSH Tramadol HCl 50 mg 10/07/19 10:40 10/07/19 10:49 Ultram PO 50 mg Q6H PRN Administration Pain, Moderate (4-6)
--- NOTE | 2019-10-07 14:58 | XRay Report ---
XR elbow 2V LT INDICATION / CLINICAL INFORMATION: elbow pain. COMPARISON: None available. FINDINGS: BONES/JOINT(S): There is a moderately displaced avulsion fracture of the olecranon process from the p roximal ulna. There is no other acute fracture or subluxation. SOFT TISSUES: No significant abnormality. ADDITIONAL FINDINGS: None. Signer Name: Sabino Kimble MD Signed: 10/07/2019 2:53 PM Workstation Name: [id number]
[2019-10-08] MEDS: ONDANSETRON 4 MG/2 ML INJ IV PRN (00:36)
[2019-10-08] MEDS ORDERED: METOPROLOL TARTRATE 5 MG/5 ML INJ IV ONE (00:38)
[2019-10-08] MEDS: MORPHINE 2 MG/1 ML INJ IV PRN ×3 (00:41→12:35)
[2019-10-08] MEDS: SODIUM CHLORIDE 0.9% 1000 ML 1,000 ML IV SCH ×2 (05:00→21:41)
[2019-10-08] MEDS: HEPARIN 5,000 UNIT/1 ML VIAL SUB-Q SCH ×3 (05:03→21:43)
--- NOTE | 2019-10-08 09:36 | Progress Note ---
Assessment and Plan - Patient Problems (1) Cellulitis of chest wall Current Visit: Yes Status: Acute (2) Pain in pacemaker pocket Current Visit: Yes Status: Acute (3) CAD (coronary artery disease) Current Visit: No Status: Acute Qualifiers: Associated angina: with stable angina (4) HTN (hypertension) Current Visit: No Status: Acute Qualifiers: Hypertension type: essential hypertension Qualified Code(s): I10 - Essential (primary) hypertension Subjective Date of service: 10/08/19 Interval history: PAIN & FEVER CONTINUE. BREATHING OK Objective Vital Signs Temp Pulse Resp BP Pulse Ox 10/08/19 07:56 98.3 F 60 18 132/79 95 10/08/19 04:36 98.0 F 61 18 133/79 96 10/08/19 04:23 60 10/08/19 00:27 150 H 130/77 10/07/19 23:29 98.0 F 71 18 130/77 92 10/07/19 19:42 98.3 F 148 H 18 163/88 93 10/07/19 19:24 155 H 10/07/19 16:52 98.7 F 67 18 145/80 97 10/07/19 12:20 97.8 F 68 18 146/85 94 10/07/19 09:44 18 - Physical Examination General: No Apparent Distress HEENT: Positive: PERRL Neck: Positive: neck supple Cardiac: Positive: Reg Rate and Rhythm, Regular Rate Lungs: Positive: Rales (B/B) Neuro: Positive: Grossly Intact Abdomen: Positive: Soft Extremities: Present: Other (L. ARM PAIN,,SL. SWOLLEN,,TENDER...........TENDER PPM SITE) - Labs and Meds Coagulation 10/07/19 Range/Units 08:53 PT 14.4 (12.2-14.9) Sec. INR 1.13 (0.87-1.13) APTT 31.8 (24.2-36.6) Sec. CBC 10/07/19 Range/Units 08:53 WBC 8.8 (4.5-11.0) K/mm3 RBC 3.19 L (3.65-5.03) M/mm3 Hgb 10.4 (10.1-14.3) gm/dl Hct 31.2 (30.3-42.9) % Plt Count 260 (140-440) K/mm3 Lymph # 1.6 (1.2-5.4) K/mm3 [place] # 1.1 H (0.0-0.8) K/mm3 Eos # 0.3 (0.0-0.4) K/mm3 Baso # 0.0 (0.0-0.1) K/mm3 Comprehensive Metabolic Panel 10/07/19 Range/Units 08:53 Sodium 140 (137-145) mmol/L Potassium 3.7 (3.6-5.0) mmol/L Chloride 103.8 (98-107) mmol/L Carbon Dioxide 18 L (22-30) mmol/L BUN 18 H (7-17) mg/dL Creatinine 1.0 (0.7-1.2) mg/dL Glucose 151 H (65-100) mg/dL Calcium 8.3 L (8.4-10.2) mg/dL
[2019-10-08] MEDS: HYDROcodone/ACETAMINOPHEN 5-325 MG TAB PO PRN ×2 (11:14→18:37)
[2019-10-08] MEDS ORDERED: ALBUTEROL 8.5 GM INHALATION IH PRN (13:09)
--- NOTE | 2019-10-08 13:09 | Progress Note ---
Assessment and Plan - Patient Problems (1) Fever Current Visit: Yes Status: Acute Qualifiers: Fever type: unspecified Qualified Code(s): R50.9 - Fever, unspecified Plan to address problem: Patient has no fever. No pain at surgical site. No cellulitis no erythematous surgical site. Clearly even if she does have any infection it does not present on her exam. (2) Left arm pain Current Visit: Yes Status: Acute Plan to address problem: Left arm pain this is patient's majority of her complaint. X-rays show patient had an old fracture of olecranon process. Will downgrade her pain medications significantly. I think this is the reason patient asked for pain medicine this time. Continue to treat for left elbow cellulitis at this time. We'll convert to by mouth in a.m. and attempts for discharge. History Interval history: Patient at present seems to be preoccupied with pain. The pain she displays interactions are inconsistent with the pain that is happening on physical exam. I did speak with Dr. Alphonso Reid and ID about her feelings. Patient does relate to me that she is depressed about her life situations. Patient also was preoccupied with pain medicines and her elbow. This appears to be a red flag for opioid dependence. She asking for home medicines and morphine and clearly is not in that much pain. Patient has no pain over the chest. No pain around the insertion site of defibrillator. Patient's pain is in the elbow. Hospital course complicated by x-ray which showed avulsion fracture of the elbow. Patient states she did fall this week. Hospitalist Physical - Constitutional Vitals: Temp Pulse Resp BP Pulse Ox 98.2 F 68 18 142/80 94 10/08/19 12:13 10/08/19 12:13 10/08/19 12:13 10/08/19 12:13 10/08/19 12:13 General appearance: Present: no acute distress, well-nourished, obese - EENT Eyes: Present: PERRL, EOM intact ENT: hearing intact, clear oral mucosa, dentition normal - Neck Neck: Present: supple, normal ROM - Respiratory Respiratory: bilateral: CTA - Cardiovascular Rhythm: regular - Extremities Extremities: no ischemia, pulses intact, pulses symmetrical, No edema, normal temperature, normal color, Full ROM Extremity abnormal: other (patient left elbow is less red. Patient has swelling along the olecranon process and tenderness to palpation.) Peripheral Pulses: within normal limits - Abdominal General gastrointestinal: deferred, non-tender, non-distended, normal bowel sounds - Psychiatric Psychiatric: depressed - Neurologic Neurologic: CNII-XII intact, focal deficits, moves all extremities Results - Labs CBC & Chem 7: 10/07/19 08:53 10/07/19 08:53 Labs: Laboratory Last Values WBC 8.8 K/mm3 (4.5-11.0) 10/07/19 08:53 RBC 3.19 M/mm3 (3.65-5.03) L 10/07/19 08:53 Hgb 10.4 gm/dl (10.1-14.3) 10/07/19 08:53 Hct 31.2 % (30.3-42.9) 10/07/19 08:53 MCV 98 fl (79-97) H 10/07/19 08:53 MCH 33 pg (28-32) H 10/07/19 08:53 MCHC 33 % (30-34) 10/07/19 08:53 RDW 14.3 % (13.2-15.2) 10/07/19 08:53 Plt Count 260 K/mm3 (140-440) 10/07/19 08:53 Lymph % (Auto) 18.4 % (13.4-35.0) 10/07/19 08:53 [place] % (Auto) 12.9 % (0.0-7.3) H 10/07/19 08:53 Eos % (Auto) 3.1 % (0.0-4.3) 10/07/19 08:53 Baso % (Auto) 0.4 % (0.0-1.8) 10/07/19 08:53 Lymph # 1.6 K/mm3 (1.2-5.4) 10/07/19 08:53 [place] # 1.1 K/mm3 (0.0-0.8) H 10/07/19 08:53 Eos # 0.3 K/mm3 (0.0-0.4) 10/07/19 08:53 Baso # 0.0 K/mm3 (0.0-0.1) 10/07/19 08:53 Seg Neutrophils % 65.2 % (40.0-70.0) 10/07/19 08:53 Seg Neutrophils # 5.7 K/mm3 (1.8-7.7) 10/07/19 08:53 PT 14.4 Sec. (12.2-14.9) 10/07/19 08:53 INR 1.13 (0.87-1.13) 10/07/19 08:53 APTT 31.8 Sec. (24.2-36.6) 10/07/19 08:53 Sodium 140 mmol/L (137-145) 10/07/19 08:53 Potassium 3.7 mmol/L (3.6-5.0) 10/07/19 08:53 Chloride 103.8 mmol/L (98-107) 10/07/19 08:53 Carbon Dioxide 18 mmol/L (22-30) L 10/07/19 08:53 Anion Gap 22 mmol/L 10/07/19 08:53 BUN 18 mg/dL (7-17) H 10/07/19 08:53 Creatinine 1.0 mg/dL (0.7-1.2) 10/07/19 08:53 Estimated GFR 55 ml/min 10/07/19 08:53 BUN/Creatinine Ratio 18 % 10/07/19 08:53 Glucose 151 mg/dL (65-100) H 10/07/19 08:53 POC Glucose 125 (70-105) H 10/08/19 08:08 Lactic Acid 1.40 mmol/L (0.7-2.0) 10/06/19 17:15 Calcium 8.3 mg/dL (8.4-10.2) L 10/07/19 08:53 Total Bilirubin 0.90 mg/dL (0.1-1.2) 10/06/19 17:15 AST 26 units/L (5-40) 10/06/19 17:15 ALT 20 units/L (7-56) 10/06/19 17:15 Alkaline Phosphatase 113 units/L (35-129) 10/06/19 17:15 Total Protein 6.8 g/dL (6.3-8.2) 10/06/19 17:15 Albumin 3.4 g/dL (3.9-5) L 10/06/19 17:15 Albumin/Globulin Ratio 1.0 % 10/06/19 17:15 Active Medications - Current Medications Current Medications: Generic Name Dose Route Start Last Admin Trade Name Freq PRN Reason Stop Dose Admin Acetaminophen/Hydrocodone Bitart 1 each 10/08/19 09:29 10/08/19 11:14 [place] 5/325 PO 1 each Q6H PRN Administration Pain, Moderate (4-6) Heparin Sodium (Porcine) 5,000 unit 10/06/19 23:00 10/08/19 05:03 Heparin SUB-Q 5,000 unit Q8HR OZZY Administration Sodium Chloride 1,000 mls @ 75 mls/hr 10/06/19 23:00 10/08/19 05:00 Nacl 0.9% 1000 Ml IV 75 mls/hr DIRECT OZZY Administration Clindamycin HCl 900 mg in 50 mls @ 100 mls/hr 10/07/19 02:00 10/08/19 09:26 Cleocin 900 Mg/50 Ml IV 100 mls/hr Q8H OZZY Administration Protocol Magnesium Hydroxide 30 ml 10/06/19 22:37 10/06/19 23:42 Milk Of Magnesia PO 30 ml Q4H PRN Administration Constipation Morphine Sulfate 2 mg 10/07/19 13:00 10/08/19 12:35 Morphine IV 2 mg Q4H PRN Administration Pain, Moderate (4-6) Ondansetron HCl 4 mg 10/07/19 13:33 10/08/19 00:36 Zofran IV 4 mg Q8H PRN Administration N/V unrelieved by Reglan Sodium Chloride 10 ml 10/07/19 10:00 10/08/19 09:23 Sodium Chloride Flush Syringe 10 Ml IV 10 ml BID OZZY Administration Sodium Chloride 10 ml 10/06/19 22:37 10/08/19 05:01 Sodium Chloride Flush Syringe 10 Ml IV 10 ml PRN PRN Administration LINE FLUSH
[2019-10-08] MEDS ORDERED: ALBUTEROL 2.5 MG/3 ML NEBU IH PRN (14:01)
[2019-10-08] MEDS: AMIODARONE 200 MG TAB PO SCH (14:14)
[2019-10-08] MEDS: PANTOPRAZOLE 40 MG TAB PO SCH (14:14)
[2019-10-08] MEDS: ASPIRIN EC 81 MG TAB PO SCH (14:14)
[2019-10-08] MEDS: APIXABAN 2.5 MG TAB PO SCH ×2 (14:14→21:44)
[2019-10-08] MEDS: METOPROLOL TARTRATE 50 MG TAB PO SCH ×2 (14:15→21:43)
[2019-10-08] MEDS: TICAGRELOR 90 MG TAB PO SCH ×2 (14:16→21:45)
--- NOTE | 2019-10-08 15:20 | Consultation ---
History of Present Illness - Reason for Consult Consult date: 10/08/19 pacemaker infection Requesting physician: ABEL CHAVES - History of Present Illness 64 yo female with history of morbid obesity, tobacco abuse, well known to our service due to recent admission 09/25/2019 - 10/01/2019 for possible pneumonia. At that time she was admitted due to acute on chronic SOB and a previous syncopal episode the day prior to admission. She injured her L elbow and knee found to have a left olecranon fracture. She was found to be in afib with RVR and tachy/kendra syndrome possible SSS. She underwent pacemaker placement on 09/29/2019. Regarding the pneumonia, there was bilateral ground glass opacities similar to prior CT from 04/2019? ILD. Procalcitonin was low. HIV test requested which is negative. Abx were stopped. Seen by ortho, refused sling/cast. Unfortunately, readmitted on 10/06/2019 due to 2-day history of worsening left sided chest pain at the pacemaker area, which is throbbing and mild erythema over PM no drainage. Also severe left arm pain and edema. Continues to c/o SOB and BILL. In the ED,. temp 98, HR 68, R 20, BP 171/92. WBC 11.1. Creat 0.9. Blood cultures 10/06 no growth today. Left arm US no DVT. CT chest pulmonary edema and tree-in-bud changes in RLL> XR elbow with mod displayed avulsion fracture of olecranon. ID consulted for suspect PM site infection. Review of Systems: Bold if positive, otherwise negative General: fevers, chills, rigors HEENT: visual disturbance, diplopia, eye pain Respiratory: cough, sputum, hemoptysis, shortness of breath, BILL Cardiovascular: chest pain, syncope Gastrointestinal: nausea, vomiting, diarrhea, abdominal pain Genitourinary: dysuria, hematuria, flank pain Musculoskeletal: neck pain, back pain, joint pain, edema Neurologic: headaches, seizures Hematologic: easy bruising or bleeding Endocrine: night sweats, acute weight loss Skin: rash, jaundice, pacemaker site tenderness, redness Psychiatric: suicidal, homicidal ideation Past History Past Medical History: hypertension, other (History of anxiety) Past Surgical History: appendectomy, hysterectomy, Other (Neck surgery) Social history: smoking (Smokes half a pack of cigarette daily), alcohol abuse (Drinks alcohol occasionally) Family history: cancer (Father of lung cancer, mother had renal failure, brother had lung cancer.) Medications and Allergies Allergies Allergy/AdvReac Type Severity Reaction Status Date / Time codeine Allergy Vomiting Verified 05/20/19 11:23 Penicillins Allergy Hives Verified 05/20/19 11:23 pentazocine [From [place]] Allergy Nausea Verified 05/20/19 11:23 Home Medications Medication Instructions Recorded Confirmed Last Taken Type ALBUTEROL Inhaler (OR & NICU) 2 puff IH QID PRN #1 unit 10/01/19 10/08/19 Unknown Rx [ProAir HFA Inhaler] Acetaminophen [Acetaminophen TAB] 2 tab PO Q6H PRN #15 tablet 10/01/19 10/08/19 Unknown Rx Amiodarone [Cordarone 200 MG TAB] 200 mg PO QDAY #30 tablet 10/01/19 10/08/19 Unknown Rx Apixaban [Eliquis] 2.5 mg PO Q12HR #60 tablet 10/01/19 10/08/19 Unknown Rx Aspirin EC [Halfprin EC] 81 mg PO QDAY #30 tablet 10/01/19 10/08/19 Unknown Rx Metoprolol [Lopressor TAB] 50 mg PO Q8HR #90 tablet 10/01/19 10/08/19 Unknown Rx Pantoprazole [Protonix TAB] 40 mg PO QDAY #30 tablet 10/01/19 10/08/19 Unknown Rx Ticagrelor [Brilinta] 90 mg PO BID #60 tablet 10/01/19 10/08/19 Unknown Rx oxyCODONE /ACETAMINOPHEN [Percocet 1 tab PO Q6H PRN #25 tablet 10/01/19 10/08/19 Unknown Rx 5/325 mg] Active Meds: Active Medications Acetaminophen (Tylenol) 650 mg PO Q6H PRN PRN Reason: Pain MILD(1-3)/Fever >100.5/[place] Acetaminophen/Hydrocodone Bitart ([place] 5/325) 1 each PO Q6H PRN PRN Reason: Pain, Moderate (4-6) Last Admin: 10/08/19 11:14 Dose: 1 each Documented by: Albuterol (Proventil) 2.5 mg IH Q4HRT PRN PRN Reason: Shortness Of Breath Amiodarone HCl (Cordarone) 200 mg PO QDAY [facility] Last Admin: 10/08/19 14:14 Dose: 200 mg Documented by: Apixaban (Eliquis) 2.5 mg PO Q12HR [facility]; Protocol Last Admin: 10/08/19 14:14 Dose: 2.5 mg Documented by: Aspirin (Halfprin Ec) 81 mg PO QDAY [facility] Last Admin: 10/08/19 14:14 Dose: 81 mg Documented by: Heparin Sodium (Porcine) (Heparin) 5,000 unit SUB-Q Q8HR [facility] Last Admin: 10/08/19 14:15 Dose: 5,000 unit Documented by: Sodium Chloride (Nacl 0.9% 1000 Ml) 1,000 mls @ 75 mls/hr IV DIRECT [facility] Last Admin: 10/08/19 05:00 Dose: 75 mls/hr Documented by: Clindamycin HCl (Cleocin 900 Mg/50 Ml) 900 mg in 50 mls @ 100 mls/hr IV Q8H [facility]; Protocol Last Admin: 10/08/19 09:26 Dose: 100 mls/hr Documented by: Magnesium Hydroxide (Milk Of Magnesia) 30 ml PO Q4H PRN PRN Reason: Constipation Last Admin: 10/06/19 23:42 Dose: 30 ml Documented by: Metoprolol Tartrate (Metoprolol) 50 mg PO Q8HR [facility] Last Admin: 10/08/19 14:15 Dose: 50 mg Documented by: Ondansetron HCl (Zofran) 4 mg IV Q8H PRN PRN Reason: N/V unrelieved by Reglan Last Admin: 10/08/19 00:36 Dose: 4 mg Documented by: Pantoprazole Sodium (Protonix) 40 mg PO QDAY [facility] Last Admin: 10/08/19 14:14 Dose: 40 mg Documented by: Sodium Chloride (Sodium Chloride Flush Syringe 10 Ml) 10 ml IV BID [facility] Last Admin: 10/08/19 09:23 Dose: 10 ml Documented by: Sodium Chloride (Sodium Chloride Flush Syringe 10 Ml) 10 ml IV PRN PRN PRN Reason: LINE FLUSH Last Admin: 10/08/19 05:01 Dose: 10 ml Documented by: Ticagrelor (Brilinta) 90 mg PO BID [facility] Last Admin: 10/08/19 14:16 Dose: 90 mg Documented by: Physical Examination - Physical Exam Narrative exam: Constitutional: Alert, cooperative. No acute distress Head, Ears, Nose: Normocephalic, atraumatic. External ears, nose normal Eyes: Conjunctivae/corneas clear. No icterus. No ptosis. Neck: Supple, no meningeal signs Oral: dentition fair, no thrush Cardiovascular: S1, S2 normal. L pacemaker site with glue no erythema, mild tenderness and edema Respiratory: Good air entry, clear to auscultation bilaterally GI: Soft, non-tender; bowel sounds normal. No peritoneal signs. Musculoskeletal: L elbow edema and tenderness, leigha leg edema Skin: No rash or abscess Hem/Lymphatic: No palpable cervical or supraclavicular nodes. No lymphangitis Psych: Mood ok. Affect normal Neurological: Awake, alert, oriented. No gross abnormality - Constitutional Vitals: Vital Signs Temp Pulse Resp BP Pulse Ox 98.2 F 68 18 142/80 94 10/08/19 12:13 10/08/19 12:13 10/08/19 12:13 10/08/19 12:13 10/08/19 12:13 Temperature -Last 24 Hours Temperature 98.2 F Temperature 98.3 F Temperature 98.0 F Temperature 98.0 F Temperature 98.3 F Temperature 98.7 F Results - Labs CBC & Chem 7: 10/07/19 08:53 10/07/19 08:53 Labs: Abnormal lab results 10/07/19 10/08/19 Range/Units 20:34 08:08 POC Glucose 128 H 125 H (70-105) Assessment and Plan Cultures: Blood cultures 10/06 no growth today. Assessment: 64 yo female with history of morbid obesity, tobacco abuse, well known to our service due to recent admission 09/25/2019 - 10/01/2019 for possible pneumonia, readmitted on 10/06/2019 due to 2-day history of worsening left sided chest pain at the pacemaker area, which is throbbing and mild erythema over PM no drainage: 1) Presumed left sided pacemaker site infection ? cellulitis: Blood cultures negative so far. She was found to be in afib with RVR and tachy/kendra syndrome possible SSS. She underwent pacemaker placement on 09/29/2019. C/o pacemaker site pain since then. No collections on chest CT. 2) Left elbow fracture, displaced 3) Chronic SOB. Possible pneumonia during previous admission. There was bilateral ground glass opacities similar to prior CT from 04/2019? ILD. Procalcitonin was low. HIV test requested which was negative. Repeat CT chest pulmonary edema and tree-in-bud changes in RLL 4) Pen allergy: remote, she has taken ampicillin w/o problems Recs: f/u blood cultures obtain TTE stop clindamycin start cefazolin 2 gm IV q 8 hour start vancomycin with PK consult if clinically better will do keflex 500 mg po QID and doxycycline 100 mg po bid total 10 days Will follow. Erica Abbasi MD Infectious Diseases Staff Scientist [facility] M [phone] O [phone]
[2019-10-08] MEDS ORDERED: VANCOMYCIN/NS 1 GM/250 ML 1 GM/250 ML BAG IV SCH (18:00)
[2019-10-08] MEDS ORDERED: VANCOMYCIN PHARMACY TO DOSE IV SCH (19:00)
[2019-10-08] MEDS ORDERED: VANCOMYCIN/NS 1 GM/250 ML 1 GM/250 ML BAG IV ONE (20:00)
[2019-10-08] MEDS: ACETAMINOPHEN 325 MG TAB PO PRN (21:49)
[2019-10-09 00:05] LABS: Calcium 8.1 mg/dL (8.4-10.2)
[2019-10-09] MEDS: HYDROcodone/ACETAMINOPHEN 5-325 MG TAB PO PRN ×3 (01:07→20:02)
[2019-10-09] MEDS: ACETAMINOPHEN 325 MG TAB PO PRN (03:59)
[2019-10-09] MEDS: METOPROLOL TARTRATE 50 MG TAB PO SCH ×3 (06:37→21:56)
[2019-10-09] MEDS: HEPARIN 5,000 UNIT/1 ML VIAL SUB-Q SCH (06:37)
[2019-10-09] MEDS ORDERED: VANCOMYCIN 1,500 MG in SODIUM CHLORIDE 0.9% 500 ML 500 ML IV SCH (10:00)
[2019-10-09] MEDS: ASPIRIN EC 81 MG TAB PO SCH (10:25)
[2019-10-09] MEDS: AMIODARONE 200 MG TAB PO SCH (10:25)
[2019-10-09] MEDS: APIXABAN 2.5 MG TAB PO SCH ×2 (10:25→21:52)
[2019-10-09] MEDS: TICAGRELOR 90 MG TAB PO SCH ×2 (10:25→21:52)
[2019-10-09] MEDS: PANTOPRAZOLE 40 MG TAB PO SCH (10:26)
[2019-10-09] MEDS ORDERED: SODIUM CHLORIDE 0.9% 1000 ML 1,000 ML IV ONE (10:34)
--- NOTE | 2019-10-09 11:15 | Progress Note ---
Assessment and Plan Left elbow fracture Coronary artery disease s/p PCI of RCA with BMS 04/2019 at [facility]; on Brilinta and aspirin Echo 09/23/2019 reports a LVEF 45-50% Paroxysmal Afib on low dose eliquis as an outpatient Hx of sick sinus syndrome s/p pacemaker implant 09/29/19 Chronic pain syndrome Continue medical therapy for coronary artery disease and paroxysmal afib. Subjective Date of service: 10/09/19 Interval history: Patient complains of left arm pain and edema. Objective Vital Signs Temp Pulse Resp BP Pulse Ox 10/09/19 08:23 98.4 F 18 132/68 10/09/19 06:37 153/72 10/09/19 03:40 98.4 F 60 19 153/72 98 10/09/19 01:17 130/65 10/08/19 21:43 61 10/08/19 19:52 98.3 F 64 19 140/68 98 10/08/19 16:19 97.9 F 64 18 127/98 99 10/08/19 12:13 98.2 F 68 18 142/80 94 - Physical Examination General: No Apparent Distress HEENT: Positive: PERRL Neck: Positive: trachea midline Cardiac: Positive: Reg Rate and Rhythm Lungs: Positive: Decreased Breath Sounds Neuro: Positive: Grossly Intact - Labs and Meds Comprehensive Metabolic Panel 10/08/19 Range/Units 22:59 Sodium 138 (137-145) mmol/L Potassium 4.1 (3.6-5.0) mmol/L Chloride 102.5 (98-107) mmol/L Carbon Dioxide 20 L (22-30) mmol/L BUN 14 (7-17) mg/dL Creatinine 1.3 H (0.7-1.2) mg/dL Glucose 140 H (65-100) mg/dL Calcium 8.1 L (8.4-10.2) mg/dL
[2019-10-09] MEDS: MORPHINE 2 MG/1 ML INJ IV PRN ×2 (14:37→22:25)
[2019-10-09 15:43] LABS: Calcium 8.2 mg/dL (8.4-10.2)
--- NOTE | 2019-10-09 17:40 | Progress Note ---
Assessment and Plan Assessment and plan: 64-year-old female with known history of hypertension and recent placement of pacemaker presenting to the emergency room today complaining of left upper extremity pain and left-sided chest wall pain. Patient indicates that pain is more on the pacemaker site. She denies any drainage from the surgical site. She denies any fever or chills, and denies any nausea vomiting. * On admission initially patient was thought to may have cellulitis around the pacemaker and started on empiric antibiotic coverage for pacemaker site infection. * On clinical review and review of all documentation patient has no fever no clinical evidence at this time of my exam of pacemaker site infection. Will defer to ID for further management. 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 Will reconsult orthopedic surgeon for management of left elbow fracture which was previously documented prior to pacemaker placement. * Review of records from orthopedic surgeon during last admission shows that conservative management with passive range of motion exercises recommended this appears not to have happened. Will obtain PT and OT evaluation. And also order a sling for the arm. * Patient does have a history of chronic pain syndrome we will continue management. X-rays show patient had an old fracture of olecranon process Left arm pain secondary to fracture: Stable Chronic pain syndrome: Review of Previous admissions shows a pattern of Pain admits. Chronic shortness of breath with evidence of pneumonia from prior admissions. Hyperkalemia Depression Plan Reconsult Orthopedic Surgeon Doubt infection, will defer to ID Recommend Psych Evaluation outpatient Kayxalate and recheck K Give a dose of Bicarb Check BMP in am Anticipate discharge in am Sling for Left arm DVT/GI prophy History Interval history: Patient seen and examined reports nausea but no actual vomiting noted. Continues to complain of left HAND pain. This has been persistent since the fall. Also review of records shows that patient has chronic pain syndrome. No fever noted. No chest pain. Hospitalist Physical - Physical exam Narrative exam: VITAL SIGNS: Reviewed. GENERAL: The patient appears normally developed, mild distress secondary to pain vital signs as documented. HEAD: No signs of head trauma. EYES: Pupils are equal. Extraocular motions intact. EARS: Hearing grossly intact. MOUTH: Oropharynx is normal. NECK: No adenopathy, no JVD. CHEST: Chest with clear breath sounds bilaterally. No wheezes, rales, or rhonchi. CARDIAC: Regular rate and rhythm. S1 and S2, without murmurs, gallops, or rubs. Pacemaker pocket intact with no erythema or discoloration or warmth. VASCULAR: No Edema. Peripheral pulses normal and equal in all extremities. ABDOMEN: Soft, non tender and non distended. No rebound or guarding, and no masses palpated. Bowel Sounds normal. MUSCULOSKELETAL: Good range of motion of all major joints except left upper extremity tender to touch in the lower hand area with mild edema. No erythema or warmth appreciated. Extremities without clubbing, cyanosis or edema. NEUROLOGIC EXAM: Alert and oriented x 3 No focal sensory or strength deficits. Speech normal. Follows commands. PSYCHIATRIC: Mood normal. SKIN: detail exam as documented in skin assessment - Constitutional Vitals: Temp Pulse Resp BP Pulse Ox 98.4 F 61 16 132/82 98 10/09/19 08:23 10/09/19 14:06 10/09/19 11:24 10/09/19 14:06 10/09/19 03:40 General appearance: Present: no acute distress, well-nourished, obese Results - Labs CBC & Chem 7: 10/07/19 08:53 10/09/19 13:53 Labs: Laboratory Last Values WBC 8.8 K/mm3 (4.5-11.0) 10/07/19 08:53 RBC 3.19 M/mm3 (3.65-5.03) L 10/07/19 08:53 Hgb 10.4 gm/dl (10.1-14.3) 10/07/19 08:53 Hct 31.2 % (30.3-42.9) 10/07/19 08:53 MCV 98 fl (79-97) H 10/07/19 08:53 MCH 33 pg (28-32) H 10/07/19 08:53 MCHC 33 % (30-34) 10/07/19 08:53 RDW 14.3 % (13.2-15.2) 10/07/19 08:53 Plt Count 260 K/mm3 (140-440) 10/07/19 08:53 Lymph % (Auto) 18.4 % (13.4-35.0) 10/07/19 08:53 [place] % (Auto) 12.9 % (0.0-7.3) H 10/07/19 08:53 Eos % (Auto) 3.1 % (0.0-4.3) 10/07/19 08:53 Baso % (Auto) 0.4 % (0.0-1.8) 10/07/19 08:53 Lymph # 1.6 K/mm3 (1.2-5.4) 10/07/19 08:53 [place] # 1.1 K/mm3 (0.0-0.8) H 10/07/19 08:53 Eos # 0.3 K/mm3 (0.0-0.4) 10/07/19 08:53 Baso # 0.0 K/mm3 (0.0-0.1) 10/07/19 08:53 Seg Neutrophils % 65.2 % (40.0-70.0) 10/07/19 08:53 Seg Neutrophils # 5.7 K/mm3 (1.8-7.7) 10/07/19 08:53 PT 14.4 Sec. (12.2-14.9) 10/07/19 08:53 INR 1.13 (0.87-1.13) 10/07/19 08:53 APTT 31.8 Sec. (24.2-36.6) 10/07/19 08:53 Sodium 139 mmol/L (137-145) 10/09/19 13:53 Potassium 5.2 mmol/L (3.6-5.0) H D 10/09/19 13:53 Chloride 105.5 mmol/L (98-107) 10/09/19 13:53 Carbon Dioxide 16 mmol/L (22-30) L 10/09/19 13:53 Anion Gap 23 mmol/L 10/09/19 13:53 BUN 12 mg/dL (7-17) 10/09/19 13:53 Creatinine 1.0 mg/dL (0.7-1.2) 10/09/19 13:53 Estimated GFR 55 ml/min 10/09/19 13:53 BUN/Creatinine Ratio 12 % 10/09/19 13:53 Glucose 152 mg/dL (65-100) H 10/09/19 13:53 POC Glucose 125 (70-105) H 10/08/19 08:08 Lactic Acid 1.40 mmol/L (0.7-2.0) 10/06/19 17:15 Calcium 8.2 mg/dL (8.4-10.2) L 10/09/19 13:53 Total Bilirubin 0.90 mg/dL (0.1-1.2) 10/06/19 17:15 AST 26 units/L (5-40) 10/06/19 17:15 ALT 20 units/L (7-56) 10/06/19 17:15 Alkaline Phosphatase 113 units/L (35-129) 10/06/19 17:15 Total Creatine Kinase 49 units/L (30-135) 10/08/19 22:59 Total Protein 6.8 g/dL (6.3-8.2) 10/06/19 17:15 Albumin 3.4 g/dL (3.9-5) L 10/06/19 17:15 Albumin/Globulin Ratio 1.0 % 10/06/19 17:15 Active Medications - Current Medications Current Medications: Generic Name Dose Route Start Last Admin Trade Name Freq PRN Reason Stop Dose Admin Acetaminophen 650 mg 10/08/19 13:09 10/09/19 03:59 Tylenol PO 650 mg Q6H PRN Administration Pain MILD(1-3)/Fever >100.5/MONTESINOS Acetaminophen/Hydrocodone Bitart 1 each 10/08/19 09:29 10/09/19 10:24 [place] 5/325 PO 1 each Q6H PRN Administration Pain, Moderate (4-6) Albuterol 2.5 mg 10/08/19 14:01 Proventil IH Q4HRT PRN Shortness Of Breath Amiodarone HCl 200 mg 10/08/19 14:00 10/09/19 10:25 Cordarone PO 200 mg QDAY OZZY Administration Apixaban 2.5 mg 10/08/19 14:00 10/09/19 10:25 Eliquis PO 2.5 mg Q12HR OZZY Administration Protocol Aspirin 81 mg 10/08/19 14:00 10/09/19 10:25 Halfprin Ec PO 81 mg QDAY OZZY Administration Vancomycin HCl 1,500 mg/ 530 mls @ 333.333 mls/hr 10/09/19 10:00 10/09/19 10:41 Sodium Chloride IV 333.333 mls/hr Q12H OZZY Administration Magnesium Hydroxide 30 ml 10/06/19 22:37 10/06/19 23:42 Milk Of Magnesia PO 30 ml Q4H PRN Administration Constipation Metoprolol Tartrate 50 mg 10/08/19 14:00 10/09/19 14:06 Metoprolol PO 50 mg Q8HR OZZY Administration Morphine Sulfate 2 mg 10/09/19 11:33 10/09/19 14:37 Morphine IV 2 mg Q4H PRN Administration Pain, Moderate (4-6) Ondansetron HCl 4 mg 10/07/19 13:33 10/08/19 00:36 Zofran IV 4 mg Q8H PRN Administration N/V unrelieved by Kristen Pantoprazole Sodium 40 mg 10/08/19 14:00 10/09/19 10:26 Protonix PO 40 mg QDAY OZZY Administration Sodium Chloride 10 ml 10/07/19 10:00 10/09/19 10:27 Sodium Chloride Flush Syringe 10 Ml IV 10 ml BID OZZY Administration Sodium Chloride 10 ml 10/06/19 22:37 10/08/19 05:01 Sodium Chloride Flush Syringe 10 Ml IV 10 ml PRN PRN Administration LINE FLUSH Sodium Polystyrene Sulfonate 30 gm 10/09/19 18:00 Kionex PO 10/09/19 18:01 ONCE ONE Ticagrelor 90 mg 10/08/19 14:00 10/09/19 10:25 Brilinta PO 90 mg BID OZZY Administration
[2019-10-09] MEDS ORDERED: SODIUM BICARB 8.4% 50 MEQ/50 ML SYRINGE IV ONE (17:49)
[2019-10-09] MEDS ORDERED: SODIUM POLYSTYRENE 15 GM/60 ML ORAL LIQD PO ONE (18:00)
--- NOTE | 2019-10-09 18:20 | Progress Note ---
Assessment and Plan Cultures: Blood cultures 10/06 no growth today. Assessment: 64 yo female with history of morbid obesity, tobacco abuse, well known to our service due to recent admission 09/25/2019 - 10/01/2019 for possible pneumonia, readmitted on 10/06/2019 due to 2-day history of worsening left sided chest pain at the pacemaker area, which is throbbing and mild erythema over PM no drainage: 1) Presumed left sided pacemaker site infection ? cellulitis: Blood cultures negative so far. She was found to be in afib with RVR and tachy/kendra syndrome possible SSS. She underwent pacemaker placement on 09/29/2019. C/o pacemaker site pain since then. No collections on chest CT. 2) Left elbow fracture, displaced 3) Chronic SOB. Possible pneumonia during previous admission. There was bilateral ground glass opacities similar to prior CT from 04/2019? ILD. Procalcitonin was low. HIV test requested which was negative. Repeat CT chest pulmonary edema and tree-in-bud changes in RLL 4) Pen allergy: remote, she has taken ampicillin w/o problems Recs: f/u blood cultures per Cards no cellulitis seen on pacemaker pocket, however she c/o throbbing pain at site will stop cefazolin 2 gm IV q 8 hour and vancomycin with PK consult start keflex 500 mg po QID and doxycycline 100 mg po bid total 7 days ID clinic f/u in 2 weeks Will follow. Erica Abbasi MD Infectious Diseases [employer] Account Manager [facility] M [phone] Subjective Date of service: 10/09/19 Principal diagnosis: pacemaker infection Interval history: Feels about the same, still c/o throbbing pain at pacemaker pocket no fever Objective - Exam Narrative Exam: Constitutional: Alert, cooperative. No acute distress Head, Ears, Nose: Normocephalic, atraumatic. External ears, nose normal Eyes: Conjunctivae/corneas clear. No icterus. No ptosis. Neck: Supple, no meningeal signs Oral: dentition fair, no thrush Cardiovascular: S1, S2 normal. L pacemaker site with glue no erythema, mild tenderness and edema Respiratory: Good air entry, clear to auscultation bilaterally GI: Soft, non-tender; bowel sounds normal. No peritoneal signs. Musculoskeletal: L elbow edema and tenderness, leigha leg edema Skin: No rash or abscess Hem/Lymphatic: No palpable cervical or supraclavicular nodes. No lymphangitis Psych: Mood ok. Affect normal Neurological: Awake, alert, oriented. No gross abnormality - Constitutional Vitals: Vital Signs Temp Pulse Resp BP Pulse Ox 98.4 F 61 16 132/82 98 10/09/19 08:23 10/09/19 14:06 10/09/19 11:24 10/09/19 14:06 10/09/19 03:40 Temperature -Last 24 Hours Temperature 98.4 F Temperature 98.4 F Temperature 98.3 F - Labs CBC & Chem 7: 10/07/19 08:53 10/09/19 13:53 Labs: Abnormal lab results 10/08/19 10/09/19 Range/Units 22:59 13:53 Potassium 5.2 H D (3.6-5.0) mmol/L Carbon Dioxide 20 L 16 L (22-30) mmol/L Creatinine 1.3 H (0.7-1.2) mg/dL Glucose 140 H 152 H (65-100) mg/dL Calcium 8.1 L 8.2 L (8.4-10.2) mg/dL
[2019-10-09] MEDS: ONDANSETRON 4 MG/2 ML INJ IV PRN (18:23)
[2019-10-09] MEDS: cephALEXin 500 MG CAP PO SCH (21:52)
[2019-10-09] MEDS: DOXYCYCLINE 100 MG CAPSULE PO SCH (21:52)
[2019-10-10] MEDS: ONDANSETRON 4 MG/2 ML INJ IV PRN (00:30)
[2019-10-10] MEDS: cephALEXin 500 MG CAP PO SCH ×4 (00:53→21:53)
[2019-10-10] MEDS: MORPHINE 2 MG/1 ML INJ IV PRN ×5 (02:49→21:47)
[2019-10-10] MEDS: METOPROLOL TARTRATE 50 MG TAB PO SCH ×3 (07:00→21:49)
--- NOTE | 2019-10-10 09:55 | Progress Note ---
Assessment and Plan Left elbow fracture Coronary artery disease s/p PCI of RCA with BMS 04/2019 at [facility]; on Brilinta and aspirin Echo 09/23/2019 reports a LVEF 45-50% Paroxysmal Afib on low dose eliquis as an outpatient Hx of sick sinus syndrome s/p pacemaker implant 09/29/19 Chronic pain syndrome Continue medical therapy for coronary artery disease and paroxysmal afib. Subjective Date of service: 10/10/19 Principal diagnosis: pacemaker infection Interval history: Patient complains of left elbow pain. Objective Vital Signs Temp Pulse Pulse Resp BP Pulse Ox 10/10/19 07:00 77 150/94 10/10/19 03:34 98.1 F 61 18 172/79 97 10/09/19 23:01 97.9 F 66 18 166/69 95 10/09/19 22:00 61 60 18 97 10/09/19 21:56 67 157/77 10/09/19 19:27 98.4 F 60 20 151/77 98 10/09/19 16:42 98.1 F 18 143/70 10/09/19 14:06 61 132/82 10/09/19 11:24 16 10/09/19 10:00 61 60 18 97 - Physical Examination General: No Apparent Distress HEENT: Positive: PERRL Neck: Positive: trachea midline Cardiac: Positive: Other (paced) Lungs: Positive: Decreased Breath Sounds Neuro: Positive: Grossly Intact Abdomen: Positive: Soft Incision: Incision Site (right pacemaker site appears well-healed, no ecchymosis, no hematoma and no cellulitis. There is no evidence of pacemaker pocket fluid or infection.) - Labs and Meds Comprehensive Metabolic Panel 10/09/19 Range/Units 13:53 Sodium 139 (137-145) mmol/L Potassium 5.2 H D (3.6-5.0) mmol/L Chloride 105.5 (98-107) mmol/L Carbon Dioxide 16 L (22-30) mmol/L BUN 12 (7-17) mg/dL Creatinine 1.0 (0.7-1.2) mg/dL Glucose 152 H (65-100) mg/dL Calcium 8.2 L (8.4-10.2) mg/dL
[2019-10-10 10:26] LABS: Hematocrit 30.9 % (30.3-42.9); Hemoglobin 9.9 gm/dl (10.1-14.3); Mean Corpuscular HGB Conc 32 % (30-34); Mean Corpuscular Volume 98 fl (79-97); Platelet Count 278 K/mm3 (140-440); Red Blood Count 3.14 M/mm3 (3.65-5.03); Red Cell Distribution Width 14.2 % (13.2-15.2)
[2019-10-10 10:50] LABS: BUN/Creatinine Ratio 10; Blood Urea Nitrogen 9 mg/dL (7-17); Calcium 8.6 mg/dL (8.4-10.2); Hemolysis Index 4
[2019-10-10] MEDS: PANTOPRAZOLE 40 MG TAB PO SCH (10:52)
[2019-10-10] MEDS: AMIODARONE 200 MG TAB PO SCH (10:52)
[2019-10-10] MEDS: APIXABAN 2.5 MG TAB PO SCH ×2 (10:52→21:50)
[2019-10-10] MEDS: ASPIRIN EC 81 MG TAB PO SCH (10:52)
[2019-10-10] MEDS: TICAGRELOR 90 MG TAB PO SCH ×2 (10:52→21:50)
[2019-10-10] MEDS: DOXYCYCLINE 100 MG CAPSULE PO SCH ×2 (10:52→21:50)
--- NOTE | 2019-10-10 13:35 | Consultation ---
History of Present Illness - [facility] Consult date: 10/10/19 Consult reason: joint pain, fracture History of present illness: 64 y/o female with c/o left elbow pain and weakness, history of fall recently seen on last admission and told to try conservative management however still c/o pain and weakness, plain xrays show avulsed tip of olecranon process... Past History Past Medical History: hypertension, other (History of anxiety) Past Surgical History: appendectomy, hysterectomy, Other (Neck surgery) Social history: smoking (Smokes half a pack of cigarette daily), alcohol abuse (Drinks alcohol occasionally) Family history: cancer (Father of lung cancer, mother had renal failure, brother had lung cancer.) Medications and Allergies Allergies Allergy/AdvReac Type Severity Reaction Status Date / Time codeine Allergy Vomiting Verified 05/20/19 11:23 Penicillins Allergy Hives Verified 05/20/19 11:23 pentazocine [From Talwin] Allergy Nausea Verified 05/20/19 11:23 Home Medications Medication Instructions Recorded Confirmed Last Taken Type ALBUTEROL Inhaler (OR & NICU) 2 puff IH QID PRN #1 unit 10/01/19 10/08/19 Unknown Rx [ProAir HFA Inhaler] Acetaminophen [Acetaminophen TAB] 2 tab PO Q6H PRN #15 tablet 10/01/19 10/08/19 Unknown Rx Amiodarone [Cordarone 200 MG TAB] 200 mg PO QDAY #30 tablet 10/01/19 10/08/19 Unknown Rx Apixaban [Eliquis] 2.5 mg PO Q12HR #60 tablet 10/01/19 10/08/19 Unknown Rx Aspirin EC [Halfprin EC] 81 mg PO QDAY #30 tablet 10/01/19 10/08/19 Unknown Rx Metoprolol [Lopressor TAB] 50 mg PO Q8HR #90 tablet 10/01/19 10/08/19 Unknown Rx Pantoprazole [Protonix TAB] 40 mg PO QDAY #30 tablet 10/01/19 10/08/19 Unknown Rx Ticagrelor [Brilinta] 90 mg PO BID #60 tablet 10/01/19 10/08/19 Unknown Rx oxyCODONE /ACETAMINOPHEN [Percocet 1 tab PO Q6H PRN #25 tablet 10/01/19 10/08/19 Unknown Rx 5/325 mg] Active Meds: Active Medications Acetaminophen (Tylenol) 650 mg PO Q6H PRN PRN Reason: Pain MILD(1-3)/Fever >100.5/MONTESINOS Last Admin: 10/09/19 03:59 Dose: 650 mg Documented by: Acetaminophen/Hydrocodone Bitart ([place] 5/325) 1 each PO Q6H PRN PRN Reason: Pain, Moderate (4-6) Last Admin: 10/09/19 20:02 Dose: 1 each Documented by: Albuterol (Proventil) 2.5 mg IH Q4HRT PRN PRN Reason: Shortness Of Breath Amiodarone HCl (Cordarone) 200 mg PO QDAY [facility] Last Admin: 10/10/19 10:52 Dose: 200 mg Documented by: Apixaban (Eliquis) 2.5 mg PO Q12HR [facility]; Protocol Last Admin: 10/10/19 10:52 Dose: 2.5 mg Documented by: Aspirin (Halfprin Ec) 81 mg PO QDAY [facility] Last Admin: 10/10/19 10:52 Dose: 81 mg Documented by: Cephalexin (Keflex) 500 mg PO Q6HR [facility] Stop: 10/15/19 23:59 Last Admin: 10/10/19 07:00 Dose: 500 mg Documented by: Doxycycline Hyclate (Vibramycin) 100 mg PO BID [facility] Stop: 10/15/19 23:59 Last Admin: 10/10/19 10:52 Dose: 100 mg Documented by: Magnesium Hydroxide (Milk Of Magnesia) 30 ml PO Q4H PRN PRN Reason: Constipation Last Admin: 10/06/19 23:42 Dose: 30 ml Documented by: Metoprolol Tartrate (Metoprolol) 50 mg PO Q8HR [facility] Last Admin: 10/10/19 07:00 Dose: 50 mg Documented by: Morphine Sulfate (Morphine) 2 mg IV Q4H PRN PRN Reason: Pain, Moderate (4-6) Last Admin: 10/10/19 11:42 Dose: 2 mg Documented by: Ondansetron HCl (Zofran) 4 mg IV Q8H PRN PRN Reason: N/V unrelieved by Reglan Last Admin: 10/10/19 00:30 Dose: 4 mg Documented by: Pantoprazole Sodium (Protonix) 40 mg PO QDAY [facility] Last Admin: 10/10/19 10:52 Dose: 40 mg Documented by: Sodium Chloride (Sodium Chloride Flush Syringe 10 Ml) 10 ml IV BID [facility] Last Admin: 10/10/19 10:53 Dose: 10 ml Documented by: Sodium Chloride (Sodium Chloride Flush Syringe 10 Ml) 10 ml IV PRN PRN PRN Reason: LINE FLUSH Last Admin: 10/08/19 05:01 Dose: 10 ml Documented by: Ticagrelor (Brilinta) 90 mg PO BID [facility] Last Admin: 10/10/19 10:52 Dose: 90 mg Documented by: Physical Examination - Physical exam Narrative exam: left elbow - tender at olecranon, 15-20 extension lag noted, mild to moderate weakness on extension, good passive ROM Eyes: PERRL ENT: Positive: clear oral mucosa Respiratory effort: normal Respiratory: bilateral: CTA Rhythm: regular Heart Sounds: Positive: S1 & S2 General gastrointestinal: Positive: soft, non-tender, non-distended, normal bowel sounds Integumentary: clear, warm, dry Neurologic: Positive: CNII-XII intact, moves all extremities, gait normal. Negative: focal deficits - Cervical Spine Neck pain: none Tenderness with palpation: none Full ROM: yes ROM: flexion: normal ROM: extension: normal ROM: rotation right: normal ROM: rotation left: normal ROM: lateral flexion right: normal ROM: lateral flexion left: normal - Lumbar Spine Back pain: none Tenderness with palpation: none Appearance: normal Full ROM: yes ROM: flexion: normal ROM: extension: normal ROM: rotation right: normal ROM: rotation left: normal ROM: lateral flexion right: normal ROM: lateral flexion left: normal Assessment and Plan left elbow pain will get CT scan to evaluate extent tendon displacement, may require operative fixation
--- NOTE | 2019-10-10 13:52 | Progress Note ---
Assessment and Plan Assessment and plan: 64-year-old female with known history of hypertension and recent placement of pacemaker presenting to the emergency room today complaining of left upper extremity pain and left-sided chest wall pain. Patient indicates that pain is more on the pacemaker site. She denies any drainage from the surgical site. She denies any fever or chills, and denies any nausea vomiting. * On admission initially patient was thought to may have cellulitis around the pacemaker and started on empiric antibiotic coverage for pacemaker site infection. * On clinical review and review of all documentation patient has no fever no clinical evidence at this time of my exam of pacemaker site infection. Will defer to ID for further management. * Orthopedic surgeon consulted for management of left elbow fracture which was previously documented prior to pacemaker placement. * Review of records from orthopedic surgeon during last admission shows that conservative management with passive range of motion exercises recommended this appears not to have happened. Will obtain PT and OT evaluation. * Patient does have a history of chronic pain syndrome we will continue management. X-rays show patient had an old fracture of olecranon process Left elbow pain secondary to fracture: Cellulitis left upper chest wall at pacemaker site Chronic pain syndrome: Review of Previous admissions shows a pattern of Pain admits. Chronic shortness of breath with evidence of pneumonia from prior admissions. Hyperkalemia Depression Plan Reconsulted Orthopedic Surgeon Recommend Psych Evaluation outpatient Pain management History Interval history: Pain left elbow pain site of pacemaker Hospitalist Physical - Physical exam Narrative exam: Gen: Not in acute distress, lying in bed, Obese HEENT: Normocephalic, atraumatic Neck: supple, no JVD Heart: S1 and S2 reg, no murmurs, rubs or gallop Lungs: Clear to auscultation bilaterally, Abd: soft, non tender, non distended, normal BS, Ext: Left elbow swollen, tender, no clubbing, no cyanosis Neuro: Awake, alert, oriented X 3, no focal neurological signs - Constitutional Vitals: Temp Pulse Resp BP Pulse Ox 97.9 F 62 20 132/68 96 10/10/19 12:03 10/10/19 12:03 10/10/19 12:03 10/10/19 12:03 10/10/19 12:03 General appearance: Present: no acute distress, well-nourished, obese Results - Labs CBC & Chem 7: 10/11/19 14:34 10/11/19 14:34 Labs: Laboratory Last Values WBC 11.2 K/mm3 (4.5-11.0) H 10/10/19 10:04 RBC 3.14 M/mm3 (3.65-5.03) L 10/10/19 10:04 Hgb 9.9 gm/dl (10.1-14.3) L 10/10/19 10:04 Hct 30.9 % (30.3-42.9) 10/10/19 10:04 MCV 98 fl (79-97) H 10/10/19 10:04 MCH 32 pg (28-32) 10/10/19 10:04 MCHC 32 % (30-34) 10/10/19 10:04 RDW 14.2 % (13.2-15.2) 10/10/19 10:04 Plt Count 278 K/mm3 (140-440) 10/10/19 10:04 Lymph % (Auto) 18.4 % (13.4-35.0) 10/07/19 08:53 [place] % (Auto) 12.9 % (0.0-7.3) H 10/07/19 08:53 Eos % (Auto) 3.1 % (0.0-4.3) 10/07/19 08:53 Baso % (Auto) 0.4 % (0.0-1.8) 10/07/19 08:53 Lymph # 1.6 K/mm3 (1.2-5.4) 10/07/19 08:53 [place] # 1.1 K/mm3 (0.0-0.8) H 10/07/19 08:53 Eos # 0.3 K/mm3 (0.0-0.4) 10/07/19 08:53 Baso # 0.0 K/mm3 (0.0-0.1) 10/07/19 08:53 Seg Neutrophils % 65.2 % (40.0-70.0) 10/07/19 08:53 Seg Neutrophils # 5.7 K/mm3 (1.8-7.7) 10/07/19 08:53 PT 14.4 Sec. (12.2-14.9) 10/07/19 08:53 INR 1.13 (0.87-1.13) 10/07/19 08:53 APTT 31.8 Sec. (24.2-36.6) 10/07/19 08:53 Sodium 141 mmol/L (137-145) 10/10/19 10:04 Potassium 3.6 mmol/L (3.6-5.0) D 10/10/19 10:04 Chloride 104.6 mmol/L (98-107) 10/10/19 10:04 Carbon Dioxide 21 mmol/L (22-30) L 10/10/19 10:04 Anion Gap 19 mmol/L 10/10/19 10:04 BUN 9 mg/dL (7-17) 10/10/19 10:04 Creatinine 0.9 mg/dL (0.7-1.2) 10/10/19 10:04 Estimated GFR > 60 ml/min 10/10/19 10:04 BUN/Creatinine Ratio 10 % 10/10/19 10:04 Glucose 155 mg/dL (65-100) H 10/10/19 10:04 POC Glucose 125 (70-105) H 10/08/19 08:08 Lactic Acid 1.40 mmol/L (0.7-2.0) 10/06/19 17:15 Calcium 8.6 mg/dL (8.4-10.2) 10/10/19 10:04 Total Bilirubin 0.90 mg/dL (0.1-1.2) 10/06/19 17:15 AST 26 units/L (5-40) 10/06/19 17:15 ALT 20 units/L (7-56) 10/06/19 17:15 Alkaline Phosphatase 113 units/L (35-129) 10/06/19 17:15 Total Creatine Kinase 49 units/L (30-135) 10/08/19 22:59 Total Protein 6.8 g/dL (6.3-8.2) 10/06/19 17:15 Albumin 3.4 g/dL (3.9-5) L 10/06/19 17:15 Albumin/Globulin Ratio 1.0 % 10/06/19 17:15 Active Medications - Current Medications Current Medications: Generic Name Dose Route Start Last Admin Trade Name Freq PRN Reason Stop Dose Admin Acetaminophen 650 mg 10/08/19 13:09 10/09/19 03:59 Tylenol PO 650 mg Q6H PRN Administration Pain MILD(1-3)/Fever >100.5/MONTESINOS Acetaminophen/Hydrocodone Bitart 1 each 10/08/19 09:29 10/09/19 20:02 [place] 5/325 PO 1 each Q6H PRN Administration Pain, Moderate (4-6) Albuterol 2.5 mg 10/08/19 14:01 Proventil IH Q4HRT PRN Shortness Of Breath Amiodarone HCl 200 mg 10/08/19 14:00 10/10/19 10:52 Cordarone PO 200 mg QDAY OZZY Administration Apixaban 2.5 mg 10/08/19 14:00 10/10/19 10:52 Eliquis PO 2.5 mg Q12HR OZZY Administration Protocol Aspirin 81 mg 10/08/19 14:00 10/10/19 10:52 Halfprin Ec PO 81 mg QDAY OZZY Administration Cephalexin 500 mg 10/09/19 19:00 10/10/19 07:00 Keflex PO 10/15/19 23:59 500 mg Q6HR OZZY Administration Doxycycline Hyclate 100 mg 10/09/19 22:00 10/10/19 10:52 Vibramycin PO 10/15/19 23:59 100 mg BID OZZY Administration Magnesium Hydroxide 30 ml 10/06/19 22:37 10/06/19 23:42 Milk Of Magnesia PO 30 ml Q4H PRN Administration Constipation Metoprolol Tartrate 50 mg 10/08/19 14:00 10/10/19 07:00 Metoprolol PO 50 mg Q8HR OZZY Administration Morphine Sulfate 2 mg 10/09/19 11:33 10/10/19 11:42 Morphine IV 2 mg Q4H PRN Administration Pain, Moderate (4-6) Ondansetron HCl 4 mg 10/07/19 13:33 10/10/19 00:30 Zofran IV 4 mg Q8H PRN Administration N/V unrelieved by Kristen Pantoprazole Sodium 40 mg 10/08/19 14:00 10/10/19 10:52 Protonix PO 40 mg QDAY OZZY Administration Sodium Chloride 10 ml 10/07/19 10:00 10/10/19 10:53 Sodium Chloride Flush Syringe 10 Ml IV 10 ml BID OZZY Administration Sodium Chloride 10 ml 10/06/19 22:37 10/08/19 05:01 Sodium Chloride Flush Syringe 10 Ml IV 10 ml PRN PRN Administration LINE FLUSH Ticagrelor 90 mg 10/08/19 14:00 10/10/19 10:52 Brilinta PO 90 mg BID OZZY Administration
--- NOTE | 2019-10-10 14:06 | Progress Note ---
Assessment and Plan Cultures: Blood cultures 10/06 no growth today. Assessment: 64 yo female with history of morbid obesity, tobacco abuse, well known to our service due to recent admission 09/25/2019 - 10/01/2019 for possible pneumonia, readmitted on 10/06/2019 due to 2-day history of worsening left sided chest pain at the pacemaker area, which is throbbing and mild erythema over PM no drainage: 1) Presumed left sided pacemaker site infection ? mild cellulitis: Blood cultures negative so far. She was found to be in afib with RVR and tachy/kendra syndrome possible SSS. She underwent pacemaker placement on 09/29/2019. C/o pacemaker site pain since then. No collections on chest CT. 2) Left elbow fracture, displaced 3) Chronic SOB. Possible pneumonia during previous admission. There was bilateral ground glass opacities similar to prior CT from 04/2019? ILD. Procalcitonin was low. HIV test requested which was negative. Repeat CT chest pulmonary edema and tree-in-bud changes in RLL 4) Pen allergy: remote, she has taken ampicillin w/o problems Recs: f/u blood cultures per Cards no cellulitis seen on pacemaker pocket, however she c/o throbbing pain at site continue keflex 500 mg po QID and doxycycline 100 mg po bid total 7 days ID clinic f/u 11/02/2019 ok to d/c from ID stand point Will follow. Erica Abbasi MD Infectious Diseases Clinical Trials Manager [facility] M [phone] O [phone] Subjective Date of service: 10/10/19 Principal diagnosis: pacemaker infection Interval history: Feels about the same, still some c/o throbbing pain at pacemaker pocket no fever Objective - Exam Narrative Exam: Constitutional: Alert, cooperative. No acute distress Head, Ears, Nose: Normocephalic, atraumatic. External ears, nose normal Eyes: Conjunctivae/corneas clear. No icterus. No ptosis. Neck: Supple, no meningeal signs Oral: dentition fair, no thrush Cardiovascular: S1, S2 normal. L pacemaker site with glue no erythema, mild tenderness and edema Respiratory: Good air entry, clear to auscultation bilaterally GI: Soft, non-tender; bowel sounds normal. No peritoneal signs. Musculoskeletal: L elbow edema and tenderness, leigha leg edema Skin: No rash or abscess Hem/Lymphatic: No palpable cervical or supraclavicular nodes. No lymphangitis Psych: Mood ok. Affect normal Neurological: Awake, alert, oriented. No gross abnormality - Constitutional Vitals: Vital Signs Temp Pulse Resp BP Pulse Ox 97.9 F 62 20 132/68 96 10/10/19 12:03 10/10/19 12:03 10/10/19 12:03 10/10/19 12:03 10/10/19 12:03 Temperature -Last 24 Hours Temperature 97.9 F Temperature 98.0 F Temperature 98.1 F Temperature 97.9 F Temperature 98.4 F Temperature 98.1 F - Labs CBC & Chem 7: 10/10/19 10:04 10/10/19 10:04 Labs: Abnormal lab results 10/09/19 10/10/19 10/10/19 Range/Units 13:53 10:04 10:04 WBC 11.2 H (4.5-11.0) K/mm3 RBC 3.14 L (3.65-5.03) M/mm3 Hgb 9.9 L (10.1-14.3) gm/dl MCV 98 H (79-97) fl Potassium 5.2 H D (3.6-5.0) mmol/L Carbon Dioxide 16 L 21 L (22-30) mmol/L Glucose 152 H 155 H (65-100) mg/dL Calcium 8.2 L (8.4-10.2) mg/dL
[2019-10-11] MEDS: HYDROcodone/ACETAMINOPHEN 5-325 MG TAB PO PRN (00:21)
[2019-10-11] MEDS: cephALEXin 500 MG CAP PO SCH ×4 (01:10→17:09)
[2019-10-11] MEDS: MORPHINE 2 MG/1 ML INJ IV PRN ×5 (01:51→20:21)
[2019-10-11] MEDS: METOPROLOL TARTRATE 50 MG TAB PO SCH ×3 (05:44→22:03)
[2019-10-11] MEDS: AMIODARONE 200 MG TAB PO SCH (11:24)
[2019-10-11] MEDS: ASPIRIN EC 81 MG TAB PO SCH (11:24)
[2019-10-11] MEDS: DOXYCYCLINE 100 MG CAPSULE PO SCH ×2 (11:24→22:03)
[2019-10-11] MEDS: PANTOPRAZOLE 40 MG TAB PO SCH (11:25)
[2019-10-11] MEDS: APIXABAN 2.5 MG TAB PO SCH ×2 (11:25→22:04)
[2019-10-11] MEDS: TICAGRELOR 90 MG TAB PO SCH ×2 (11:25→22:04)
--- NOTE | 2019-10-11 11:38 | Progress Note ---
<TABBY GREEN - Last Filed: 10/11/19 11:37> Assessment and Plan Left elbow fracture Coronary artery disease s/p PCI of RCA with BMS 04/2019 at [facility]; on Brilinta and aspirin Echo 09/23/2019 reports a LVEF 45-50% Paroxysmal Afib on low dose eliquis as an outpatient Hx of sick sinus syndrome s/p pacemaker implant 09/29/19 Chronic pain syndrome Continue medical therapy for coronary artery disease and paroxysmal afib. No active cardiac issues, we will therefore follow intermittently. Subjective Date of service: 10/11/19 Principal diagnosis: pacemaker infection Interval history: Patient complains of left elbow pain. Objective Vital Signs Temp Pulse Resp Resp BP Pulse Ox 10/11/19 08:46 98.6 F 60 20 154/72 98 10/11/19 05:44 61 133/72 10/11/19 03:58 97.5 F L 61 20 133/72 97 10/11/19 01:51 20 10/11/19 00:21 20 10/10/19 23:11 98.3 F 60 20 166/67 97 10/10/19 22:00 20 10/10/19 21:47 20 10/10/19 21:23 97.8 F 61 19 154/107 96 10/10/19 17:52 22 10/10/19 17:29 67 10/10/19 16:44 97.9 F 61 18 146/77 100 10/10/19 12:03 97.9 F 62 20 132/68 96 - Physical Examination General: No Apparent Distress HEENT: Positive: PERRL Neck: Positive: trachea midline Cardiac: Positive: Other (paced) Lungs: Positive: Decreased Breath Sounds Neuro: Positive: Grossly Intact Abdomen: Positive: Soft Incision: Incision Site (right pacemaker site appears well-healed, no ecchymosis, no hematoma and no cellulitis. There is no evidence of pacemaker pocket fluid or infection.) - Labs and Meds Comprehensive Metabolic Panel 10/11/19 Range/Units 10:43 Sodium 137 (137-145) mmol/L Chloride 104.0 (98-107) mmol/L Carbon Dioxide 20 L (22-30) mmol/L BUN 12 (7-17) mg/dL Creatinine 0.8 (0.7-1.2) mg/dL Glucose 154 H (65-100) mg/dL Calcium 8.9 (8.4-10.2) mg/dL <ASHLYN MARTINEZ - Last Filed: 10/14/19 10:40> Assessment and Plan Has seen and evaluated the patient and agree with the assessment and plan. Patient is a history of coronary artery disease status post PCI of the right coronary artery. Patient's most recent echocardiogram shows an ejection fraction of 45-50%. Patient also has a history of paroxysmal atrial fibrillation controlled treated with a rate control strategy and anticoagulated with Eliquis. At this time recommend continue goal-directed medical therapy. Objective Vital Signs Temp Pulse Resp BP Pulse Ox 10/13/19 13:24 98.3 F 69 18 179/84 94 10/13/19 11:55 16
[2019-10-11 11:48] LABS: BUN/Creatinine Ratio TNR; Blood Urea Nitrogen TNR mg/dL (7-17)
[2019-10-11 11:49] LABS: Calcium TNR mg/dL (8.4-10.2); Hemolysis Index TNR
[2019-10-11 15:19] LABS: Hematocrit 31.6 % (30.3-42.9); Hemoglobin 10.3 gm/dl (10.1-14.3); Mean Corpuscular HGB Conc 32 % (30-34); Mean Corpuscular Volume 99 fl (79-97); Platelet Count 275 K/mm3 (140-440); Red Cell Distribution Width 14.4 % (13.2-15.2)
[2019-10-11 15:25] LABS: BUN/Creatinine Ratio 13; Blood Urea Nitrogen 12 mg/dL (7-17); Calcium 8.5 mg/dL (8.4-10.2); Hemolysis Index 30
--- NOTE | 2019-10-11 16:17 | Progress Note ---
Assessment and Plan Cultures: Blood cultures 10/06 no growth today. Assessment: 64 yo female with history of morbid obesity, tobacco abuse, well known to our service due to recent admission 09/25/2019 - 10/01/2019 for possible pneumonia, readmitted on 10/06/2019 due to 2-day history of worsening left sided chest pain at the pacemaker area, which is throbbing and mild erythema over PM no drainage: 1) Presumed left sided pacemaker site infection ? mild cellulitis: Blood cultures negative so far. She was found to be in afib with RVR and tachy/kendra syndrome possible SSS. She underwent pacemaker placement on 09/29/2019. C/o pacemaker site pain since then. No collections on chest CT. 2) Left elbow fracture, displaced 3) Chronic SOB. Possible pneumonia during previous admission. There was bilateral ground glass opacities similar to prior CT from 04/2019? ILD. Procalcitonin was low. HIV test requested which was negative. Repeat CT chest pulmonary edema and tree-in-bud changes in RLL 4) Pen allergy: remote, she has taken ampicillin w/o problems Recs: f/u blood cultures per Cards no cellulitis seen on pacemaker pocket continue keflex 500 mg po QID and doxycycline 100 mg po bid total 7 days ID clinic f/u 11/02/2019 Will follow. Erica Abbasi MD Infectious Diseases Tool[employer] [facility] M [phone] O [phone] Subjective Date of service: 10/11/19 Principal diagnosis: pacemaker infection Interval history: Continues c/o throbbing pain at pacemaker pocket, no fever Objective - Exam Narrative Exam: Constitutional: Alert, cooperative. No acute distress Head, Ears, Nose: Normocephalic, atraumatic. External ears, nose normal Eyes: Conjunctivae/corneas clear. No icterus. No ptosis. Neck: Supple, no meningeal signs Oral: dentition fair, no thrush Cardiovascular: S1, S2 normal. L pacemaker site with glue no erythema, mild tenderness and no edema Respiratory: Good air entry, clear to auscultation bilaterally GI: Soft, non-tender; bowel sounds normal. No peritoneal signs. Musculoskeletal: L elbow edema and tenderness, leigha leg edema Skin: No rash or abscess Hem/Lymphatic: No palpable cervical or supraclavicular nodes. No lymphangitis Psych: Mood ok. Affect normal Neurological: Awake, alert, oriented. No gross abnormality - Constitutional Vitals: Vital Signs Temp Pulse Resp BP Pulse Ox 98.0 F 68 18 136/61 98 10/11/19 12:12 10/11/19 14:20 10/11/19 12:12 10/11/19 12:12 10/11/19 12:12 Temperature -Last 24 Hours Temperature 98.0 F Temperature 98.6 F Temperature 97.5 F Temperature 98.3 F Temperature 97.8 F Temperature 97.9 F - Labs CBC & Chem 7: 10/11/19 14:34 10/11/19 14:34 Labs: Abnormal lab results 10/11/19 10/11/19 Range/Units 14:34 14:34 RBC 3.20 L (3.65-5.03) M/mm3 MCV 99 H (79-97) fl Glucose 153 H (65-100) mg/dL
[2019-10-11] MEDS ORDERED: MORPHINE 2 MG/1 ML INJ IV STA (16:20)
--- NOTE | 2019-10-11 17:33 | Cat Scan Report ---
CT LEFT ELBOW WITHOUT CONTRAST INDICATION / CLINICAL INFORMATION: MAIN: left elbow pain AND SWELLING . TECHNIQUE: Axial CT images were obtained of the left elbow with coronal and sagittal 2-D reconstruction images p roduced. All CT scans at this location are performed using CT dose reduction for ALARA by means of au tomated exposure control. COMPARISON: Radiographs dated 10/07/19 FINDINGS: There is a curvilinear avulsion fracture fragment from the tip of the olecranon process related to tr iceps avulsion injury. The fragment is retracted proximally by about 2.5 cm. There is no other acute fracture or subluxation. There is moderate posterior soft tissue swelling. There is no significant arthritis. No significant joint effusion or intra-articular body. IMPRESSION: 1. Tear of the distal triceps tendon and with mildly displaced avulsion fracture fragment from the ti p of the olecranon process. Signer Name: Vi Hayward MD Signed: 10/11/2019 5:28 PM Workstation Name: [id number]
[2019-10-12] MEDS: MORPHINE 2 MG/1 ML INJ IV PRN ×3 (00:21→11:34)
[2019-10-12] MEDS: cephALEXin 500 MG CAP PO SCH ×4 (00:21→18:10)
[2019-10-12] MEDS: METOPROLOL TARTRATE 50 MG TAB PO SCH ×3 (05:14→22:19)
--- NOTE | 2019-10-12 07:35 | Progress Note ---
Assessment and Plan Assessment and plan: 64-year-old female with known history of hypertension and recent placement of pacemaker presenting to the emergency room today complaining of left upper extremity pain and left-sided chest wall pain. Patient indicates that pain is more on the pacemaker site. She denies any drainage from the surgical site. She denies any fever or chills, and denies any nausea vomiting. * On admission initially patient was thought to may have cellulitis around the pacemaker and started on empiric antibiotic coverage for pacemaker site infection. * On clinical review and review of all documentation patient has no fever no clinical evidence at this time of my exam of pacemaker site infection. Will defer to ID for further management. * Orthopedic surgeon consulted for management of left elbow fracture which was previously documented prior to pacemaker placement. * Review of records from orthopedic surgeon during last admission shows that conservative management with passive range of motion exercises recommended this appears not to have happened. Will obtain PT and OT evaluation. * Patient does have a history of chronic pain syndrome we will continue management. Left elbow pain secondary to fracture: Cellulitis left upper chest wall at pacemaker site Chronic pain syndrome: Review of Previous admissions shows a pattern of Pain admits. Chronic shortness of breath with evidence of pneumonia from prior admissions. Hyperkalemia Depression Plan Reconsulted Orthopedic Surgeon. Patient seen by Dr. Schulte. He ordered MRI, not done because of pacemaker,then ordered CT LUE. This revealed tear of the distal triceps tendon and mildly displaced avulsion fracture fracture fragment from the tip of the olecranon process. For surgery tomorrow. Recommend Psych Evaluation outpatient Pain management History Interval history: Pain left elbow pain site of pacemaker Hospitalist Physical - Physical exam Narrative exam: Gen: Not in acute distress, lying in bed, Obese HEENT: Normocephalic, atraumatic Neck: supple, no JVD Heart: S1 and S2 reg, no murmurs, rubs or gallop Lungs: Clear to auscultation bilaterally, Abd: soft, non tender, non distended, normal BS, Ext: Left elbow swollen, tender, no clubbing, no cyanosis Neuro: Awake, alert, oriented X 3, no focal neurological signs - Constitutional Vitals: Temp Pulse Resp BP Pulse Ox 98.0 F 60 18 166/76 96 10/12/19 04:47 10/12/19 05:14 10/12/19 04:47 10/12/19 05:14 10/12/19 04:47 General appearance: Present: no acute distress, well-nourished, obese Results - Labs CBC & Chem 7: 10/11/19 14:34 10/11/19 14:34 Labs: Laboratory Last Values WBC 9.1 K/mm3 (4.5-11.0) 10/11/19 14:34 RBC 3.20 M/mm3 (3.65-5.03) L 10/11/19 14:34 Hgb 10.3 gm/dl (10.1-14.3) 10/11/19 14:34 Hct 31.6 % (30.3-42.9) 10/11/19 14:34 MCV 99 fl (79-97) H 10/11/19 14:34 MCH 32 pg (28-32) 10/11/19 14:34 MCHC 32 % (30-34) 10/11/19 14:34 RDW 14.4 % (13.2-15.2) 10/11/19 14:34 Plt Count 275 K/mm3 (140-440) 10/11/19 14:34 Lymph % (Auto) 18.4 % (13.4-35.0) 10/07/19 08:53 Divide % (Auto) 12.9 % (0.0-7.3) H 10/07/19 08:53 Eos % (Auto) 3.1 % (0.0-4.3) 10/07/19 08:53 Baso % (Auto) 0.4 % (0.0-1.8) 10/07/19 08:53 Lymph # 1.6 K/mm3 (1.2-5.4) 10/07/19 08:53 Divide # 1.1 K/mm3 (0.0-0.8) H 10/07/19 08:53 Eos # 0.3 K/mm3 (0.0-0.4) 10/07/19 08:53 Baso # 0.0 K/mm3 (0.0-0.1) 10/07/19 08:53 Seg Neutrophils % 65.2 % (40.0-70.0) 10/07/19 08:53 Seg Neutrophils # 5.7 K/mm3 (1.8-7.7) 10/07/19 08:53 PT 14.4 Sec. (12.2-14.9) 10/07/19 08:53 INR 1.13 (0.87-1.13) 10/07/19 08:53 APTT 31.8 Sec. (24.2-36.6) 10/07/19 08:53 Sodium 139 mmol/L (137-145) 10/11/19 14:34 Potassium 4.1 mmol/L (3.6-5.0) 10/11/19 14:34 Chloride 103.0 mmol/L (98-107) 10/11/19 14:34 Carbon Dioxide 22 mmol/L (22-30) 10/11/19 14:34 Anion Gap 18 mmol/L 10/11/19 14:34 BUN 12 mg/dL (7-17) 10/11/19 14:34 Creatinine 0.9 mg/dL (0.7-1.2) 10/11/19 14:34 Estimated GFR > 60 ml/min 10/11/19 14:34 BUN/Creatinine Ratio 13 % 10/11/19 14:34 Glucose 153 mg/dL (65-100) H 10/11/19 14:34 POC Glucose 125 (70-105) H 10/08/19 08:08 Lactic Acid 1.40 mmol/L (0.7-2.0) 10/06/19 17:15 Calcium 8.5 mg/dL (8.4-10.2) 10/11/19 14:34 Total Bilirubin 0.90 mg/dL (0.1-1.2) 10/06/19 17:15 AST 26 units/L (5-40) 10/06/19 17:15 ALT 20 units/L (7-56) 10/06/19 17:15 Alkaline Phosphatase 113 units/L (35-129) 10/06/19 17:15 Total Creatine Kinase 49 units/L (30-135) 10/08/19 22:59 Total Protein 6.8 g/dL (6.3-8.2) 10/06/19 17:15 Albumin 3.4 g/dL (3.9-5) L 10/06/19 17:15 Albumin/Globulin Ratio 1.0 % 10/06/19 17:15 Active Medications - Current Medications Current Medications: Generic Name Dose Route Start Last Admin Trade Name Freq PRN Reason Stop Dose Admin Acetaminophen 650 mg 10/08/19 13:09 10/09/19 03:59 Tylenol PO 650 mg Q6H PRN Administration Pain MILD(1-3)/Fever >100.5/MONTESINOS Acetaminophen/Hydrocodone Bitart 1 each 10/08/19 09:29 10/11/19 00:21 Foster 5/325 PO 1 each Q6H PRN Administration Pain, Moderate (4-6) Albuterol 2.5 mg 10/08/19 14:01 Proventil IH Q4HRT PRN Shortness Of Breath Amiodarone HCl 200 mg 10/08/19 14:00 10/11/19 11:24 Cordarone PO 200 mg QDAY OZZY Administration Apixaban 2.5 mg 10/08/19 14:00 10/11/19 22:04 Eliquis PO 2.5 mg Q12HR OZZY Administration Protocol Aspirin 81 mg 10/08/19 14:00 10/11/19 11:24 Halfprin Ec PO 81 mg QDAY OZZY Administration Cephalexin 500 mg 10/09/19 19:00 10/12/19 05:14 Keflex PO 10/15/19 23:59 500 mg Q6HR OZZY Administration Doxycycline Hyclate 100 mg 10/09/19 22:00 10/11/19 22:03 Vibramycin PO 10/15/19 23:59 100 mg BID OZZY Administration Magnesium Hydroxide 30 ml 10/06/19 22:37 10/06/19 23:42 Milk Of Magnesia PO 30 ml Q4H PRN Administration Constipation Metoprolol Tartrate 50 mg 10/08/19 14:00 10/12/19 05:14 Metoprolol PO 50 mg Q8HR OZZY Administration Morphine Sulfate 2 mg 10/09/19 11:33 10/12/19 04:23 Morphine IV 2 mg Q4H PRN Administration Pain, Moderate (4-6) Ondansetron HCl 4 mg 10/07/19 13:33 10/10/19 00:30 Zofran IV 4 mg Q8H PRN Administration N/V unrelieved by Kristen Pantoprazole Sodium 40 mg 10/08/19 14:00 10/11/19 11:25 Protonix PO 40 mg QDAY OZZY Administration Sodium Chloride 10 ml 10/07/19 10:00 10/11/19 22:04 Sodium Chloride Flush Syringe 10 Ml IV 10 ml BID OZZY Administration Sodium Chloride 10 ml 10/06/19 22:37 10/08/19 05:01 Sodium Chloride Flush Syringe 10 Ml IV 10 ml PRN PRN Administration LINE FLUSH Ticagrelor 90 mg 10/08/19 14:00 10/11/19 22:04 Brilinta PO 90 mg BID OZZY Administration
--- NOTE | 2019-10-12 10:17 | Progress Note ---
Assessment and Plan Left elbow fracture Coronary artery disease s/p PCI of RCA with BMS 04/2019 at [facility]; on Brilinta and aspirin Echo 09/23/2019 reports a LVEF 45-50% Paroxysmal Afib on low dose eliquis as an outpatient Hx of sick sinus syndrome s/p pacemaker implant 09/29/19 Chronic pain syndrome Continue medical therapy for coronary artery disease and paroxysmal afib. We will follow intermittently. Subjective Date of service: 10/12/19 Principal diagnosis: pacemaker infection Interval history: Patient complains of left elbow pain. No cardiac complaints. Objective Vital Signs Temp Pulse Pulse Resp BP Pulse Ox 10/12/19 05:14 60 166/76 10/12/19 04:47 98.0 F 60 18 151/75 96 10/11/19 23:32 97.8 F 60 18 139/77 98 10/11/19 22:03 112 H 111/61 10/11/19 22:00 60 60 18 98 10/11/19 20:50 98.0 F 60 18 149/69 98 10/11/19 17:06 98.0 F 66 18 172/63 98 10/11/19 14:20 68 10/11/19 12:12 98.0 F 60 18 136/61 98 - Physical Examination General: No Apparent Distress HEENT: Positive: PERRL Neck: Positive: trachea midline Cardiac: Positive: Other (paced) Lungs: Positive: Decreased Breath Sounds Neuro: Positive: Grossly Intact Incision: Incision Site (right pacemaker site appears well-healed, no ecchymosis, no hematoma and no cellulitis. There is no evidence of pacemaker pocket fluid or infection.) - Labs and Meds CBC 10/11/19 Range/Units 14:34 WBC 9.1 (4.5-11.0) K/mm3 RBC 3.20 L (3.65-5.03) M/mm3 Hgb 10.3 (10.1-14.3) gm/dl Hct 31.6 (30.3-42.9) % Plt Count 275 (140-440) K/mm3 Comprehensive Metabolic Panel 10/11/19 10/11/19 Range/Units 10:43 14:34 Sodium TNR 139 Potassium TNR 4.1 Chloride TNR 103.0 Carbon Dioxide TNR 22 BUN TNR 12 Creatinine TNR 0.9 Glucose TNR 153 H Calcium TNR 8.5
[2019-10-12] MEDS: TICAGRELOR 90 MG TAB PO SCH ×2 (10:45→22:19)
[2019-10-12] MEDS: AMIODARONE 200 MG TAB PO SCH (10:45)
[2019-10-12] MEDS: ASPIRIN EC 81 MG TAB PO SCH (10:46)
[2019-10-12] MEDS: DOXYCYCLINE 100 MG CAPSULE PO SCH ×2 (10:46→22:19)
[2019-10-12] MEDS: APIXABAN 2.5 MG TAB PO SCH ×2 (10:46→22:18)
[2019-10-12] MEDS: PANTOPRAZOLE 40 MG TAB PO SCH (10:46)
[2019-10-12] MEDS ORDERED: LACTATED RINGERS 1,000 ML IV SCH (14:20)
--- NOTE | 2019-10-12 14:23 | Anesthesia Consultation ---
Anesthesia Consult and Med Hx Date of service: 10/12/19 - Airway Anesthetic Teeth Evaluation: Edentulous ROM Head & Neck: Adequate Mental/Hyoid Distance: Adequate Mallampati Class: Class II Intubation Access Assessment: Good - Pre-Operative Health Status ASA Pre-Surgery Classification: ASA3, Emergency Proposed Anesthetic Plan: General - Pulmonary Hx Smoking: Yes Hx Asthma: Yes COPD: Yes Hx Pneumonia: Yes - Cardiovascular System Hx Hypertension: Yes Hx Coronary Artery Disease: Yes Hx Heart Attack/AMI: Yes (NSTEMI [id number]. Cath and bare metal stent) Hx Angina: Yes Hx Cardia Arrhythmia: Yes (A-FIB RVR) Hx Pacemaker: Yes Hx Internal Defibrillator: No - Central Nervous System Hx Neuromuscular Disorder: Yes (Passed out, fell, and fx'd L olecranon partial avulsion of the triceps tend) - Endocrine Hx End Stage Renal Disease: No - Hematic Hx Anemia: Yes - Other Systems Hx Obesity: Yes - Additional Comments Anesthesia Medical History Comments: s/p PCI of RCA with BMS 04/2019 at [facility]; on Brilinta and aspirin. Echo 09/23/2019 reports a LVEF 45-50%. Paroxysmal Afib. on low dose eliquis as an outpatient. Hx of sick sinus syndrome. s/p pacemaker implant 09/29/19. Chronic pain syndrome
--- NOTE | 2019-10-12 14:26 | Anesthesia Day of Surgery ---
Anesthesia Day of Surgery - Day of Surgery Patient Examined: Yes Patient H&P Reviewed: Yes Patient is NPO: Yes
[2019-10-12] MEDS ORDERED: fentaNYL 100 MCG/2 ML INJ IV PRN (14:30)
[2019-10-12] MEDS ORDERED: LIDOCAINE MPF (2%) 20 MG/1 ML VIAL 5 ML ONE (14:35)
[2019-10-12] MEDS ORDERED: PROPOFOL 200 MG/20 ML VIAL IV ONE (14:36)
[2019-10-12] MEDS ORDERED: LACTATED RINGERS 1,000 ML ONE (14:38)
[2019-10-12] MEDS ORDERED: VANCOMYCIN/NS 1 GM/250 ML 1 GM/250 ML BAG IV ONE (14:47)
[2019-10-12] MEDS ORDERED: ONDANSETRON 4 MG/2 ML INJ IV PRN (15:00)
[2019-10-12] MEDS ORDERED: BUPIVACAINE/PF (0.5%) 5 MG/1 ML 30 ML VIAL INFILTRATI ONE ×2 (15:12→15:49)
--- NOTE | 2019-10-12 15:14 | Progress Note ---
Assessment and Plan Assessment and plan: 64-year-old female with known history of hypertension and recent placement of pacemaker presenting to the emergency room today complaining of left upper extremity pain and left-sided chest wall pain. Patient indicates that pain is more on the pacemaker site. She denies any drainage from the surgical site. She denies any fever or chills, and denies any nausea vomiting. * On admission initially patient was thought to may have cellulitis around the pacemaker and started on empiric antibiotic coverage for pacemaker site infection. * On clinical review and review of all documentation patient has no fever no clinical evidence at this time of my exam of pacemaker site infection. Will defer to ID for further management. * Orthopedic surgeon consulted for management of left elbow fracture which was previously documented prior to pacemaker placement. * Review of records from orthopedic surgeon during last admission shows that conservative management with passive range of motion exercises recommended this appears not to have happened. Will obtain PT and OT evaluation. * Patient does have a history of chronic pain syndrome we will continue management. Left elbow pain secondary to fracture: Cellulitis left upper chest wall at pacemaker site Chronic pain syndrome: Review of Previous admissions shows a pattern of Pain admits. Chronic shortness of breath with evidence of pneumonia from prior admissions. Hyperkalemia Depression Plan Reconsulted Orthopedic Surgeon. Patient seen by Dr. Schulte. He ordered MRI, not done because of pacemaker,then ordered CT LUE. This revealed tear of the distal triceps tendon and mildly displaced avulsion fracture fracture fragment from the tip of the olecranon process. For surgery today. Recommend Psych Evaluation outpatient Pain management History Interval history: Still pain left elbow Less pain left upper chest chest wall over site of pacemaker Hospitalist Physical - Physical exam Narrative exam: Gen: Not in acute distress, lying in bed, Obese HEENT: Normocephalic, atraumatic Neck: supple, no JVD Heart: S1 and S2 reg, no murmurs, rubs or gallop, Left upper chest pacemaker Lungs: Clear to auscultation bilaterally, Abd: soft, non tender, non distended, normal BS, Ext: Left elbow swollen, tender, no clubbing, no cyanosis Neuro: Awake, alert, oriented X 3, no focal neurological signs - Constitutional Vitals: Temp Pulse Resp BP Pulse Ox 98.9 F 62 16 145/105 100 10/12/19 14:15 10/12/19 14:15 10/12/19 14:15 10/12/19 14:15 10/12/19 14:15 General appearance: Present: no acute distress, obese Results - Labs CBC & Chem 7: 10/11/19 14:34 10/11/19 14:34 Labs: Laboratory Last Values WBC 9.1 K/mm3 (4.5-11.0) 10/11/19 14:34 RBC 3.20 M/mm3 (3.65-5.03) L 10/11/19 14:34 Hgb 10.3 gm/dl (10.1-14.3) 10/11/19 14:34 Hct 31.6 % (30.3-42.9) 10/11/19 14:34 MCV 99 fl (79-97) H 10/11/19 14:34 MCH 32 pg (28-32) 10/11/19 14:34 MCHC 32 % (30-34) 10/11/19 14:34 RDW 14.4 % (13.2-15.2) 10/11/19 14:34 Plt Count 275 K/mm3 (140-440) 10/11/19 14:34 Lymph % (Auto) 18.4 % (13.4-35.0) 10/07/19 08:53 [place] % (Auto) 12.9 % (0.0-7.3) H 10/07/19 08:53 Eos % (Auto) 3.1 % (0.0-4.3) 10/07/19 08:53 Baso % (Auto) 0.4 % (0.0-1.8) 10/07/19 08:53 Lymph # 1.6 K/mm3 (1.2-5.4) 10/07/19 08:53 [place] # 1.1 K/mm3 (0.0-0.8) H 10/07/19 08:53 Eos # 0.3 K/mm3 (0.0-0.4) 10/07/19 08:53 Baso # 0.0 K/mm3 (0.0-0.1) 10/07/19 08:53 Seg Neutrophils % 65.2 % (40.0-70.0) 10/07/19 08:53 Seg Neutrophils # 5.7 K/mm3 (1.8-7.7) 10/07/19 08:53 PT 14.4 Sec. (12.2-14.9) 10/07/19 08:53 INR 1.13 (0.87-1.13) 10/07/19 08:53 APTT 31.8 Sec. (24.2-36.6) 10/07/19 08:53 Sodium 139 mmol/L (137-145) 10/11/19 14:34 Potassium 4.1 mmol/L (3.6-5.0) 10/11/19 14:34 Chloride 103.0 mmol/L (98-107) 10/11/19 14:34 Carbon Dioxide 22 mmol/L (22-30) 10/11/19 14:34 Anion Gap 18 mmol/L 10/11/19 14:34 BUN 12 mg/dL (7-17) 10/11/19 14:34 Creatinine 0.9 mg/dL (0.7-1.2) 10/11/19 14:34 Estimated GFR > 60 ml/min 10/11/19 14:34 BUN/Creatinine Ratio 13 % 10/11/19 14:34 Glucose 153 mg/dL (65-100) H 10/11/19 14:34 POC Glucose 125 (70-105) H 10/08/19 08:08 Lactic Acid 1.40 mmol/L (0.7-2.0) 10/06/19 17:15 Calcium 8.5 mg/dL (8.4-10.2) 10/11/19 14:34 Total Bilirubin 0.90 mg/dL (0.1-1.2) 10/06/19 17:15 AST 26 units/L (5-40) 10/06/19 17:15 ALT 20 units/L (7-56) 10/06/19 17:15 Alkaline Phosphatase 113 units/L (35-129) 10/06/19 17:15 Total Creatine Kinase 49 units/L (30-135) 10/08/19 22:59 Total Protein 6.8 g/dL (6.3-8.2) 10/06/19 17:15 Albumin 3.4 g/dL (3.9-5) L 10/06/19 17:15 Albumin/Globulin Ratio 1.0 % 10/06/19 17:15 Active Medications - Current Medications Current Medications: Generic Name Dose Route Start Last Admin Trade Name Freq PRN Reason Stop Dose Admin Acetaminophen 650 mg 10/08/19 13:09 10/09/19 03:59 Tylenol PO 650 mg Q6H PRN Administration Pain MILD(1-3)/Fever >100.5/MONTESINOS Acetaminophen/Hydrocodone Bitart 1 each 10/08/19 09:29 10/11/19 00:21 [place] 5/325 PO 1 each Q6H PRN Administration Pain, Moderate (4-6) Albuterol 2.5 mg 10/08/19 14:01 Proventil IH Q4HRT PRN Shortness Of Breath Amiodarone HCl 200 mg 10/08/19 14:00 10/12/19 10:45 Cordarone PO Not Given QDAY [facility] Apixaban 2.5 mg 10/08/19 14:00 10/12/19 10:46 Eliquis PO Not Given Q12HR [facility] Protocol Aspirin 81 mg 10/08/19 14:00 10/12/19 10:46 Halfprin Ec PO Not Given QDAY [facility] Cephalexin 500 mg 10/09/19 19:00 10/12/19 12:36 Keflex PO 10/15/19 23:59 Not Given Q6HR [facility] Doxycycline Hyclate 100 mg 10/09/19 22:00 10/12/19 10:46 Vibramycin PO 10/15/19 23:59 Not Given BID [facility] Fentanyl 50 mcg 10/12/19 14:30 Sublimaze IV 10/12/19 19:00 Q5MIN PRN Pain , Severe (7-10) Vancomycin HCl 1 gm in 250 mls @ 167.007 mls/hr 10/12/19 14:47 Vancomycin/Ns 1 Gm/250 Ml IV 10/12/19 16:16 PREOP ONE Protocol Magnesium Hydroxide 30 ml 10/06/19 22:37 10/06/19 23:42 Milk Of Magnesia PO 30 ml Q4H PRN Administration Constipation Metoprolol Tartrate 50 mg 10/08/19 14:00 10/12/19 14:04 Metoprolol PO Not Given Q8HR [facility] Morphine Sulfate 2 mg 10/09/19 11:33 10/12/19 11:34 Morphine IV 2 mg Q4H PRN Administration Pain, Moderate (4-6) Ondansetron HCl 4 mg 10/07/19 13:33 10/10/19 00:30 Zofran IV 4 mg Q8H PRN Administration N/V unrelieved by Kristen Ondansetron HCl 4 mg 10/12/19 15:00 Zofran IV 10/12/19 21:00 ONCE PRN Nausea And Vomiting Pantoprazole Sodium 40 mg 10/08/19 14:00 10/12/19 10:46 Protonix PO Not Given QDAY OZZY Sodium Chloride 10 ml 10/07/19 10:00 10/12/19 10:46 Sodium Chloride Flush Syringe 10 Ml IV 10 ml BID OZZY Administration Sodium Chloride 10 ml 10/06/19 22:37 10/08/19 05:01 Sodium Chloride Flush Syringe 10 Ml IV 10 ml PRN PRN Administration LINE FLUSH Ticagrelor 90 mg 10/08/19 14:00 10/12/19 10:45 Brilinta PO Not Given BID OZZY
[2019-10-12] MEDS ORDERED: SODIUM CHLORIDE 0.9% IRR 1,000 ML BOTTLE IR ONE (15:50)
[2019-10-12] MEDS ORDERED: ONDANSETRON 4 MG/2 ML INJ ONE (15:59)
[2019-10-12] MEDS ORDERED: MORPHINE 2 MG/1 ML INJ ONE ×3 (16:03)
[2019-10-12] MEDS ORDERED: fentaNYL 100 MCG/2 ML INJ ONE (16:20)
--- NOTE | 2019-10-12 16:35 | Procedure Note ---
Date of procedure: 10/12/19 Pre-op diagnosis: ruptured left triceps tendon Post-op diagnosis: same Procedure: Advancement of triceps tendon left elbow Procedure The patient was brought to the OR placed in the OR table in the supine position following induction intubation by anesthesia patient's left upper extremity was prepped and draped in the usual sterile manner. A timeout procedure was done to identify the patient and the correct operative site. The arm was exsanguinated followed by insufflation of the pneumatic tourniquet to 250 m of mercury. A midline incision was made over the distal humerus this was then curved slightly lateral around the olecranon process and then onto the proximal portion of the ulna incision was then taken down sharply to skin and subcutaneous the triceps tendon was seen and was displaced from its normal attachment of there is also a palpable gap and felt in the distal portion of the tendon next the #5 Ethibond suture was used to secure the triceps tendon back to the olecranon process with the arm and extension the tendon was secured by way of 2 parallel tunnels into the proximal ulna. The wound was then copiously irrigated and was closed in the standard routine fashion a long-arm posterior mold was applied with the arm in slight extension Anesthesia: JHON Surgeon: EUGENIA WYATT Estimated blood loss: minimal Pathology: none Condition: stable Disposition: PACU
[2019-10-12] MEDS ORDERED: MIDAZOLAM 2 MG/2 ML INJ IV ONE (16:37)
[2019-10-12] MEDS ORDERED: MIDAZOLAM 2 MG/2 ML INJ ONE (16:38)
[2019-10-12] MEDS: MORPHINE 4 MG/1 ML INJ IV PRN (20:30)
[2019-10-12] MEDS: HYDROcodone/ACETAMINOPHEN 5-325 MG TAB PO PRN (22:56)
[2019-10-13] MEDS: MORPHINE 4 MG/1 ML INJ IV PRN ×3 (00:50→11:55)
[2019-10-13] MEDS: cephALEXin 500 MG CAP PO SCH ×3 (00:50→12:44)
[2019-10-13] MEDS: ONDANSETRON 4 MG/2 ML INJ IV PRN ×2 (02:24→12:44)
[2019-10-13] MEDS: METOPROLOL TARTRATE 50 MG TAB PO SCH ×2 (05:00→13:27)
[2019-10-13] MEDS: HYDROcodone/ACETAMINOPHEN 5-325 MG TAB PO PRN (08:09)
[2019-10-13] MEDS: DOXYCYCLINE 100 MG CAPSULE PO SCH (10:41)
[2019-10-13] MEDS: AMIODARONE 200 MG TAB PO SCH (10:41)
[2019-10-13] MEDS: TICAGRELOR 90 MG TAB PO SCH (10:41)
[2019-10-13] MEDS: PANTOPRAZOLE 40 MG TAB PO SCH (10:41)
[2019-10-13] MEDS: APIXABAN 2.5 MG TAB PO SCH (10:41)
[2019-10-13] MEDS: ASPIRIN EC 81 MG TAB PO SCH (10:41)
--- NOTE | 2019-10-13 13:08 | Discharge Summary ---
Providers - Providers Date of Admission: 10/06/19 20:20 Date of discharge: 10/13/19 Attending physician: JEAN CLAUDE SCHMID 10/07/19 15:14 Midline [Consult to PICC Line RN] [CONS] Stat Reason For Exam: Hard stick, couldn't access peripheral easily Type Line:: Midline 10/08/19 09:46 Consult to Physician [CONS] Routine Comment: Consulting Provider: ANKIT OJEDA Physician Instructions: Reason For Exam: celllulitis of pacemaker 10/09/19 11:32 Occupational Therapy Evaluate and Treat [CONS] Routine Comment: Reason For Exam: left arm pain Physical Therapy Evaluation and Treat [CONS] Routine Comment: Reason For Exam: left arm pain 10/09/19 17:43 Consult to Physician [CONS] Routine Comment: Consulting Provider: EUGENIA WYATT Physician Instructions: Reason For Exam: LEFT OLECRONE TENDERNESS Primary care physician: DATA COLLECTOR Hospitalization Condition: Fair Pertinent studies: CXR Duplex scan UE Ctest CT elbow xry UE CT Hospital course: 64-year-old female with known history of hypertension and recent placement of pacemaker presenting to the emergency room complaining of left upper extremity pain and left-sided chest wall pain. Patient indicates that pain is more on the pacemaker site. She denied any drainage from the surgical site, denied any fever or chills, and denies any nausea vomiting. she was admitted for further evaluation and Mx. * On admission initially patient was thought to may have cellulitis around the pacemaker and started on empiric antibiotic coverage for pacemaker site infection. * Orthopedic surgeon consulted for management of left elbow fracture. Review of records from orthopedic surgeon during last admission shows that conservative management with passive range of motion exercises recommended that time. Reconsulted Dr. Wyatt, He ordered MRI, not done because of pacemaker,then ordered CT LUE. This revealed tear of the distal triceps tendon and mildly displaced avulsion fracture fracture fragment from the tip of the olecranon process - s/p surgery * Patient does have a history of chronic pain syndrome - continued supportive ma nagement. Discharge diagnosis: Left elbow pain secondary to fracture: s/p surgery Cellulitis left upper chest wall at pacemaker site - continue keflex 500 mg po QID and doxycycline 100 mg po bid total 7 days Chronic pain syndrome: Review of Previous admissions shows a pattern of Pain admits. Chronic shortness of breath with evidence of pneumonia from prior admissions. resolved Hyperkalemia, resolved Depression, outpt f/u Disposition: [id number] HOME UNDER HOME [facility] Time spent for discharge: 34 minutes Core Measure Documentation - Palliative Care Palliative Care/ Comfort Measures: Not Applicable - Core Measures Any of the following diagnoses?: none Exam - Physical Exam Narrative exam: Gen: Not in acute distress, lying in bed, Obese HEENT: Normocephalic, atraumatic Neck: supple, no JVD Heart: S1 and S2 reg, no murmurs, rubs or gallop, Left upper chest pacemaker Lungs: Clear to auscultation bilaterally, Abd: soft, non tender, non distended, normal BS, Ext: Left elbow swollen, tender, no clubbing, no cyanosis Neuro: Awake, alert, oriented X 3, no focal neurological signs - Constitutional Vitals: Temp Pulse Resp BP Pulse Ox 98.5 F 60 16 152/68 97 10/13/19 08:46 10/13/19 08:46 10/13/19 11:55 10/13/19 08:46 10/13/19 08:46 Plan Activity: advance as tolerated Weight Bearing Status: Non-Weight Bearing Diet: low salt, diabetic Special Instructions: record blood sugar diary Follow up with: PRIMARY CARE, [Primary Care Provider] - 3-5 Days Prescriptions: cephALEXin [Keflex] 500 mg PO Q6HR #10 capsule oxyCODONE /ACETAMINOPHEN [Percocet 5/325 mg] 1 tab PO Q6H PRN #10 tablet PRN Reason: Pain , Severe (7-10) DOXYCYCLINE Hyclate [Vibramycin CAP] 100 mg PO BID #5 capsule
[2019-10-13 13:26] VITALS: BP 179/84
== END 2019-10-13 15:53 | disposition home health service (06) | DRG 500 ==
LOC: ED 14:59 → 4A 20:20
PROVIDERS: ADMIT Internal Medicine Geriatric Medicine; ATTEND Internal Medicine
PROC: 05HY33Z Insertion of Infusion Device into Upper Vein, Percutaneous Approach (ICD-10-PCS; 2019-10-07)
PROC: 0LM40ZZ Reattachment of Left Upper Arm Tendon, Open Approach (ICD-10-PCS; principal; 2019-10-12)
DX: S46.312A Strain of muscle, fascia and tendon of triceps, left arm, initial encounter (principal); N17.0 Acute kidney failure with tubular necrosis; S42.402A Unspecified fracture of lower end of left humerus, initial encounter for closed fracture; L03.313 Cellulitis of chest wall; T82.7XXA Infection and inflammatory reaction due to other cardiac and vascular devices, implants and grafts, initial encounter; R22.2 Localized swelling, mass and lump, trunk; R07.9 Chest pain, unspecified; I10 Essential (primary) hypertension; G89.4 Chronic pain syndrome; E87.5 Hyperkalemia; F32.9 Major depressive disorder, single episode, unspecified; F41.9 Anxiety disorder, unspecified; F17.210 Nicotine dependence, cigarettes, uncomplicated; F10.10 Alcohol abuse, uncomplicated; E66.01 Morbid (severe) obesity due to excess calories; Y83.8 Other surgical procedures as the cause of abnormal reaction of the patient, or of later complication, without mention of misadventure at the time of the procedure; I25.10 Atherosclerotic heart disease of native coronary artery without angina pectoris; E74.39 Other disorders of intestinal carbohydrate absorption; J44.9 Chronic obstructive pulmonary disease, unspecified; I48.0 Paroxysmal atrial fibrillation; Z95.0 Presence of cardiac pacemaker; Z90.49 Acquired absence of other specified parts of digestive tract; Z90.710 Acquired absence of both cervix and uterus; Z80.1 Family history of malignant neoplasm of trachea, bronchus and lung; Z88.5 Allergy status to narcotic agent; Z88.0 Allergy status to penicillin; Z79.899 Other long term (current) drug therapy; Z79.82 Long term (current) use of aspirin; Z68.36 Body mass index [BMI] 36.0-36.9, adult; Y92.89 Other specified places as the place of occurrence of the external cause; I25.2 Old myocardial infarction; Z95.5 Presence of coronary angioplasty implant and graft
CPT/HCPCS: 36415; 71045; 71250; 80048; 80053; 82140; 82550; 82962; 85025; 85027; 85610; 85730; 87040; 93005; 93010; G0378; J0690; J1170; J1644; J2250; J2270; J2405; J2704; J3010; J3370; J7030; J7040; J7120

== ENCOUNTER 2019-12-23 21:07 | Emergency (ER) | payer BC ==
[2019-12-23] MEDS ORDERED: SODIUM CHLORIDE 0.9% 1000 ML 1,000 ML IV ONE (22:18)
[2019-12-23] MEDS ORDERED: MORPHINE 4 MG/1 ML INJ IV ONE (22:18)
[2019-12-23] MEDS ORDERED: ONDANSETRON 4 MG/2 ML INJ IV ONE (22:18)
--- NOTE | 2019-12-23 22:19 | Event Note ---
ED Screening Note ED Screening Note: epigastric pain vomiting diarrhea This initial assessment/diagnostic orders/clinical plan/treatment(s) is/are subject to change based on patients health status, clinical progression and re- assessment by fellow clinical providers in the ED. Further treatment and workup at subsequent clinical providers discretion. Patient/guardian urged not to elope from the ED as their condition may be serious if not clinically assessed and managed. Initial orders include: labs IVF IV medications
[2019-12-23] MEDS ORDERED: FAMOTIDINE 20 MG/2 ML INJ IV ONE (22:33)
--- NOTE | 2019-12-23 23:08 | Emergency Department Report ---
ED Abdominal Pain HPI - General Chief Complaint: Abdominal Pain Stated Complaint: ABDOMINAL PAIN Source: patient Mode of arrival: Ambulatory Limitations: No Limitations - History of Present Illness Initial Comments: Patient is a 64-year-old white female with a history of hypertension, coronary artery disease status post AICD placement, [id number] diabetes who presents to the ED, and of acute onset persistent epigastric pain with nausea and vomiting for 2 days. Patient states that she has not been able to keep anything down since the onset of the symptoms. Patient states that the pain is crampy and burning sensation and is intermittent. Patient denies fever, chills, dizziness, syncope, chest pain, shortness of breath, dysuria, vaginal bleeding, vaginal discharge, hematemesis or hematochezia or cough. MD Complaint: abdominal pain (epigastric pain, RUQ pain), other (nausea, vomiting and diarrhea) -: Sudden, days(s) (2) Location: epigastric Radiation: RUQ, epigastric Severity: severe Severity scale (0 -10): 10 Quality: cramping, sharp, burning Consistency: intermittent Improves With: nothing Worsens With: eating, bowel movement, vomiting Context: possible food poisoning Associated Symptoms: nausea, vomiting, diarrhea Treatments Prior to Arrival: NSAIDs - Related Data Previous Rx's Medication Instructions Recorded Last Taken Type Acetaminophen [Acetaminophen TAB] 2 tab PO Q6H PRN #15 tablet 10/01/19 Unknown Rx Albuterol INH(or & Nicu Only) 2 puff IH QID PRN #1 unit 10/01/19 Unknown Rx [ProAir HFA Inhaler] Amiodarone [Cordarone 200 MG TAB] 200 mg PO QDAY #30 tablet 10/01/19 Unknown Rx Apixaban [Eliquis] 2.5 mg PO Q12HR #60 tablet 10/01/19 Unknown Rx Aspirin EC [Halfprin EC] 81 mg PO QDAY #30 tablet 10/01/19 Unknown Rx Metoprolol [Lopressor TAB] 50 mg PO Q8HR #90 tablet 10/01/19 Unknown Rx Pantoprazole [Protonix TAB] 40 mg PO QDAY #30 tablet 10/01/19 Unknown Rx Ticagrelor [Brilinta] 90 mg PO BID #60 tablet 10/01/19 Unknown Rx DOXYCYCLINE Hyclate [Vibramycin 100 mg PO BID #5 capsule 10/13/19 Unknown Rx CAP] cephALEXin [Keflex] 500 mg PO Q6HR #10 capsule 10/13/19 Unknown Rx oxyCODONE /ACETAMINOPHEN [Percocet 1 tab PO Q6H PRN #10 tablet 10/13/19 Unknown Rx 5/325 mg] Dicyclomine [Bentyl] 20 mg PO Q6H PRN #24 tablet 12/24/19 Unknown Rx Famotidine [Pepcid] 20 mg PO Q12H #60 tablet 12/24/19 Unknown Rx Ondansetron [Zofran Odt] 4 mg PO Q8HR PRN #15 tab.rapdis 12/24/19 Unknown Rx Allergies Allergy/AdvReac Type Severity Reaction Status Date / Time codeine Allergy Vomiting Verified 05/20/19 11:23 Penicillins Allergy Hives Verified 05/20/19 11:23 pentazocine [From Talwin] Allergy Nausea Verified 05/20/19 11:23 ED Review of Systems ROS: Stated complaint: ABDOMINAL PAIN Other details as noted in HPI Constitutional: denies: chills, fever Eyes: denies: eye pain, eye discharge, vision change ENT: denies: ear pain, throat pain Respiratory: denies: cough, shortness of breath, wheezing Cardiovascular: denies: chest pain, palpitations Endocrine: no symptoms reported Gastrointestinal: abdominal pain, nausea, vomiting, diarrhea Genitourinary: denies: urgency, dysuria, discharge Musculoskeletal: denies: back pain, joint swelling, arthralgia Skin: denies: rash, lesions Neurological: denies: headache, weakness, paresthesias Psychiatric: denies: anxiety, depression Hematological/Lymphatic: denies: easy bleeding, easy bruising ED Past Medical Hx - Past Medical History Previous Medical History?: Yes Hx Hypertension: Yes Hx Heart Attack/AMI: Yes (NSTEMI [id number]. Cath and bare metal stent) Hx Congestive Heart Failure: No Hx Diabetes: No Hx Deep Vein Thrombosis: No Hx Asthma: Yes Hx COPD: Yes - Surgical History Past Surgical History?: Yes Hx Coronary Stent: Yes Hx Pacemaker: Yes Hx Internal Defibrillator: No Hx Appendectomy: Yes Additional Surgical History: neck surgery, neck fracture, hysterectomy - Social History Smoking Status: Current Every Day Smoker Substance Use Type: None - Medications Home Medications: Home Medications Medication Instructions Recorded Confirmed Last Taken Type Acetaminophen [Acetaminophen TAB] 2 tab PO Q6H PRN #15 tablet 10/01/19 10/08/19 Unknown Rx Albuterol INH(or & Nicu Only) 2 puff IH QID PRN #1 unit 10/01/19 10/08/19 Unknown Rx [ProAir HFA Inhaler] Amiodarone [Cordarone 200 MG TAB] 200 mg PO QDAY #30 tablet 10/01/19 10/08/19 Unknown Rx Apixaban [Eliquis] 2.5 mg PO Q12HR #60 tablet 10/01/19 10/08/19 Unknown Rx Aspirin EC [Halfprin EC] 81 mg PO QDAY #30 tablet 10/01/19 10/08/19 Unknown Rx Metoprolol [Lopressor TAB] 50 mg PO Q8HR #90 tablet 10/01/19 10/08/19 Unknown Rx Pantoprazole [Protonix TAB] 40 mg PO QDAY #30 tablet 10/01/19 10/08/19 Unknown Rx Ticagrelor [Brilinta] 90 mg PO BID #60 tablet 10/01/19 10/08/19 Unknown Rx DOXYCYCLINE Hyclate [Vibramycin 100 mg PO BID #5 capsule 10/13/19 Unknown Rx CAP] cephALEXin [Keflex] 500 mg PO Q6HR #10 capsule 10/13/19 Unknown Rx oxyCODONE /ACETAMINOPHEN [Percocet 1 tab PO Q6H PRN #10 tablet 10/13/19 Unknown Rx 5/325 mg] Dicyclomine [Bentyl] 20 mg PO Q6H PRN #24 tablet 12/24/19 Unknown Rx Famotidine [Pepcid] 20 mg PO Q12H #60 tablet 12/24/19 Unknown Rx Ondansetron [Zofran Odt] 4 mg PO Q8HR PRN #15 tab.rapdis 12/24/19 Unknown Rx ED Physical Exam - General Limitations: No Limitations General appearance: alert, in no apparent distress - Head Head exam: Present: atraumatic, normocephalic, normal inspection - Eye Eye exam: Present: normal appearance, PERRL, EOMI - ENT ENT exam: Present: normal exam, normal orophraynx, mucous membranes moist, TM's normal bilaterally, normal external ear exam - Neck Neck exam: Present: normal inspection, full ROM - Respiratory Respiratory exam: Present: normal lung sounds bilaterally. Absent: respiratory distress, wheezes, rales, chest wall tenderness, decreased breath sounds, prolonged expiratory - Cardiovascular Cardiovascular Exam: Present: regular rate, normal rhythm, normal heart sounds. Absent: systolic murmur, diastolic murmur, rubs, gallop - GI/Abdominal GI/Abdominal exam: Present: soft, tenderness (epigastric), normal bowel sounds. Absent: guarding, rebound, hyperactive bowel sounds - Extremities Exam Extremities exam: Present: normal inspection, full ROM, normal capillary refill - Back Exam Back exam: Present: normal inspection, full ROM. Absent: tenderness, CVA tenderness (R), CVA tenderness (L), muscle spasm, paraspinal tenderness, armani tebral tenderness - Neurological Exam Neurological exam: Present: alert, oriented X3, CN II-XII intact, normal gait, reflexes normal - Psychiatric Psychiatric exam: Present: normal affect, normal mood - Skin Skin exam: Present: warm, dry, intact, normal color. Absent: rash ED Course Vital Signs 12/23/19 21:11 Temperature 97.5 F L Pulse Rate 72 Respiratory 18 Rate Blood Pressure 169/93 O2 Sat by Pulse 96 Oximetry ED Medical Decision Making - Lab Data Result diagrams: 12/23/19 23:49 12/23/19 23:49 - Radiology Data Radiology results: report reviewed, [place] [address] Cat Scan Report Signed Patient: ERIKA HUNT MR#: [id number] : 1955 Acct:[id number] Age/Sex: 64 / F ADM Date: 12/23/19 Loc: ED Attending Dr: Ordering Physician: KWESI VICTORIA Date of Service: 12/24/19 Procedure(s): CT abdomen pelvis w con Accession Number(s): [id number] cc: KWESI VICTORIA CT ABDOMEN AND PELVIS WITH CONTRAST HISTORY: pain. Acute upper abdominal pain with nausea and vomiting COMPARISON: CT abdomen/pelvis from 05/24/2019 TECHNIQUE: CT images of the abdomen and pelvis were obtained following administration of intravenous contrast. All CT scans at this location are performed using CT dose reduction for ALARA by means of automated exposure control. CONTRAST: 100 ml of intravenous contrast administered. FINDINGS: Lungs/bones: Lung bases are clear. There are degenerative changes in the spine and pelvis with no acute osseous abnormality identified. Stable probable bone island in the right iliac wing and posttraumatic change involving the left iliac wing. Abdomen/pelvis: The gallbladder is surgically absent. There is mild intrahepatic and extrahepatic biliary ductal dilatation which can be seen postcholecystectomy. Liver otherwise appears unremarkable. The spleen, pancreas, right kidney, and proximal GI tract appear unremarkable. There is a tiny simple cyst in the midpole the right kidney. Mild bilateral adrenal thickening is present. Urinary bladder is unremarkable. Uterus is surgically absent. There is no pelvic free fluid. No acute colonic abnormality identified. Terminal ileum is normal. IMPRESSION: 1. No acute abnormality identified. 2. Incidental findings as above. Signer Name: Bhavin Alan MD Signed: 12/24/2019 2:16 AM Workstation Name: [id number] Transcribed By: TSERING Dictated By: Bhavin Alan MD Electronically Authenticated By: Bhavin Alan MD Signed Date/Time: 12/24/19215 DD/ 2 TD/TT: Findings [facility] [address] [place] [address] Ultrasound Report Signed Patient: ERIKA HUNT MR#: [id number] : 1955 Acct:[id number] Age/Sex: 64 / F ADM Date: 12/23/19 Loc: ED Attending Dr: Ordering Physician: KWESI VICTORIA Date of Service: 12/23/19 Procedure(s): US abdomen limited Accession Number(s): [id number] cc: KWESI VICTORIA LIMITED RUQ ABDOMINAL ULTRASOUND INDICATION: RUQ and epigastric pain. COMPARISON: CT abdomen/pelvis from 05/24/2019. FINDINGS: Pancreas: Visualized portions show no significant abnormality. Abdominal Aorta: No significant abnormality. IVC: No significant abnormality. Liver: The liver measures 13.8 cm in length. No significant abnormality. Normal hepatopedal blood flow in the main portal vein. Gallbladder: Surgically absent. Bile ducts: No significant abnormality. Common bile duct measures 4 mm. Right kidney: No significant abnormality visualized.. Free fluid: None. Additional Findings: None. IMPRESSION: 1. No acute abnormality. Bladder is surgically absent. Signer Name: Bhavin Alan MD Signed: 12/23/2019 11:37 PM Workstation Name: [id number] Transcribed By: TSERING Dictated By: Bhavin Alan MD Electronically Authenticated By: Bhavin Alan MD Signed Date/Time: 12/23/192336 DD/ 34 TD/TT: - Medical Decision Making This is a 64-year-old female who presented to the ED with epigastric pain, nausea and vomiting with diarrhea 2 days. The ED, patient is alert and oriented 3 and is not in distress but anxious and in pain. Lab test results were reviewed and are on abduction of including troponin levels. Urinalysis is unremarkable. Gallbladder ultrasound shows gallbladder that has been surgical removed it and no other abnormalities. Abdomen pelvis CT scan with contrast shows no acute pathology in the abdomen. Patient was treated for pain in the ED as well as nausea and vomiting. Patient also received antacids and normal alan ine IV bolus. On reevaluation, patient's pain is well controlled medications. Patient also has not had any nausea or vomiting while in the ED and asked to drink or eat food from the vending machines. Patient's symptoms are likely due to viral gastroenteritis versus complications of GERD or gastritis. Patient was discharged home on medications antiemetics and pain medications. Patient is advised to maintain a clear liquid diet for 12-24 hours and follow-up with her primary care physician in 5-7 days for reevaluation or return to the ED immediately if symptoms get worse. - Differential Diagnosis Gastritis; Gastroenteritis; GERD; CAD; UTI; Pancreatitis; Ileus; Critical care attestation.: If time is entered above; I have spent that time in minutes in the direct care of this critically ill patient, excluding procedure time. ED Disposition Clinical Impression: Epigastric abdominal pain, Viral gastroenteritis GERD (gastroesophageal reflux disease) Qualifiers: Esophagitis presence: without esophagitis Qualified Code(s): K21.9 - Gastro- esophageal reflux disease without esophagitis Disposition: TO HOME OR SELFCARE Is pt being admited?: No Does the pt Need Aspirin: No Condition: Stable Instructions: Abdominal Pain (ED), Gastroesophageal Reflux Disease (ED), Acute Nausea and Vomiting (ED), Gastroenteritis (ED) Additional Instructions: Maintain a clear liquid diet for 12-24 hours, take medications as needed for nausea and vomiting and for pain, follow-up with the primary care physician in 3-5 days for reevaluation or return to the ED immediately if symptoms get worse. Prescriptions: Dicyclomine [Bentyl] 20 mg PO Q6H PRN #24 tablet PRN Reason: ABDOMINAL PAIN Famotidine [Pepcid] 20 mg PO Q12H #60 tablet Ondansetron [Zofran Odt] 4 mg PO Q8HR PRN #15 tab.rapdis PRN Reason: Nausea Referrals: CUCO MCGARRY MD [Staff Physician] - 3-5 Days Time of Disposition: 03:57 Print Language: [place] KORE[place]
--- NOTE | 2019-12-23 23:42 | Ultrasound Report ---
LIMITED RUQ ABDOMINAL ULTRASOUND INDICATION: RUQ and epigastric pain. COMPARISON: CT abdomen/pelvis from 05/24/2019. FINDINGS: Pancreas: Visualized portions show no significant abnormality. Abdominal Aorta: No significant abnormality. IVC: No significant abnormality. Liver: The liver measures 13.8 cm in length. No significant abnormality. Normal hepatopedal blood fl ow in the main portal vein. Gallbladder: Surgically absent. Bile ducts: No significant abnormality. Common bile duct measures 4 mm. Right kidney: No significant abnormality visualized.. Free fluid: None. Additional Findings: None. IMPRESSION: 1. No acute abnormality. Bladder is surgically absent. Signer Name: Bhavin Alan MD Signed: 12/23/2019 11:37 PM Workstation Name: [id number]
[2019-12-23 23:58] LABS: Basophils # (Auto) 0.1 K/mm3 (0.0-0.1); Basophils % (Auto) 0.8 % (0.0-1.8); Eosinophils # (Auto) 0.1 K/mm3 (0.0-0.4); Eosinophils % (Auto) 0.9 % (0.0-4.3); Hemoglobin 13.4 gm/dl (10.1-14.3); Lymphocytes # (Auto) 2.2 K/mm3 (1.2-5.4); Lymphocytes % (Auto) 32.5 % (13.4-35.0); Mean Corpuscular HGB Conc 34 % (30-34); Mean Corpuscular Volume 94 fl (79-97); Monocytes # (Auto) 0.5 K/mm3 (0.0-0.8); Monocytes % (Auto) 7.1 % (0.0-7.3); Platelet Count 305 K/mm3 (140-440); Red Blood Count 4.26 M/mm3 (3.65-5.03); Red Cell Distribution Width 17.6 % (13.2-15.2)
[2019-12-24 00:15] LABS: Alanine Aminotransferase 12 units/L (7-56); Albumin 3.9 g/dL (3.9-5); BUN/Creatinine Ratio 20; Bilirubin,Direct < 0.2 mg/dL (0-0.2); Blood Urea Nitrogen 18 mg/dL (7-17); Calcium 9.1 mg/dL (8.4-10.2); Hemolysis Index 7
[2019-12-24] MEDS ORDERED: LIDOCAINE VISCOUS 2% 15 ML ORAL LIQD PO ONE (00:39)
[2019-12-24] MEDS ORDERED: ALUM-MAG HYDROXIDE-SIMETHICONE 200-200-20MG/5ML ORAL LIQD 30 ML PO ONE (00:39)
--- NOTE | 2019-12-24 02:20 | Cat Scan Report ---
CT ABDOMEN AND PELVIS WITH CONTRAST HISTORY: pain. Acute upper abdominal pain with nausea and vomiting COMPARISON: CT abdomen/pelvis from 05/24/2019 TECHNIQUE: CT images of the abdomen and pelvis were obtained following administration of intravenous contrast. All CT scans at this location are performed using CT dose reduction for ALARA by means of automated exposure control. CONTRAST: 100 ml of intravenous contrast administered. FINDINGS: Lungs/bones: Lung bases are clear. There are degenerative changes in the spine and pelvis with no ac tolowa dee-ni' osseous abnormality identified. Stable probable bone island in the right iliac wing and posttraum atic change involving the left iliac wing. Abdomen/pelvis: The gallbladder is surgically absent. There is mild intrahepatic and extrahepatic bi liary ductal dilatation which can be seen postcholecystectomy. Liver otherwise appears unremarkable. The spleen, pancreas, right kidney, and proximal GI tract appear unremarkable. There is a tiny simple cyst in the midpole the right kidney. Mild bilateral adrenal thickening is present. Urinary bladder is unremarkable. Uterus is surgically absent. There is no pelvic free fluid. No acute colonic abnormality identified. Terminal ileum is normal. IMPRESSION: 1. No acute abnormality identified. 2. Incidental findings as above. Signer Name: Bhavin Alan MD Signed: 12/24/2019 2:16 AM Workstation Name: [id number]
[2019-12-24 03:30] LABS: Mucus,Urine FEW /HPF
[2019-12-24 03:31] LABS: Bilirubin,Urine NEG (Negative); Blood,Urine NEG (Negative); Color,Urine Yellow (Yellow); Urobilinogen,Urine < 2.0 mg/dL (<2.0)
[2019-12-24 04:13] VITALS: BP 133/63
[2019-12-24 08:27] LABS: Bacteria,Urine 1+ /HPF (Negative)
== END 2019-12-24 04:13 | disposition home or self-care (01) ==
LOC: ED 21:07
DX: A08.4 Viral intestinal infection, unspecified (principal); K21.9 Gastro-esophageal reflux disease without esophagitis; I10 Essential (primary) hypertension; I25.2 Old myocardial infarction; J45.909 Unspecified asthma, uncomplicated; F17.200 Nicotine dependence, unspecified, uncomplicated; Z90.49 Acquired absence of other specified parts of digestive tract; Z90.710 Acquired absence of both cervix and uterus; Z98.890 Other specified postprocedural states; Z79.899 Other long term (current) drug therapy; Z88.0 Allergy status to penicillin; Z88.4 Allergy status to anesthetic agent; Z88.8 Allergy status to other drugs, medicaments and biological substances
CPT/HCPCS: 36415; 74177; 76705; 80048; 80076; 81001; 83690; 84484; 85025; 93005; 93010; 96361; 96374; 96375; 99284; J2270; J2405; J7030; Q9967

== ENCOUNTER 2020-01-04 | Emergency (ER) | payer BC ==
[2020-01-04] MEDS ORDERED: HYDROmorphone 1 MG/1 ML INJ IV ONE ×2 (00:25→01:26)
[2020-01-04] MEDS ORDERED: ONDANSETRON 4 MG/2 ML INJ IV ONE (00:25)
[2020-01-04] MEDS ORDERED: SODIUM CHLORIDE 0.9% 500 ML 500 ML IV ONE (00:25)
--- NOTE | 2020-01-04 00:29 | Emergency Department Report ---
ED Abdominal Pain HPI - General Chief Complaint: Abdominal Pain Stated Complaint: ANXIETY/ABD PAIN Time Seen by Provider: 01/04/20 00:22 Source: patient, EMS Mode of arrival: Stretcher Limitations: No Limitations - History of Present Illness Initial Comments: Patient is a 64-year-old female that presents emergency room with epigastric pain and nausea vomiting. Patient states her symptoms started this morning at 8 AM. Patient states she not having any chest pain. Patient denies blood in her vomitus. Patient denies fever and chills. Patient denies blood in her stool. Patient brought in by EMS. Patient states her pain is better with rest and w orse with movement and palpation. Patient states she has a history of acid reflux. Patient states she is currently taking her acid reflux medications but is not taking any medications.. Patient states she has a history of hypertension, COPD, asthma, [place], afib. Report received from EMS: Patient was found to be tachycardic and anxious per EMS. MD Complaint: abdominal pain -: Sudden Location: epigastric Radiation: none Migration to: no migration Severity: moderate Severity scale (0 -10): 5 Quality: burning Consistency: constant Improves With: rest Worsens With: vomiting, movement, other Associated Symptoms: nausea, vomiting. denies: diarrhea, fever, chills, constipation, dysuria, hematemesis, hematochezia, melena, hematuria, anorexia, syncope - Related Data Previous Rx's Medication Instructions Recorded Last Taken Type Acetaminophen [Acetaminophen TAB] 2 tab PO Q6H PRN #15 tablet 10/01/19 Unknown Rx Albuterol INH(or & Nicu Only) 2 puff IH QID PRN #1 unit 10/01/19 Unknown Rx [ProAir HFA Inhaler] Amiodarone [Cordarone 200 MG TAB] 200 mg PO QDAY #30 tablet 10/01/19 Unknown Rx Apixaban [Eliquis] 2.5 mg PO Q12HR #60 tablet 10/01/19 Unknown Rx Aspirin EC [Halfprin EC] 81 mg PO QDAY #30 tablet 10/01/19 Unknown Rx Metoprolol [Lopressor TAB] 50 mg PO Q8HR #90 tablet 10/01/19 Unknown Rx Ticagrelor [Brilinta] 90 mg PO BID #60 tablet 10/01/19 Unknown Rx DOXYCYCLINE Hyclate [Vibramycin 100 mg PO BID #5 capsule 10/13/19 Unknown Rx CAP] cephALEXin [Keflex] 500 mg PO Q6HR #10 capsule 10/13/19 Unknown Rx Dicyclomine [Bentyl] 20 mg PO Q6H PRN #24 tablet 12/24/19 Unknown Rx Famotidine [Pepcid] 20 mg PO Q12H #60 tablet 01/04/20 Unknown Rx Ondansetron [Zofran ODT TAB] 4 mg PO Q8HR PRN #15 tab.rapdis 01/04/20 Unknown Rx Pantoprazole [Protonix TAB] 40 mg PO QDAY #30 tablet 01/04/20 Unknown Rx Potassium Chloride 20 meq PO QDAY 15 Days #15 packet 01/04/20 Unknown Rx oxyCODONE /ACETAMINOPHEN [Percocet 1 tab PO Q6H PRN #8 tablet 01/04/20 Unknown Rx 5/325 mg] Allergies Allergy/AdvReac Type Severity Reaction Status Date / Time codeine Allergy Vomiting Verified 05/20/19 11:23 Penicillins Allergy Hives Verified 05/20/19 11:23 pentazocine [From [facility]] Allergy Nausea Verified 05/20/19 11:23 ED Review of Systems ROS: Stated complaint: ANXIETY/CP Other details as noted in HPI Constitutional: denies: chills, fever Eyes: denies: eye pain, eye discharge, vision change ENT: denies: ear pain, throat pain Respiratory: denies: cough, shortness of breath, wheezing Cardiovascular: denies: chest pain, palpitations Endocrine: no symptoms reported Gastrointestinal: abdominal pain, nausea, vomiting. denies: diarrhea, constipation, hematemesis, melena, hematochezia Genitourinary: denies: urgency, dysuria, discharge Musculoskeletal: denies: back pain, joint swelling, arthralgia Skin: denies: rash, lesions Neurological: denies: headache, weakness, paresthesias Psychiatric: denies: anxiety, depression Hematological/Lymphatic: denies: easy bleeding, easy bruising ED Past Medical Hx - Past Medical History Previous Medical History?: Yes Hx Hypertension: Yes Hx Heart Attack/AMI: Yes (NSTEMI [id number]. Cath and bare metal stent) Hx Congestive Heart Failure: No Hx Diabetes: No Hx Deep Vein Thrombosis: No Hx Asthma: Yes Hx COPD: Yes - Surgical History Past Surgical History?: Yes Hx Coronary Stent: Yes Hx Pacemaker: Yes Hx Internal Defibrillator: No Hx Appendectomy: Yes Additional Surgical History: neck surgery, neck fracture, hysterectomy - Family History Family history: no significant - Social History Smoking Status: Current Every Day Smoker Substance Use Type: None - Medications Home Medications: Home Medications Medication Instructions Recorded Confirmed Last Taken Type Acetaminophen [Acetaminophen TAB] 2 tab PO Q6H PRN #15 tablet 10/01/19 10/08/19 Unknown Rx Albuterol INH(or & Nicu Only) 2 puff IH QID PRN #1 unit 10/01/19 10/08/19 Unknown Rx [ProAir HFA Inhaler] Amiodarone [Cordarone 200 MG TAB] 200 mg PO QDAY #30 tablet 10/01/19 10/08/19 Unknown Rx Apixaban [Eliquis] 2.5 mg PO Q12HR #60 tablet 10/01/19 10/08/19 Unknown Rx Aspirin EC [Halfprin EC] 81 mg PO QDAY #30 tablet 10/01/19 10/08/19 Unknown Rx Metoprolol [Lopressor TAB] 50 mg PO Q8HR #90 tablet 10/01/19 10/08/19 Unknown Rx Ticagrelor [Brilinta] 90 mg PO BID #60 tablet 10/01/19 10/08/19 Unknown Rx DOXYCYCLINE Hyclate [Vibramycin 100 mg PO BID #5 capsule 10/13/19 Unknown Rx CAP] cephALEXin [Keflex] 500 mg PO Q6HR #10 capsule 10/13/19 Unknown Rx Dicyclomine [Bentyl] 20 mg PO Q6H PRN #24 tablet 12/24/19 Unknown Rx Famotidine [Pepcid] 20 mg PO Q12H #60 tablet 01/04/20 Unknown Rx Ondansetron [Zofran ODT TAB] 4 mg PO Q8HR PRN #15 tab.rapdis 01/04/20 Unknown Rx Pantoprazole [Protonix TAB] 40 mg PO QDAY #30 tablet 01/04/20 Unknown Rx Potassium Chloride 20 meq PO QDAY 15 Days #15 packet 01/04/20 Unknown Rx oxyCODONE /ACETAMINOPHEN [Percocet 1 tab PO Q6H PRN #8 tablet 01/04/20 Unknown Rx 5/325 mg] ED Physical Exam - General Limitations: No Limitations General appearance: alert, in no apparent distress - Head Head exam: Present: atraumatic, normocephalic - Eye Eye exam: Present: normal appearance, PERRL Pupils: Present: normal accommodation - ENT ENT exam: Present: mucous membranes moist - Neck Neck exam: Present: normal inspection - Respiratory Respiratory exam: Present: normal lung sounds bilaterally. Absent: respiratory distress, wheezes, rales, chest wall tenderness - Cardiovascular Cardiovascular Exam: Present: regular rate, normal rhythm. Absent: systolic murmur, diastolic murmur, rubs, gallop - GI/Abdominal GI/Abdominal exam: Present: soft, tenderness, normal bowel sounds - Rectal Rectal exam: Present: deferred - Extremities Exam Extremities exam: Present: normal inspection - Back Exam Back exam: Present: normal inspection - Neurological Exam Neurological exam: Present: alert, oriented X3 - Psychiatric Psychiatric exam: Present: normal affect, normal mood - Skin Skin exam: Present: warm, dry, intact, normal color. Absent: rash ED Course Vital Signs 01/04/20 01/04/20 01/04/20 00:14 00:16 00:18 Temperature 99.6 F Pulse Rate 151 H 151 H 146 H Respiratory 18 26 H 22 Rate Blood Pressure 121/90 Blood Pressure 121/90 [Left] O2 Sat by Pulse 98 99 Oximetry 01/04/20 01/04/20 01/04/20 00:30 00:45 01:00 Temperature Pulse Rate 155 H 151 H 76 Respiratory 20 19 11 L Rate Blood Pressure 121/90 121/90 100/66 Blood Pressure [Left] O2 Sat by Pulse 99 100 97 Oximetry 01/04/20 01/04/20 01/04/20 01:15 01:30 01:45 Temperature Pulse Rate 75 64 65 Respiratory 9 L 14 15 Rate Blood Pressure 128/71 137/71 137/71 Blood Pressure [Left] O2 Sat by Pulse 96 93 95 Oximetry 01/04/20 01/04/20 02:01 02:15 Temperature Pulse Rate 65 64 Respiratory 9 L 8 L Rate Blood Pressure 137/71 133/73 Blood Pressure [Left] O2 Sat by Pulse 94 96 Oximetry - Reevaluation(s) Reevaluation #1: Patient's heart rate back to normal. Patient's rhythm converted to sinus after fluids. 01/04/20 01:12 Reevaluation #2: Patient states her pain has improved. Patient will be given a GI cocktail. I discussed all results and clinical findings with patient. I discussed plan of care with patient. Patient agrees with plan of care. Patient is stable for discharge. Patient will be discharged home. Patient given discharge instructions. Patient voiced understanding of discharge instructions. 01/04/20 03:41 ED Medical Decision Making - Lab Data Result diagrams: 01/04/20 00:29 01/04/20 00:29 - EKG Data -: EKG Interpreted by Me EKG shows normal: axis, intervals, QRS complexes, ST-T waves Rate: tachycardia - EKG Data Interpretation: other (A. fib) - Radiology Data Radiology results: report reviewed CT ABDOMEN AND PELVIS WITH CONTRAST INDICATION: Mid epigastric pain with nausea and vomiting. COMPARISON: CT abdomen and pelvis with contrast from 12/24/2019. TECHNIQUE: Axial, coronal and sagittal CT imaging of the abdomen and pelvis was performed after injection of 100 cc Omnipaque [address] scans at this location are performed using CT dose reduction for ALARA by means of automated exposure control. FINDINGS: LOWER CHEST: Focal peribronchial thickening/opacities along the right lower lobe are unchanged. No additional significant abnormality. LIVER: No significant abnormality. BILIARY: Prior cholecystectomy. No biliary ductal dilatation. PANCREAS: No significant abnormality. SPLEEN: No significant abnormality. ADRENALS: Mild bilateral adrenal thickening is unchanged. No additional significant abnormality. KIDNEYS AND URETERS: Mild renal cortical thinning is noted bilaterally. The previously seen tiny simple right renal cyst is unchanged. No additional significant abnormality. GI TRACT: No significant abnormality of the stomach, small bowel or colon. The appendix is surgically absent. PERITONEUM: No free fluid. No free air. No fluid collection. LYMPH NODES: No significant adenopathy. VASCULATURE: The aorta and its visualized branches are patent and normal in caliber with mild generalized atherosclerosis. URINARY BLADDER: No significant abnormality. REPRODUCTIVE ORGANS: Prior hysterectomy. No significant abnormality. ADDITIONAL FINDINGS: None. SKELETAL SYSTEM: No acute abnormality. There is a stable bony alignment along the right iliac wing and stable posttraumatic changes along the left iliac wing. Degenerative changes throughout the spine and SI joints are stable as well. IMPRESSION: 1. No acute abnormality of the abdomen or pelvis. 2. Additional findings as above are stable compared to the prior CT from 12/24/2019. - Medical Decision Making Patient is a 64-year-old female that presents emergency room with complaints of epigastric pain. Patient denied chest pain. Patient also complained of nausea and vomiting. Patient's clinical findings and results are consistent with gastritis and acid reflux. Patient stable for discharge. Patient discharged home. Patient given pain medications and a GI cocktail and responded well to treatment. Patient's labs were done and were unremarkable except for metabolic acidosis. Patient tolerated p.o. intake. Patient discharged from the hospital pain-free. Patient discharged home with a prescription for Nexium. Patient found to be tachycardic and in A. fib on initial evaluation and an EKG was done. No other acute findings were found on the EKG except for A. fib. Patient given fluids and her heart rate immediately improved. - Differential Diagnosis Acid reflux, gastritis, abdominal pain, Critical care attestation.: If time is entered above; I have spent that time in minutes in the direct care of this critically ill patient, excluding procedure time. ED Disposition Clinical Impression: Hypokalemia, Epigastric abdominal pain Gastritis Qualifiers: Gastritis type: unspecified gastritis Chronicity: acute Gastritis bleeding: without bleeding Qualified Code(s): K29.00 - Acute gastritis without bleeding GERD (gastroesophageal reflux disease) Qualifiers: Esophagitis presence: with esophagitis Qualified Code(s): K21.0 - Gastro- esophageal reflux disease with esophagitis Nausea & vomiting Qualifiers: Vomiting type: unspecified Vomiting Intractability: non-intractable Qualified Code(s): R11.2 - Nausea with vomiting, unspecified Afib Qualifiers: Atrial fibrillation type: unspecified Qualified Code(s): I48.91 - Unspecified atrial fibrillation Disposition: DC- TO HOME OR SELFCARE Is pt being admited?: No Does the pt Need Aspirin: No Condition: Stable Instructions: Abdominal Pain (ED), Gastritis (ED), Diet for Ulcers and Gastritis (ED), Acute Nausea and Vomiting (ED), Gastroesophageal Reflux Disease (ED), Hypokalemia (ED) Additional Instructions: Patient to follow-up with primary care in 2 to 3 days. Patient to follow-up with a GI in 2 to 3 days. Patient to return to ER if condition worsens, changes or new symptoms arise. Patient to increase water. Patient to eat a brat diet. Patient to rest. Patient to take Tylenol or ibuprofen as needed for pain. Patient to take meds as directed. Prescriptions: Famotidine [Pepcid] 20 mg PO Q12H #60 tablet oxyCODONE /ACETAMINOPHEN [Percocet 5/325 mg] 1 tab PO Q6H PRN #8 tablet PRN Reason: Pain , Severe (7-10) Potassium Chloride 20 meq PO QDAY 15 Days #15 packet Pantoprazole [Protonix TAB] 40 mg PO QDAY #30 tablet Ondansetron [Zofran ODT TAB] 4 mg PO Q8HR PRN #15 tab.rapdis PRN Reason: Nausea Referrals: PRIMARY CARE, [Primary Care Provider] - 2-3 Days MIKE AGUIRRE MD [Staff Physician] - 2-3 Days Time of Disposition: 03:52
[2020-01-04 01:02] LABS: Basophils % (Auto) 0.6 % (0.0-1.8); Eosinophils # (Auto) 0.2 K/mm3 (0.0-0.4); Eosinophils % (Auto) 2.8 % (0.0-4.3); Hematocrit 44.9 % (30.3-42.9); Hemoglobin 14.6 gm/dl (10.1-14.3); Lymphocytes # (Auto) 2.1 K/mm3 (1.2-5.4); Mean Corpuscular HGB Conc 33 % (30-34); Mean Corpuscular Volume 95 fl (79-97); Platelet Count 299 K/mm3 (140-440); Red Blood Count 4.71 M/mm3 (3.65-5.03); Red Cell Distribution Width 18.5 % (13.2-15.2)
[2020-01-04 01:17] LABS: Creatine Kinase MB 2.4 ng/mL (0.0-4.0)
[2020-01-04 01:19] LABS: Albumin 3.8 g/dL (3.9-5)
--- NOTE | 2020-01-04 03:14 | Cat Scan Report ---
CT ABDOMEN AND PELVIS WITH CONTRAST INDICATION: Mid epigastric pain with nausea and vomiting. COMPARISON: CT abdomen and pelvis with contrast from 12/24/2019. TECHNIQUE: Axial, coronal and sagittal CT imaging of the abdomen and pelvis was performed after inje ction of 100 cc Omnipaque [address] scans at this location are performed using CT dose re duction for ALARA by means of automated exposure control. FINDINGS: LOWER CHEST: Focal peribronchial thickening/opacities along the right lower lobe are unchanged. No ad ditional significant abnormality. LIVER: No significant abnormality. BILIARY: Prior cholecystectomy. No biliary ductal dilatation. PANCREAS: No significant abnormality. SPLEEN: No significant abnormality. ADRENALS: Mild bilateral adrenal thickening is unchanged. No additional significant abnormality. KIDNEYS AND URETERS: Mild renal cortical thinning is noted bilaterally. The previously seen tiny simp le right renal cyst is unchanged. No additional significant abnormality. GI TRACT: No significant abnormality of the stomach, small bowel or colon. The appendix is surgicall y absent. PERITONEUM: No free fluid. No free air. No fluid collection. LYMPH NODES: No significant adenopathy. VASCULATURE: The aorta and its visualized branches are patent and normal in caliber with mild general ized atherosclerosis. URINARY BLADDER: No significant abnormality. REPRODUCTIVE ORGANS: Prior hysterectomy. No significant abnormality. ADDITIONAL FINDINGS: None. SKELETAL SYSTEM: No acute abnormality. There is a stable bony alignment along the right iliac wing an d stable posttraumatic changes along the left iliac wing. Degenerative changes throughout the spine a nd SI joints are stable as well. IMPRESSION: 1. No acute abnormality of the abdomen or pelvis. 2. Additional findings as above are stable compared to the prior CT from 12/24/2019. Signer Name: Laz Holt MD Signed: 01/04/2020 3:09 AM Workstation Name: [id number]
[2020-01-04] MEDS ORDERED: ALUM-MAG HYDROXIDE-SIMETHICONE 200-200-20MG/5ML ORAL LIQD 30 ML PO ONE (03:29)
[2020-01-04] MEDS ORDERED: LIDOCAINE VISCOUS 2% 15 ML ORAL LIQD PO ONE (03:29)
[2020-01-04] MEDS ORDERED: POTASSIUM CHLORIDE 20 MEQ PACKET FEEDTUBE ONE (03:34)
[2020-01-04] MEDS ORDERED: POTASSIUM CHLORIDE ER 20 MEQ TAB PO ONE ×2 (03:37→03:45)
[2020-01-04 04:28] VITALS: BP 121/90
== END 2020-01-04 04:22 | disposition home or self-care (01) ==
LOC: ED
DX: K29.70 Gastritis, unspecified, without bleeding (principal); K21.9 Gastro-esophageal reflux disease without esophagitis; I48.91 Unspecified atrial fibrillation; R11.2 Nausea with vomiting, unspecified; E87.6 Hypokalemia; I10 Essential (primary) hypertension; I25.2 Old myocardial infarction; J44.9 Chronic obstructive pulmonary disease, unspecified; F17.200 Nicotine dependence, unspecified, uncomplicated
CPT/HCPCS: 36415; 74177; 80053; 82550; 82553; 83690; 84484; 85025; 93005; 93010; 96374; 96375; 96376; 99285; J1170; J2405; J7040; Q9967

== ENCOUNTER 2020-01-15 22:37 | Emergency (ER) | payer BC ==
--- NOTE | 2020-01-15 23:40 | XRay Report ---
CHEST 1 VIEW INDICATION: Chest Pain. COMPARISON: 10/06/2019 FINDINGS: Support devices: None. Heart: Normal. Lungs/Pleura: No consolidation. Mild interstitial markings are noted. No pleural abnormality. IMPRESSION: 1. Mild interstitial opacities could be due to lower airways disease. Signer Name: Gwyn Arrington MD Signed: 01/15/2020 11:36 PM Workstation Name: [id number]
[2020-01-16 00:26] LABS: Basophils # (Auto) 0.1 K/mm3 (0.0-0.1); Basophils % (Auto) 0.6 % (0.0-1.8); Eosinophils # (Auto) 0.2 K/mm3 (0.0-0.4); Eosinophils % (Auto) 1.8 % (0.0-4.3); Hematocrit 38.8 % (30.3-42.9); Lymphocytes # (Auto) 1.8 K/mm3 (1.2-5.4); Lymphocytes % (Auto) 19.2 % (13.4-35.0); Mean Corpuscular HGB Conc 34 % (30-34); Mean Corpuscular Volume 97 fl (79-97); Monocytes # (Auto) 0.9 K/mm3 (0.0-0.8); Monocytes % (Auto) 10.1 % (0.0-7.3); Platelet Count 278 K/mm3 (140-440); Red Blood Count 4.01 M/mm3 (3.65-5.03); Red Cell Distribution Width 19.4 % (13.2-15.2)
[2020-01-16 00:38] LABS: Partial Thromboplastin Time 34.3 Sec. (24.2-36.6)
[2020-01-16 00:48] LABS: Alanine Aminotransferase 11 units/L (7-56); Albumin 4.1 g/dL (3.9-5); BUN/Creatinine Ratio 13; Blood Urea Nitrogen 10 mg/dL (7-17); Calcium 9.2 mg/dL (8.4-10.2); Hemolysis Index 2
[2020-01-16 00:58] LABS: INR 0.89 (0.87-1.13)
[2020-01-16 01:16] LABS: Bilirubin,Urine NEG (Negative); Blood,Urine NEG (Negative); Color,Urine Yellow (Yellow); Protein,Urine <15 mg/dL mg/dL (Negative); Urobilinogen,Urine < 2.0 mg/dL (<2.0)
[2020-01-16 01:17] LABS: Mucus,Urine FEW /HPF
[2020-01-16] MEDS ORDERED: HYDROmorphone 1 MG/1 ML INJ IM ONE (02:27)
[2020-01-16] MEDS ORDERED: ONDANSETRON 4 MG ODT TAB PO ONE (02:27)
--- NOTE | 2020-01-16 02:27 | Emergency Department Report ---
ED General Adult HPI - General Chief complaint: Abdominal Pain Stated complaint: STOMCACH PAIN/V Time Seen by Provider: 01/16/20 01:25 Source: patient, RN notes reviewed, old records reviewed Mode of arrival: Ambulatory Limitations: No Limitations - History of Present Illness Initial comments: Patient is a 64-year-old female. The patient is not known to myself previously. During the entire history and physical examination, I am weeder and escorted by nurse Shari Mcmullen Patient has a history of chronic pain syndrome, sick sinus syndrome, paroxysmal atrial fibrillation, on Eliquis, has a history of heart disease with PCI of the right coronary artery, currently on aspirin Patient presents to the ER today with complaints of recurrent abdominal pain. She is been having this pain for over a month. She presented to this department on January 04, 2020, and had an ER work-up, including CT scan of the abdomen pelvis which was negative for acute disease. She also presented with similar complaints on December 24, 2019, and also had a CT scan of the abdomen pelvis which was negative for acute disease, and a right upper quadrant ultrasound which was negative for acute disease. She had appropriate screening laboratory tests which were basically unremarkable for acute pathology. Today, the patient presents to the ER with a recurrent complaint of epigastric cramping abdominal pain, and reported nausea and vomiting. There is no comp laint of headache, neck pain, chest pain, exertional shortness of breath which is new or different. She denies irritative and obstructive urinary symptoms, and she denies bright red blood per rectum. She endorses compliance with her systemic anticoagulation. She denies recent travel, surgery and immobilization. Her symptoms are markedly improved with hydromorphone, and Zofran, and in her emergency room stay, she was requesting something to drink. She was able to drink without difficulty. She was instructed to follow-up with an outpatient primary care doctor which she has not done as of yet. She reports she has trouble getting to the doctor's office. Of note, she reports that her brought her to the emergency room today, but indicates that "he is too busy with work to take me to my doctors appointments." -: Gradual, week(s) Location: abdomen Quality: aching Consistency: intermittent Improves with: medication, movement Worsens with: movement - Related Data Previous Rx's Medication Instructions Recorded Last Taken Type Acetaminophen [Acetaminophen TAB] 2 tab PO Q6H PRN #15 tablet 10/01/19 Unknown Rx Albuterol INH(or & Nicu Only) 2 puff IH QID PRN #1 unit 10/01/19 Unknown Rx [ProAir HFA Inhaler] Amiodarone [Cordarone 200 MG TAB] 200 mg PO QDAY #30 tablet 10/01/19 Unknown Rx Apixaban [Eliquis] 2.5 mg PO Q12HR #60 tablet 10/01/19 Unknown Rx Aspirin EC [Halfprin EC] 81 mg PO QDAY #30 tablet 10/01/19 Unknown Rx Metoprolol [Lopressor TAB] 50 mg PO Q8HR #90 tablet 10/01/19 Unknown Rx Ticagrelor [Brilinta] 90 mg PO BID #60 tablet 10/01/19 Unknown Rx DOXYCYCLINE Hyclate [Vibramycin 100 mg PO BID #5 capsule 10/13/19 Unknown Rx CAP] cephALEXin [Keflex] 500 mg PO Q6HR #10 capsule 10/13/19 Unknown Rx Dicyclomine [Bentyl] 20 mg PO Q6H PRN #24 tablet 12/24/19 Unknown Rx Famotidine [Pepcid] 20 mg PO Q12H #60 tablet 01/04/20 Unknown Rx Ondansetron [Zofran ODT TAB] 4 mg PO Q8HR PRN #15 tab.rapdis 01/04/20 Unknown Rx Pantoprazole [Protonix TAB] 40 mg PO QDAY #30 tablet 01/04/20 Unknown Rx Potassium Chloride 20 meq PO QDAY 15 Days #15 packet 01/04/20 Unknown Rx Dicyclomine [Bentyl] 10 mg PO QID PRN #20 capsule 01/16/20 Unknown Rx Famotidine [Pepcid] 20 mg PO BID #60 tablet 01/16/20 Unknown Rx Lexus Root [Lexus] 250 mg PO QID PRN #30 capsule 01/16/20 Unknown Rx Metoclopramide [Reglan] 10 mg PO QID PRN #30 tablet 01/16/20 Unknown Rx Promethazine HCl [Phenergan SUPPOS] 25 mg RC Q6HR PRN #15 supp.rect 01/16/20 Unknown Rx Allergies Allergy/AdvReac Type Severity Reaction Status Date / Time codeine Allergy Vomiting Verified 06/29/19 11:23 Penicillins Allergy Hives Verified 05/20/19 11:23 pentazocine [From [place]win] Allergy Nausea Verified 05/20/19 11:23 Morpholine Analogues AdvReac Vomiting Verified 01/15/20 22:54 ED Review of Systems ROS: Stated complaint: STOMCACH PAIN/V Other details as noted in HPI Constitutional: denies: fever Eyes: denies: eye discharge ENT: denies: congestion Respiratory: denies: wheezing Cardiovascular: denies: syncope Gastrointestinal: abdominal pain, nausea, vomiting. denies: hematemesis, melena, hematochezia Genitourinary: denies: dysuria Neurological: weakness Psychiatric: anxiety Hematological/Lymphatic: denies: easy bleeding ED Past Medical Hx - Past Medical History Previous Medical History?: Yes Hx Hypertension: Yes Hx Heart Attack/AMI: Yes (NSTEMI [id number]. Cath and bare metal stent) Hx Congestive Heart Failure: No Hx Diabetes: No Hx Deep Vein Thrombosis: No Hx Asthma: Yes Hx COPD: Yes - Surgical History Past Surgical History?: Yes Hx Coronary Stent: Yes (Pt unsure) Hx Pacemaker: Yes Hx Internal Defibrillator: No Hx Appendectomy: Yes Additional Surgical History: neck surgery, neck fracture, hysterectomy - Social History Smoking Status: Current Every Day Smoker Substance Use Type: None - Medications Home Medications: Home Medications Medication Instructions Recorded Confirmed Last Taken Type Acetaminophen [Acetaminophen TAB] 2 tab PO Q6H PRN #15 tablet 10/01/19 10/08/19 Unknown Rx Albuterol INH(or & Nicu Only) 2 puff IH QID PRN #1 unit 10/01/19 10/08/19 Unknown Rx [ProAir HFA Inhaler] Amiodarone [Cordarone 200 MG TAB] 200 mg PO QDAY #30 tablet 10/01/19 10/08/19 Unknown Rx Apixaban [Eliquis] 2.5 mg PO Q12HR #60 tablet 10/01/19 10/08/19 Unknown Rx Aspirin EC [Halfprin EC] 81 mg PO QDAY #30 tablet 10/01/19 10/08/19 Unknown Rx Metoprolol [Lopressor TAB] 50 mg PO Q8HR #90 tablet 10/01/19 10/08/19 Unknown Rx Ticagrelor [Brilinta] 90 mg PO BID #60 tablet 10/01/19 10/08/19 Unknown Rx DOXYCYCLINE Hyclate [Vibramycin 100 mg PO BID #5 capsule 10/13/19 Unknown Rx CAP] cephALEXin [Keflex] 500 mg PO Q6HR #10 capsule 10/13/19 Unknown Rx Dicyclomine [Bentyl] 20 mg PO Q6H PRN #24 tablet 12/24/19 Unknown Rx Famotidine [Pepcid] 20 mg PO Q12H #60 tablet 01/04/20 Unknown Rx Ondansetron [Zofran ODT TAB] 4 mg PO Q8HR PRN #15 tab.rapdis 01/04/20 Unknown Rx Pantoprazole [Protonix TAB] 40 mg PO QDAY #30 tablet 01/04/20 Unknown Rx Potassium Chloride 20 meq PO QDAY 15 Days #15 packet 01/04/20 Unknown Rx Dicyclomine [Bentyl] 10 mg PO QID PRN #20 capsule 01/16/20 Unknown Rx Famotidine [Pepcid] 20 mg PO BID #60 tablet 01/16/20 Unknown Rx Lexus Root [Lexus] 250 mg PO QID PRN #30 capsule 01/16/20 Unknown Rx Metoclopramide [Reglan] 10 mg PO QID PRN #30 tablet 01/16/20 Unknown Rx Promethazine HCl [Phenergan SUPPOS] 25 mg RC Q6HR PRN #15 supp.rect 01/16/20 Unknown Rx ED Physical Exam - General Limitations: No Limitations General appearance: alert, anxious - Head Head exam: Present: atraumatic, normocephalic - Eye Eye exam: Present: normal appearance, EOMI. Absent: nystagmus - ENT ENT exam: Present: normal exam, normal orophraynx, mucous membranes moist, normal external ear exam, other (Patient is edentulous. There is no stridor or dysphonia) - Neck Neck exam: Present: normal inspection, full ROM. Absent: tenderness, meningismus - Respiratory Respiratory exam: Present: normal lung sounds bilaterally. Absent: respiratory distress - Cardiovascular Cardiovascular Exam: Present: regular rate, normal rhythm, normal heart sounds. Absent: bradycardia, tachycardia, irregular rhythm, systolic murmur, diastolic murmur, rubs, gallop - GI/Abdominal GI/Abdominal exam: Present: soft, tenderness (Minimal tenderness, no rebound, guarding or peritoneal signs), normal bowel sounds, other (There is no right lower quadrant tenderness. There is no right upper quadrant tenderness). Absent: distended, guarding, rebound, rigid, pulsatile mass - Extremities Exam Extremities exam: Present: normal inspection, full ROM, other (2+ pulses noted i n the bilateral upper and lower extremities. There is no palpable cord. negative Homans sign. Muscular compartments are soft. The pelvis is stable.). Absent: calf tenderness - Back Exam Back exam: Present: normal inspection. Absent: tenderness, CVA tenderness (R), CVA tenderness (L), paraspinal tenderness, vertebral tenderness - Neurological Exam Neurological exam: Present: alert, normal gait, other (There is no facial droop. The tongue is midline. Extraocular movements are intact bilaterally. There is 5 out of 5 strength in bilateral upper and lower extremities. Sensation is intact to light touch bilateral upper and lower extremities. There is a normal gait.). Absent: motor sensory deficit - Psychiatric Psychiatric exam: Present: anxious - Skin Skin exam: Present: warm, dry, intact, normal color. Absent: rash ED Course Vital Signs 01/15/20 22:48 Temperature 97.6 F Pulse Rate 76 Respiratory 18 Rate Blood Pressure 173/78 O2 Sat by Pulse 97 Oximetry - Reevaluation(s) Reevaluation #1: 01/16/20 04:16 X-ray of the chest is reviewed and appreciated, however, based off of the history, physical, laboratory studies and exam, as well as similarity to prior presentations, do not suspect pneumonia clinically. ED Medical Decision Making - Lab Data Result diagrams: 01/15/20 23:45 01/15/20 23:45 Vital Signs 01/15/20 22:48 Temperature 97.6 F Pulse Rate 76 Respiratory 18 Rate Blood Pressure 173/78 O2 Sat by Pulse 97 Oximetry Lab Results 01/15/20 01/15/20 01/15/20 Range/Units 23:45 23:45 23:45 WBC 9.2 (4.5-11.0) K/mm3 RBC 4.01 (3.65-5.03) M/mm3 Hgb 13.0 (10.1-14.3) gm/dl Hct 38.8 (30.3-42.9) % MCV 97 (79-97) fl MCH 33 H (28-32) pg MCHC 34 (30-34) % RDW 19.4 H (13.2-15.2) % Plt Count 278 (140-440) K/mm3 Lymph % (Auto) 19.2 (13.4-35.0) % [place] % (Auto) 10.1 H (0.0-7.3) % Eos % (Auto) 1.8 (0.0-4.3) % Baso % (Auto) 0.6 (0.0-1.8) % Lymph # 1.8 (1.2-5.4) K/mm3 [place] # 0.9 H (0.0-0.8) K/mm3 Eos # 0.2 (0.0-0.4) K/mm3 Baso # 0.1 (0.0-0.1) K/mm3 Seg Neutrophils % 68.3 (40.0-70.0) % Seg Neutrophils # 6.3 (1.8-7.7) K/mm3 PT 12.1 L (12.2-14.9) Sec. INR 0.89 (0.87-1.13) APTT 34.3 (24.2-36.6) Sec. Sodium 142 (137-145) mmol/L Potassium 3.7 (3.6-5.0) mmol/L Chloride 103.6 (98-107) mmol/L Carbon Dioxide 23 (22-30) mmol/L Anion Gap 19 mmol/L BUN 10 (7-17) mg/dL Creatinine 0.8 (0.7-1.2) mg/dL Estimated GFR > 60 ml/min BUN/Creatinine Ratio 13 % Glucose 114 H (65-100) mg/dL Calcium 9.2 (8.4-10.2) mg/dL Magnesium (1.7-2.3) mg/dL Total Bilirubin 0.50 (0.1-1.2) mg/dL AST 13 (5-40) units/L ALT 11 (7-56) units/L Alkaline Phosphatase 157 H (35-129) units/L Total Creatine Kinase (30-135) units/L Troponin T < 0.010 (0.00-0.029) ng/mL Total Protein 6.4 (6.3-8.2) g/dL Albumin 4.1 (3.9-5) g/dL Albumin/Globulin Ratio 1.8 % Lipase 5 L (13-60) units/L Urine Color (Yellow) Urine Turbidity (Clear) Urine pH (5.0-7.0) Ur Specific [place] (1.003-1.030) Urine Protein (Negative) mg/dL Urine Glucose (UA) (Negative) mg/dL Urine Ketones (Negative) mg/dL Urine Blood (Negative) Urine Nitrite (Negative) Urine Bilirubin (Negative) Urine Urobilinogen (<2.0) mg/dL Ur Leukocyte Esterase (Negative) Urine WBC (Auto) (0.0-6.0) /HPF Urine RBC (Auto) (0.0-6.0) /HPF U Epithel Cells (Auto) (0-13.0) /HPF Urine Mucus /HPF 01/15/20 01/16/20 01/16/20 Range/Units Unknown 01:52 01:52 WBC (4.5-11.0) K/mm3 RBC (3.65-5.03) M/mm3 Hgb (10.1-14.3) gm/dl Hct (30.3-42.9) % MCV (79-97) fl MCH (28-32) pg MCHC (30-34) % RDW (13.2-15.2) % Plt Count (140-440) K/mm3 Lymph % (Auto) (13.4-35.0) % [place] % (Auto) (0.0-7.3) % Eos % (Auto) (0.0-4.3) % Baso % (Auto) (0.0-1.8) % Lymph # (1.2-5.4) K/mm3 [place] # (0.0-0.8) K/mm3 Eos # (0.0-0.4) K/mm3 Baso # (0.0-0.1) K/mm3 Seg Neutrophils % (40.0-70.0) % Seg Neutrophils # (1.8-7.7) K/mm3 PT (12.2-14.9) Sec. INR (0.87-1.13) APTT (24.2-36.6) Sec. Sodium (137-145) mmol/L Potassium (3.6-5.0) mmol/L Chloride (98-107) mmol/L Carbon Dioxide (22-30) mmol/L Anion Gap mmol/L BUN (7-17) mg/dL Creatinine (0.7-1.2) mg/dL Estimated GFR ml/min BUN/Creatinine Ratio % Glucose (65-100) mg/dL Calcium (8.4-10.2) mg/dL Magnesium 2.00 (1.7-2.3) mg/dL Total Bilirubin (0.1-1.2) mg/dL AST (5-40) units/L ALT (7-56) units/L Alkaline Phosphatase (35-129) units/L Total Creatine Kinase 31 (30-135) units/L Troponin T < 0.010 (0.00-0.029) ng/mL Total Protein (6.3-8.2) g/dL Albumin (3.9-5) g/dL Albumin/Globulin Ratio % Lipase (13-60) units/L Urine Color Yellow (Yellow) Urine Turbidity Clear (Clear) Urine pH 7.0 (5.0-7.0) Ur Specific [place] 1.013 (1.003-1.030) Urine Protein <15 mg/dl (Negative) mg/dL Urine Glucose (UA) Neg (Negative) mg/dL Urine Ketones Neg (Negative) mg/dL Urine Blood Neg (Negative) Urine Nitrite Neg (Negative) Urine Bilirubin Neg (Negative) Urine Urobilinogen < 2.0 (<2.0) mg/dL Ur Leukocyte Esterase Tr (Negative) Urine WBC (Auto) 1.0 (0.0-6.0) /HPF Urine RBC (Auto) 2.0 (0.0-6.0) /HPF U Epithel Cells (Auto) 2.0 (0-13.0) /HPF Urine Mucus Few /HPF - EKG Data -: EKG Interpreted by Me EKG shows normal: sinus rhythm Rate: normal - EKG Data 01/16/20 04:13 EKG #1 shows a sinus rhythm, 71 bpm, normal axis, QTC 498 ms, low voltage, nonspecific T wave abnormalities. It is not a STEMI. Q waves noted in the inferior leads. EKG #2 was unchanged from prior. Both EKGs unchanged from prior EKG from December 23, 2019 - Radiology Data Radiology results: report reviewed, image reviewed interpreted by me: X-ray of the chest shows pacemaker in situ, chronic cervical spine hardware, enlarged cardiac silhouette. No obvious pneumothorax or congestive heart failure noted. Do not suspect pneumonia based off of the history and physical - Medical Decision Making Differential diagnosis, including but not limited to: GERD, gastritis, hiatal hernia, narcotic bowel syndrome, cyclic vomiting syndrome, gastritis, pancreatitis Assessment and plan: 64-year-old female with recurrent complaint of abdominal pain. She is afebrile with reassuring vital signs with exception of chronic hypertension. This is her third visit in the past month for similar symptoms. Her objective work-up has been unremarkable for acute pathology in the past. Her symptoms are much improved with hydromorphone today. She is tolerating liquid feeds without difficulty. On reassessment, resting comfortably in her stretcher, and in no acute distress. Given improvement in symptoms, similarity to prior presentations, benign examination, do not see an indication for advanced imaging, especially given so close to her prior presentations. Patient was counseled on need to engage friends or family to assist in transport to outpatient physicians offices. We also talked about downloading applications, such as lift or uber onto a smart phone device, to facilitate transportation. Patient observed in this department for hours without clinical decompensation. Critical care attestation.: If time is entered above; I have spent that time in minutes in the direct care of this critically ill patient, excluding procedure time. ED Disposition Clinical Impression: Abdominal pain, History of nausea and vomiting Disposition: DC-01 TO HOME OR SELFCARE Is pt being admited?: No Does the pt Need Aspirin: No Condition: Stable Instructions: Abdominal Pain (ED) Additional Instructions: Avoid consumption of Motrin, ibuprofen, Naprosyn, Aleve, heavy and/or spicy foods. Minimize consumption of alcohol, and avoid consumption of narcotics/opioids. Recommend that the patient follow-up with a primary care doctor or batch dumper within the next 2 weeks. Recommend that patient follow-up with a blending kettle tender within the next 7 to 10 days. Patient may download applications on her smart phone device, such as [employer] or uber, or contact local [employer] to assist in arranging transportation to outpatient doctors appointments. In addition, the patient may ask friends, family members, relatives, children, etc. to assist with transportation to appointments. The emergency room is open 24 hours a day, 7 days a week and it never closes. Please return to the emergency room right away with new, worsened or different symptoms, or symptoms not present on the initial emergency room evaluation. Referrals: [facility] [Provider Group] - 3-5 Days [facility] [Provider Group] - 3-5 Days CUCO MCGARRY MD [Staff Physician] - 3-5 Days [facility] [Provider Group] - 3-5 Days
[2020-01-16 04:15] VITALS: BP 185/82
== END 2020-01-16 05:10 | disposition home or self-care (01) ==
LOC: ED 22:37
DX: R10.13 Epigastric pain (principal); R11.2 Nausea with vomiting, unspecified; I10 Essential (primary) hypertension; I25.2 Old myocardial infarction; J44.1 Chronic obstructive pulmonary disease with (acute) exacerbation; F17.200 Nicotine dependence, unspecified, uncomplicated; Z90.710 Acquired absence of both cervix and uterus; Z98.890 Other specified postprocedural states; Z79.899 Other long term (current) drug therapy; Z88.0 Allergy status to penicillin; Z88.6 Allergy status to analgesic agent; Z95.818 Presence of other cardiac implants and grafts; Z90.49 Acquired absence of other specified parts of digestive tract
CPT/HCPCS: 36415; 71045; 80053; 81001; 82550; 83690; 83735; 84484; 85025; 85610; 85730; 93005; 93010; 96372; 99284; J1170; Q0162

== ENCOUNTER 2020-05-28 15:06 | Emergency (ER) | payer BC ==
[2020-05-28] MEDS ORDERED: ONDANSETRON 4 MG/2 ML INJ IV ONE (16:51)
[2020-05-28] MEDS ORDERED: MORPHINE 4 MG/1 ML INJ IV ONE ×3 (16:51→20:14)
--- NOTE | 2020-05-28 16:51 | Emergency Department Report ---
ED General Adult HPI - General Chief complaint: Abdominal Pain Stated complaint: ABD PAIN Time Seen by Provider: 05/28/20 16:18 Source: patient Mode of arrival: Stretcher Limitations: No Limitations - History of Present Illness Initial comments: The patient presents to the emergency department with a chief complaint of abdominal pain that started 2 days ago. Patient states the pain is located in the upper aspect of her abdomen is sharp in nature. Patient denies any radiation of chest pain. Patient states that she has had dark stool for the last 2 days as well. Patient endorses nausea but no vomiting. The chest pain and abdominal pain have been continuous for 3 days. -: Sudden Location: abdomen Radiation: non-radiation Severity scale (0 -10): 8 Quality: sharp Consistency: constant Improves with: none Worsens with: none Associated Symptoms: denies other symptoms Treatments Prior to Arrival: none - Related Data Previous Rx's Medication Instructions Recorded Last Taken Type Acetaminophen [Acetaminophen TAB] 2 tab PO Q6H PRN #15 tablet 10/01/19 Unknown Rx Albuterol Mdi (or & Nicu Only) 2 puff IH QID PRN #1 unit 10/01/19 Unknown Rx [ProAir HFA Inhaler] Amiodarone [Cordarone 200 MG TAB] 200 mg PO QDAY #30 tablet 10/01/19 Unknown Rx Apixaban [Eliquis] 2.5 mg PO Q12HR #60 tablet 10/01/19 Unknown Rx Aspirin EC [Halfprin EC] 81 mg PO QDAY #30 tablet 10/01/19 Unknown Rx Metoprolol [Lopressor TAB] 50 mg PO Q8HR #90 tablet 10/01/19 Unknown Rx Ticagrelor [Brilinta] 90 mg PO BID #60 tablet 10/01/19 Unknown Rx DOXYCYCLINE Hyclate [Vibramycin 100 mg PO BID #5 capsule 10/13/19 Unknown Rx CAP] cephALEXin [Keflex] 500 mg PO Q6HR #10 capsule 10/13/19 Unknown Rx Dicyclomine [Bentyl] 20 mg PO Q6H PRN #24 tablet 12/24/19 Unknown Rx Famotidine [Pepcid] 20 mg PO Q12H #60 tablet 01/04/20 Unknown Rx Ondansetron [Zofran ODT TAB] 4 mg PO Q8HR PRN #15 tab.rapdis 01/04/20 Unknown Rx Pantoprazole [Protonix TAB] 40 mg PO QDAY #30 tablet 01/04/20 Unknown Rx Potassium Chloride 20 meq PO QDAY 15 Days #15 packet 01/04/20 Unknown Rx Dicyclomine [Bentyl] 10 mg PO QID PRN #20 capsule 01/16/20 Unknown Rx Famotidine [Pepcid] 20 mg PO BID #60 tablet 01/16/20 Unknown Rx Lexus Root [Lexus] 250 mg PO QID PRN #30 capsule 01/16/20 Unknown Rx Metoclopramide [Reglan] 10 mg PO QID PRN #30 tablet 01/16/20 Unknown Rx Promethazine HCl [Phenergan SUPPOS] 25 mg RC Q6HR PRN #15 supp.rect 01/16/20 Unknown Rx Allergies Allergy/AdvReac Type Severity Reaction Status Date / Time codeine Allergy Vomiting Verified 05/28/20 15:57 Penicillins Allergy Hives Verified 05/28/20 15:57 pentazocine [From Talwin] Allergy Nausea Verified 05/28/20 15:57 Morpholine Analogues AdvReac Vomiting Verified 05/28/20 15:57 ED Review of Systems ROS: Stated complaint: ABD PAIN Other details as noted in HPI Comment: All other systems reviewed and negative Constitutional: denies: chills, fever Eyes: denies: eye pain, eye discharge, vision change ENT: denies: ear pain, throat pain Respiratory: denies: cough, shortness of breath, wheezing Cardiovascular: denies: chest pain, palpitations Endocrine: no symptoms reported Gastrointestinal: abdominal pain. denies: nausea, diarrhea Genitourinary: denies: urgency, dysuria, discharge Musculoskeletal: denies: back pain, joint swelling, arthralgia Skin: denies: rash, lesions Neurological: denies: headache, weakness, paresthesias Psychiatric: denies: anxiety, depression Hematological/Lymphatic: denies: easy bleeding, easy bruising ED Past Medical Hx - Past Medical History Previous Medical History?: Yes Hx Hypertension: Yes Hx Heart Attack/AMI: Yes (NSTEMI [id number]. Cath and bare metal stent) Hx Congestive Heart Failure: No Hx Diabetes: No Hx Deep Vein Thrombosis: No Hx Asthma: Yes Hx COPD: Yes - Surgical History Past Surgical History?: Yes Hx Coronary Stent: Yes (Pt unsure) Hx Pacemaker: Yes Hx Internal Defibrillator: No Hx Appendectomy: Yes Additional Surgical History: neck surgery, neck fracture, hysterectomy - Social History Smoking Status: Current Every Day Smoker Substance Use Type: None - Medications Home Medications: Home Medications Medication Instructions Recorded Confirmed Last Taken Type Acetaminophen [Acetaminophen TAB] 2 tab PO Q6H PRN #15 tablet 10/01/19 10/08/19 Unknown Rx Albuterol Mdi (or & Nicu Only) 2 puff IH QID PRN #1 unit 10/01/19 10/08/19 Unknown Rx [ProAir HFA Inhaler] Amiodarone [Cordarone 200 MG TAB] 200 mg PO QDAY #30 tablet 10/01/19 10/08/19 Unknown Rx Apixaban [Eliquis] 2.5 mg PO Q12HR #60 tablet 10/01/19 10/08/19 Unknown Rx Aspirin EC [Halfprin EC] 81 mg PO QDAY #30 tablet 10/01/19 10/08/19 Unknown Rx Metoprolol [Lopressor TAB] 50 mg PO Q8HR #90 tablet 10/01/19 10/08/19 Unknown Rx Ticagrelor [Brilinta] 90 mg PO BID #60 tablet 10/01/19 10/08/19 Unknown Rx DOXYCYCLINE Hyclate [Vibramycin 100 mg PO BID #5 capsule 10/13/19 Unknown Rx CAP] cephALEXin [Keflex] 500 mg PO Q6HR #10 capsule 10/13/19 Unknown Rx Dicyclomine [Bentyl] 20 mg PO Q6H PRN #24 tablet 12/24/19 Unknown Rx Famotidine [Pepcid] 20 mg PO Q12H #60 tablet 01/04/20 Unknown Rx Ondansetron [Zofran ODT TAB] 4 mg PO Q8HR PRN #15 tab.rapdis 01/04/20 Unknown Rx Pantoprazole [Protonix TAB] 40 mg PO QDAY #30 tablet 01/04/20 Unknown Rx Potassium Chloride 20 meq PO QDAY 15 Days #15 packet 01/04/20 Unknown Rx Dicyclomine [Bentyl] 10 mg PO QID PRN #20 capsule 01/16/20 Unknown Rx Famotidine [Pepcid] 20 mg PO BID #60 tablet 01/16/20 Unknown Rx Lexus Root [Lexus] 250 mg PO QID PRN #30 capsule 01/16/20 Unknown Rx Metoclopramide [Reglan] 10 mg PO QID PRN #30 tablet 01/16/20 Unknown Rx Promethazine HCl [Phenergan SUPPOS] 25 mg RC Q6HR PRN #15 supp.rect 01/16/20 Unknown Rx ED Physical Exam - General Limitations: No Limitations General appearance: alert, in no apparent distress - Head Head exam: Present: atraumatic, normocephalic - Eye Eye exam: Present: normal appearance, PERRL, EOMI - ENT ENT exam: Present: mucous membranes moist - Neck Neck exam: Present: normal inspection - Respiratory Respiratory exam: Present: normal lung sounds bilaterally. Absent: respiratory distress - Cardiovascular Cardiovascular Exam: Present: regular rate, normal rhythm. Absent: systolic murmur, diastolic murmur, rubs, gallop - GI/Abdominal GI/Abdominal exam: Present: soft, tenderness (ttp epigastric region), normal bowel sounds - Rectal Rectal exam: Present: heme (-) stool, other (Chaperoned by Nurse Shari Pettit) - Extremities Exam Extremities exam: Present: normal inspection - Back Exam Back exam: Present: normal inspection - Neurological Exam Neurological exam: Present: alert, oriented X3 - Psychiatric Psychiatric exam: Present: normal affect, normal mood - Skin Skin exam: Present: warm, dry, intact, normal color. Absent: rash ED Course Vital Signs 05/28/20 05/28/20 05/28/20 15:10 17:15 17:25 Temperature 97.8 F 97.9 F Pulse Rate 80 71 Respiratory 16 20 Rate Blood Pressure 153/104 125/89 O2 Sat by Pulse 98 97 Oximetry 05/28/20 05/28/20 05/28/20 17:30 17:45 18:39 Temperature Pulse Rate 67 69 71 Respiratory 16 15 Rate Blood Pressure 140/76 152/93 152/93 O2 Sat by Pulse 97 95 Oximetry 05/28/20 05/28/20 18:45 19:20 Temperature Pulse Rate 67 71 Respiratory 11 L 24 Rate Blood Pressure 142/90 155/92 O2 Sat by Pulse 95 98 Oximetry ED Medical Decision Making - Lab Data Result diagrams: 05/28/20 18:05 05/28/20 18:05 Lab Results 05/28/20 05/28/20 05/28/20 Range/Units 18:05 18:05 18:05 WBC 8.1 (4.5-11.0) K/mm3 RBC 4.46 (3.65-5.03) M/mm3 Hgb 14.9 H (10.1-14.3) gm/dl Hct 43.8 H (30.3-42.9) % MCV 98 H (79-97) fl MCH 34 H (28-32) pg MCHC 34 (30-34) % RDW 15.6 H (13.2-15.2) % Plt Count 262 (140-440) K/mm3 Lymph % (Auto) 35.0 (13.4-35.0) % [place] % (Auto) 10.7 H (0.0-7.3) % Eos % (Auto) 0.6 (0.0-4.3) % Baso % (Auto) 1.0 (0.0-1.8) % Lymph # 2.8 (1.2-5.4) K/mm3 [place] # 0.9 H (0.0-0.8) K/mm3 Eos # 0.1 (0.0-0.4) K/mm3 Baso # 0.1 (0.0-0.1) K/mm3 Seg Neutrophils % 52.7 (40.0-70.0) % Seg Neutrophils # 4.3 (1.8-7.7) K/mm3 PT 15.4 H (12.2-14.9) Sec. INR 1.25 H (0.87-1.13) APTT 30.2 (24.2-36.6) Sec. Sodium 140 (137-145) mmol/L Potassium 3.5 L (3.6-5.0) mmol/L Chloride 108.0 H (98-107) mmol/L Carbon Dioxide 15 L (22-30) mmol/L Anion Gap 21 mmol/L BUN 26 H (7-17) mg/dL Creatinine 0.9 (0.7-1.2) mg/dL Estimated GFR > 60 ml/min BUN/Creatinine Ratio 29 % Glucose 108 H (65-100) mg/dL Calcium 9.2 (8.4-10.2) mg/dL Total Bilirubin 0.50 (0.1-1.2) mg/dL AST 17 (5-40) units/L ALT 12 (7-56) units/L Alkaline Phosphatase 136 H (35-129) units/L Troponin T (0.00-0.029) ng/mL Total Protein 7.1 (6.3-8.2) g/dL Albumin 3.9 (3.9-5) g/dL Albumin/Globulin Ratio 1.2 % Lipase 6 L (13-60) units/L Urine Color (Yellow) Urine Turbidity (Clear) Urine pH (5.0-7.0) Ur Specific Stur[place] (1.003-1.030) Urine Protein (Negative) mg/dL Urine Glucose (UA) (Negative) mg/dL Urine Ketones (Negative) mg/dL Urine Blood (Negative) Urine Nitrite (Negative) Urine Bilirubin (Negative) Urine Urobilinogen (<2.0) mg/dL Ur Leukocyte Esterase (Negative) Urine WBC (Auto) (0.0-6.0) /HPF Urine RBC (Auto) (0.0-6.0) /HPF U Epithel Cells (Auto) (0-13.0) /HPF Urine Bacteria (Auto) (Negative) /HPF Urine Mucus /HPF 05/28/20 05/28/20 Range/Units 18:05 Unknown WBC (4.5-11.0) K/mm3 RBC (3.65-5.03) M/mm3 Hgb (10.1-14.3) gm/dl Hct (30.3-42.9) % MCV (79-97) fl MCH (28-32) pg MCHC (30-34) % RDW (13.2-15.2) % Plt Count (140-440) K/mm3 Lymph % (Auto) (13.4-35.0) % [place] % (Auto) (0.0-7.3) % Eos % (Auto) (0.0-4.3) % Baso % (Auto) (0.0-1.8) % Lymph # (1.2-5.4) K/mm3 [place] # (0.0-0.8) K/mm3 Eos # (0.0-0.4) K/mm3 Baso # (0.0-0.1) K/mm3 Seg Neutrophils % (40.0-70.0) % Seg Neutrophils # (1.8-7.7) K/mm3 PT (12.2-14.9) Sec. INR (0.87-1.13) APTT (24.2-36.6) Sec. Sodium (137-145) mmol/L Potassium (3.6-5.0) mmol/L Chloride (98-107) mmol/L Carbon Dioxide (22-30) mmol/L Anion Gap mmol/L BUN (7-17) mg/dL Creatinine (0.7-1.2) mg/dL Estimated GFR ml/min BUN/Creatinine Ratio % Glucose (65-100) mg/dL Calcium (8.4-10.2) mg/dL Total Bilirubin (0.1-1.2) mg/dL AST (5-40) units/L ALT (7-56) units/L Alkaline Phosphatase (35-129) units/L Troponin T < 0.010 (0.00-0.029) ng/mL Total Protein (6.3-8.2) g/dL Albumin (3.9-5) g/dL Albumin/Globulin Ratio % Lipase (13-60) units/L Urine Color Alethea (Yellow) Urine Turbidity Clear (Clear) Urine pH 5.0 (5.0-7.0) Ur Specific [place] 1.048 H (1.003-1.030) Urine Protein 30 mg/dl (Negative) mg/dL Urine Glucose (UA) Neg (Negative) mg/dL Urine Ketones Neg (Negative) mg/dL Urine Blood Neg (Negative) Urine Nitrite Neg (Negative) Urine Bilirubin Neg (Negative) Urine Urobilinogen < 2.0 (<2.0) mg/dL Ur Leukocyte Esterase Neg (Negative) Urine WBC (Auto) 2.0 (0.0-6.0) /HPF Urine RBC (Auto) 1.0 (0.0-6.0) /HPF U Epithel Cells (Auto) 3.0 (0-13.0) /HPF Urine Bacteria (Auto) 1+ (Negative) /HPF Urine Mucus 2+ /HPF - EKG Data -: EKG Interpreted by Me Rate: normal - EKG Data 05/28/20 21:13 Paced rhythm - Radiology Data Radiology results: report reviewed - Medical Decision Making Results discussed with patient Patient offered admission but she politely declined Critical care attestation.: If time is entered above; I have spent that time in minutes in the direct care of this critically ill patient, excluding procedure time. ED Disposition Clinical Impression: Abdominal pain, Chest pain Disposition: DC-01 TO HOME OR SELFCARE Is pt being admited?: No Does the pt Need Aspirin: No Condition: Stable Instructions: Abdominal Pain (ED), Chest Pain (ED) Additional Instructions: return if worse Referrals: MARLY BYERS MD [Staff Physician] - 3-5 Days Time of Disposition: 21:14
[2020-05-28 18:07] LABS: Bacteria,Urine 1+ /HPF (Negative); Bilirubin,Urine NEG (Negative); Blood,Urine NEG (Negative); Color,Urine Amber (Yellow); Mucus,Urine 2+ /HPF; Urobilinogen,Urine < 2.0 mg/dL (<2.0)
[2020-05-28 18:38] LABS: Basophils # (Auto) 0.1 K/mm3 (0.0-0.1); Eosinophils # (Auto) 0.1 K/mm3 (0.0-0.4); Eosinophils % (Auto) 0.6 % (0.0-4.3); Hematocrit 43.8 % (30.3-42.9); Hemoglobin 14.9 gm/dl (10.1-14.3); Lymphocytes # (Auto) 2.8 K/mm3 (1.2-5.4); Mean Corpuscular HGB Conc 34 % (30-34); Mean Corpuscular Volume 98 fl (79-97); Monocytes # (Auto) 0.9 K/mm3 (0.0-0.8); Monocytes % (Auto) 10.7 % (0.0-7.3); Platelet Count 262 K/mm3 (140-440); Red Blood Count 4.46 M/mm3 (3.65-5.03); Red Cell Distribution Width 15.6 % (13.2-15.2)
[2020-05-28 19:03] LABS: Alanine Aminotransferase 12 units/L (7-56); Albumin 3.9 g/dL (3.9-5); BUN/Creatinine Ratio 29; Blood Urea Nitrogen 26 mg/dL (7-17); Calcium 9.2 mg/dL (8.4-10.2); Hemolysis Index 71
[2020-05-28 19:33] LABS: INR 1.25 (0.87-1.13)
[2020-05-28 19:34] LABS: Partial Thromboplastin Time 30.2 Sec. (24.2-36.6)
--- NOTE | 2020-05-28 20:42 | Cat Scan Report ---
CT abdomen pelvis w con INDICATION / CLINICAL INFORMATION: MAIN. Abdominal and pelvic pain TECHNIQUE: All CT scans at this location are performed using CT dose reduction for ALARA by means of automated e xposure control. COMPARISON: 02/12/2020 FINDINGS: A 2.3 cm soft tissue mass in the right lung base is unchanged in appearance from the prior examinatio n. No free fluid is seen in the abdomen. Diffuse atherosclerotic changes present without evidence of an aneurysm. Mild intrahepatic biliary dilatation is present most likely secondary to prior cholecyst ectomy. The spleen, kidneys, pancreas and adrenal glands are normal. No enlarged mesenteric or retrop eritoneal lymph nodes are seen. In the pelvis, no free fluid is seen. No enlarged lymph nodes are identified. Changes of diverticulos is are present. The bladder is minimally distended. The appendix is not well visualized. Other than d egenerative change in the spine, no significant skeletal abnormality is seen. IMPRESSION: 1. No definite acute findings in the abdomen or pelvis 2. Mild intrahepatic biliary dilatation is most likely secondary to prior cholecystectomy 3. 2.3 cm soft tissue mass in the right lung base is unchanged in appearance from prior examination d ated 02/12/2020 4. Diverticulosis Signer Name: Thompson Ramires MD FACR Signed: 05/28/2020 8:38 PM Workstation Name: [id number]
[2020-05-28 21:39] VITALS: BP 171/93
== END 2020-05-28 21:40 | disposition home or self-care (01) ==
LOC: ED 15:06
DX: R10.9 Unspecified abdominal pain (principal); R07.89 Other chest pain; I10 Essential (primary) hypertension; I25.2 Old myocardial infarction; F17.200 Nicotine dependence, unspecified, uncomplicated; Z90.710 Acquired absence of both cervix and uterus; Z98.890 Other specified postprocedural states; Z79.82 Long term (current) use of aspirin; Z79.899 Other long term (current) drug therapy; Z88.0 Allergy status to penicillin; Z88.6 Allergy status to analgesic agent; Z88.8 Allergy status to other drugs, medicaments and biological substances
CPT/HCPCS: 36415; 74177; 80053; 81001; 83690; 84484; 85025; 85610; 85730; 93005; 96374; 96375; 96376; 99284; J2270; J2405; Q9967